=== PATIENT | male | born 1945 | race Hispanic/Latino ===

== ENCOUNTER 2021-04-14 11:29 | Inpatient (IN) | payer OTHER ==
[2021-04-14 12:15] LABS: Absolute Lymphocytes (CBC) 1.4 K/uL (0.7-4.9); Basophils % 0.6 % (0-1.3); Hematocrit 43.2 % (39.6-49.0); Lymphocytes % 16.5 % (15.3-44.8); MPV 7.9 fL (7.6-11.3); RBC Red Blood Cell Count 4.91 M/uL (4.33-5.43)
[2021-04-14 12:22] LABS: Protime INR 1.2
--- NOTE | 2021-04-14 12:25 | RAD REPORT ---
EXAM DESCRIPTION: RAD - Chest Single View - 04/14/2021 12:18 pm CLINICAL HISTORY: COPD;Dyspnea COMPARISON: Chest Pa And Lat (2 Views) dated 02/03/2021; Chest Pa And Lat (2 Views) dated 02/10/2018; Chest Pa And Lat (2 Views) dated 03/21/2017; Abdomen Pelvis W Contrast dated 11/16/2015 FINDINGS: Lines: None. Lungs: Next emphysema and interstitial lung disease with increasing interstitial and airspace disease bilaterally. Pleural: No significant pleural effusions or pneumothorax. Cardiac: Cardiomegaly . Bones: Right shoulder arthroplasty . Other: IMPRESSION: Increasing bilateral reticulonodular opacities concerning for pneumonia superimposed upo n a background of emphysema.
[2021-04-14] MEDS ORDERED: LEVALBUTEROL 1.25 MG/3 ML NEB ONE (12:34)
[2021-04-14] MEDS ORDERED: METHYLPREDNISOLONE 125 MG INJ ONE (12:34)
[2021-04-14 12:35] LABS: BUN Blood Urea Nitrogen 20 mg/dL (7-18); Bicarbonate 22 mmol/L (21-32); Ferritin 85.3 ng/mL (26-388); Glucose Level 150 mg/dL (74-106); Potassium 3.7 mmol/L (3.5-5.1); Sodium Level 140 mmol/L (136-145); Troponin (Emerg Dept Use Only) < 0.02 ng/mL (0.0-0.045)
[2021-04-14] MEDS ORDERED: MAGNESIUM SULFATE 1 gm IVPB 1 GM/100 ML BAG IV ONE (12:35)
[2021-04-14] MEDS ORDERED: PIPERACIL/TAZO 3.375 GM VIAL IV ONE (13:30)
[2021-04-14] MEDS ORDERED: NA CHLORIDE 0.9% 0 ML ONE (13:30)
[2021-04-14] MEDS ORDERED: NA CHLORIDE 0.9% 100 ML ONE (13:31)
--- NOTE | 2021-04-14 15:17 | EDPHYS ---
Physician Documentation [facility] Name: Gonzalo Galvez Age: 75 yrs Sex: Male : 1945 Arrival Date: 04/14/2021 Time: 11:31 Bed 26 Private MD: ED Physician Dung Barragan HPI: 04/14 11:51 This 75 yrs old Male presents to ER via Unassigned with complaints of rn Shortness Of Breath, COPD Exacerbation. 11:51 The patient has shortness of breath at rest, with light activity. Onset: The rn symptoms/episode began/occurred 3 day(s) ago. Duration: The symptoms are continuous. The patient's shortness of breath is aggravated by exertion, light activity, is alleviated by rest, sitting up, application of supplemental oxygen. Associated signs and symptoms: Pertinent positives: non-productive cough, Pertinent negatives: dizziness, fever, hemoptysis, loss of consciousness. Severity of symptoms: At their worst the symptoms were moderate in the emergency department the symptoms are unchanged. The patient has experienced similar episodes in the past. The patient has not recently seen a physician. Patient and family report a few days of increased shortness of breath, worse with exertion, cough. Denies fever or trauma. Denies chest pain or abdominal pain. Not on home oxygen. Triage states low oxygen in the 60s.. Historical: - Allergies: 11:38 No Known Allergies; ll1 - PMHx: 11:38 copd; ll1 11:54 pulmonary HTN; ll1 - PSHx: 11:38 R shoulder SX; ll1 - Immunization history:: Client reports receiving the 2nd dose of the Covid vaccine. - Social history:: Smoking status: Patient/guardian denies using tobacco, Stopped _ months ago 4. - Family history:: not pertinent. - Hospitalizations: : No recent hospitalization is reported. ROS: 11:51 Constitutional: Negative for fever, chills, and weight loss, Eyes: Negative for injury, rn pain, redness, and discharge, ENT: Negative for injury, pain, and discharge, Neck: Negative for injury, pain, and swelling, Cardiovascular: Negative for chest pain, palpitations, and edema, Respiratory: Positive for shortness of breath and cough Abdomen/GI: Negative for abdominal pain, nausea, vomiting, diarrhea, and constipation, Back: Negative for injury and pain, : Negative for injury, bleeding, discharge, and swelling, MS/Extremity: Negative for injury and deformity, Skin: Negative for injury, rash, and discoloration, Neuro: Negative for headache, weakness, numbness, tingling, and seizure. 11:51 All other systems are negative. Exam: 11:51 Constitutional: Thin male, sitting upright in wheelchair, mild tachypnea Head/Face: rn Normocephalic, atraumatic. Eyes: Periorbital areas with no swelling, redness, or edema. Cardiovascular: Tachycardic, regular. Respiratory: Mild tachypnea with faint expiratory wheezing. Abdomen/GI: Soft, nontender Skin: Warm, dry MS/ Extremity: Pulses equal, no cyanosis. Neurovascular intact. Full, normal range of motion. Equal circumference. Neuro: Awake and alert, GCS 15 12:23 ECG was reviewed by the Attending Physician. rn Vital Signs: 11:52 BP 125 / 72; Pulse 100; Resp 30; Temp 96.8; Pulse Ox 64% ; Pain 0/10; ll1 14:00 BP 118 / 67; Pulse 57; Resp 24; Temp 97.0(TE); Pulse Ox 85% on 2 lpm NC; kh1 15:00 BP 142 / 81; Pulse 59; Resp 23; Pulse Ox 89% on 2 lpm NC; kh1 20:03 BP 146 / 81; Pulse 80; Resp 20 S; Pulse Ox 92% on 4 lpm NC; bb 20:30 BP 137 / 84; Pulse 89; Resp 20; Temp 97.5(O); Pulse Ox 97% ; cc4 11:52 O2 sat 64%-73% RA. O2 3L NC applied, sat up to 84%. Dr. Barragan and nurse at bedside. ll1 MDM: 11:38 Patient medically screened. rn 15:14 Differential diagnosis: Bronchitis Chronic Obstructive Pulmonary Disease pneumonia, rn Pneumothorax pulmonary edema, reactive airway disease, Sepsis. Data reviewed: vital signs, nurses notes, lab test result(s), EKG, radiologic studies, plain films, and as a result, I will admit patient. Data interpreted: ekg monitor tech: rate is 100 beats/min, rhythm is normal sinus rhythm, regular, with no ectopy, Interpretation: normal rate, normal rhythm, Pulse oximetry: on room air is 64 %. Interpretation: hypoxia. Plan: O2 by NC applied. Test interpretation: by ED physician or midlevel provider: ECG, plain radiologic studies, Chest x-ray shows bilateral interstitial infiltrate superimposed on COPD. Counseling: I had a detailed discussion with the patient and/or guardian regarding: the historical points, exam findings, and any diagnostic results supporting the discharge/admit diagnosis, lab results, radiology results, the need for further work-up and treatment in the hospital. Response to treatment: the patient's symptoms have markedly improved after treatment, and as a result, I will admit patient. Admission orders: after a detailed discussion of the patient's condition and case, the admit orders are written by me. ED course: Patient feels much improved. Breathing much better. Will admit for interstitial pneumonia. Hypoxemia has improved after nebulizer treatment and steroids.. 04/14 11:47 Order name: BMP rn 04/14 11:47 Order name: Blood Culture Adult (2) rn 04/14 11:47 Order name: C-Reactive Protein rn 04/14 11:47 Order name: CBC with Diff rn 04/14 11:47 Order name: D-Dimer rn 04/14 11:47 Order name: Ferritin; Complete Time: 12:46 rn 04/14 11:47 Order name: Flu; Complete Time: 13:51 rn 04/14 11:47 Order name: Lactate; Complete Time: 12:46 rn 04/14 11:47 Order name: PT-INR; Complete Time: 12:26 rn 04/14 11:47 Order name: Procalcitonin; Complete Time: 13:05 rn 04/14 11:47 Order name: Ptt, Activated; Complete Time: 12:26 rn 04/14 11:47 Order name: Strep; Complete Time: 12:46 rn 04/14 11:47 Order name: Troponin (emerg Dept Use Only); Complete Time: 12:46 rn 04/14 11:47 Order name: CXR XRAY; Complete Time: 12:26 rn 04/14 11:47 Order name: EKG; Complete Time: 11:47 rn 04/14 11:47 Order name: Cardiac monitoring; Complete Time: 12:04 rn 04/14 11:47 Order name: Basic Metabolic Panel; Complete Time: 12:46 EDMS 04/14 11:47 Order name: Blood Culture EDWA 04/14 11:47 Order name: C-Reactive Protein; Complete Time: 12:46 EDMS 04/14 11:47 Order name: CBC with Automated Diff; Complete Time: 12:23 EDMS 04/14 11:47 Order name: D-Dimer; Complete Time: 12:26 EDMS 04/14 12:43 Order name: Throat Culture EDMS 04/14 14:47 Order name: SARS-COV-2 RT PCR; Complete Time: 14:52 EDMS 04/14 17:18 Order name: CT EDMS 04/14 17:20 Order name: Lactate Sepsis 2 HR Follow-up EDMS 04/14 11:47 Order name: Droplet/Contact Precautions; Complete Time: 12:04 rn 04/14 11:47 Order name: EKG - Nurse/Tech; Complete Time: 12:04 rn 04/14 11:47 Order name: IV Start; Complete Time: 12:05 rn 04/14 11:47 Order name: Labs collected and sent; Complete Time: 12:05 rn 04/14 11:47 Order name: O2 Per Protocol; Complete Time: 12:05 rn 04/14 11:47 Order name: O2 Sat Monitoring; Complete Time: 12:05 rn EC:23 Rate is 75 beats/min. Rhythm is regular. QRS [place] is Normal. NC interval is prolonged rn at 212 msec. QRS interval is normal. QT interval is prolonged at 502 msec. No Q waves. T waves are Inverted in leads V1, V2, V3. No ST changes noted. Clinical impression: NSR w/ Non-specific ST/T Changes and 1st degree heart block. Interpreted by me. Reviewed by me. Administered Medications: 12:24 Drug: Magnesium Sulfate 1 grams Route: IVPB; Infused Over: 1 hrs; Site: right kh1 antecubital; 20:30 Follow up: Response: No adverse reaction cc4 12:26 Drug: SOLU-Medrol (methylPrednisoLONE) 125 mg Route: IVP; Site: right antecubital; kh1 12:26 Drug: Xopenex (levalbuterol) (3) 1.25 mg Route: Inhalation; kh1 13:00 Drug: Zosyn (piperacillin-tazobactam) 3.375 grams Route: IVPB; Infused Over: 60 mins; oh Site: right antecubital; 20:30 Follow up: Response: No adverse reaction cc4 Disposition: 15:14 Critical Care:. rn Disposition Summary: 04/14/21 15:16 Hospitalization Ordered Hospitalization Status: Inpatient Admission rn Provider: José Luis Lobo rn [facility] rn Condition: Stable rn Problem: new rn Symptoms: have improved rn Bed/Room Type: Standard rn Room Assignment: 427(04/14/21 18:59) tt3 Diagnosis - Pneumonia, unspecified organism rn - Hypoxemia rn - COPD/ Chronic obstructive pulmonary disease with acute lower respiratory infection rn Forms: - Medication Reconciliation Form rn - SBAR form saddle and harness maker time excluding procedures: 15:14 Critical care time: Bedside Care: 30 minutes, Consultation: 5 minutes. Total time: 35 rn minutes Signatures: Dispatcher [employer] EDMS Dung Barragan MD MD rn Lewis, Lynsay RN RN [facility] Cal Lopez tt3 Antonina Gustafson 1 Dio Blood RN RN Brooke Valentin RN cc4 Corrections: (The following items were deleted from the chart) 13:27 11:47 CORONAVIRUS+MR.LAB.BRZ ordered. EDWA EDWA 18:59 15:16 rn tt3
--- NOTE | 2021-04-14 15:17 | ER ---
Nurse's Notes [facility] Name: Gonzalo Galvez Age: 75 yrs Sex: Male : 1945 Arrival Date: 04/14/2021 Time: 11:31 Bed 26 Private MD: Diagnosis: Pneumonia, unspecified organism;Hypoxemia;COPD/ Chronic obstructive pulmonary disease with acute lower respiratory infection Presentation: 04/14 11:52 Chief complaint: Patient states: SOB for 1 week. O2 sat 60% at home. No known fever. ll1 Coronavirus screen: Vaccine status: Patient reports receiving the 2nd dose of the covid vaccine. Client denies travel out of the [place] in the last 14 days. cough unrelated to allergies, difficulty breathing, fatigue, shortness of breath, Client presents with at least one sign or symptom that may indicate coronavirus-19. Standard/surgical mask placed on the client. Ebola Screen: Patient denies travel to an Ebola-affected area in the 21 days before illness onset. Initial Sepsis Screen: Does the patient meet any 2 criteria? RR > 20 per min. HR > 90 bpm. Yes Does the patient have a suspected source of infection? Yes: Productive cough/pneumonia. Risk Assessment: Do you want to hurt yourself or someone else? Patient reports no desire to harm self or others. Onset of symptoms was April 07, 2021. 11:52 Method Of Arrival: Ambulatory [facility] 11:52 Acuity: TYSON 2 ll1 Triage Assessment: 12:30 Respiratory: Reports shortness of breath Onset: The symptoms/episode began/occurred kh1 gradually, the patient has moderate shortness of breath. Historical: - Allergies: 11:38 No Known Allergies; ll1 - PMHx: 11:38 copd; ll1 11:54 pulmonary HTN; ll1 - PSHx: 11:38 R shoulder SX; ll1 - Immunization history:: Client reports receiving the 2nd dose of the Covid vaccine. - Social history:: Smoking status: Patient/guardian denies using tobacco, Stopped _ months ago 4. - Family history:: not pertinent. - Hospitalizations: : No recent hospitalization is reported. Screenin:29 Abuse screen: Denies threats or abuse. Nutritional screening: No deficits noted. 1 Tuberculosis screening: No symptoms or risk factors identified. Fall Risk None identified. Fall in past 12 months (25 points). No secondary diagnosis (0 pts). IV access (20 points). Ambulatory Aid- None/Bed Rest/Nurse Assist (0 pts). Gait- Normal/Bed Rest/Wheelchair (0 pts). Assessment: 12:27 General: Appears in no apparent distress. uncomfortable, Behavior is calm, cooperative, kh1 appropriate for age. Pain: Denies pain. Cardiovascular: No deficits noted. Reports shortness of breath, Denies chest pain, nausea, vomiting, Rhythm is sinus rhythm. Respiratory: Airway is patent Respiratory effort is even, labored, Respiratory pattern is regular. 13:30 Reassessment: Patient appears in no apparent distress at this time. No changes from [facility] previously documented assessment. Patient and/or family updated on plan of care and expected duration. Pain level reassessed. Patient is alert, oriented x 3, equal unlabored respirations, skin warm/dry/pink. Patient states symptoms have not improved. 15:34 Reassessment: Patient appears in no apparent distress at this time. No changes from [facility] previously documented assessment. Patient and/or family updated on plan of care and expected duration. Pain level reassessed. Patient is alert, oriented x 3, equal unlabored respirations, skin warm/dry/pink. 20:36 Respiratory: cc4 Vital Signs: 11:52 BP 125 / 72; Pulse 100; Resp 30; Temp 96.8; Pulse Ox 64% ; Pain 0/10; ll1 14:00 BP 118 / 67; Pulse 57; Resp 24; Temp 97.0(TE); Pulse Ox 85% on 2 lpm NC; kh1 15:00 BP 142 / 81; Pulse 59; Resp 23; Pulse Ox 89% on 2 lpm NC; kh1 20:03 BP 146 / 81; Pulse 80; Resp 20 S; Pulse Ox 92% on 4 lpm NC; bb 20:30 BP 137 / 84; Pulse 89; Resp 20; Temp 97.5(O); Pulse Ox 97% ; cc4 11:52 O2 sat 64%-73% RA. O2 3L NC applied, sat up to 84%. Dr. Barragan and nurse at bedside. ll1 ED Course: 11:31 Patient arrived in ED. as 11:38 Dung Barragan MD is Attending Physician. rn 11:38 Arm band placed on Patient placed in an exam room, on a stretcher. ll1 11:54 Triage completed. ll1 12:04 Dio Blood, LYNN is Primary Nurse. oh 12:17 CXR XRAY In Process Unspecified. EDMS 12:21 D-Dimer Sent. kh1 12:21 BMP Sent. kh1 12:21 Blood Culture Sent. kh1 12:21 C-Reactive Protein Sent. kh1 12:21 Basic Metabolic Panel Sent. kh1 12:21 Blood Culture Adult (2) Sent. kh1 12:21 C-Reactive Protein Sent. kh1 12:21 D-Dimer Sent. kh1 12:21 Ferritin Sent. kh1 12:21 Flu Sent. kh1 12:21 Lactate Sent. kh1 12:22 PT-INR Sent. kh1 12:22 Procalcitonin Sent. kh1 12:22 Ptt, Activated Sent. kh1 12:22 Strep Sent. kh1 12:22 Troponin (emerg Dept Use Only) Sent. kh1 12:30 Patient has correct armband on for positive identification. Bed in low position. Call [facility] light in reach. Side rails up X 1. Adult w/ patient. environmental monitoring specialist on. Pulse ox on. NIBP on. 13:47 Throat Culture Sent. oh 15:15 José Luis Lobo DO is Hospitalizing Provider. rn 20:30 No provider procedures requiring assistance completed. cc4 20:30 IV is patent, is intact, with fluids infusing freely, cc4 Administered Medications: 12:24 Drug: Magnesium Sulfate 1 grams Route: IVPB; Infused Over: 1 hrs; Site: right [facility] antecubital; 20:30 Follow up: Response: No adverse reaction cc4 12:26 Drug: SOLU-Medrol (methylPrednisoLONE) 125 mg Route: IVP; Site: right antecubital; kh1 12:26 Drug: Xopenex (levalbuterol) (3) 1.25 mg Route: Inhalation; kh1 13:00 Drug: Zosyn (piperacillin-tazobactam) 3.375 grams Route: IVPB; Infused Over: 60 mins; oh Site: right antecubital; 20:30 Follow up: Response: No adverse reaction cc4 Outcome: 15:16 Decision to Hospitalize by Provider. rn 20:30 Condition: stable cc4 20:36 Admitted to Med/surg accompanied by tech, room 427, with oxygen, Report called to jaison Venegas RN. 20:39 Patient left the ED. cc4 Signatures: Dispatcher [employer] EDMS La Nena Nielsen Brenda RN RN Dung Arrington MD MD rn Lewis, Lynsay, RN RN 1 Antonina Gustafson [facility] Brooke Carroll RN RN cc4 Harriott, Oneka, RN RN tn Corrections: (The following items were deleted from the chart) 13:27 12:21 CORONAVIRUS+MR.LAB.BRZ drawn and sent. [address]
--- NOTE | 2021-04-14 16:24 | P.HP ---
Certification for Inpatient Patient admitted to: Inpatient With expected LOS: >2 Midnights Patient will require the following post-hospital care: None Practitioner: I am a practitioner with admitting privileges, knowledge of patient current condition, hospital course, and medical plan of care. Services: Services provided to patient in accordance with Admission requirements found in Title 42 Section 412.3 of the Code of Federal Regulations Patient History Date of Service: 04/14/21 Primary Care Provider: Dr. Marroquin Reason for admission: Shortness of breath History of Present Illness: 75-year-old male with history of pulmonary hypertension, COPD and prior tobacco use. Patient reports increasing shortness of breath over the past month. Over the last several days his shortness of breath has worsened. He reports that the patient was seen by his PCP over the past month. He was sent to cardiology for further evaluation. Patient was diagnosed with pulmonary hypertension. Patient takes metoprolol. He was to see pulmonology for his COPD. Today he got more short of breath. Oxygen saturations were low. He was brought into the ER for further evaluation. Patient denied any nausea, vomiting, chest pain. In the ER patient was found to be hypoxic. Patient required oxygen. Lab reviewed. D-dimer elevated. Procalcitonin negative. Troponin negative. White count 8.2, hemoglobin 14. Platelet count 328. Sodium 140, potassium 3.7. BUN of 20, creatinine 0.84 with a GFR 78. Covid test negative. Chest x-ray showed multi reticular nodular opacities suspected pneumonia noted. COPD changes noted. Patient admitted for treatment. Allergies No Known Allergies Allergy (Unverified 08/15/16 21:34) Home medications list reviewed: Yes - Past Medical/Surgical History Diabetic: No -: Pulmonary hypertension -: COPD -: History of tobacco use -: Right shoulder surgery Psychosocial/ Personal History: Patient lives at home. - Family History Family History: Reviewed- Non-Contributory - Social History Smoking Status: Former smoker Alcohol use: Yes CD- Drugs: No Caffeine use: Yes Place of Residence: Home Review of Systems General: As per HPI Eyes: As per HPI ENT: As per HPI Respiratory: Cough, Shortness of Breath, SOB with Excertion, As per HPI Cardiovascular: Unremarkable Gastrointestinal: Unremarkable Genitourinary: Unremarkable Musculoskeletal: Unremarkable Integumentary: Unremarkable Neurological: Unremarkable Lymphatics: Unremarkable Physical Examination - Studies Laboratory Data (last 24 hrs) 04/14/21 12:00: PT 13.8 H, INR 1.20, APTT 31.3 04/14/21 12:00: WBC 8.20, Hgb 14.0, Hct 43.2, Plt Count 328 04/14/21 12:00: Sodium 140, Potassium 3.7, BUN 20 H, Creatinine 0.94, Glucose 150 H Microbiology Data (last 24 hrs): 04/14/21 12:10 Nasopharnyx Influenza Type A Antigen Screen - Final 04/14/21 12:10 Nasopharnyx Influenza Type B Antigen Screen - Final 04/14/21 12:10 Throat Group A Streptococcus Rapid Screen - Final Assessment and Plan - Plan COVID: Negative Chest x-ray: COMPARISON: Chest Pa And Lat (2 Views) dated 02/03/2021; Chest Pa And Lat (2 Views) dated 02/10/2018; Chest Pa And Lat (2 Views) dated 03/21/2017; Abdomen Pelvis W Contrast dated 11/16/2015 FINDINGS: Lines: None. Lungs: Next emphysema and interstitial lung disease with increasing interstitial and airspace disease bilaterally. Pleural: No significant pleural effusions or pneumothorax. Cardiac: Cardiomegaly . Bones: Right shoulder arthroplasty . IMPRESSION: Increasing bilateral reticulonodular opacities concerning for pneumonia superimposed upon a background of emphysema. CT scan: Pending Physical Exam: GENERAL: The patient is a well-developed, well-nourished, in no apparent distress. Alert and oriented x3. VITAL SIGNS: Reviewed HEENT: Head is normocephalic and atraumatic. Extraocular muscles are intact. Pupils are equal, round, and reactive to light and accommodation. Nares appeared normal. Mouth is well hydrated and without lesions. Mucous membranes are moist. NECK: Supple. No carotid bruits. No lymphadenopathy or thyromegaly. LUNGS: Wheezes bilateral. Currently on 4 L per nasal cannula. HEART: Regular rate and rhythm, no appreciable gallops, rubs, murmurs or extra heart sounds ABDOMEN: Soft, nontender, and nondistended. Positive bowel sounds. No hepatosplenomegaly was noted. EXTREMITIES: Without any cyanosis, clubbing, rash, lesions or peripheral edema. NEUROLOGIC: The patient is oriented to person, place and time. Strength and sensation are grossly intact. Face is symmetric. SKIN: Normal color, turgor and temperature. No ulcerations or rashes noted. Impression: Dyspnea secondary to bilateral reticulonodular pneumonia complicated with COPD exacerbation with hypoxia Pulmonary hypertension History of tobacco use Plan: Dyspnea secondary to bilateral reticulonodular pneumonia complicated with COPD exacerbation with hypoxia: Patient mated for further evaluation and treatment. D-dimer was elevated. Will check CT scan of the chest to evaluate for possible pulmonary embolism. We will continue with IV Zosyn. Continue IV Solu-Medrol. Provide COPD medicationBrovana, albuterol and Atrovent. Pulmonology consulted for further recommendation. DVT prophylaxis in place. Await recommendations by pulmonology. Continue to titrate and wean off oxygen. Recheck chest x-ray tomorrow. Reassess tomorrow. Pulmonary hypertension: Continue with metoprolol. Try to obtain recent ech ocardiogram results from cardiology. History of tobacco use: Patient no longer smokes Code Status: Full Code DVT prophylaxis: Lovenox Advanced Care Planning-30 minutes: Home at discharge Discharge Plan: Home Plan to discharge in: 72 Hours - Advance Directives Does patient have a Living Will: Yes Does patient have a Durable POA for Healthcare: No Time Spent Managing Pts Care (In Minutes): 55
[2021-04-14] MEDS ORDERED: ACETAMINOPHEN 500 MG TAB PO PRN (16:34)
[2021-04-14] MEDS ORDERED: ONDANSETRON 4 MG/2 ML VIAL IV PRN (16:34)
[2021-04-14] MEDS ORDERED: ALBUTEROL 2.5 MG/3 ML NEB SOL NEB PRN (16:34)
[2021-04-14] MEDS: METHYLPREDNISOLONE 125 MG INJ IV SCH (17:00)
--- NOTE | 2021-04-14 17:18 | RAD REPORT ---
EXAM DESCRIPTION: CT - Chest For Pe Angio - 04/14/2021 5:04 pm CLINICAL HISTORY: Chest pain. Multifocal pneumonia, Pulm HTN, Elevated ddimer, COMPARISON: Chest Single View dated 04/14/2021 TECHNIQUE: CT angiogram of the pulmonary arteries was performed with MIP. All CT scans are performed using dose optimization technique as appropriate and may include automated exposure control or mA/KV adjustment according to patient size. FINDINGS: No evidence of pulmonary thromboembolism. No acute aortic finding demonstrated. Significant fibrotic and emphysematous changes are present throughout the lungs. Ground-glass opacity particularly in both lower lobes is present which may represent pulmonary edema or infection. No significant pericardial or pleural fluid. No concerning bony finding. IMPRESSION: No evidence of pulmonary thromboembolism. Significant fibrotic and emphysematous changes are present throughout the lungs. Mild interstitial pu lmonary edema or infection is a possibility.
[2021-04-14] MEDS: ENOXAPARIN 40 MG/0.4 ML SQ SCH (18:00)
[2021-04-14] MEDS: PIPER TAZO 3.375 GM in NA CHLORIDE 0.9% 100 ML IV SCH (18:00)
[2021-04-14] MEDS: METOPROLOL TAR 25 MG TAB PO SCH (18:00)
[2021-04-14] MEDS: ARFORMOTEROL TARTRATE 15 MCG/2 ML VIAL.NEB NEB SCH (20:00)
[2021-04-14] MEDS: FAMOTIDINE 20 MG TAB PO SCH (21:30)
[2021-04-14 23:40] VITALS: BMI 21.4
[2021-04-15] MEDS: PIPER TAZO 3.375 GM in NA CHLORIDE 0.9% 100 ML IV SCH ×3 (00:30→17:39)
[2021-04-15] MEDS: METHYLPREDNISOLONE 125 MG INJ IV SCH ×3 (01:33→17:41)
[2021-04-15] MEDS: METOPROLOL TAR 25 MG TAB PO SCH ×2 (05:41→17:39)
[2021-04-15 06:01] LABS: Absolute Lymphocytes (CBC) 0.6 K/uL (0.7-4.9); Basophils % 0.2 % (0-1.3); Hematocrit 39.9 % (39.6-49.0); Lymphocytes % 14.1 % (15.3-44.8); MPV 7.8 fL (7.6-11.3); RBC Red Blood Cell Count 4.54 M/uL (4.33-5.43)
--- NOTE | 2021-04-15 06:16 | P.PN ---
Subjective Date of Service: 04/15/21 Primary Care Provider: Dr. Marroquin Chief Complaint: Shortness of breath Subjective: Improving Physical Examination - Vital Signs Temperature: 98.2 F Blood Pressure: 160/86 Pulse: 67 Respirations: 16 Pulse Ox (%): 91 - Studies Laboratory Data (last 24 hrs) 04/14/21 12:00: PT 13.8 H, INR 1.20, APTT 31.3 04/14/21 12:00: WBC 8.20, Hgb 14.0, Hct 43.2, Plt Count 328 04/14/21 12:00: Sodium 140, Potassium 3.7, BUN 20 H, Creatinine 0.94, Glucose 150 H Microbiology Data (last 24 hrs): 04/14/21 12:10 Nasopharnyx Influenza Type A Antigen Screen - Final 04/14/21 12:10 Nasopharnyx Influenza Type B Antigen Screen - Final 04/14/21 12:10 Throat Group A Streptococcus Rapid Screen - Final Assessment & Plan Discharge Plan: Home Plan to discharge in: 48 Hours Physician Review Additional Text: COVID: Negative Chest x-ray: COMPARISON: Chest Pa And Lat (2 Views) dated 02/03/2021; Chest Pa And Lat (2 Views) dated 02/10/2018; Chest Pa And Lat (2 Views) dated 03/21/2017; Abdomen Pelvis W Contrast dated 11/16/2015 FINDINGS: Lines: None. Lungs: Next emphysema and interstitial lung disease with increasing interstitial and airspace disease bilaterally. Pleural: No significant pleural effusions or pneumothorax. Cardiac: Cardiomegaly . Bones: Right shoulder arthroplasty . IMPRESSION: Increasing bilateral reticulonodular opacities concerning for pneumonia superimposed upon a background of emphysema. CT Scan: COMPARISON: Chest Single View dated 04/14/2021 TECHNIQUE: CT angiogram of the pulmonary arteries was performed with MIP. All CT scans are performed using dose optimization technique as appropriate and may include automated exposure control or mA/KV adjustment according to patient size. FINDINGS: No evidence of pulmonary thromboembolism. No acute aortic finding demonstrated. Significant fibrotic and emphysematous changes are present throughout the lungs. Ground-glass opacity particularly in both lower lobes is present which may represent pulmonary edema or infection. No significant pericardial or pleural fluid. No concerning bony finding. IMPRESSION: No evidence of pulmonary thromboembolism. Significant fibrotic and emphysematous changes are present throughout the lungs. Mild interstitial pulmonary edema or infection is a possibility. Follow up CXR 04/15/2021: COMPARISON: Chest Single View dated 04/14/2021; Chest Pa And Lat (2 Views) dated 02/03/2021; Chest Pa And Lat (2 Views) dated 02/10/2018; Chest Pa And Lat (2 Views) dated 03/21/2017 FINDINGS: Lines: None. Lungs: Similar degree of reticulonodular airspace disease bilaterally. Pleural: No significant pleural effusions or pneumothorax. Cardiac: Cardiomegaly. Bones: No acute fractures. Right shoulder arthroplasty . IMPRESSION: No significant change in aeration lungs compared with 04/14/2021 with bilateral reticulonodular airspace disease concerning for pneumonia on a background of COPD. Physical Exam: GENERAL: The patient is a well-developed, well-nourished, in no apparent distress. Alert and oriented x3. VITAL SIGNS: Reviewed HEENT: Neck supple LUNGS: Clear with 3 L per nasal cannula HEART: Regular rate and rhythm, no appreciable gallops, rubs, murmurs or extra heart sounds ABDOMEN: Soft, nontender, and nondistended. Positive bowel sounds. No hepatosplenomegaly was noted. EXTREMITIES: Without any cyanosis, clubbing, rash, lesions or peripheral edema. NEUROLOGIC: The patient is oriented to person, place and time. Strength and sensation are grossly intact. Face is symmetric. SKIN: Normal color, turgor and temperature. No ulcerations or rashes noted. Impression: Dyspnea secondary to bilateral reticulonodular pneumonia complicated with COPD exacerbation with hypoxia Pulmonary hypertension Hyperlipidemia History of tobacco use Plan: Dyspnea secondary to bilateral reticulonodular pneumonia complicated with COPD exacerbation with hypoxia: Patient has improved. Currently on 3 L per nasal cannula. CT scan showed significant fibrotic and emphysematous changes throughout the lung. Continue IV Solu-Medrol. Patient remains on Brovana, albuterol and Atrovent. Await recommendations by pulmonology. Continue to wean off oxygen to maintain sats above 90%. Patient may require home oxygen at discharge. Will monitor closely. Anticipate home in the next 48 hours. Pulmonary hypertension: Continue with metoprolol. Try to obtain recent echocardiogram results from cardiology. Hyperlipidemia: Restart statin medication History of tobacco use: Patient no longer smokes Code Status: Full Code DVT prophylaxis: Lovenox Advanced Care Planning-30 minutes: Home at discharge Discharge Plan: Home Time Spent Managing Pts Care (In Minutes): 55
[2021-04-15 06:37] LABS: ALT/SGPT 69 U/L (12-78); AST/SGOT 29 U/L (15-37); Albumin 3.2 g/dL (3.4-5.0); Alkaline Phosphatase 194 U/L (45-117); BUN Blood Urea Nitrogen 15 mg/dL (7-18); Bicarbonate 21 mmol/L (21-32); Bilirubin Total 0.9 mg/dL (0.2-1.0); Glucose Level 146 mg/dL (74-106); Magnesium 2.1 mg/dL (1.8-2.4); Potassium 3.8 mmol/L (3.5-5.1); Protein, Total 7.2 g/dL (6.4-8.2); Sodium Level 143 mmol/L (136-145); Thyroid Stimulating Hormone 0.297 uIU/mL (0.360-3.740)
--- NOTE | 2021-04-15 07:16 | RAD REPORT ---
EXAM DESCRIPTION: RAD - Chest Single View - 04/15/2021 5:52 am CLINICAL HISTORY: follow up COPD, Pneumonia COMPARISON: Chest Single View dated 04/14/2021; Chest Pa And Lat (2 Views) dated 02/03/2021; Chest Pa And Lat (2 Views) dated 02/10/2018; Chest Pa And Lat (2 Views) dated 03/21/2017 FINDINGS: Lines: None. Lungs: Similar degree of reticulonodular airspace disease bilaterally. Pleural: No significant pleural effusions or pneumothorax. Cardiac: Cardiomegaly. Bones: No acute fractures. Right shoulder arthroplasty . Other: IMPRESSION: No significant change in aeration lungs compared with 04/14/2021 with bilateral reticulo nodular airspace disease concerning for pneumonia on a background of COPD.
[2021-04-15] MEDS: ARFORMOTEROL TARTRATE 15 MCG/2 ML VIAL.NEB NEB SCH ×2 (08:04→20:00)
[2021-04-15] MEDS ORDERED: POTASSIUM CL SA 10 MEQ TAB PO ONE (08:09)
[2021-04-15] MEDS: ENOXAPARIN 40 MG/0.4 ML SQ SCH (08:56)
[2021-04-15] MEDS: THIAMINE HCL 100 MG TABLET PO SCH (08:57)
[2021-04-15] MEDS: FAMOTIDINE 20 MG TAB PO SCH ×2 (08:57→20:57)
[2021-04-15] MEDS: FOLIC ACID 1 MG TABLET PO SCH (08:57)
--- NOTE | 2021-04-15 11:15 | EKG ---
Test Date: 2021-04-14 Test Time: 11:55:36 Heater Engineer Helper: IGNACIO MEASUREMENT RESULTS: Intervals: Rate: 75 IL: 212 QRSD: 86 QT: 450 QTc: 502 [place]: P: 61 IL: 212 QRS: 72 T: 93 INTERPRETIVE STATEMENTS: Sinus rhythm with 1st degree AV block with frequent premature ventricular complexes ST & T wave abnormality, consider inferior ischemia ST & T wave abnormality, consider anterior ischemia Prolonged QT Abnormal ECG No previous ECG available for comparison Electronically Signed On 04-15-21 11:13:11 CDT by Chris Cervantes
[2021-04-15] MEDS: ATORVASTATIN 20 MG TAB PO SCH (20:57)
[2021-04-16] MEDS ORDERED: NA CHLORIDE 0.9% 100 ML ONE (01:19)
[2021-04-16] MEDS: PIPER TAZO 3.375 GM in NA CHLORIDE 0.9% 100 ML IV SCH ×2 (02:20→08:39)
[2021-04-16] MEDS: METHYLPREDNISOLONE 125 MG INJ IV SCH ×2 (02:21→08:39)
[2021-04-16] MEDS: METOPROLOL TAR 25 MG TAB PO SCH ×2 (05:20→17:20)
--- NOTE | 2021-04-16 06:22 | P.PN ---
Subjective Date of Service: 04/16/21 Primary Care Provider: Dr. Marroquin Chief Complaint: Shortness of breath Subjective: Other (Patient now requiring 8 L per nasal cannula. Patient reports improvement.) Physical Examination - Vital Signs Temperature: 97.5 F Blood Pressure: 144/84 Pulse: 64 Respirations: 20 Pulse Ox (%): 89 Assessment & Plan Discharge Plan: Home Plan to discharge in: 72 Hours Physician Review Additional Text: COVID: Negative Chest x-ray: COMPARISON: Chest Pa And Lat (2 Views) dated 02/03/2021; Chest Pa And Lat (2 Views) dated 02/10/2018; Chest Pa And Lat (2 Views) dated 03/21/2017; Abdomen Pelvis W Contrast dated 11/16/2015 FINDINGS: Lines: None. Lungs: Next emphysema and interstitial lung disease with increasing interstitial and airspace disease bilaterally. Pleural: No significant pleural effusions or pneumothorax. Cardiac: Cardiomegaly . Bones: Right shoulder arthroplasty . IMPRESSION: Increasing bilateral reticulonodular opacities concerning for pneumonia superimposed upon a background of emphysema. CT Scan: COMPARISON: Chest Single View dated 04/14/2021 TECHNIQUE: CT angiogram of the pulmonary arteries was performed with MIP. All CT scans are performed using dose optimization technique as appropriate and may include automated exposure control or mA/KV adjustment according to patient size. FINDINGS: No evidence of pulmonary thromboembolism. No acute aortic finding demonstrated. Significant fibrotic and emphysematous changes are present throughout the lungs. Ground-glass opacity particularly in both lower lobes is present which may represent pulmonary edema or infection. No significant pericardial or pleural fluid. No concerning bony finding. IMPRESSION: No evidence of pulmonary thromboembolism. Significant fibrotic and emphysematous changes are present throughout the lungs. Mild interstitial pulmonary edema or infection is a possibility. Follow up CXR 04/15/2021: COMPARISON: Chest Single View dated 04/14/2021; Chest Pa And Lat (2 Views) dated 02/03/2021; Chest Pa And Lat (2 Views) dated 02/10/2018; Chest Pa And Lat (2 Views) dated 03/21/2017 FINDINGS: Lines: None. Lungs: Similar degree of reticulonodular airspace disease bilaterally. Pleural: No significant pleural effusions or pneumothorax. Cardiac: Cardiomegaly. Bones: No acute fractures. Right shoulder arthroplasty . IMPRESSION: No significant change in aeration lungs compared with 04/14/2021 with bilateral reticulonodular airspace disease concerning for pneumonia on a background of COPD. Physical Exam: GENERAL: The patient is a well-developed, well-nourished, in no apparent distress. Alert and oriented x3. VITAL SIGNS: Reviewed HEENT: Neck supple LUNGS: Clear currently on 8 L per nasal cannula HEART: Regular rate and rhythm, no appreciable gallops, rubs, murmurs or extra heart sounds ABDOMEN: Soft, nontender, and nondistended. Positive bowel sounds. No hepatosplenomegaly was noted. EXTREMITIES: Without any cyanosis, clubbing, rash, lesions or peripheral edema. NEUROLOGIC: The patient is oriented to person, place and time. Strength and sensation are grossly intact. Face is symmetric. SKIN: Normal color, turgor and temperature. No ulcerations or rashes noted. Impression: Dyspnea secondary to bilateral reticulonodular pneumonia complicated with COPD exacerbation with hypoxia and idiopathic pulmonary fibrosis Pulmonary hypertension Hyperlipidemia History of tobacco use Plan: Dyspnea secondary to bilateral reticulonodular pneumonia complicated with COPD exacerbation with hypoxia and idiopathic pulmonary fibrosis: Case discussed at length with pulmonology. Patient with idiopathic pulmonary fibrosis. Continue to wean off oxygen. Currently on 8 L per nasal cannula. Patient will likely require home oxygen at discharge indefinitely. Needs to be less than 4 L before discharge. IV antibiotic therapy discontinued. IV steroid changed to prednisone 20 mg 1 pill twice daily. Pulmonology plans to follow-up with patient as an outpatient and send up to [facility] for treatment for pulmonary fibrosis. This was explained in detail with patient and family. Continue with COPD medication. Social work to help arrange for home oxygen. Anticipate discharge within the next 48 to 72 hours. I will turn the service over to the hospitalist team tomorrow. I will go plan of care with him. Pulmonary hypertension: Continue with metoprolol. Try to obtain recent echocardiogram results from cardiology. Pulmonology recommended to add Lasix. IV Lasix initiated. Hyperlipidemia: Continue medication History of tobacco use: Patient no longer smokes Code Status: Full Code DVT prophylaxis: Lovenox Advanced Care Planning-30 minutes: Home at discharge with home oxygen Time Spent Managing Pts Care (In Minutes): 55
[2021-04-16 06:24] LABS: Absolute Lymphocytes (CBC) 0.7 K/uL (0.7-4.9); Basophils % 0.1 % (0-1.3); Hematocrit 38.3 % (39.6-49.0); MPV 7.9 fL (7.6-11.3); RBC Red Blood Cell Count 4.32 M/uL (4.33-5.43)
[2021-04-16 06:49] LABS: Albumin 3.1 g/dL (3.4-5.0); Bilirubin Total 0.7 mg/dL (0.2-1.0); Magnesium 2.3 mg/dL (1.8-2.4); Potassium 4.2 mmol/L (3.5-5.1); Protein, Total 6.9 g/dL (6.4-8.2)
[2021-04-16] MEDS: IPRATROPIUM BROM 0.5MG/2.5ML NEB PRN (07:40)
[2021-04-16] MEDS: ARFORMOTEROL TARTRATE 15 MCG/2 ML VIAL.NEB NEB SCH ×2 (07:40→20:00)
[2021-04-16] MEDS: ENOXAPARIN 40 MG/0.4 ML SQ SCH (08:39)
[2021-04-16] MEDS: THIAMINE HCL 100 MG TABLET PO SCH (08:40)
[2021-04-16] MEDS: FOLIC ACID 1 MG TABLET PO SCH (08:40)
[2021-04-16] MEDS: FAMOTIDINE 20 MG TAB PO SCH ×2 (08:40→20:15)
[2021-04-16] MEDS ORDERED: HOME MED 1 EA UNK (Simvastatin [Simvastatin] 40 MG Tablet) PO SCH (09:00)
--- NOTE | 2021-04-16 11:19 | P.CNS ---
Date of Consult: 04/16/21 Reason for Consult: Pulmonary fibrosis Primary Care Provider: Dr. Marroquin Chief Complaint: Shortness of breath History of Present Illness: Patient is 70 years of age with a history of pulmonary hypertension COPD prior tobacco abuse has been complaining of progressive dyspnea for the past month worsened recently he was sent for a cardiac evaluation diagnosed with pulmonary hypertension and it appeared on the floor Allergies No Known Allergies Allergy (Unverified 08/15/16 21:34) Home Medications: Simvastatin 40 mg PO DAILY 04/14/21 - Past Medical/Surgical History Diabetic: No -: Pulmonary hypertension -: COPD -: History of tobacco use -: Right shoulder surgery Psychosocial/ Personal History: Patient lives at home. - Social History Smoking Status: Current every day smoker Alcohol use: Yes CD- Drugs: No Caffeine use: Yes Place of Residence: Home Physical Examination Temp Pulse Resp BP Pulse Ox 98.1 F 52 20 161/88 H 90 L 04/16/21 08:00 04/16/21 08:00 04/16/21 08:00 04/16/21 08:00 04/16/21 08:00 General: Alert, In no apparent distress, Oriented x3, Cooperative Respiratory: Crackles/rales Cardiovascular: No edema, Regular rate/rhythm, Normal S1 S2 Gastrointestinal: Normal bowel sounds, Soft and benign Musculoskeletal: No clubbing, No swelling Integumentary: No rashes, No breakdown - Problems (1) Pulmonary fibrosis Current Visit: Yes Status: Acute Plan: Age 75 AW progressive dyspnea likey IPF on CT/ Cw steroids 10 BID for 2 wks then 10 mg daily, Recetnly quit smoking / Add inhaler will qulaify for O2/ labs chem reviewed plan for D/c, evaluate for homeO2
[2021-04-16] MEDS: FUROSEMIDE 20 MG/ 2ML VIAL IV SCH ×2 (11:41→17:20)
[2021-04-16 14:04] LABS: Urine Appearance CLEAR (Clear); Urine Bilirubin NEGATIVE (Negative); Urine Blood NEGATIVE (Negative); Urine Color YELLOW (Yellow); Urine Glucose TRACE (Negative); Urine Protein TRACE (Negative); Urine Specific Gravity >=1.030 (1.005-1.030); Urine pH 5.5 (5.0-7.0)
[2021-04-16 14:16] LABS: Urine Microscopic Reflex ORDER UMIC
[2021-04-16 14:17] LABS: Urine Bacteria NONE SEEN /HPF (NONE SEEN); Urine RBC NONE SEEN /HPF (NONE SEEN)
[2021-04-16] MEDS: predniSONE 20 MG TAB PO SCH (20:15)
[2021-04-16] MEDS: ATORVASTATIN 20 MG TAB PO SCH (20:15)
[2021-04-17 04:23] LABS: Hematocrit 39.5 % (39.6-49.0); Lymphocytes % 7.8 % (15.3-44.8); MPV 7.9 fL (7.6-11.3); RBC Red Blood Cell Count 4.49 M/uL (4.33-5.43)
[2021-04-17 04:57] LABS: Albumin 3.2 g/dL (3.4-5.0); Bilirubin Total 0.6 mg/dL (0.2-1.0); Magnesium 2.1 mg/dL (1.8-2.4); Potassium 3.8 mmol/L (3.5-5.1); Protein, Total 6.8 g/dL (6.4-8.2)
[2021-04-17] MEDS: METOPROLOL TAR 25 MG TAB PO SCH ×2 (05:47→18:31)
[2021-04-17] MEDS ORDERED: POTASSIUM CL SA 10 MEQ TAB PO ONE (07:34)
[2021-04-17] MEDS: ARFORMOTEROL TARTRATE 15 MCG/2 ML VIAL.NEB NEB SCH ×2 (07:37→20:00)
[2021-04-17] MEDS: ENOXAPARIN 40 MG/0.4 ML SQ SCH (09:53)
[2021-04-17] MEDS: THIAMINE HCL 100 MG TABLET PO SCH (09:53)
[2021-04-17] MEDS: FOLIC ACID 1 MG TABLET PO SCH (09:53)
[2021-04-17] MEDS: FAMOTIDINE 20 MG TAB PO SCH ×2 (09:54→20:18)
[2021-04-17] MEDS: predniSONE 20 MG TAB PO SCH ×2 (09:54→20:18)
[2021-04-17] MEDS: FUROSEMIDE 20 MG/ 2ML VIAL IV SCH ×2 (09:54→17:00)
--- NOTE | 2021-04-17 17:00 | P.PN ---
Subjective Date of Service: 04/17/21 Patient clinically doing better. Otherwise, no new complaints. Ambulating out of bed. Will get physical therapy. Review of Systems 10-point ROS is otherwise unremarkable Physical Examination - Vital Signs Temperature: 97.6 F Blood Pressure: 119/68 Pulse: 52 Respirations: 20 Pulse Ox (%): 88 - Physical Exam General: Alert, In no apparent distress HEENT: Atraumatic, PERRLA, EOMI Neck: Supple, JVD not distended Respiratory: Clear to auscultation bilaterally, Normal air movement Cardiovascular: Regular rate/rhythm, Normal S1 S2 Gastrointestinal: Normal bowel sounds, No tenderness Musculoskeletal: No tenderness Integumentary: No rashes Neurological: Normal speech, Normal tone, Normal affect Lymphatics: No axilla or inguinal lymphadenopathy - Studies Medications List Reviewed: Yes Assessment & Plan - Problems (Diagnosis) (1) (HFpEF) heart failure with preserved ejection fraction Current Visit: Yes Status: Acute (2) Pulmonary fibrosis Current Visit: Yes Status: Acute - Plan 1. Continue with IV antibiotics 2. Awaiting sputum and blood culture 3. Repeat chest x-ray 4. Will proceed with CT scan of the chest if pneumonia is not improved to evaluate for postobstructive pneumonia 5. Appreciate pulmonary consultation 6. Continue with nebs as needed 7. O2 per protocol 8. Continue with gentle hydration 9. Repeat labs including CBC and renal function in a.m. 10. GI and DVT prophylaxis Discharge Plan: Home Plan to discharge in: Greater than 2 days - Advance Directives Does patient have a Living Will: Yes Does patient have a Durable POA for Healthcare: No
[2021-04-17] MEDS: ATORVASTATIN 20 MG TAB PO SCH (20:19)
[2021-04-18] MEDS: METOPROLOL TAR 25 MG TAB PO SCH ×2 (05:55→18:41)
[2021-04-18] MEDS: FOLIC ACID 1 MG TABLET PO SCH (08:21)
[2021-04-18] MEDS: predniSONE 20 MG TAB PO SCH ×2 (08:21→20:03)
[2021-04-18] MEDS: THIAMINE HCL 100 MG TABLET PO SCH (08:21)
[2021-04-18] MEDS: FAMOTIDINE 20 MG TAB PO SCH ×2 (08:21→20:03)
[2021-04-18] MEDS: ENOXAPARIN 40 MG/0.4 ML SQ SCH (08:21)
[2021-04-18] MEDS: FUROSEMIDE 20 MG/ 2ML VIAL IV SCH ×2 (08:22→17:01)
[2021-04-18] MEDS: IPRATROPIUM BROM 0.5MG/2.5ML NEB PRN (08:57)
[2021-04-18] MEDS: ARFORMOTEROL TARTRATE 15 MCG/2 ML VIAL.NEB NEB SCH ×2 (08:57→20:00)
--- NOTE | 2021-04-18 09:53 | P.PN ---
Date of Service: 04/18/21 Subjective Patient strength not really improving much. Getting physical therapy to work with him today. Anticipate discharge over the next 24-48 hr. Patient ago stay with family and hopefully continue to build up strength. Review of Systems 10-point ROS is otherwise unremarkable Physical Examination - Vital Signs Reviewed - Physical Exam General: Alert, In no apparent distress Respiratory: Clear to auscultation bilaterally, Normal air movement Cardiovascular: Regular rate/rhythm, Normal S1 S2 Gastrointestinal: Normal bowel sounds, No tenderness Neurological: Normal speech, Normal tone, Normal affect Assessment & Plan - Problems (Diagnosis) (1) (HFpEF) heart failure with preserved ejection fraction Current Visit: Yes Status: Acute (2) Pulmonary fibrosis Current Visit: Yes Status: Acute - Plan Continue with plan of care as mentioned below: 1. Continue with IV antibiotics 2. Continue with IV steroids and neb treatments 3. Repeat chest x-ray 4. Continue with diuresing gently 5. Appreciate pulmonary consultation; will need continued outpatient follow-up along with Cardiology follow-up 6. Out of bed and ambulate 7. O2 per protocol 8. Continue with gentle hydration 9. Repeat labs including CBC and renal function in a.m. 10. GI and DVT prophylaxis
[2021-04-18] MEDS: ATORVASTATIN 20 MG TAB PO SCH (20:03)
[2021-04-19] MEDS: METOPROLOL TAR 25 MG TAB PO SCH (05:38)
[2021-04-19] MEDS: ARFORMOTEROL TARTRATE 15 MCG/2 ML VIAL.NEB NEB SCH (08:10)
[2021-04-19] MEDS: FUROSEMIDE 20 MG/ 2ML VIAL IV SCH (08:38)
[2021-04-19] MEDS: THIAMINE HCL 100 MG TABLET PO SCH (08:38)
[2021-04-19] MEDS: ENOXAPARIN 40 MG/0.4 ML SQ SCH (08:38)
[2021-04-19] MEDS: FOLIC ACID 1 MG TABLET PO SCH (08:38)
[2021-04-19] MEDS: FAMOTIDINE 20 MG TAB PO SCH (08:38)
[2021-04-19] MEDS: predniSONE 20 MG TAB PO SCH (08:38)
[2021-04-19 09:52] VITALS: O2SAT 97
[2021-04-19 17:20] VITALS: BP 110/60; TEMP 98.6
--- NOTE | 2021-05-01 04:30 | P.DS ---
Discharge Date: 04/19/21 Primary Care Provider: Dr. Marroquin Disposition: ROUTINE DISCHARGE Discharge Condition: GOOD Reason for Admission: Shortness of breath Consultations: Pulmonary - Problems (1) (HFpEF) heart failure with preserved ejection fraction Status: Acute (2) Pulmonary fibrosis Status: Acute Brief History of Present Illness: 75-year-old male with history of pulmonary hypertension, COPD and prior tobacco use. Patient reports increasing shortness of breath over the past month. Over the last several days his shortness of breath has worsened. He reports that the patient was seen by his PCP over the past month. He was sent to cardiology for further evaluation. Patient was diagnosed with pulmonary hypertension. Patient takes metoprolol. He was to see pulmonology for his COPD. Today he got more short of breath. Oxygen saturations were low. He was brought into the ER for further evaluation. Patient denied any nausea, vomiting, chest pain. In the ER patient was found to be hypoxic. Patient required oxygen. Lab reviewed. D-dimer elevated. Procalcitonin negative. Troponin negative. White count 8.2, hemoglobin 14. Platelet count 328. Sodium 140, potassium 3.7. BUN of 20, creatinine 0.84 with a GFR 78. Covid test negative. Chest x-ray showed multi reticular nodular opacities suspected pneumonia noted. COPD changes noted. Patient admitted for treatment. Hospital Course: Patient was given steroids, neb treatment, and pulmonary was consulted. Patient will follow with pulmonary as an outpatient. Patient respiratory status has improved. Patient feeling much better. At the time patient will be stable for discharge. Patient should have home O2 and we will discharge patient with the home oxygen as well. Vital Signs/Physical Exam: Temp Pulse Resp BP Pulse Ox 98.6 F 59 18 110/60 96 04/19/21 16:00 04/19/21 16:00 04/19/21 16:00 04/19/21 16:00 04/19/21 16:00 General: Alert, In no apparent distress, Oriented x3 Laboratory Data at Discharge: WBC 12.80 K/uL (4.3-10.9) H D 04/17/21 03:49 Hgb 12.9 g/dL (13.6-17.9) L 04/17/21 03:49 Hct 39.5 % (39.6-49.0) L 04/17/21 03:49 Plt Count 313 K/uL (152-406) 04/17/21 03:49 PT 13.8 SECONDS (9.5-12.5) H 04/14/21 12:00 INR 1.20 04/14/21 12:00 APTT 31.3 SECONDS (24.3-36.9) 04/14/21 12:00 Sodium 141 mmol/L (136-145) 04/17/21 03:49 Potassium 4.4 mmol/L (3.5-5.1) 04/18/21 03:29 BUN 25 mg/dL (7-18) H 04/17/21 03:49 Creatinine 0.84 mg/dL (0.55-1.3) 04/17/21 03:49 Glucose 131 mg/dL (74-106) H 04/17/21 03:49 Magnesium 2.1 mg/dL (1.8-2.4) 04/17/21 03:49 Total Bilirubin 0.6 mg/dL (0.2-1.0) 04/17/21 03:49 AST 20 U/L (15-37) 04/17/21 03:49 ALT 60 U/L (12-78) 04/17/21 03:49 Alkaline Phosphatase 149 U/L (45-117) H 04/17/21 03:49 Home Medications: Simvastatin 40 mg PO DAILY 04/14/21 Albuterol Neb [Proventil 0.083% Neb Soln] 2.5 mg NEB [id number] PRN #60 amp 04/19/21 Arformoterol Tartrate [Brovana] 15 mcg NEB BIDRESP #60 vial.neb 04/19/21 Cefdinir [Omnicef] 300 mg PO Q12H #14 capsule 04/19/21 Furosemide [Lasix] 20 mg PO DAILY #30 tablet 04/19/21 Ipratropium Neb [Atrovent*] 0.5 mg NEB [id number] PRN #60 amp 04/19/21 Metoprolol Tartrate [Lopressor*] 12.5 mg PO BID 6AM 6PM #30 tab 04/19/21 Nebulizer Accessories [Aeroneb Go] 1 each MC DAILY #1 each 04/19/21 Nebulizer [Aeroneb Go Nebulizer] 1 each MC DAILY #1 each 04/19/21 Potassium Chloride [K-Dur] 10 meq PO DAILY #30 tab.er.prt 04/19/21 predniSONE [Prednisone*] 20 mg PO BID #25 tab 04/19/21 New Medications: Nebulizer Accessories [Aeroneb Go] 1 each MC DAILY #1 each Nebulizer [Aeroneb Go Nebulizer] 1 each MC DAILY #1 each Ipratropium Neb [Atrovent*] 0.5 mg NEB [id number] PRN #60 amp PRN Reason: Shortness Of Breath Arformoterol Tartrate [Brovana] 15 mcg NEB BIDRESP #60 vial.neb Potassium Chloride [K-Dur] 10 meq PO DAILY #30 tab.er.prt Furosemide [Lasix] 20 mg PO DAILY #30 tablet Metoprolol Tartrate [Lopressor*] 12.5 mg PO BID 6AM 6PM #30 tab Cefdinir [Omnicef] 300 mg PO Q12H #14 capsule predniSONE [Prednisone*] 20 mg PO BID #25 tab Albuterol Neb [Proventil 0.083% Neb Soln] 2.5 mg NEB [id number] PRN #60 amp PRN Reason: Shortness Of Breath Physician Discharge Instructions: OK TO DC IV AND DC HOME FOLLOW-UP WITH PRIMARY CARE PROVIDER IN 1-2 WEEKS FOLLOW-UP WITH CARDIOLOGY IN 1-2 WEEKS FOLLOW-UP WITH [facility] IN 1 WEEK RETURN TO THE ER IF symptoms worsen CALL or TEXT DR. STEWART AT [phone] IF ANY QUESTIONS REGARDING HOSPITAL STAY. PLEASE CALL THE FLOOR AT [phone] IF ANY MEDICATION OR NURSING QUESTIONS. Diet: AHA Activity: Fall precautions Followup: Shakeel Dickson MD [Primary Care Provider] - (Call to schedule appointment) Time spent managing pt's care (in minutes): 35
== END 2021-04-19 17:45 | disposition home or self-care (01) | DRG 190 ==
LOC: ER 11:29 → ERHOLD 16:08 → 4TH 20:07
PROVIDERS: ADMIT Family Medicine; ATTEND Family Medicine
DX: J44.0 Chronic obstructive pulmonary disease with (acute) lower respiratory infection (principal); J18.9 Pneumonia, unspecified organism; I50.31 Acute diastolic (congestive) heart failure; J44.1 Chronic obstructive pulmonary disease with (acute) exacerbation; R09.02 Hypoxemia; J84.112 Idiopathic pulmonary fibrosis; I27.20 Pulmonary hypertension, unspecified; E78.5 Hyperlipidemia, unspecified; I11.0 Hypertensive heart disease with heart failure; Z87.891 Personal history of nicotine dependence; Z20.822 Contact with and (suspected) exposure to COVID-19
CPT/HCPCS: 36415; 71045; 71275; 80048; 80053; 81003; 81015; 82728; 83605; 83735; 83880; 84132; 84145; 84439; 84443; 84484; 85025; 85379; 85610; 85730; 86140; 87040; 87070; 87081; 87205; 87804; 93005; 94010; 96374; 96375; 97161; 99285; J1650; J1940; J2543; J2930; J3475; J7050; J7512; J7605; Q9967; U0003

== ENCOUNTER 2021-05-08 16:18 | Emergency (ER) | payer OTHER ==
--- NOTE | 2021-05-08 17:40 | RAD REPORT ---
EXAM DESCRIPTION: Juanita Pa And Lat (2 Views)05/08/2021 5:16 pm CLINICAL HISTORY: Chest pain COMPARISON: April 15, 2021 FINDINGS: Extensive bilateral interstitial lung opacities are unchanged. The heart is mildly enlarge d IMPRESSION: Unchanged extensive bilateral interstitial lung opacities are unchanged. I suspect most if not all of this represents pulmonary fibrosis
--- NOTE | 2021-05-08 17:59 | RAD REPORT ---
EXAM DESCRIPTION: USCarotid Artery Ugflvskxf91/25/2021 5:48 pm CLINICAL HISTORY: Neck pain COMPARISON: None FINDINGS: The velocity of the right internal carotid artery equals 72 cm/sec. The right ICA/CCA rati o 0.9 The velocity of the left internal carotid artery equals 86 cm/sec. The left ICA/CCA ratio 1.1 Mild plaque is present within the carotid arteries. The vertebral arteries demonstrate antegrade flow IMPRESSION: Mild plaque within the carotid arteries without evidence of a hemodynamically significan t stenosis NASCET criteria used. Mild 0-49% stenosis Moderate 50-69% stenosis Severe 70-99% stenosis
--- NOTE | 2021-05-08 18:20 | EDPHYS ---
Physician Documentation [facility] Name: Gonzalo Galvez Age: 75 yrs Sex: Male : 1945 Arrival Date: 05/08/2021 Time: 16:21 Bed 19 Private MD: Shakeel Dickson R ED Physician Isael Woods HPI: 05/08 17:25 This 75 yrs old Male presents to ER via Ambulatory with complaints of left sp3 neck vein swelling. 17:25 75-year-old male with a history of COPD, pulmonary hypertension, and pulmonary fibrosis sp3 on home O2 presents with left-sided posterior neck pain that started approximately 24 to 48 hours ago. Patient reports no abnormal movements or injury or trauma. Daughter states that she "saw some swelling there but is resolved". Patient denies changes in vision, headache, facial weakness, right-sided pain, left-sided arm pain, chest pain, back pain, shortness of breath above baseline, abdominal pain, nausea, vomiting, diarrhea, neuro deficits of any kind, loss in range of motion of the neck, pain on flexion or extension or rotation. Remainder of ROS is negative.. Historical: - Allergies: 16:26 No Known Allergies; aa5 - PMHx: 16:26 COPD; pulmonary HTN; Pulmonary Fibrosis; COPD; Home O2 via 4 L NC; aa5 - PSHx: 16:26 R shoulder SX; aa5 - Immunization history:: Client reports receiving the 2nd dose of the Covid vaccine. - Social history:: Smoking status: Patient/guardian denies using tobacco. ROS: 17:27 Constitutional: Negative for fever, chills, and weight loss, Eyes: Negative for injury, sp3 pain, redness, and discharge, ENT: Negative for injury, pain, and discharge, Cardiovascular: Negative for chest pain, palpitations, and edema, Respiratory: Negative for shortness of breath, cough, wheezing, and pleuritic chest pain, Abdomen/GI: Negative for abdominal pain, nausea, vomiting, diarrhea, and constipation, Back: Negative for injury and pain, MS/Extremity: Negative for injury and deformity, Skin: Negative for injury, rash, and discoloration, Neuro: Negative for headache, weakness, numbness, tingling, and seizure, Psych: Negative for depression, anxiety, suicide ideation, homicidal ideation, and hallucinations, Allergy/Immunology: Negative for hives, rash, and allergies, Endocrine: Negative for neck swelling, polydipsia, polyuria, polyphagia, and marked weight changes, Hematologic/Lymphatic: Negative for swollen nodes, abnormal bleeding, and unusual bruising. 17:27 All other systems are negative. Exam: 17:27 Constitutional: This is a well developed, well nourished patient who is awake, alert, sp3 and in no acute distress. Head/Face: Normocephalic, atraumatic. Eyes: Pupils equal round and reactive to light, extra-ocular motions intact. Lids and lashes normal. Conjunctiva and sclera are non-icteric and not injected. Cornea within normal limits. Periorbital areas with no swelling, redness, or edema. ENT: Nares patent. No nasal discharge, no septal abnormalities noted. External auditory canals are clear. Oropharynx with no redness, swelling, or masses, exudates, or evidence of obstruction, uvula midline. Mucous membranes moist. Chest/axilla: Normal chest wall appearance and motion. Nontender with no deformity. No lesions are appreciated. Cardiovascular: Regular rate and rhythm with a normal S1 and S2. No gallops, murmurs, or rubs. Normal PMI, no JVD. No pulse deficits. Respiratory: Lungs have equal breath sounds bilaterally, clear to auscultation and percussion. No rales, rhonchi or wheezes noted. No increased work of breathing, no retractions or nasal flaring. Abdomen/GI: Soft, non-tender, with normal bowel sounds. No distension or tympany. No guarding or rebound. No evidence of tenderness throughout. Back: No spinal tenderness. No costovertebral tenderness. Full range of motion. Skin: Warm, dry with normal turgor. Normal color with no rashes, no lesions, and no evidence of cellulitis. Neuro: Awake and alert, GCS 15, oriented to person, place, time, and situation. Cranial nerves II-XII grossly intact. Motor strength 5/5 in all extremities. Sensory grossly intact. Cerebellar exam normal. Normal gait. 17:27 Neck: Patient has some mild pain on the posterior portion of the sternocleidomastoid muscle. Carotid pulses normal and no pain to palpation. No swelling in any of the neck triangles noted. Full range of motion is present in both rotation and flexion and extension. Spinous processes are nontender and in line.. 18:18 ECG was reviewed by the Attending Physician. EKG demonstrates normal sinus rhythm at 60 sp3 bpm with first-degree VA block at 232, normal remaining intervals, normal QRS, normal axis with nonspecific ST/T changes without evidence of ischemia. Vital Signs: 16:25 BP 142 / 79; Pulse 77; Resp 18 S; Temp 97.7(TE); Pulse Ox 92% on 4 lpm NC; Weight 64.41 aa5 kg (R); Height 5 ft. 11 in. (180.34 cm) (R); 17:22 BP 140 / 82; Pulse 78; Resp 18; Temp 97.8; Pulse Ox 99% on 2 lpm NC; sl2 18:00 BP 135 / 78; Pulse 59; Resp 20; Temp 97.9(O); Pulse Ox 96% on 2 lpm NC; sl2 16:25 Body Mass Index 19.80 (64.41 kg, 180.34 cm) aa5 MDM: 16:34 Patient medically screened. sp3 17:28 Data reviewed: vital signs, nurses notes. ED course: 75-year-old male with left-sided sp3 sternocleidomastoid pain and mild neck pain. Will obtain chest x-ray, EKG, bilateral carotid ultrasounds to assess for any sort of vascular abnormality. If work-up is negative will discharge home. Diagnosis likely MSK in origin however differential includes vascular compromise and/or dissection, or further down acute coronary syndrome and/or infectious etiology. Patient is well-appearing and I do not believe he has any sort of critical findings including sepsis or shock or lower vascular compromise at this time.. 18:15 ED course: Chest x-ray demonstrates no interval change. Ultrasound shows mild stenosis sp3 with no other vascular compromise. EKG reviewed. Will discharge patient home at this time with MSK pain and NSAID prescription.. 05/08 16:41 Order name: XRAY Chest Pa And Lat (2 Views); Complete Time: 17:55 sp3 05/08 16:41 Order name: US Carotid Artery Bilateral; Complete Time: 18:15 sp3 05/08 16:41 Order name: EKG - Nurse/Tech; Complete Time: 17:23 sp3 Administered Medications: No medications were administered Disposition Summary: 05/08/21 18:19 Discharge Ordered Location: Home sp3 Condition: Stable sp3 Diagnosis - Strain of muscle, fascia and tendon at neck level sp3 Followup: sp3 - With: Private Physician - When: As needed - Reason: Continuance of care Discharge Instructions: - Discharge Summary Sheet sp3 - Muscle Strain sp3 Forms: - Medication Reconciliation Form sp3 - Thank You Letter sp3 - Antibiotic Education sp3 - Prescription Opioid Use sp3 Prescriptions: - Diclofenac Sodium 75 mg Oral Tablet Sustained Release - take 1 tablet by ORAL route 2 times per day; 30 tablet; Refills: 0, Product sp3 Selection Permitted Signatures: Dispatcher [employer] Liliya Mcclain RN RN aa5 Isael Woods MD MD sp3
--- NOTE | 2021-05-08 18:20 | ER ---
Nurse's Notes [facility] Name: Gonzalo Galvez Age: 75 yrs Sex: Male : 1945 Arrival Date: 05/08/2021 Time: 16:21 Bed 19 Private MD: Shakeel Dickson R Diagnosis: Strain of muscle, fascia and tendon at neck level Presentation: 05/08 16:25 Chief complaint: Pt's daughter states "the left side of his neck started hurting about aa5 2 days". Pt denies any other symptoms. Coronavirus screen: At this time, the client does not indicate any symptoms associated with coronavirus-19. Ebola Screen: No symptoms or risks identified at this time. Initial Sepsis Screen: Does the patient meet any 2 criteria? No. Patient's initial sepsis screen is negative. Does the patient have a suspected source of infection? No. Patient's initial sepsis screen is negative. Risk Assessment: Do you want to hurt yourself or someone else? Patient reports no desire to harm self or others. Onset of symptoms was April 2021. 16:25 Method Of Arrival: Ambulatory aa5 16:25 Acuity: TYSON 3 aa5 Historical: - Allergies: 16:26 No Known Allergies; aa5 - PMHx: 16:26 COPD; pulmonary HTN; Pulmonary Fibrosis; COPD; Home O2 via 4 L NC; aa5 - PSHx: 16:26 R shoulder SX; aa5 - Immunization history:: Client reports receiving the 2nd dose of the Covid vaccine. - Social history:: Smoking status: Patient/guardian denies using tobacco. Screenin:30 Abuse screen: Denies threats or abuse. Nutritional screening: No deficits noted. sl2 Tuberculosis screening: No symptoms or risk factors identified. Fall Risk None identified. Assessment: 16:30 General: Appears in no apparent distress. well groomed, well developed, Behavior is sl2 calm, cooperative. 16:30 Pain: Complains of pain in neck Pain does not radiate. Pain currently is 4 out of 10 on sl2 a pain scale. Quality of pain is described as aching. Neuro: No deficits noted. Cardiovascular: No deficits noted. Respiratory: No deficits noted. GI: No deficits noted. : No deficits noted. EENT: No deficits noted. Derm: No deficits noted. Musculoskeletal: No deficits noted. 16:48 Reassessment: PATIENT transported to radiology dept for carotid ultrasound. sl2 17:19 Reassessment: Ultrasound of bilateral carotids completed - patient has been returned to [facility] the unit. Vital Signs: 16:25 BP 142 / 79; Pulse 77; Resp 18 S; Temp 97.7(TE); Pulse Ox 92% on 4 lpm NC; Weight 64.41 aa5 kg (R); Height 5 ft. 11 in. (180.34 cm) (R); 17:22 BP 140 / 82; Pulse 78; Resp 18; Temp 97.8; Pulse Ox 99% on 2 lpm NC; sl2 18:00 BP 135 / 78; Pulse 59; Resp 20; Temp 97.9(O); Pulse Ox 96% on 2 lpm NC; sl2 16:25 Body Mass Index 19.80 (64.41 kg, 180.34 cm) aa5 ED Course: 16:21 Patient arrived in ED. am2 16:22 Shakeel Dickson MD is Private Physician. am2 16:25 Arm band placed on. aa5 16:26 Triage completed. aa5 16:30 Patient has correct armband on for positive identification. Bed in low position. sl2 16:30 Patient did not have IV access during this emergency room visit. sl2 16:33 Isael Woods MD is Attending Physician. sp3 16:35 Dulce Maria Amezcua, LYNN is Primary Nurse. sl2 17:15 XRAY Chest Pa And Lat (2 Views) In Process Unspecified. EDMS 17:48 US Carotid Artery Bilateral In Process Unspecified. EDMS 18:00 No provider procedures requiring assistance completed. 2 Administered Medications: No medications were administered Outcome: 18:19 Discharge ordered by . sp3 18:42 Discharged to home via wheelchair, with family. sl2 18:42 Condition: stable 18:42 Discharge instructions given to patient, family, Instructed on discharge instructions, follow up and referral plans. no drinking with medication, no driving heavy equipment, medication usage, Demonstrated understanding of instructions, follow-up care, medications, Prescriptions given X 1. 18:42 Patient left the ED. 2 Signatures: Dispatcher [employer] EDMS Liliya Bustamante RN RN aa5 Teressa Russell am2 Isael Woods MD MD sp3 Dulce Maria Amezcua, LYNN RN sl2
[2021-05-08 19:14] VITALS: BP 135/78; TEMP 97.9; O2SAT 96
--- NOTE | 2021-05-09 12:15 | EKG ---
Test Date: 2021-05-08 Test Time: 17:20:31 Senior Environmental Technician: Romie MEASUREMENT RESULTS: Intervals: Rate: 61 ID: [id number] QRSD: 88 QT: 456 QTc: 459 [place]: P: 4 ID: [id number] QRS: 98 T: 50 INTERPRETIVE STATEMENTS: Sinus rhythm with 1st degree AV block Rightward axis Borderline ECG Compared to ECG 04/14/2021 11:55:36 Right-axis deviation now present Ventricular premature complex(es) no longer present ST (T wave) deviation no longer present Possible ischemia no longer present Prolonged QT interval no longer present Electronically Signed On 05-09-21 12:12:53 CDT by Chris Cervantes
== END 2021-05-08 18:42 | disposition home or self-care (01) ==
LOC: ER 16:18
DX: S16.1XXA Strain of muscle, fascia and tendon at neck level, initial encounter (principal); X58.XXXA Exposure to other specified factors, initial encounter; J44.9 Chronic obstructive pulmonary disease, unspecified; I27.20 Pulmonary hypertension, unspecified
CPT/HCPCS: 71046; 93005; 93880; 99283

== ENCOUNTER 2021-05-10 11:26 | Emergency (ER) | payer OTHER ==
[2021-05-10 12:25] LABS: Absolute Lymphocytes (CBC) 1.2 K/uL (0.7-4.9); Basophils % 0.4 % (0-1.3); Hematocrit 45.2 % (39.6-49.0); Lymphocytes % 10.4 % (15.3-44.8); RBC Red Blood Cell Count 5.24 M/uL (4.33-5.43)
[2021-05-10 12:32] LABS: Protime INR 0.96
[2021-05-10 12:37] LABS: Potassium 4.6 mmol/L (3.5-5.1)
[2021-05-10] MEDS ORDERED: ONDANSETRON 4 MG/2 ML VIAL ONE (12:44)
[2021-05-10] MEDS ORDERED: MORPHINE 4 MG/ML SYR ONE (12:44)
--- NOTE | 2021-05-10 13:15 | RAD REPORT ---
EXAM DESCRIPTION: CT - Neck Angio - 05/10/2021 1:04 pm CLINICAL HISTORY: neck pain Headache, syncope COMPARISON: Carotid Artery Bilateral dated 05/08/2021 TECHNIQUE: CT angiography of the neck vessels was performed with MIPs. All CT scans are performed using dose optimization technique as appropriate and may include automated exposure control or mA/KV adjustment according to patient size. FINDINGS: A left aortic arch is identified with normal three vessel configuration of the great vesse ls. No significant flow abnormality is seen of the common carotid bilaterally. Focal hard plaque is present involving the post bulbar left proximal internal carotid artery. This re sults in stenosis estimated 70-80 % based on NASCET criteria. Mild mixed plaque is seen proximal righ t internal carotid artery resulting in stenosis of less than 50% Normal flow is seen within both vertebral arteries. 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
--- NOTE | 2021-05-10 14:38 | EDPHYS ---
Physician Documentation [facility] Name: Gonzalo Galvez Age: 75 yrs Sex: Male : 1945 Arrival Date: 05/10/2021 Time: 11:28 Bed 23 Private MD: ED Physician Dung Barragan HPI: 05/10 12:04 This 75 yrs old Male presents to ER via Wheelchair with complaints of Neck kb Vein Pain. 12:04 The patient or guardian complains of pain, that is acute. The symptoms are located on kb the left lateral aspect of neck. Onset: The symptoms/episode began/occurred 4 day(s) ago. Context: The problem was sustained at home, The neck injury/problem resulted from from unknown cause. Associated signs and symptoms: The patient has no apparent associated signs or symptoms, The patient denies any alcohol use. The patient is not apparently intoxicated. No neurological symptoms were experienced by the patient prior to arrival in the emergency department. The pain does not radiate. Modifying factors: The symptoms are alleviated by nothing. the symptoms are aggravated by nothing. Severity of symptoms: At their worst the symptoms were moderate, in the emergency department the symptoms are unchanged. The patient has not experienced similar symptoms in the past. The patient has been recently seen at the [facility] Emergency Department, this week, for similar complaints X-rays were performed, an ultrasound was performed. Pt reports pain to left side of neck that started 4-5 days ago. Was seen here on Saturday and diagnosed with a strain. Daughter brought pt back to make sure there was nothing else wrong. Historical: - Allergies: 11:36 No Known Allergies; tw2 - PMHx: 11:36 COPD; Home O2 via 4 L NC; changed to 2L (May 09, 2021); pulmonary HTN; pulmonary tw2 fibrosis; - PSHx: 11:36 R shoulder SX; tw2 - Immunization history:: Client reports receiving the 2nd dose of the Covid vaccine. - Social history:: Smoking status: Patient reports the use of cigarette tobacco products, "quit a couple of months ago and he smoked 1 pack every 2 days for 60 years". ROS: 12:03 Constitutional: Negative for fever, chills, and weight loss. kb 12:03 Neck: Positive for pain with movement, pain at rest. 12:03 All other systems are negative. Exam: 12:03 Constitutional: This is a well developed, well nourished patient who is awake, alert, kb and in no acute distress. Head/Face: Normocephalic, atraumatic. ENT: Moist Mucous membranes Neck: Trachea midline, no thyromegaly or masses palpated, and no cervical lymphadenopathy. Supple, full range of motion without nuchal rigidity, or vertebral point tenderness. No Meningismus. Respiratory: Respirations even and unlabored. No increased work of breathing, no retractions or nasal flaring. Skin: Warm, dry with normal turgor. Normal color. MS/ Extremity: Pulses equal, no cyanosis. Neurovascular intact. Full, normal range of motion. Neuro: Awake and alert, GCS 15, oriented to person, place, time, and situation. Moves all extremities. Normal gait. Psych: Awake, alert, with orientation to person, place and time. Behavior, mood, and affect are within normal limits. Vital Signs: 11:35 BP 138 / 74; Pulse 68; Resp 17; Temp 97.9; Pulse Ox 96% on 2 lpm NC; Weight 65.32 kg tw2 (R); Height 5 ft. 11 in. (180.34 cm); Pain 10/10; 12:21 BP 139 / 78; Pulse 98; Resp 18; Temp 98.1; Pulse Ox 99% on 3 lpm NC; jw6 14:33 BP 119 / 68; Pulse 58; Resp 18; Pulse Ox 95% on 3 lpm NC; jw6 11:35 Body Mass Index 20.08 (65.32 kg, 180.34 cm) tw2 11:35 pts own tank tw2 MDM: 11:41 Patient medically screened. kb 11:57 Data reviewed: vital signs, nurses notes. Data interpreted: Pulse oximetry: on room air kb is 96 %. Interpretation: normal. 14:35 Counseling: I had a detailed discussion with the patient and/or guardian regarding: the kb historical points, exam findings, and any diagnostic results supporting the discharge/admit diagnosis, lab results, radiology results, the need for outpatient follow up, a family practitioner, to return to the emergency department if symptoms worsen or persist or if there are any questions or concerns that arise at home. 05/10 12:28 Order name: CBC with Automated Diff; Complete Time: 12:34 EDMS 05/10 12:35 Order name: Protime (+INR); Complete Time: 12:44 EDMS 05/10 11:45 Order name: CT Neck Angio kb 05/10 11:45 Order name: IV Start; Complete Time: 12:15 kb 05/10 12:35 Order name: PTT, Activated Partial Thromb; Complete Time: 12:44 EDMS 05/10 12:38 Order name: Basic Metabolic Panel; Complete Time: 12:44 EDMS 05/10 12:47 Order name: Glucose, Ancillary Testing; Complete Time: 12:48 EDMS 05/10 13:16 Order name: CT; Complete Time: 13:18 EDMS Administered Medications: 12:17 Drug: Zofran (Ondansetron) 4 mg Route: IVP; Site: right antecubital; vg1 12:51 Follow up: Response: No adverse reaction jw6 12:20 Drug: morphine 4 mg Route: IVP; Site: right antecubital; vg1 12:51 Follow up: Response: No adverse reaction jw6 Disposition: 14:45 Co-signature as Attending Physician, Dung Barragan MD I agree with the assessment and rn plan of care. PA/EMAIL MARKETING MANAGER's history reviewed, patient interviewed, and examined. HPI: 75-year-old male with left-sided neck pain for the last few days. Denies any injury. Reports numbness and tingling to the area as well. Is intermittent. Improves by leaning neck to the right side. No focal neurological problems. Seen here recently and ultrasound of carotids without acute findings. My personal exam of patient reveals: No masses of the left neck. No meningeal signs. Flexible and full range of motion. No masses palpated. No lymphadenopathy. Normal neurological exam. I agree with assessment and care plan and confirm the diagnosis (es) above. Had long discussion with patient and daughter regarding CT of the neck without any acute findings. Incidentally we found a 70 to 80% stenosis of the internal carotid artery, discussed with patient and family regarding need to follow-up with vascular surgery. Most likely patient with nerve problem given pain and numbness to the area of left neck. Disposition Summary: 05/10/21 14:37 Discharge Ordered Location: Home Condition: Stable kb Diagnosis - Left lateral neck pain kb Followup: kb - With: Emergency Department - When: As needed - Reason: Worsening of condition Followup: kb - With: Private Physician - When: 2 - 3 days - Reason: Recheck today's complaints, Continuance of care, Re-evaluation by your physician Discharge Instructions: - Discharge Summary Sheet kb - Cervical Radiculopathy, [id number] kb Forms: - Medication Reconciliation Form kb - Thank You Letter kb - Antibiotic Education kb - Prescription Opioid Use kb Signatures: Dispatcher [employer] EDKindra Mak, KNITTING MACHINE OPERATOR-C KNITTING MACHINE OPERATOR-Rowdyb Dung Barragan MD MD rn Wise, Tara, RN RN tw2 Mely Boone RN RN 1 Marisol Oshea 6 Corrections: (The following items were deleted from the chart) 11:38 11:36 PMHx: COPD; tw2 tw2
--- NOTE | 2021-05-10 14:38 | ER ---
Nurse's Notes [facility] Name: Gonzalo Galvez Age: 75 yrs Sex: Male : 1945 Arrival Date: 05/10/2021 Time: 11:28 Bed 23 Private MD: Diagnosis: Left lateral neck pain Presentation: 05/10 11:35 Chief complaint: Patient's son or daughter states: i brought him Saturday because he had tw2 a really bad pain on the LEFT side of his neck. they said it was a strain but i dont think it is that. he is in pain and i want to see if it is something. Dr. Dickson. Coronavirus screen: At this time, the client does not indicate any symptoms associated with coronavirus-19. Ebola Screen: Patient denies travel to an Ebola-affected area in the 21 days before illness onset. Initial Sepsis Screen: Does the patient meet any 2 criteria? No. Patient's initial sepsis screen is negative. Does the patient have a suspected source of infection? No. Patient's initial sepsis screen is negative. Risk Assessment: Do you want to hurt yourself or someone else? Patient reports no desire to harm self or others. Onset of symptoms was May 10, 2021. 11:35 Method Of Arrival: Wheelchair tw2 11:35 Acuity: TYSON 3 tw2 11:38 Chief complaint: Patient's son or daughter states: he says it is also numb feeling. the tw2 pain stays there all the time. Triage Assessment: 11:38 General: Appears uncomfortable, slender, well groomed, Behavior is calm, cooperative, tw2 appropriate for age. Pain: Complains of pain in left side of neck. Historical: - Allergies: 11:36 No Known Allergies; tw2 - PMHx: 11:36 COPD; Home O2 via 4 L NC; changed to 2L (May 09, 2021); pulmonary HTN; pulmonary tw2 fibrosis; - PSHx: 11:36 R shoulder SX; tw2 - Immunization history:: Client reports receiving the 2nd dose of the Covid vaccine. - Social history:: Smoking status: Patient reports the use of cigarette tobacco products, "quit a couple of months ago and he smoked 1 pack every 2 days for 60 years". Screenin:16 Abuse screen: Denies threats or abuse. Denies injuries from another. Nutritional jw6 screening: No deficits noted. Tuberculosis screening: No symptoms or risk factors identified. Fall Risk Fall in past 12 months (25 points). IV access (20 points). Gait- Weak (10 pts.). Assessment: 12:21 General: Appears distressed, Behavior is calm, cooperative. Pain: Complains of pain in jw6 right ear Pain radiates to left lateral aspect of neck Pain currently is 10 out of 10 on a pain scale. Neuro: No deficits noted. Cardiovascular: No deficits noted. Respiratory: No deficits noted. GI: No deficits noted. : No deficits noted. EENT: No deficits noted. Derm: No deficits noted. Musculoskeletal: No deficits noted. Vital Signs: 11:35 BP 138 / 74; Pulse 68; Resp 17; Temp 97.9; Pulse Ox 96% on 2 lpm NC; Weight 65.32 kg tw2 (R); Height 5 ft. 11 in. (180.34 cm); Pain 10/10; 12:21 BP 139 / 78; Pulse 98; Resp 18; Temp 98.1; Pulse Ox 99% on 3 lpm NC; jw6 14:33 BP 119 / 68; Pulse 58; Resp 18; Pulse Ox 95% on 3 lpm NC; jw6 11:35 Body Mass Index 20.08 (65.32 kg, 180.34 cm) tw2 11:35 pts own tank tw2 ED Course: 11:28 Patient arrived in ED. ds1 11:36 Triage completed. tw2 11:38 Arm band placed on. tw2 11:40 Marisol Oshea is Primary Nurse. jw6 11:41 Kindra Rowell FNP-C [facility]. kb 11:41 Dung Barragan MD is Attending Physician. kb 12:16 Initial lab(s) drawn, by la, sent to lab. Inserted saline lock: 22 gauge in right vg1 antecubital area, using aseptic technique. Blood collected. 13:16 Patient has correct armband on for positive identification. Bed in low position. Call jw6 light in reach. Side rails up X 1. Adult w/ patient. Warm blanket given. 13:16 No provider procedures requiring assistance completed. jw6 14:48 IV discontinued, intact, bleeding controlled, No redness/swelling at site. Pressure jw6 dressing applied. Administered Medications: 12:17 Drug: Zofran (Ondansetron) 4 mg Route: IVP; Site: right antecubital; vg1 12:51 Follow up: Response: No adverse reaction jw6 12:20 Drug: morphine 4 mg Route: IVP; Site: right antecubital; vg1 12:51 Follow up: Response: No adverse reaction jw6 Outcome: 14:37 Discharge ordered by . la 14:48 Discharged to home via wheelchair. jw6 14:48 Condition: good 14:48 Discharge instructions given to family, Instructed on discharge instructions, follow up and referral plans. Demonstrated understanding of instructions, follow-up care. 15:00 Patient left the ED. iw Signatures: Kindra Rowell, DISTRIBUTION A CLASS LINEMAN-C DISTRIBUTION A CLASS LINEMAN-Connie Ritter dsMelody Patel RN RN iw Elizabeth Adhikari RN RN tw2 Mely Boone RN RN vg1 Marisol Oshea jw6 Corrections: (The following items were deleted from the chart) 11:38 11:36 PMHx: COPD; tw2 tw2
[2021-05-10 15:07] VITALS: TEMP 98.1
[2021-05-10 15:08] VITALS: BP 119/68; O2SAT 95
== END 2021-05-10 15:00 | disposition home or self-care (01) ==
LOC: ER 11:26
DX: M54.2 Cervicalgia (principal); J44.9 Chronic obstructive pulmonary disease, unspecified; I27.20 Pulmonary hypertension, unspecified; Z87.891 Personal history of nicotine dependence
CPT/HCPCS: 85025; 80048; 36415; 85610; 82947; 85730; 70498; 96375; 96374; 99283; Q9967; J2405

== ENCOUNTER 2021-05-21 14:59 | Emergency (ER) | payer OTHER ==
--- NOTE | 2021-05-21 16:27 | RAD REPORT ---
EXAM DESCRIPTION: CT - Head Brain Wo Cont - 05/21/2021 4:05 pm CLINICAL HISTORY: Numbness COMPARISON: None TECHNIQUE: Computed axial tomography of the head was obtained. IV contrast was not requested. All CT scans are performed using dose optimization technique as appropriate and may include automated exposure control or mA/KV adjustment according to patient size. FINDINGS: An intracranial bleed is not seen . The ventricles are normal in caliber. No extra-axial fluid collection is noted. Mild low-density areas within periventricular, deep and subcortical white matter likely represent isc hemic changes secondary to small vessel disease. Fluid within the sinuses/ mastoids is not seen. IMPRESSION: No acute intracranial abnormality is seen. If patient's symptoms persist MRI of the bra in would be recommended.
--- NOTE | 2021-05-21 16:39 | RAD REPORT ---
EXAM DESCRIPTION: Noris Angio05/21/2021 4:06 pm CLINICAL HISTORY: Numbness COMPARISON: April 2021 TECHNIQUE: 50 cc Isovue 370 was administered intravenously. 3D MIP reconstruction performed All CT scans are performed using dose optimization technique as appropriate and may include automated exposure control or mA/KV adjustment according to patient size. FINDINGS: Moderate calcified plaque within the proximal to mid left internal carotid artery. Mild plaque is present within the remainder of the common, internal and external carotid arteries gerda aterally. The right vertebral artery is dominant. No dissection is seen. IMPRESSION: Moderate calcified plaque left internal carotid artery resulting in an approximately 50- 55% stenosis NASCET criteria used. Mild 0-49% stenosis Moderate 50-69% stenosis Severe 70-99% stenosis
--- NOTE | 2021-05-21 16:43 | EDPHYS ---
Physician Documentation [facility] Name: Gonzalo Galvez Age: 75 yrs Sex: Male : 1945 Arrival Date: 05/21/2021 Time: 15:03 Bed 16 Private MD: Shakeel Dickson R ED Physician Isael Woods HPI: 05/21 15:29 This 75 yrs old Male presents to ER via Ambulatory with complaints of Neck jmm Pain. 15:29 The patient or guardian complains of pain. Onset: The symptoms/episode began/occurred jmm gradually, 1 month(s) ago. Associated signs and symptoms: Pertinent positives: headache, numbness, in the scalp, Pertinent negatives: fever. The pain does not radiate. Modifying factors: The symptoms are alleviated by nothing. the symptoms are aggravated by nothing. The patient has not experienced similar symptoms in the past. . This is a 75-year-old male with a history of COPD, pulmonary fibrosis, coronary artery disease the presents emerged part with complaints of ongoing left-sided neck pain. Patient was initially evaluated in mid April for similar symptoms. Patient states that the symptoms have been constant. States that he has some left sided numbness/itchiness/pain. Family denies any speech changes. Patient denies unilateral weakness.. Historical: - Allergies: 15:21 No Known Allergies; tw2 - PMHx: 15:21 COPD; Home O2 via 4 L NC; changed to 2L (May 09, 2021); pulmonary fibrosis; tw2 pulmonary HTN; - PSHx: 15:21 R shoulder SX; tw2 - Immunization history:: Client reports receiving the 2nd dose of the Covid vaccine. - Social history:: Smoking status: Patient/guardian denies using tobacco, Stopped _ months ago 5. ROS: 15:29 Constitutional: Negative for fever, chills, and weight loss, Cardiovascular: Negative jmm for chest pain, palpitations, and edema, Respiratory: Negative for shortness of breath, cough, wheezing, and pleuritic chest pain. 15:29 Neck: Positive for pain at rest. 15:29 All other systems are negative. Exam: 15:29 Constitutional: This is a well developed, well nourished patient who is awake, alert, jmm and in no acute distress. Head/Face: atraumatic. Eyes: EOMI, no conjunctival erythema appreciated ENT: Moist Mucus Membranes Neck: Trachea midline, Supple Chest/axilla: Normal chest wall appearance and motion. Cardiovascular: Regular rate and rhythm. No edema appreciated Respiratory: Normal respirations, no respiratory distress appreciated Abdomen/GI: Non distended, soft Back: Normal ROM Skin: General appearance color normal MS/ Extremity: Moves all extremities, no obvious deformities appreciated, no edema noted to the lower extremities Neuro: Awake and alert, normal gait Psych: Behavior is normal, Mood is normal, Patient is cooperative and pleasant Vital Signs: 15:18 BP 110 / 65; Pulse 79; Resp 19; Temp 98(TE); Pulse Ox 88% on 2 lpm NC; tw2 16:30 BP 116 / 64; Pulse 60; Resp 18; Pulse Ox 93% on 3 lpm NC; mh5 MDM: 15:38 Patient medically screened. [facility] 16:41 Data reviewed: vital signs, nurses notes. Counseling: I had a detailed discussion with loan the patient and/or guardian regarding: the historical points, exam findings, and any diagnostic results supporting the discharge/admit diagnosis, radiology results, the need for outpatient follow up, to return to the emergency department if symptoms worsen or persist or if there are any questions or concerns that arise at home. ED course: He is negative for an acute process. Patient has no focal motor or motor deficits appreciated. Symptoms been chronic. I do not currently suspect CVA or obstruction. Patient has a follow-up scheduled this with cardiology and family otherwise given strict return precautions. Patient understood and agrees plan of care.. 05/21 15:29 Order name: CT Head Brain wo Cont; Complete Time: 16:29 [facility] 05/21 15:29 Order name: CT Neck Angio; Complete Time: 16:41 [facility] 05/21 15:29 Order name: Saline Lock; Complete Time: 15:57 [facility] Administered Medications: No medications were administered Disposition Summary: 05/21/21 16:43 Discharge Ordered Location: Home loan Condition: Stable loan Diagnosis - Neck Pain loan Followup: loan - With: Shakeel Dickson MD - When: 2 - 3 days - Reason: Recheck today's complaints, Continuance of care, Re-evaluation by your physician Forms: - Medication Reconciliation Form loan - Thank You Letter jmm - Antibiotic Education jmm - Prescription Opioid Use [facility] Addendum: 05/23/2021 08:37 Co-signature as Attending Physician, Isael Woods MD I agree with the assessment and s p3 plan of care. Signatures: Dispatcher [employer] EDYoel Zambrano PA PA jmm Wise, Tara, RN RN tw2 Isael Woods MD MD sp3 Corrections: (The following items were deleted from the chart) 05/21 15:30 15:30 CREATININE, SERUM+C.LAB.BRZ ordered. EDHI EDHI
--- NOTE | 2021-05-21 16:43 | ER ---
Nurse's Notes [facility] Name: Gonzalo Galvez Age: 75 yrs Sex: Male : 1945 Arrival Date: 05/21/2021 Time: 15:03 Bed 16 Private MD: Shakeel Dickson R Diagnosis: Neck Pain Presentation: 05/21 15:18 Chief complaint: Patient's son or daughter states: he has been having pain on the left tw2 side of his neck. he came a couple of weeks ago with the same thing. he has an appointment with the [facility] doctor but we just wanted to be safe. Coronavirus screen: At this time, the client does not indicate any symptoms associated with coronavirus-19. Ebola Screen: Patient denies travel to an Ebola-affected area in the 21 days before illness onset. Initial Sepsis Screen: Does the patient meet any 2 criteria? No. Patient's initial sepsis screen is negative. Does the patient have a suspected source of infection? No. Patient's initial sepsis screen is negative. Risk Assessment: Do you want to hurt yourself or someone else? Patient reports no desire to harm self or others. Onset of symptoms was May 21, 2021. 15:18 Method Of Arrival: Ambulatory tw2 15:18 Acuity: TYSON 3 tw2 15:20 Chief complaint: Patient's son or daughter states: they gave him pain medicine when he tw2 was here and it helped. he says the pain is worse now and he feels numb and swollen. Chief complaint: Patient's son or daughter states: he uses oxygen at home on 2L as well. 15:24 Note provider JAYSHREE Pacheco performing assessment in triage room at this time. tw2 Triage Assessment: 15:22 General: Appears in no apparent distress. slender, well groomed, Behavior is calm, tw2 cooperative, appropriate for age. Pain: Complains of pain in left sided neck pain. Historical: - Allergies: 15:21 No Known Allergies; tw2 - PMHx: 15:21 COPD; Home O2 via 4 L NC; changed to 2L (May 09, 2021); pulmonary fibrosis; tw2 pulmonary HTN; - PSHx: 15:21 R shoulder SX; tw2 - Immunization history:: Client reports receiving the 2nd dose of the Covid vaccine. - Social history:: Smoking status: Patient/guardian denies using tobacco, Stopped _ months ago 5. Screenin:24 Abuse screen: Denies threats or abuse. Nutritional screening: No deficits noted. tw2 Tuberculosis screening: No symptoms or risk factors identified. Fall Risk None identified. Assessment: 16:29 Reassessment: Patient appears in no apparent distress at this time. Patient and/or tw2 family updated on plan of care and expected duration. Pain level reassessed. Patient is alert, oriented x 3, equal unlabored respirations, skin warm/dry/pink. 17:02 Reassessment: Patient appears in no apparent distress at this time. Patient and/or jl7 family updated on plan of care and expected duration. Pain level reassessed. Patient is alert, oriented x 3, equal unlabored respirations, skin warm/dry/pink. Patient denies pain at this time. Patient states feeling better. Vital Signs: 15:18 BP 110 / 65; Pulse 79; Resp 19; Temp 98(TE); Pulse Ox 88% on 2 lpm NC; tw2 16:30 BP 116 / 64; Pulse 60; Resp 18; Pulse Ox 93% on 3 lpm NC; mh5 ED Course: 15:03 Patient arrived in ED. mr 15:03 Shakeel Dickson MD is Private Physician. mr 15:20 Triage completed. tw2 15:21 Arm band placed on. tw2 15:28 [facility] m 15:28 Isael Woods MD is Attending Physician. m 15:50 Inserted saline lock: 20 gauge in left antecubital area, using aseptic technique. kj1 15:50 Initial lab(s) drawn, by ED staff, sent to lab. jl7 15:57 CT Neck Angio Sent. kj1 15:57 CT Head Brain wo Cont Sent. kj1 16:05 CT Head Brain wo Cont In Process Unspecified. EDMS 16:06 CT Neck Angio In Process Unspecified. EDMS 16:27 Patient has correct armband on for positive identification. Bed in low position. Call 5 light in reach. Side rails up X 1. Adult w/ patient. Warm blanket given. Pulse ox on. NIBP on. 16:42 Shakeel Dickson MD is Referral Physician. [facility] 16:56 Dulce Maria Amezcua, RN is Primary Nurse. sl2 17:02 No provider procedures requiring assistance completed. IV discontinued, intact, jl7 bleeding controlled, No redness/swelling at site. Pressure dressing applied. Administered Medications: No medications were administered Outcome: 16:43 Discharge ordered by . loan 17:03 Discharged to home ambulatory. jl7 17:03 Condition: stable 17:03 Discharge instructions given to patient, family, Instructed on discharge instructions, follow up and referral plans. Demonstrated understanding of instructions, follow-up care. 17:03 Patient left the ED. jl7 Signatures: Dispatcher [employer] EDMS Yoel Thomas PA PA jmm Rivera, Mary mr Elizabeth Adhikari, RN RN tw2 Naima Nielsen [facility] Felice Parham, RN RN jl7 Yuli Rowell kj1 Dulce Maria Amezcua, RN RN 2
[2021-05-21 18:36] VITALS: TEMP 98
[2021-05-21 18:37] VITALS: BP 116/64; O2SAT 93
--- OUTSIDE RECORDS SUMMARY | 2021-05-27 15:38 | XMS REPORT | Continuity of Care Document ---
:1945 Author Organization [facility] t Address [address] [place] [address] Care Team Providers Name Role Phone Nayely PETTIT, Shakeel Dunn Primary Care Physician [phone] Jaydon-Mbayo_A_AH Attending Clinician Unavailable Brandon SOUZA Attending Clinician Unavailable Nurse, Pob Immunization Attending Clinician Unavailable Daphne PETTIT, M Attending Clinician Sen Hill DO Attending Clinician Sen HILL Attending Clinician Unavailable Jaydon-Navdeepo_A_AH Admitting Clinician Unavailable Payers Payer Name Policy Type Policy Number Effective Date Expiration Date S our [facility] [id number] 2019 [place] 00:00:00 (MEDICARE REPLACEMENT/ADVANT AGE - HMO) [id number] 2020 PLUS CLASSIC/VALUE 00:00:00 Problems Condition Condition Condition Status Onset Resolution Last Treating Co mments Source Name Details Category Date Date Treatment Clinician Date No known No known Disease Unive rs active active ity of problems problems [facility] Allergies, Adverse Reactions, Alerts Allergy Allergy Status Severity Reaction(s) Onset Inactive Treating Comm ents Source Name Type Date Date Clinician NO KNOWN Drug Active Univers ALLERGIE Class ity of S [facility] Social History Social Habit Start Date Stop Date Quantity Comments Source Sex Assigned At Uni versity of [facility] Exposure to SARS-CoV-2 Not sure [facility] [place] (event) [facility] Smoking Status Start Date Stop Date Source Unknown if ever smoked Universit y [facility] Medications Ordered Filled Start Stop Current Ordering Indication Dosage Frequency Signature Comments Components Source Medication Medication Date Date Medication? Clinician (SIG) Name Name No known No Univers medications ity [facility] Immunizations Ordered Filled Immunization Date Status Comments Sour e Immunization Name Name SARS-COV-2 COVID-19 2020-11-18 Completed Unive rsity of PFIZER VACCINE 00:00:00 [facility] SARS-COV-2 COVID-19 2020-10-25 Completed Unive rsity of PFIZER VACCINE 00:00:00 [facility] Vital Signs Vital Name Observation Time Observation Value Comments Source Systolic blood 2020-08-27 21:04:17 146 mm[Hg] Univer sity of pressure [facility] Diastolic blood 2020-08-27 21:04:17 92 mm[Hg] Unive rsity of pressure [facility] Heart rate 2020-08-27 21:04:17 63 /min [facility] Respiratory rate 2020-08-27 21:04:17 16 /min [facility] Oxygen saturation in 2020-08-27 21:04:17 91 /min [facility] Arterial blood by [facility] Pulse oximetry [place] Body temperature 2020-08-27 18:49:00 36.33 [facility] Body weight 2020-08-27 18:49:00 77.111 kg [facility] Procedures Procedure Date / Time Performed Performing Clinician Sour e SARS-COV-2 COVID-19 2020-11-18 17:01:36 Doctor Unassigned, No [facility] [place] VACCINE,0.3ML,IM Name Medical Branch (PFIZER) NOTICE OF PRIVACY 2020-08-27 18:44:40 Doctor Unassigned, No [facility] [place] PRACTICES Name Medical Branch CONSENT/REFUSAL FOR 2020-08-27 18:42:56 Doctor Unassigned, No [facility] [place] DIAGNOSIS AND Name Medical Branch TREATMENT Plan of Care Planned Activity Planned Date Details Comments Source Future Scheduled 2021-03-15 INFLUENZA VACCINE [facility] [place] Test 00:00:00 (Season Ended) [code = Medic al Branch INFLUENZA VACCINE (Season Ended)] Future Scheduled 2010 Medicare Annual Universi ty [facility] Test 00:00:00 Wellness Visit Medical Bran h (procedure) [code = 111454318183806] Future Scheduled 2010 PNEUMOCOCCAL VACCINES [facility] [place] Test 00:00:00 65+ (1 of 1 - PPSV23) Medica l Branch [code = PNEUMOCOCCAL VACCINES 65+ (1 of 1 - PPSV23)] Future Scheduled 1995 Screening for occult [facility] [place] Test 00:00:00 blood in feces Medical Bran h (procedure) [code = 001710553] Future Scheduled 1995 Stool DNA-based Universi ty [facility] Test 00:00:00 colorectal cancer Medical Br anch screening (procedure) [code = 361474327284757] Future Scheduled 1995 [facility] sigmoidoscopy Medical Branch (procedure) [code = 67550068] Future Scheduled 1995 Screening for [facility] Test 00:00:00 malignant neoplasm of Medica l Branch colon (procedure) [code = 702619144] Future Scheduled 1995 Screening for [facility] Test 00:00:00 malignant neoplasm of Medica l Branch colon (procedure) [code = 518662291] Future Scheduled 1995 Zoster Recombinant Unive rsity [facility] Test 00:00:00 Vaccine (SHINGRIX) (1 Medica l Branch of 2) [code = Zoster Recombinant Vaccine (SHINGRIX) (1 of 2)] Future Scheduled 1964 DTaP,Tdap,and Td Univers ity [facility] Test 00:00:00 Vaccines (1 - Tdap) Medical Branch [code = DTaP,Tdap,and Td Vaccines (1 - Tdap)] Future Scheduled 1963 Hepatitis C screening [facility] [place] Test 00:00:00 (procedure) [code = Medical Branch 862684979] Future Scheduled 1957 Depression screening Uni versity [facility] Test 00:00:00 (procedure) [code = Medical Branch [id number]] Encounters Start End Encounter Admission Attending Care Care Encounter Source Date/Time Date/Time Type Type Clinicians Facility Department ID 2021-05-27 Outpatient Jaydon-Mbayo VFP VFP [id number] [place] 04:22:08 _A_AH [id number] Family Practic e 2021-05-26 Outpatient Jaydon-Mbayo VFP VFP [id number] [place] 21:13:19 _A_AH [id number] Family Practic e 2021-05-26 Outpatient Jaydon-Mbayo VFP VFP [id number] [place] 20:12:12 _A_AH 38372 Family Practic e 2021-05-26 Outpatient Jaydon-Mbayo VFP VFP [id number] [place] 15:05:57 _A_AH 33361 Family Practic e 2020-11-18 2020-11-18 Outpatient Shaun SOUZA [facility] [id number] Univers 12:30:00 12:30:00 TAINA [facility] 2020-10-25 2020-10-25 Outpatient Shaun SOUZA [facility] [id number] Univers 12:30:00 12:30:00 TAINA [facility] 2020-08-27 2020-08-27 [facility] [id number] Univers 12:53:00 15:08:00 Elis Garsia [id number] [facility] [id number] [facility] [id number] [place] [address] Branch 2020-08-27 2020-08-27 Emergency [facility] E[facility] [id number] Univers 12:53:00 12:53:00 ELIS goff [facility] Results This patient has no known results.
== END 2021-05-21 17:03 | disposition home or self-care (01) ==
LOC: ER 14:59
DX: M54.2 Cervicalgia (principal); J44.9 Chronic obstructive pulmonary disease, unspecified; I25.10 Atherosclerotic heart disease of native coronary artery without angina pectoris; I10 Essential (primary) hypertension; Z87.891 Personal history of nicotine dependence
CPT/HCPCS: 82565; 70450; 70498; 99284; Q9967

== ENCOUNTER 2021-06-05 07:24 | Day surgery (SDC) | payer OTHER ==
[2021-06-02 13:31] LABS: Absolute Lymphocytes (CBC) 1.1 K/uL (0.7-4.9); Basophils % 0.5 % (0-1.3); Hematocrit 42.4 % (39.6-49.0); MPV 8.6 fL (7.6-11.3)
[2021-06-02 13:44] LABS: Protime INR 0.97
[2021-06-02 13:45] LABS: BUN Blood Urea Nitrogen 22 mg/dL (7-18); Bicarbonate 29 mmol/L (21-32); Glucose Level 99 mg/dL (74-106); Potassium 4.6 mmol/L (3.5-5.1); Sodium Level 142 mmol/L (136-145)
[2021-06-05] MEDS ORDERED: MIDAZOLAM HCL 2 MG/2 ML INJ ONE ×2 (07:56→08:42)
[2021-06-05] MEDS ORDERED: ATROPINE SULF 1 MG/10 ML SYR IV ONE (07:57)
[2021-06-05] MEDS ORDERED: FENTANYL CITR 100 MCG/2 ML ONE (07:57)
[2021-06-05] MEDS ORDERED: NA CHLORIDE 0.9% 500 ML ONE (08:11)
[2021-06-05] MEDS ORDERED: LIDOCAINE 1% 20 ML MDV ONE (08:18)
[2021-06-05] MEDS ORDERED: HEPA 1000U/500MLS 1,000 UNIT/500 ML BAG IV ONE (08:18)
--- NOTE | 2021-06-05 11:06 | OP ---
Date of Procedure: 06/05/2021 Surgeon: Chris Cervantes MD [employer] Driver: Ade Amin. Procedure: Selective bilateral carotid angiograms. Indication: Abnormal carotid Doppler. Procedure In Detail: The patient was brought to the hospital as an outpatient, prepped and draped in the routine sterile fashion. Given Versed and fentanyl for sedation. A 6-Jamaican sheath introduced in the right common femoral artery successfully using the Seldinger technique. Angiography there was normal. Angio-Seal was used to close the case. JR4 Ryan catheter was used to selective the righ t common carotid and then the left common carotid separately. He was found to have normal external c arotid, normal common carotid bilaterally. He had about a 40% bilateral ICA occlusion. No significa nt focal stenosis. No complications. Blood Loss: 5 mL. 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 Anesthesia: Total conscious sedation 45 minutes. Plan: Plan is for medical therapy. The patient will remain in the hospital for 2 hours of bedrest a fter the Angio-Seal. He will go home. I will see him in the office in 2 weeks. NOEL/CHANA Voice ID: [id number] Report ID: [id number]
[2021-06-05 11:20] VITALS: TEMP 97.8
[2021-06-05 11:23] VITALS: O2SAT 94
[2021-06-05 11:51] VITALS: BP 112/60
--- NOTE | 2021-06-07 08:19 | EKG ---
Test Date: 2021-06-02 Test Time: 12:34:59 Design Agent: LORRAINE MEASUREMENT RESULTS: Intervals: Rate: 70 HI: 202 QRSD: 88 QT: 430 QTc: 464 [place]: P: 53 HI: 202 QRS: 82 T: 74 INTERPRETIVE STATEMENTS: Normal sinus rhythm Nonspecific ST abnormality Abnormal ECG Compared to ECG 05/08/2021 17:20:31 ST (T wave) deviation now present First degree AV block no longer present Right-axis deviation no longer present Electronically Signed On 06-07-21 08:05:09 ABATTOIR SUPERVISOR by Chris Cervantes
== END 2021-06-05 11:30 | disposition home or self-care (01) ==
LOC: CCL 07:24
DX: I65.23 Occlusion and stenosis of bilateral carotid arteries (principal); I10 Essential (primary) hypertension; E78.2 Mixed hyperlipidemia; I27.21 Secondary pulmonary arterial hypertension; J44.1 Chronic obstructive pulmonary disease with (acute) exacerbation; Z87.891 Personal history of nicotine dependence; Z20.822 Contact with and (suspected) exposure to COVID-19
CPT/HCPCS: 36222; 36415; 80048; 85025; 85610; 85730; 93005; C1760; C1893; J1644; J2250; J3010; J7040; U0003

== ENCOUNTER 2021-06-06 08:18 | Emergency (ER) | payer OTHER ==
--- OUTSIDE RECORDS SUMMARY | 2021-06-06 08:21 | XMS REPORT | Continuity of Care Document ---
:1945 Author Organization [facility] t Address [address] [place] [address] Care Team Providers Name Role Phone Nayely PETTIT, R Primary Care Physician Jaydon-Praveen_A_AH Attending Clinician Unavailable Brandon SOUZA Attending Clinician Unavailable Nurse, Pob Immunization Attending Clinician Unavailable Daphne PETTIT M Attending Clinician Sen Hill DO Attending Clinician Sen HILL Attending Clinician Unavailable Bessie_A_AH Admitting Clinician Unavailable Payers Payer Name Policy Type Policy Number Effective Date Expiration Date S ource [facility] [id number] 2019 [place] 00:00:00 (MEDICARE REPLACEMENT/ADVANT AGE - HMO) [id number] 2020 PLUS CLASSIC/VALUE 00:00:00 Problems Condition Condition Condition Status Onset Resolution Last Treating Co mments Source Name Details Category Date Date Treatment Clinician Date No known No known Disease Unive rs active active ity of problems problems [facility] Allergies, Adverse Reactions, Alerts Allergy Allergy Status Severity Reaction(s) Onset Inactive Treating Comm ents Source Name Type Date Date Clinician NO KNOWN Drug Active Univers ALLERGIE Class ity of S [facility] Social History Social Habit Start Date Stop Date Quantity Comments Source Sex Assigned At Uni versity of [facility] Exposure to SARS-CoV-2 Not sure [facility] [place] (event) [facility] Smoking Status Start Date Stop Date Source Unknown if ever smoked [facility] y [facility] Medications Ordered Filled Start Stop Current Ordering Indication Dosage Frequency Signature Comments Components Source Medication Medication Date Date Medication? Clinician (SIG) Name Name No known No [facility] Ordered Filled Immunization Date Status Comments Sour e Immunization Name Name SARS-COV-2 COVID-19 2020-11-18 Completed Unive rsity of PFIZER VACCINE 00:00:00 [facility] SARS-COV-2 COVID-19 2020-10-25 Completed Unive rsity of PFIZER VACCINE 00:00:00 [facility] Vital Signs Vital Name Observation Time Observation Value Comments Source Systolic blood 2020-08-27 21:04:17 146 mm[Hg] Univer sity of pressure [facility] Diastolic blood 2020-08-27 21:04:17 92 mm[Hg] Unive rsity of pressure [facility] Heart rate 2020-08-27 21:04:17 63 /min [facility] Respiratory rate 2020-08-27 21:04:17 16 /min [facility] Oxygen saturation in 2020-08-27 21:04:17 91 /min [facility] Arterial blood by [facility] Pulse oximetry [place] Body temperature 2020-08-27 18:49:00 36.33 Nataliya [facility] Body weight 2020-08-27 18:49:[address] [facility] Procedures Procedure Date / Time Performed Performing Clinician Sourc e SARS-COV-2 COVID-19 2020-11-18 17:01:36 Doctor Unassigned, No [facility] [place] VACCINE,0.3ML,IM Name Medical Branch (PFIZER) NOTICE OF PRIVACY 2020-08-27 18:44:40 Doctor Unassigned, No [facility] CONSENT/REFUSAL FOR 2020-08-27 18:42:56 Doctor Unassigned, No [facility] [place] DIAGNOSIS AND Name Medical Branch TREATMENT Plan of Care Planned Activity Planned Date Details Comments Source Future Scheduled 2021-03-15 INFLUENZA VACCINE [facility] [place] Test 00:00:00 (Season Ended) [code = Medic al Branch INFLUENZA VACCINE (Season Ended)] Future Scheduled 2010 Medicare Annual [facility] Test 00:00:00 Wellness Visit Medical Bran h (procedure) [code = 826920618469931] Future Scheduled 2010 PNEUMOCOCCAL VACCINES [facility] [place] Test 00:00:00 65+ (1 of 1 - PPSV23) Medica l Branch [code = PNEUMOCOCCAL VACCINES 65+ (1 of 1 - PPSV23)] Future Scheduled 1995 [facility]:00 blood in feces Medical [facility] h (procedure) [code = 270575883] Future Scheduled 1995 Stool DNA-based [facility] Test 00:00:00 colorectal cancer Medical Br anch screening (procedure) [code = 172828920351735] Future Scheduled 1995 Flexible fiberoptic [facility] 00:00:00 sigmoidoscopy Medical Branch (procedure) [code = 20732563] Future Scheduled 1995 Screening for [facility] Test 00:00:00 malignant neoplasm of Medica l Branch colon (procedure) [code = 980938974] Future Scheduled 1995 Screening for [facility] Test 00:00:00 malignant neoplasm of Medica l Branch colon (procedure) [code = 439712990] Future Scheduled 1995 Zoster Recombinant [facility] 00:[facility]00 Vaccine (SHINGRIX) (1 Medica l Branch of 2) [code = Zoster Recombinant Vaccine (SHINGRIX) (1 of 2)] Future Scheduled 1964 DTaP,Tdap,and Td Univers [facility] Test 00:00:00 Vaccines (1 - Tdap) Medical Branch [code = DTaP,Tdap,and Td Vaccines (1 - Tdap)] Future Scheduled 1963 Hepatitis C screening [facility] [place] Test 00:00:00 (procedure) [code = Medical Branch 594502210] Future Scheduled 1957 Depression [facility] 00:00:00 (procedure) [code = Medical Branch [id number]] Encounters Start End Encounter Admission Attending Care Care Encounter Source Date/Time Date/Time Type Type Clinicians Facility Department ID 2021-05-29 Outpatient Jaydon-Navdeepo [facility] [id number] [address] 02:23:47 _A_ [id number] Family Practic e 2021-05-28 Outpatient Jaydon-Mbayo [facility] [id number] [place] 19:14:25 _A_AH 25601 Family Practic e 2021-05-28 Outpatient Jaydon-Mbayo [facility] [id number] [place] 06:46:00 _A_AH 39252 Family Practic e 2021-05-27 Outpatient Jaydon-Mbayo [facility] VFP [id number] [place] 04:22:08 _A_AH 96938 Family Practic e 2021-05-26 Outpatient Jaydon-Mbayo [facility] [id number] [place] 21:13:19 _A_AH 11809 Family Practic e 2021-05-26 Outpatient Jaydon-Mbayo [facility] VFP [id number] [place] 20:12:12 _A_AH 32645 Family Practic e 2021-05-26 Outpatient Jaydon-Mbayo [facility] VFP [id number] [place] 15:05:57 _A_AH 85790 Family Practic e 2020-11-18 2020-11-18 Outpatient Shaun SOUZA [facility] [id number] Univers 12:30:00 12:30:00 [facility] 2020-10-25 2020-10-25 Outpatient Shaun SOUZA [facility] [id number] Univers 12:30:00 12:30:00 TAINA [facility] 2020-08-27 2020-08-27 Emergency LizNEWCOMB, UTPATY [id number] Univers 12:53:00 15:08:00 Elis Garsia [id number] [facility] [id number] [facility] [id number] [place] [address] Branch 2020-08-27 2020-08-27 [facility] [id number] Univers 12:53:00 12:53:00 ELIS goff [facility] Results This patient has no known results.
--- NOTE | 2021-06-06 10:07 | RAD REPORT ---
EXAM DESCRIPTION: US - Extremity Nonvascular Complete - 06/06/2021 9:16 am CLINICAL HISTORY: Right inguinal swelling status post catheterization COMPARISON: None FINDINGS: A hematoma is not seen within the right groin. A pseudo aneurysm is not visualized. Couple normal appearing lymph nodes IMPRESSION: Unremarkable exam
--- NOTE | 2021-06-06 10:13 | EDPHYS ---
Physician Documentation [facility] Name: Gonzalo Galvez Age: 75 yrs Sex: Male : 1945 Arrival Date: 06/06/2021 Time: 08:20 Bed 20 Private MD: ED Physician Chadwick Delgado HPI: 06/06 09:16 This 75 yrs old Male presents to ER via Wheelchair with complaints of Post pm1 Surgical Pain. 09:16 The patient presents with Right groin pain and swelling. Onset: The symptoms/episode pm1 began/occurred today. The symptoms do not radiate. Associated signs and symptoms: none. Modifying factors: The symptoms are alleviated by nothing, the symptoms are aggravated by nothing. The patient has not experienced similar symptoms in the past. The patient has been recently seen by a physician: Patient seen by Dr. Cervantes yesterday for cardiac cath, Patient reports noticing swelling to right groin area after using the restroom today, urination only. Historical: - Allergies: 10:12 No Known Allergies; sl2 - PMHx: 10:12 COPD; Home O2 via 4 L NC; changed to 2L (May 09, 2021); pulmonary fibrosis; sl2 pulmonary HTN; - PSHx: 10:12 R shoulder SX; sl2 - Immunization history:: Adult Immunizations up to date, Client reports receiving the 2nd dose of the Covid vaccine. - Social history:: Smoking status: Patient denies any tobacco usage or history of. ROS: 09:16 Constitutional: Negative for fever, chills, and weight loss, Cardiovascular: Negative pm1 for chest pain, palpitations, and edema, Respiratory: Negative for shortness of breath, cough, wheezing, and pleuritic chest pain, Abdomen/GI: Negative for abdominal pain, nausea, vomiting, diarrhea, and constipation, Back: Negative for injury and pain, MS/Extremity: Negative for injury and deformity, Skin: Negative for injury, rash, and discoloration, Neuro: Negative for headache, weakness, numbness, tingling, and seizure. 09:16 All other systems are negative. Exam: 09:16 Constitutional: This is a well developed, well nourished patient who is awake, alert, pm1 and in no acute distress. Head/Face: Normocephalic, atraumatic. 09:16 Back: No spinal tenderness. No costovertebral tenderness. Full range of motion. Skin: Warm, dry with normal turgor. Normal color with no rashes, no lesions, and no evidence of cellulitis. MS/ Extremity: Pulses equal, no cyanosis. Neurovascular intact. Full, normal range of motion. 09:16 Cardiovascular: Exam negative for acute changes, Rate: normal, Rhythm: regular, Pulses: no pulse deficits are appreciated. 09:16 Respiratory: Exam negative for acute changes, the patient does not display signs of respiratory distress, Respirations: normal. 09:16 Abdomen/GI: Exam negative for acute changes, Inspection: abdomen appears normal, Palpation: soft, in all quadrants, Mild swelling present to right groin area, no signs of cellulitis or abscess present. 09:16 Neuro: Exam negative for acute changes, Orientation: is normal, Mentation: is normal, Motor: is normal, moves all fours. Vital Signs: 08:45 BP 119 / 65; Pulse 98; Resp 18; Temp 98.0; Pulse Ox 96% on R/A; sl2 09:30 BP 110 / 75; Pulse 71; Resp 18; Temp 98.2; Pulse Ox 96% ; sl2 MDM: 08:25 Patient medically screened. pm1 08:36 Data reviewed: vital signs. Data interpreted: Pulse oximetry: on 2L(s) per nasal pm1 canula, is 95 %. Interpretation: normal. 09:21 ED course: Pending radiologist report. Report from technical customer support specialist no pseudoaneurysm pm1 present. 10:12 Counseling: I had a detailed discussion with the patient and/or guardian regarding: the pm1 historical points, exam findings, and any diagnostic results supporting the discharge/admit diagnosis, radiology results, the need for outpatient follow up, to return to the emergency department if symptoms worsen or persist or if there are any questions or concerns that arise at home. 06/06 09:16 Order name: Extremity Nonvascular Complete; Complete Time: 10:08 EDMS Administered Medications: No medications were administered Disposition: 15:00 Co-signature as Attending Physician, Chadwick Delgado MD I agree with the assessment and kdr plan of care. Disposition Summary: 06/06/21 10:12 Discharge Ordered Location: Home pm1 Problem: new pm1 Symptoms: have improved pm1 Condition: Stable pm1 Diagnosis - Localized swelling, mass and lump, unspecified - right groin pm1 Followup: pm1 - With: Emergency Department - When: As needed - Reason: Worsening of condition Followup: pm1 - With: Private Physician - When: 2 - 3 days - Reason: Recheck today's complaints, Continuance of care, Re-evaluation by your physician Forms: - Medication Reconciliation Form pm1 - Thank You Letter pm1 - Antibiotic Education pm1 - Prescription Opioid Use pm1 Signatures: Dispatcher [employer] EDMS Chadwick Delgado MD MD kdr Marinas, Patrick, NP RETAIL SALES PROFESSIONAL pm1 Dulce Maria Amezcua RN RN sl2 Corrections: (The following items were deleted from the chart) 09:16 08:41 Abdomen Limited+US.RAD.BRZ ordered. EDND EDMS
--- NOTE | 2021-06-06 10:13 | ER ---
Nurse's Notes [facility] Name: Gonzalo Galvez Age: 75 yrs Sex: Male : 1945 Arrival Date: 06/06/2021 Time: 08:20 Bed 20 Private MD: Diagnosis: Localized swelling, mass and lump, unspecified-right groin Presentation: 06/06 08:40 Chief complaint: Patient states: had heart cath yesterday with Dr. Cervantes, has pain iw and swelling to right groin at insertion site, pt also is O2 dependent and did not bring his portable O2, was 80% on RA, up to 97% on 3 L. Coronavirus screen: At this time, the client does not indicate any symptoms associated with coronavirus-19. Ebola Screen: Patient negative for fever greater than or equal to 101.5 degrees Fahrenheit, and additional compatible Ebola Virus Disease symptoms Patient denies exposure to infectious person. Patient denies travel to an Ebola-affected area in the 21 days before illness onset. No symptoms or risks identified at this time. Initial Sepsis Screen: Does the patient meet any 2 criteria? No. Patient's initial sepsis screen is negative. Does the patient have a suspected source of infection? No. Patient's initial sepsis screen is negative. Risk Assessment: Do you want to hurt yourself or someone else? Patient reports no desire to harm self or others. Onset of symptoms was June 06, 2021. 08:40 Method Of Arrival: Wheelchair iw 08:40 Acuity: TYSON 3 iw Historical: - Allergies: 10:12 No Known Allergies; sl2 - PMHx: 10:12 COPD; Home O2 via 4 L NC; changed to 2L (May 09, 2021); pulmonary fibrosis; sl2 pulmonary HTN; - PSHx: 10:12 R shoulder SX; sl2 - Immunization history:: Adult Immunizations up to date, Client reports receiving the 2nd dose of the Covid vaccine. - Social history:: Smoking status: Patient denies any tobacco usage or history of. Screenin:50 Abuse screen: Denies threats or abuse. Denies injuries from another. sl2 08:50 Nutritional screening: No deficits noted. Tuberculosis screening: No symptoms or risk sl2 factors identified. Never had TB. Possible symptoms: None Risk factors: None. Fall Risk No fall in past 12 months (0 pts). No secondary diagnosis (0 pts). No IV (0 pts). Ambulatory Aid- Crutches/Cane/Walker (15 pts). Gait- Impaired (20 pts.). Mental Status- Oriented to own ability (0 pts). Total Ferrer Fall Scale indicates Low Risk Score (25-44 pts). Fall prevention measures have been instituted. Side Rails Up X 2 Placed close to Nursing Station Frequent Obs/Assesments occuring Family Present and informed to notify staff if they need to leave bedside. Assessment: 08:40 General: Appears in no apparent distress. well groomed, well developed, Behavior is sl2 calm, cooperative, appropriate for age. 08:40 Pain: Denies pain. Pain: Denies pain. Complains of pain in right groin Pain does not sl2 radiate. Pain currently is 2 out of 10 on a pain scale. Quality of pain is described as aching, Pain began gradually. Neuro: No deficits noted. Cardiovascular: No deficits noted. Reports. Respiratory: No deficits noted. Reports. GI: No deficits noted. No signs and/or symptoms were reported involving the gastrointestinal system. : No deficits noted. No signs and/or symptoms were reported regarding the genitourinary system. EENT: No deficits noted. No signs and/or symptoms were reported regarding the EENT system. Derm: No deficits noted. No signs and/or symptoms reported regarding the dermatologic system. Musculoskeletal: Reports right groin swelling with mild pain at site of cardiac cath insertion site. Vital Signs: 08:45 BP 119 / 65; Pulse 98; Resp 18; Temp 98.0; Pulse Ox 96% on R/A; sl2 09:30 BP 110 / 75; Pulse 71; Resp 18; Temp 98.2; Pulse Ox 96% ; sl2 ED Course: 08:20 Patient arrived in ED. rg4 08:25 Kendrick Ji NP is PHCP. pm1 08:25 Chadwick Delgado MD is Attending Physician. pm1 08:40 Arm band placed on right wrist. sl2 08:42 Triage completed. iw 08:50 Patient has correct armband on for positive identification. Placed in gown. Bed in low sl2 position. Call light in reach. Side rails up X 1. Side rails up X2. Adult w/ patient. 08:50 No provider procedures requiring assistance completed. Patient did not have IV access sl2 during this emergency room visit. 09:16 Extremity Nonvascular Complete In Process Unspecified. EDMS 09:31 Dulce Maria Amezcua, RN is Primary Nurse. sl2 Administered Medications: No medications were administered Outcome: 10:12 Discharge ordered by MD. pm1 10:30 Discharged to home with family. sl2 10:30 Condition: stable 10:30 Discharge instructions given to patient, family, Instructed on discharge instructions, follow up and referral plans. Demonstrated understanding of instructions, follow-up care. 10:31 Patient left the ED. sl2 Signatures: Dispatcher [employer] EDMS Melody Dela Cruz RN RN iw Kendrick Ji NP CLOTHES MARKER pm1 [place] rg4 Dulce Maria Amezcua, RN RN sl2 Corrections: (The following items were deleted from the chart) 10:03 09:38 BP 119 / 65; Pulse 98bpm; Resp 18bpm; Pulse Ox 96% RA; Temp 98.0F; sl2 sl2 10:05 09:59 Reassessment: Nursing report given to Ruby Matos RN at [facility] sl2 for patient transfer to that facility for psychiatric care. sl2
[2021-06-06 10:36] VITALS: O2SAT 96
[2021-06-06 10:37] VITALS: BP 110/75; TEMP 98.2
== END 2021-06-06 10:31 | disposition home or self-care (01) ==
LOC: ER 08:18
DX: R22.2 Localized swelling, mass and lump, trunk (principal); Z98.890 Other specified postprocedural states; I27.20 Pulmonary hypertension, unspecified; J44.9 Chronic obstructive pulmonary disease, unspecified; Z99.81 Dependence on supplemental oxygen
CPT/HCPCS: 76881; 99283

== ENCOUNTER 2021-09-07 19:15 | Observation (INO) | payer MEDICARE, OTHER ==
--- OUTSIDE RECORDS SUMMARY | 2021-09-07 19:18 | XMS REPORT | Continuity of Care Document ---
:1945 Author Organization [facility] t Address [address] [place] [address] [address]. [address] [place] [address] Care Team Providers Name Role Phone Nayely PETTIT, R Primary Care Physician Brandon SERNA Attending Clinician Unavailable Nurse, Pob Immunization Attending Clinician Unavailable Brandon Serna MD Attending Clinician Sen Hill DO Attending Clinician Sen HILL Attending Clinician Unavailable Jaydon-Mbayo_A_AH Attending Clinician Unavailable Jaydon-Mbayo_A_AH Admitting Clinician Unavailable Payers Payer Name Policy Type Policy Number Effective Date Expiration Date S tete [id number] 2020 PLUS CLASSIC/VALUE 00:00:00 [id number] ([facility]ICARE REPLACEMENT/ADVANT AGE - HMO) Problems Condition Condition Condition Status Onset Resolution Last Treating Co mments Source Name Details Category Date Date Treatment Clinician Date No known No known Disease Unive rs active active ity of problems problems [facility] Allergies, Adverse Reactions, Alerts Allergy Allergy Status Severity Reaction(s) Onset Inactive Treating Comm ents Source Name Type Date Date Clinician NO KNOWN Drug Active Univers ALLERGIE Class ity of S [facility] Social History Social Habit Start Date Stop Date Quantity Comments Source Sex Assigned At Uni [facility]ity [facility] Exposure to SARS-CoV-2 Not sure [facility] [place] (event) [facility] Smoking Status Start Date Stop Date Source Unknown if ever smoked [facility] y [facility] Medications Ordered Filled Start Stop Current Ordering Indication Dosage Frequency Signature Comments Components Source Medication Medication Date Date Medication? Clinician (SIG) Name Name No known No Univers medications ity of [facility] Immunizations Ordered Filled Immunization Date Status Comments Sourc e Immunization Name Name SARS-COV-2 COVID-19 2020-11-18 Completed Unive rsity of PFIZER VACCINE 00:00:00 [facility] SARS-COV-2 COVID-19 2020-10-25 Completed Unive rsity of PFIZER VACCINE 00:00:00 [facility] Vital Signs Vital Name Observation Time Observation Value Comments Source Systolic blood 2020-08-27 21:04:17 146 mm[Hg] Univer sity of pressure [facility] Diastolic blood 2020-08-27 21:04:17 92 mm[Hg] Unive rsity of pressure [facility] Heart rate 2020-08-27 21:04:17 63 /min [facility] Respiratory rate 2020-08-27 21:04:17 16 /min [facility] Oxygen saturation in 2020-08-27 21:04:17 91 /min [facility] Arterial blood by [facility] Pulse oximetry [place] Body temperature 2020-08-27 18:49:00 36.33 Nataliya [facility] Body weight 2020-08-27 18:49:00 77.111 kg [facility] Procedures Procedure Date / Time Performed Performing Clinician Sourc e SARS-COV-2 COVID-19 2020-11-18 17:01:36 Doctor Unassigned, No [facility] [employer] VACCINE,0.3ML,IM Name Medical Branch (PFIZER) NOTICE OF PRIVACY 2020-08-27 18:44:40 Doctor Unassigned, No [facility] [place] PRACTICES Name Medical Branch CONSENT/REFUSAL FOR 2020-08-27 18:42:56 Doctor Unassigned, No [facility] [place] DIAGNOSIS AND Name Medical Branch TREATMENT Plan of Care Planned Activity Planned Date Details Comments Source Future Scheduled 2021-03-15 INFLUENZA VACCINE [facility] [place] Test 00:00:00 (Season Ended) [code = Medic al Branch INFLUENZA VACCINE (Season Ended)] Future Scheduled 2010 Medicare Annual Universi ty [facility] Test 00:00:00 Wellness Visit Medical Bran h (procedure) [code = 680949210554110] Future Scheduled 2010 PNEUMOCOCCAL VACCINES [facility] [place] Test 00:00:00 65+ (1 of 1 - PPSV23) Medica l Branch [code = PNEUMOCOCCAL VACCINES 65+ (1 of 1 - PPSV23)] Future Scheduled 1995 [facility]moidoscopy Medical Branch (procedure) [code = 21954522] Future Scheduled 1995 Screening for University [facility] Test 00:00:00 malignant neoplasm of Medica l Branch colon (procedure) [code = 229435704] Future Scheduled 1995 Screening for University [facility] Test 00:00:00 malignant neoplasm of Medica l Branch colon (procedure) [code = 577293659] Future Scheduled 1995 [facility] Vaccine (SHINGRIX) (1 Medica l Branch of 2) [code = Zoster Recombinant Vaccine (SHINGRIX) (1 of 2)] Future Scheduled 1995 Screening for occult [facility] [place] Test 00:00:00 blood in feces Medical [facility] h (procedure) [code = 076647801] Future Scheduled 1995 Stool DNA-based [facility] Test 00:00:00 colorectal cancer Medical Br anch screening (procedure) [code = 965737143998702] Future Scheduled 1964 DTaP,Tdap,and Td [facility] [place] Test 00:00:00 Vaccines (1 - Tdap) Medical Branch [code = DTaP,Tdap,and Td Vaccines (1 - Tdap)] Future Scheduled 1963 Hepatitis C screening [facility] [place] Test 00:00:00 (procedure) [code = Medical Branch [id number]] Future Scheduled 1957 Depression screening Uni versity [facility] Test 00:00:00 (procedure) [code = Medical Branch 243192041] Encounters Start End Encounter Admission Attending Care Care Encounter Source Date/Time Date/Time Type Type Clinicians Facility Department ID 2020-11-18 2020-11-18 Outpatient Shaun SERNA [facility] [id number] Univers 12:30:00 12:30:00 [facility] 2020-10-25 2020-10-25 [facility] [id number] Univers 12:30:00 12:30:00 TAINA [facility] 2020-08-27 2020-08-27 [facility] [id number] Univers 12:53:00 15:08:00 Elis Garsia [id number] [facility] [id number] [facility] [id number] [place] [id number] Branch 2020-08-27 2020-08-27 [facility] [id number] Univers 12:53:00 12:53:00 ELIS [facility] 2019-09-10 2019-09-10 Outpatient Jaydon-Mbayo VFP VFP [id number] [facility] 04:50:00 04:50:00 _A_AH [id number] Family Practic e 2019-09-10 2019-09-10 Outpatient Jaydon-Mbayo VFP VFP [id number] [facility] 04:50:00 04:50:00 _A_AH [id number] Family Practic e 2019-09-10 2019-09-10 Outpatient Jaydon-Mbayo VFP VFP [id number] [facility] 04:50:00 04:50:00 _A_AH [id number] Family Practic e 2019-09-10 2019-09-10 Outpatient Jaydon-Mbayo VFP VFP [id number] [facility] 04:50:00 04:50:00 _A_AH [id number] Family Practic e 2019-09-10 2019-09-10 Outpatient Jaydon-Mbayo VFP VFP [id number] [facility] 04:50:00 04:50:00 _A_AH [id number] Family Practic e 2019-09-10 2019-09-10 Outpatient Jaydon-Mbayo VFP VFP [id number] [facility] 04:50:00 04:50:00 _A_AH [id number] Family Practic e 2019-09-10 2019-09-10 Outpatient Jaydon-Mbayo VFP VFP [id number] [facility] 04:50:00 04:50:00 _A_ [id number] Family Practic e Results This patient has no known results.
[2021-09-07 20:15] LABS: Absolute Lymphocytes (CBC) 1.5 K/uL (0.7-4.9); Hematocrit 43.3 % (39.6-49.0); Lymphocytes % 17.7 % (15.3-44.8); Protime INR 0.94; RBC Red Blood Cell Count 4.68 M/uL (4.33-5.43)
--- NOTE | 2021-09-07 20:27 | RAD REPORT ---
EXAM DESCRIPTION: RAD - Chest Single View - 09/07/2021 8:17 pm CLINICAL HISTORY: DYSPNEA COMPARISON: Chest Pa And Lat (2 Views) dated 05/08/2021; Chest Single View dated 04/15/2021; Chest Si ngle View dated 04/14/2021; Chest Pa And Lat (2 Views) dated 02/03/2021 FINDINGS: Lines: None. Lungs: Background of chronic interstitial lung disease with increasing bilateral a ill-defined opacit ies . Pleural: No significant pleural effusions or pneumothorax. Cardiac: Cardiomegaly. Bones: No acute fractures. Right shoulder arthroplasty. Other: IMPRESSION: Interstitial lung disease with worsened aeration of the lungs bilaterally that could be secondary to edema and/or multifocal pneumonia.
[2021-09-07 21:29] LABS: Thyroid Stimulating Hormone 0.819 uIU/mL (0.360-3.740)
[2021-09-07 21:41] LABS: ALT/SGPT 24 U/L (12-78); AST/SGOT 15 U/L (15-37); Alkaline Phosphatase 119 U/L (45-117); BUN Blood Urea Nitrogen 20 mg/dL (7-18); Bicarbonate 22 mmol/L (21-32); Bilirubin Total 0.4 mg/dL (0.2-1.0); Glucose Level 172 mg/dL (74-106); Magnesium 2.1 mg/dL (1.8-2.4); NT PRO-BNP 788 pg/mL (<450); Potassium 3.8 mmol/L (3.5-5.1); Protein, Total 8.1 g/dL (6.4-8.2); Sodium Level 137 mmol/L (136-145)
[2021-09-07 21:43] LABS: Bilirubin Direct < 0.1 mg/dL (0-0.2)
--- NOTE | 2021-09-07 22:05 | EDPHYS ---
Physician Documentation [facility] Name: Gonzalo Galvez Age: 76 yrs Sex: Male : 1945 Arrival Date: 09/07/2021 Time: 19:19 Bed 8 Private MD: ED Physician Dung Barragan HPI: 09/07 20:06 This 76 yrs old Male presents to ER via Wheelchair with complaints of low rn pulse. 20:06 Pt and daughter report at 2 doctors office visits today, HR was in 30s-40s, ecg rn obtained but showed HR in 70s. Sent here for further evaluation. Daughter reports pulse oximeter on way here varied from 28-60s. Pt feels fine. Has COPD, on home O2. No recent illness. No chest pain or increased sob. NO fever. Denies dizziness/syncope/near syncope. Has never happened to him before. Currently asymptomatic. . Onset: The symptoms/episode began/occurred this morning. Severity of symptoms: At their worst the symptoms were moderate in the emergency department the symptoms have improved. The patient has not experienced similar symptoms in the past. The patient has been recently seen by a physician:. Historical: - Allergies: 19:32 No Known Allergies; tw5 - Home Meds: 19:38 prednisolone 10 mg [place] tab 1 tab once daily [Active]; amlodipine 10 mg tab 1 tab once tw5 daily [Active]; - PMHx: 19:32 COPD; Home O2 via 4 L NC; changed to 2L (May 09, 2021); pulmonary fibrosis; tw5 pulmonary HTN; - PSHx: 19:32 R shoulder SX; tw5 - Immunization history:: Flu vaccine is not up to date. - Social history:: Smoking status: Patient/guardian denies using tobacco, Stopped _ months ago 8. - Family history:: not pertinent. - Hospitalizations: : No recent hospitalization is reported. ROS: 20:06 Constitutional: Negative for fever, chills, and weight loss, Eyes: Negative for injury, rn pain, redness, and discharge, Neck: Negative for injury, pain, and swelling, Cardiovascular: Negative for chest pain, palpitations, and edema, Respiratory: Negative for pleuritic chest pain Abdomen/GI: Negative for abdominal pain, nausea, vomiting, diarrhea, and constipation, Back: Negative for injury and pain, : Negative for injury, bleeding, discharge, and swelling, MS/Extremity: Negative for injury and deformity, Skin: Negative for injury, rash, and discoloration, Neuro: Negative for headache, weakness, numbness, tingling, and seizure. Exam: 20:06 Constitutional: This is a well developed, well nourished patient who is awake, alert, rn and in no acute distress. On Oxygen, mild tachypnea, but smiling and joking. Head/Face: Normocephalic, atraumatic. Eyes: Periorbital areas with no swelling, redness, or edema. ENT: NO stridor Cardiovascular: Regular rate, irregular rhythm, pulses equal. Respiratory: Mild tachypnea with exp wheezing, no retractions Abdomen/GI: Soft, non-tender, non-distended Skin: Warm, dry MS/ Extremity: Pulses equal, no cyanosis Neuro: Awake and alert, GCS 15, oriented to person, place, time, and situation. Cranial nerves II-XII grossly intact. Motor strength 5/5 in all extremities. Sensory grossly intact. Cerebellar exam normal. 20:32 ECG was reviewed by the Attending Physician. rn Vital Signs: 19:24 BP 138 / 75; Pulse 82; Resp 20; Temp 97.8(O); Pulse Ox 90% on 6 lpm NC; Weight 73.48 tw5 kg; Height 5 ft. 11 in. (180.34 cm); Pain 0/10; 19:41 BP 139 / 87; Pulse 81; Resp 27; Pulse Ox 98% on 2 lpm NC; tw5 20:32 BP 115 / 78; Pulse 75; Resp 23; Pulse Ox 92% on 2 lpm NC; tw5 21:45 BP 138 / 89; Pulse 76; Resp 26 S; Pulse Ox 89% on 2 lpm NC; as6 22:24 BP 147 / 84; Pulse 74; Resp 20 S; Pulse Ox 95% on 8% Nebulizer Mask; as6 19:24 Body Mass Index 22.59 (73.48 kg, 180.34 cm) tw5 19:41 oxygen decreased from 6 L to 2 L tw5 MDM: 19:28 Patient medically screened. rn 22:01 Differential Diagnosis bradycardia, COPD, PVCs, electrolyte disturbance. Data reviewed: rn vital signs, nurses notes, lab test result(s), radiologic studies, plain films, and as a result, I will admit patient. Counseling: I had a detailed discussion with the patient and/or guardian regarding: the historical points, exam findings, and any diagnostic results supporting the discharge/admit diagnosis, lab results, radiology results, the need for further work-up and treatment in the hospital. Response to treatment: the patient's symptoms have mildly improved after treatment, and as a result, I will admit patient. Admission orders: after a detailed discussion of the patient's condition and case, the admit orders are written by me. ED course: Pt without bradycardic episodes here, + frequent PVCs and irregular, no acute findings in bloodwork, CXR shows worsening of pulmonary fibrosis, no infectious symptoms and COVID neg. Recently stopped lasix. Could be fluid. Will admit for further w/u and cardiology consultation.. 22:49 ED course: Procalcitonin neg, will hold abx for now.. 09/07 19:36 Order name: Basic Metabolic Panel; Complete Time: 21:45 09/07 19:36 Order name: CBC with Diff; Complete Time: 20:41 09/07 19:36 Order name: LFT's; Complete Time: 21:45 09/07 19:36 Order name: Magnesium; Complete Time: 21:45 09/07 19:36 Order name: NT PRO-BNP; Complete Time: 21:45 09/07 19:36 Order name: PT-INR; Complete Time: 20:41 09/07 19:36 Order name: Troponin HS; Complete Time: :45 09/07 19:36 Order name: XRAY Chest (1 view); Complete Time: 20:41 09/07 19:43 Order name: TSH; Complete Time: 21:45 09/07 19:43 Order name: T4 Free; Complete Time: 21:45 09/07 20:25 Order name: SARS-COV-2 RT PCR (Document "Date of Onset" if Symptomatic); Complete Time: rn :09/07 21:49 Order name: Procalcitonin; Complete Time: 22:49 EDUT 09/07 19:36 Order name: EKG; Complete Time: 19:37 09/07 19:36 Order name: Cardiac monitoring; Complete Time: 19:36 as6 02/24 19:36 Order name: EKG - Nurse/Tech; Complete Time: 19:36 09/07 19:36 Order name: IV Saline Lock; Complete Time: 19:36 09/07 19:36 Order name: Labs collected and sent; Complete Time: 19:41 09/07 19:36 Order name: O2 Per Protocol; Complete Time: 19:36 09/07 19:36 Order name: O2 Sat Monitoring; Complete Time: 19:36 as EC:32 Rate is 79 beats/min. Rhythm is irregular. QRS [place] is Normal. [place] interval is normal. rn QRS interval is normal. QT interval is prolonged at 490 msec. No Q waves. T waves are Normal. No ST changes noted. Clinical impression: NSR w/ Non-specific ST/T Changes and PVCs, prolonged QT. Interpreted by me. Reviewed by me. Administered Medications: 22:22 Drug: SOLU-Medrol (methylPrednisoLONE) 125 mg Route: IVP; Site: right antecubital; as6 22:47 Follow up: Response: No adverse reaction tw5 22:22 Drug: Xopenex (levalbuterol) (3) 1.25 mg Route: Inhalation; as6 22:47 Follow up: Response: No adverse reaction; Wheezing diminished tw5 Disposition Summary: 09/07/21 22:04 Hospitalization Ordered Hospitalization Status: Observation rn Provider: Sarah Thomas rn Location: Telemetry/MedSurg (observation) rn Condition: Stable rn Problem: new rn Symptoms: have improved rn Bed/Room Type: Standard rn Room Assignment: 228(09/07/21 22:35) mw Diagnosis - Bradycardia, unspecified rn - Hypoxemia rn - Idiopathic pulmonary fibrosis rn Forms: - Medication Reconciliation Form rn - SBAR form rn Signatures: Dispatcher [employer] ED[place] Sebastian RN RN mw Nieto, Roman, MD MD rn Wood, Tiffany tw5 Lee Doyle RN RN as6 Corrections: (The following items were deleted from the chart) 22:35 22:04 rn mw
--- NOTE | 2021-09-07 22:05 | ER ---
Nurse's Notes [facility] Name: Gonzalo Galvez Age: 76 yrs Sex: Male : 1945 Arrival Date: 09/07/2021 Time: 19:19 Bed 8 Private MD: Diagnosis: Bradycardia, unspecified;Hypoxemia;Idiopathic pulmonary fibrosis Presentation: 09/07 19:24 Chief complaint: Patient's son or daughter states: "He had a doc appointment today they tw5 told us his pulse was at 46, then 36. I made an appointment with his heart doc but they didn't have an appointment until Saturday. They told us to come to the ER since it was the weekend. ". Coronavirus screen: Vaccine status: Patient reports receiving the 2nd dose of the covid vaccine. [employer]. Ebola Screen: Patient negative for fever greater than or equal to 101.5 degrees Fahrenheit, and additional compatible Ebola Virus Disease symptoms Patient denies exposure to infectious person. Patient denies travel to an Ebola-affected area in the 21 days before illness onset. Initial Sepsis Screen: Does the patient meet any 2 criteria? RR > 20 per min. Does the patient have a suspected source of infection? No. Patient's initial sepsis screen is negative. Risk Assessment: Do you want to hurt yourself or someone else? Patient reports no desire to harm self or others. Onset of symptoms was September 07, 2021. 19:24 Method Of Arrival: Wheelchair tw5 19:24 Acuity: TYSON 2 tw5 Triage Assessment: 19:38 General: Appears. tw5 Historical: - Allergies: 19:32 No Known Allergies; tw - Home Meds: 19:38 prednisolone 10 mg Oral tab 1 tab once daily [Active]; amlodipine 10 mg tab 1 tab once tw5 daily [Active]; - PMHx: 19:32 COPD; Home O2 via 4 L NC; changed to 2L (May 09, 2021); pulmonary fibrosis; tw pulmonary HTN; - PSHx: 19:32 R shoulder SX; tw5 - Immunization history:: Flu vaccine is not up to date. - Social history:: Smoking status: Patient/guardian denies using tobacco, Stopped _ months ago 8. - Family history:: not pertinent. - Hospitalizations: : No recent hospitalization is reported. Screenin:41 Abuse screen: Denies threats or abuse. Denies injuries from another. Nutritional tw5 screening: No deficits noted. Tuberculosis screening: No symptoms or risk factors identified. Fall Risk Secondary diagnosis (15 points) IV access (20 points). Ambulatory Aid- None/Bed Rest/Nurse Assist (0 pts). Assessment: 19:40 General: Appears in no apparent distress. Behavior is calm, cooperative, appropriate tw5 for age. Pain: Denies pain. Neuro: Level of Consciousness is awake, alert, obeys commands, Oriented to person, place, time, situation. 19:41 Respiratory: Airway is patent Trachea midline Respiratory effort is even, unlabored. tw5 20:32 Reassessment: Patient appears in no apparent distress at this time. No changes from tw5 previously documented assessment. Patient and/or family updated on plan of care and expected duration. Pain level reassessed. Patient is alert, oriented x 3, equal unlabored respirations, skin warm/dry/pink. 22:25 Reassessment: Patient appears in no apparent distress at this time. as6 Vital Signs: 19:24 BP 138 / 75; Pulse 82; Resp 20; Temp 97.8(O); Pulse Ox 90% on 6 lpm NC; Weight 73.48 tw5 kg; Height 5 ft. 11 in. (180.34 cm); Pain 0/10; 19:41 BP 139 / 87; Pulse 81; Resp 27; Pulse Ox 98% on 2 lpm NC; tw5 20:32 BP 115 / 78; Pulse 75; Resp 23; Pulse Ox 92% on 2 lpm NC; tw5 21:45 BP 138 / 89; Pulse 76; Resp 26 S; Pulse Ox 89% on 2 lpm NC; as6 22:24 BP 147 / 84; Pulse 74; Resp 20 S; Pulse Ox 95% on 8% Nebulizer Mask; as6 19:24 Body Mass Index 22.59 (73.48 kg, 180.34 cm) tw5 19:41 oxygen decreased from 6 L to 2 L tw5 ED Course: 19:19 Patient arrived in ED. es 19:24 Dorothy Dwyer is Primary Nurse. tw5 19:28 Dung Barragan MD is Attending Physician. rn 19:30 Triage completed. tw5 19:32 EKG completed in triage. Results shown to . tw5 19:37 Initial lab(s) drawn, by ED staff, sent to lab. Inserted saline lock: 20 gauge in right tw5 antecubital area, using aseptic technique. Blood collected. 19:41 Patient has correct armband on for positive identification. Placed in gown. Bed in low tw5 position. Call light in reach. Side rails up X 1. Adult w/ patient. teletypesetter monitor on. Pulse ox on. NIBP on. Door closed. Noise minimized. Moved to private room. Warm blanket given. Verbal reassurance given. 19:41 Basic Metabolic Panel Sent. as6 19:41 CBC with Diff Sent. as6 19:41 LFT's Sent. as6 19:42 Magnesium Sent. as6 19:42 NT PRO-BNP Sent. as6 19:42 PT-INR Sent. as6 19:42 Troponin HS Sent. as6 20:17 XRAY Chest (1 view) In Process Unspecified. EDMS 20:32 Oxygen administration via nasal cannula \\T\\ 2L/min. tw5 20:33 COVID swab sent to lab. tw5 22:04 Sarah Thomas MD is Hospitalizing Provider. rn 22:46 No provider procedures requiring assistance completed. Patient admitted, IV remains in tw5 place. 22:47 Patient placed. tw5 Administered Medications: 22:22 Drug: SOLU-Medrol (methylPrednisoLONE) 125 mg Route: IVP; Site: right antecubital; as6 22:47 Follow up: Response: No adverse reaction tw5 22:22 Drug: Xopenex (levalbuterol) (3) 1.25 mg Route: Inhalation; as6 22:47 Follow up: Response: No adverse reaction; Wheezing diminished tw5 Outcome: 22:04 Decision to Hospitalize by Provider. rn 22:46 Admitted to Med/surg via wheelchair, room 228, with oxygen, with chart, Report called tw5 to [employer] 22:46 Condition: stable 22:46 Instructed on the need for admit. 22:51 Patient left the ED. tw5 Signatures: Dispatcher [employer] Lisa Thapa Roman, MD MD rn Wood, Tiffany tw5 Lee Doyle RN RN as6 Corrections: (The following items were deleted from the chart) 19:40 19:24 BP 138 / 75; Pulse 45bpm; Resp 20bpm; Pulse Ox 90% 6 lpm Nasal Cannula; Temp tw5 97.8F [place]; 73.48 kg; Height 5 ft. 11 in.; BMI: 22.5; Pain 0/10; tw5
[2021-09-07] MEDS ORDERED: METHYLPREDNISOLONE 125 MG INJ ONE (22:18)
[2021-09-07] MEDS ORDERED: LEVALBUTEROL 1.25 MG/3 ML NEB ONE (22:19)
--- NOTE | 2021-09-07 22:56 | P.HP ---
Certification for Inpatient Patient admitted to: Observation With expected LOS: <2 Midnights Patient will require the following post-hospital care: None Practitioner: I am a practitioner with admitting privileges, knowledge of patient current condition, hospital course, and medical plan of care. Services: Services provided to patient in accordance with Admission requirements found in Title 42 Section 412.3 of the Code of Federal Regulations <Dulce Maria Jeronimo - Last Filed: 09/07/21 22:50> Patient History Date of Service: 09/07/21 Primary Care Provider: Dr. Dickson Reason for admission: Bradycardia History of Present Illness: Patient is a 76-year-old male with pulmonary fibrosis, COPD on 2L NC, and pulmonary hypertension who presented to the ED today after pulse readings in the 30s40s at 2 separate appointments today. 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 Lira, so he was sent to the ED for evaluation. In the ED patient's heart rate did not go below 70. Patient's EKG was normal and is not experiencing any symptoms related to bradycardia. Chest x-ray showed interstitial lung disease with worsened aeration of the lungs bilaterally that could be secondary to edema and/or multifocal pneumonia. No significant lab abnormalities noted. Pro-Reagna pending. Patient received a breathing treatment in the ED. Patient's primary language is Albanian and does not speak much Libyan however his daughter was at bedside answering most questions. Patient will be admitted for observation with cardiology consulting. - Past Medical/Surgical History Diabetic: No -: Pulmonary hypertension -: COPD -: History of tobacco use -: Right shoulder surgery Psychosocial/ Personal History: Patient lives at home. - Family History Family History: Reviewed- Non-Contributory - Social History Smoking Status: Former smoker Alcohol use: Yes CD- Drugs: No Caffeine use: Yes Place of Residence: Home <Dulce Maria Jeronimo - Last Filed: 09/07/21 22:50> Date of Service: 09/07/21 <Sarah Thomas - Last Filed: 09/11/21 01:42> Allergies No Known Allergies Allergy (Verified 06/02/21 12:21) Home Medications: Albuterol Neb [Proventil 0.083% Neb Soln] 2.5 mg NEB [id number] PRN #60 amp 04/19/21 Aspirin [Aspirin EC 81 MG] 81 mg PO BEDTIME 09/07/21 Prednisone [Sterapred Ds] 10 mg PO DAILY 09/07/21 Losartan Potassium [Cozaar] 50 mg PO DAILY #30 tablet 09/08/21 Rosuvastatin Calcium [Crestor] 10 mg PO DAILY #30 tablet 09/08/21 Review of Systems 10-point ROS is otherwise unremarkable <PhaniDulce Maria - Last Filed: 09/07/21 22:50> Physical Examination - Physical Exam General: Alert, In no apparent distress, Oriented x3 HEENT: Atraumatic, PERRLA, Mucous membr. moist/pink, EOMI, Sclerae nonicteric Neck: Supple, 2+ carotid pulse no bruit, No LAD, Without JVD or thyroid abnormality Respiratory: Clear to auscultation bilaterally, Normal air movement Cardiovascular: Regular rate/rhythm, Normal S1 S2 Gastrointestinal: Normal bowel sounds, No tenderness Musculoskeletal: No tenderness Integumentary: No rashes Neurological: Normal speech, Normal strength at 5/5 x4 extr, Normal tone, Normal affect - Studies Laboratory Data (last 24 hrs) 09/07/21 19:39: PT 10.8, INR 0.94 09/07/21 19:39: WBC 8.40, Hgb 14.1, Hct 43.3, Plt Count 306 09/07/21 19:39: Sodium 137, Potassium 3.8, BUN 20 H, Creatinine 1.17, Glucose 172 H, Magnesium 2.1, Total Bilirubin 0.4, AST 15, ALT 24, Alkaline Phosphatase 119 H <Dulce Maria Jeronimo - Last Filed: 09/07/21 22:50> Assessment and Plan - Problems (Diagnosis) (1) Bradycardia Status: Resolved (2) COPD (chronic obstructive pulmonary disease) Status: Chronic Qualifiers: COPD type: unspecified COPD Qualified Code(s): J44.9 - Chronic obstructive pulmonary disease, unspecified (3) Pulmonary hypertension Status: Chronic (4) Pulmonary fibrosis Status: Chronic - Plan Patient has not been bradycardic since his time in the ED and denies any symptoms related to bradycardia -We will monitor patient on telemetry -Cardiology will consult in the morning, appreciate recommendations -Supplemental oxygen and breathing treatments as needed -We will continue home medication DVT PPx: Lovenox Code: Full Discharge Plan: Home Plan to discharge in: 24 Hours - Advance Directives Does patient have a Living Will: Yes Does patient have a Durable POA for Healthcare: No - Code Status/Comfort Care Code Status Assessed: Yes (Full) Critical Care: No Time Spent Managing Pts Care (In Minutes): 70 <Dulce Maria Jeronimo - Last Filed: 09/07/21 22:50> Date of Service: 09/07/21 Subjective: HPI as mentioned above Physical Examination: Vitals: Afebrile vital signs are stable Physical exam: Cardiovascular: Within normal limits. Lungs: Within normal limits Abdomen: Within normal limits Neuro: Awake, alert, oriented to person place and time Assessment: 1. Bradycardia arrhythmia Plan: 1. Continue with current plan of care as mentioned above <Sarah Thomas - Last Filed: 09/11/21 01:42>
[2021-09-07] MEDS ORDERED: ACETAMINOPHEN 500 MG TAB PO PRN (23:02)
[2021-09-07] MEDS ORDERED: ONDANSETRON 4 MG/2 ML VIAL IV PRN (23:02)
[2021-09-08] MEDS: ALBUTEROL 2.5 MG/3 ML NEB SOL NEB SCH ×3 (01:33→15:05)
[2021-09-08 05:04] LABS: Absolute Lymphocytes (CBC) 0.3 K/uL (0.7-4.9); Hematocrit 38.9 % (39.6-49.0); Lymphocytes % 3.8 % (15.3-44.8); MPV 8.4 fL (7.6-11.3); RBC Red Blood Cell Count 4.27 M/uL (4.33-5.43)
[2021-09-08 05:25] LABS: Albumin 3.5 g/dL (3.4-5.0); Bilirubin Total 0.3 mg/dL (0.2-1.0); Potassium 3.7 mmol/L (3.5-5.1); Protein, Total 7.3 g/dL (6.4-8.2)
[2021-09-08 05:54] VITALS: BMI 22.6
[2021-09-08] MEDS ORDERED: ENOXAPARIN 40 MG/0.4 ML SQ SCH (09:00)
[2021-09-08] MEDS ORDERED: AMLODIPINE 10 MG TAB PO SCH (09:00)
[2021-09-08 11:51] VITALS: O2SAT 93
[2021-09-08 16:43] VITALS: BP 118/62; TEMP 98.2
--- NOTE | 2021-09-11 01:41 | P.DS ---
Discharge Date: 09/08/21 Primary Care Provider: Dr. Dickson Disposition: ROUTINE DISCHARGE Discharge Condition: GOOD Reason for Admission: Bradycardia Brief History of Present Illness: Patient is a 76-year-old male with pulmonary fibrosis, COPD on 2L NC, and pulmonary hypertension who presented to the ED today after pulse readings in the 30s40s at 2 separate appointments today. He could not get into his scientific advisor, Dr. Lira, so he was sent to the ED for evaluation. In the ED patient's heart rate did not go below 70. Patient's EKG was normal and is not experiencing any symptoms related to bradycardia. Chest x-ray showed interstitial lung disease with worsened aeration of the lungs bilaterally that could be secondary to edema and/or multifocal pneumonia. No significant lab abnormalities noted. Pro-Reagan pending. Patient received a breathing treatment in the ED. Patient's primary language is Mongolian and does not speak much Turkmen however his daughter was at bedside answering most questions. Patient will be admitted for observation with cardiology consulting. Hospital Course: Patient is clinically doing well at this time. He has had no episodes of bradycardia. He has been in normal sinus rhythm. Heart rates been in the 70s and 80s. He clinically feels well and he is stable for discharge with continued outpatient follow-up. I spoke with cardiology and they want to see him in the office Saturday morning. Vital Signs/Physical Exam: Temp Pulse Resp BP Pulse Ox 98.2 F 96 H 20 118/62 92 09/08/21 16:00 09/08/21 16:00 09/08/21 16:00 09/08/21 16:00 09/08/21 16:00 General: Alert, In no apparent distress, Oriented x3 Laboratory Data at Discharge: WBC 8.20 K/uL (4.3-10.9) 09/08/21 04:42 Hgb 12.8 g/dL (13.6-17.9) L 09/08/21 04:42 Hct 38.9 % (39.6-49.0) L 09/08/21 04:42 Plt Count 266 K/uL (152-406) 09/08/21 04:42 PT 10.8 SECONDS (9.5-12.5) 09/07/21 19:39 INR 0.94 09/07/21 19:39 Sodium 139 mmol/L (136-145) 09/08/21 04:42 Potassium 3.7 mmol/L (3.5-5.1) 09/08/21 04:42 BUN 22 mg/dL (7-18) H 09/08/21 04:42 Creatinine 1.05 mg/dL (0.55-1.3) 09/08/21 04:42 Glucose 166 mg/dL (74-106) H 09/08/21 04:42 Magnesium 2.1 mg/dL (1.8-2.4) 09/07/21 19:39 Total Bilirubin 0.3 mg/dL (0.2-1.0) 09/08/21 04:42 AST 16 U/L (15-37) 09/08/21 04:42 ALT 23 U/L (12-78) 09/08/21 04:42 Alkaline Phosphatase 97 U/L (45-117) 09/08/21 04:42 Triglycerides 51 mg/dL (<150) 09/08/21 04:42 Cholesterol 245 mg/dL (<200) H 09/08/21 04:42 HDL Cholesterol 65 mg/dL (40-60) H 09/08/21 04:42 Cholesterol/HDL Ratio 3.77 09/08/21 04:42 Home Medications: Albuterol Neb [Proventil 0.083% Neb Soln] 2.5 mg NEB [id number] PRN #60 amp 04/19/21 Aspirin [Aspirin EC 81 MG] 81 mg PO BEDTIME 09/07/21 Prednisone [Sterapred Ds] 10 mg PO DAILY 09/07/21 Losartan Potassium [Cozaar] 50 mg PO DAILY #30 tablet 09/08/21 Rosuvastatin Calcium [Crestor] 10 mg PO DAILY #30 tablet 09/08/21 New Medications: Losartan Potassium [Cozaar] 50 mg PO DAILY #30 tablet Rosuvastatin Calcium [Crestor] 10 mg PO DAILY #30 tablet Physician Discharge Instructions: -DC IV and DC home -Follow-up with PCP in 1 to 2 weeks -Follow-up with Cardiology in 1 to 2 weeks -Please call Dr. Thomas at [phone] if any questions regarding hospital stay -Please call nursing station at [phone] if any nursing or medication questions -Return to the emergency room if symptoms worsen Diet: AHA Activity: Fall precautions Followup: Chris Cervantes MD [ACTIVE - CAN ADMIT] - (follow up with your scientific advisor per scheduled appointment) NONE,NONE [Primary Care Provider] - Time spent managing pt's care (in minutes): 35
== END 2021-09-08 05:50 | disposition home or self-care (01) ==
LOC: ER 19:15 → ERHOLD 22:36 → 2ND 22:42
PROVIDERS: ADMIT Hospitalist; ATTEND Hospitalist
DX: R00.1 Bradycardia, unspecified (principal); J44.9 Chronic obstructive pulmonary disease, unspecified; I27.20 Pulmonary hypertension, unspecified; J84.10 Pulmonary fibrosis, unspecified; Z20.822 Contact with and (suspected) exposure to COVID-19; Z87.891 Personal history of nicotine dependence
CPT/HCPCS: 36415; 71045; 80048; 80053; 80061; 80076; 83735; 83880; 84145; 84439; 84443; 84484; 85025; 85610; 94640; 96374; 99285; G0378; J1650; J2930; U0003

== ENCOUNTER 2021-09-08 21:11 | Inpatient (IN) | payer OTHER ==
--- OUTSIDE RECORDS SUMMARY | 2021-09-08 21:14 | XMS REPORT | Continuity of Care Document ---
:1945 Author Organization [facility] t Address [address] [place] [address] [address] [place] [address] Care Team Providers Name Role Phone Nayely PETTIT, R Primary Care Physician Brandon SERNA Attending Clinician Unavailable Nurse, Pob Immunization Attending Clinician Unavailable Brandon Serna MD Attending Clinician Sen Hill DO Attending Clinician Sen HILL Attending Clinician Unavailable Jaydon-Mbayo_A_AH Attending Clinician Unavailable Jaydon-Mbayo_A_AH Admitting Clinician Unavailable Payers Payer Name Policy Type Policy Number Effective Date Expiration Date S tete [facility] [id number] 2020 PLUS CLASSIC/VALUE 00:00:00 [facility] [id number] 2019 [facility] 00:00:00 (MEDICARE REPLACEMENT/ADVANT AGE - HMO) Problems Condition Condition Condition Status Onset Resolution Last Treating Co mments Source Name Details Category Date Date Treatment Clinician Date No known No known Disease Unive rs active active ity of problems problems [facility] Allergies, Adverse Reactions, Alerts Allergy Allergy Status Severity Reaction(s) Onset Inactive Treating Comm ents Source Name Type Date Date Clinician NO KNOWN Drug Active Univers ALLERGIE Class ity of S [facility] Social History Social Habit Start Date Stop Date Quantity Comments Source Sex Assigned At Uni [facility] Exposure to SARS-CoV-2 Not sure [facility] [place] (event) [facility] Smoking Status Start Date Stop Date Source Unknown if ever smoked [facility] Medications Ordered Filled Start Stop Current Ordering Indication Dosage Frequency Signature Comments Components Source Medication Medication Date Date Medication? Clinician (SIG) Name Name No known No Univers medications ity of [facility] Immunizations Ordered Filled Immunization Date Status Comments Sourc e Immunization Name Name SARS-COV-2 COVID-19 2020-11-18 Completed Unive rsity of PFIZER VACCINE 00:00:00 [facility] SARS-COV-2 COVID-19 2020-10-25 Completed Unive rsity of PFIZER VACCINE 00:00:00 [facility] Vital Signs Vital Name Observation Time Observation Value Comments Source Systolic blood 2020-08-27 21:04:17 146 mm[Hg] Univer sity of pressure [facility] Diastolic blood 2020-08-27 21:04:17 92 mm[Hg] Unive rsity of pressure [facility] Heart rate 2020-08-27 21:04:17 63 /min [facility] Respiratory rate 2020-08-27 21:04:17 [facility] /[facility] Oxygen saturation in 2020-08-27 21:04:17 91 /min [facility] Arterial blood by [facility] Pulse oximetry [place] Body temperature 2020-08-27 18:49:00 36.33 [facility] Body weight 2020-08-27 18:49:00 77.111 kg [facility] Procedures Procedure Date / Time Performed Performing Clinician Sourc e SARS-COV-2 COVID-19 2020-11-18 17:01:36 Doctor Unassigned, No [facility] [place] VACCINE,0.3ML,IM Name Medical Branch (PFIZER) NOTICE OF PRIVACY 2020-08-27 18:44:40 Doctor Unassigned, No [facility] [place] PRACTICES Name Medical Branch CONSENT/REFUSAL FOR 2020-08-27 18:42:56 Doctor Unassigned, No [facility] [place] DIAGNOSIS AND Name Medical Branch TREATMENT Plan of Care Planned Activity Planned Date Details Comments Source Future Scheduled 2021-03-15 INFLUENZA VACCINE [facility] [place] Test 00:00:00 (Season Ended) [code = Medic al Branch INFLUENZA VACCINE (Season Ended)] Future Scheduled [address] [facility] Test 00:00:00 Wellness Visit Medical Bran h (procedure) [code = 587954217113861] Future Scheduled 2010 PNEUMOCOCCAL VACCINES [facility] [place] Test 00:00:00 65+ (1 of 1 - PPSV23) Medica l Branch [code = PNEUMOCOCCAL VACCINES 65+ (1 of 1 - PPSV23)] Future Scheduled 1995 Screening for occult [facility] [place] Test 00:00:00 blood in feces Medical Bran h (procedure) [code = [id number]] Future Scheduled 1995 Stool DNA-based Universi ty [facility] Test 00:00:00 colorectal cancer Medical Br anch screening (procedure) [code = 707172565274271] Future Scheduled 1995 [facility]00 sigmoidoscopy Medical Branch (procedure) [code = 26641323] Future Scheduled 1995 Screening for [facility] Test 00:00:00 malignant neoplasm of Medica l Branch colon (procedure) [code = 885535760] Future Scheduled 1995 Screening for [facility] Test 00:00:00 malignant neoplasm of Medica l Branch colon (procedure) [code = 241607390] Future Scheduled [address] [facility] Test 00:00:00 Vaccine (SHINGRIX) (1 Medica l Branch of 2) [code = Zoster Recombinant Vaccine (SHINGRIX) (1 of 2)] Future Scheduled 1964 DTaP,Tdap,and Td Univers ity [facility] Test 00:00:00 Vaccines (1 - Tdap) Medical Branch [code = DTaP,Tdap,and Td Vaccines (1 - Tdap)] Future Scheduled 1963 Hepatitis C screening [facility] [place] Test 00:00:00 (procedure) [code = Medical Branch [id number]] Future Scheduled [address] Test 00:00:00 (procedure) [code = Medical Branch [id number]] Encounters Start End Encounter Admission Attending Care Care Encounter Source Date/Time Date/Time Type Type Clinicians Facility Department ID 2020-11-18 2020-11-18 Outpatient Shaun SERNA [facility] [id number] Univers 12:30:00 12:30:00 [facility] 2020-10-25 2020-10-25 [facility] [id number] Univers 12:30:00 12:30:00 [facility] 2020-08-27 2020-08-27 [facility] [id number] Univers 12:53:00 15:08:00 Elis Garsia [id number] [facility] [id number] [facility] [id number] [place] [id number] Branch 2020-08-27 2020-08-27 [facility] [id number] Univers 12:53:00 12:53:00 ELIS [facility] 2019-09-10 2019-09-10 Outpatient Jaydon-Mbayo VFP VFP [id number] [facility] 04:50:00 04:50:00 _A_AH [id number] Family Practic e 2019-09-10 2019-09-10 Outpatient Jaydon-Mbayo VFP VFP [id number] [facility] 04:50:00 04:50:00 _A_AH [id number] Family Practic e 2019-09-10 2019-09-10 Outpatient Jaydon-Mbayo VFP VFP [id number] [facility] 04:50:00 04:50:00 _A_AH [id number] Family Practic e 2019-09-10 2019-09-10 Outpatient Jaydon-Mbayo VFP VFP [id number] [facility] 04:50:00 04:50:00 _A_AH [id number] Family Practic e 2019-09-10 2019-09-10 Outpatient Jaydon-Mbayo VFP VFP [id number] [facility] 04:50:00 04:50:00 _A_AH [id number] Family Practic e 2019-09-10 2019-09-10 Outpatient Jaydon-Mbayo VFP VFP [id number] [facility] 04:50:00 04:50:00 _A_AH [id number] Family Practic e 2019-09-10 2019-09-10 Outpatient Jaydon-Mbayo VFP VFP [id number] [facility] 04:50:00 04:50:00 _A_ [id number] Family Practic e Results This patient has no known results.
[2021-09-08] MEDS ORDERED: LEVALBUTEROL 1.25 MG/3 ML NEB ONE (22:09)
[2021-09-08] MEDS ORDERED: ASPIRIN 81 MG CHEWABLE TABLET ONE (22:09)
[2021-09-08 22:11] LABS: Absolute Lymphocytes (CBC) 1.3 K/uL (0.7-4.9); Hematocrit 38.9 % (39.6-49.0); Lymphocytes % 6.6 % (15.3-44.8); MPV 8.5 fL (7.6-11.3); RBC Red Blood Cell Count 4.33 M/uL (4.33-5.43)
[2021-09-08 22:31] LABS: Protime INR 0.95
[2021-09-08 22:35] LABS: Albumin 3.5 g/dL (3.4-5.0); Bilirubin Direct 0.1 mg/dL (0-0.2); Bilirubin Total 0.5 mg/dL (0.2-1.0); Magnesium 2.2 mg/dL (1.8-2.4); Potassium 3.7 mmol/L (3.5-5.1); Protein, Total 7.5 g/dL (6.4-8.2); Troponin High Sensitivity 17.6 pg/mL (<58.9)
[2021-09-08 23:19] LABS: Arterial Blood Carboxyhemoglob 1.2 % (0-1.5); Blood Gas Oxyhemoglobin 85.4 % (94-97); Blood O2 Saturation 87.4 % (92-98.5)
[2021-09-08] MEDS ORDERED: NA CHLORIDE 0.9% 250 ML ONE ×2 (23:40→23:46)
[2021-09-08] MEDS ORDERED: AZITHROMYCIN 500 MG INJ IVPB ONE ×2 (23:40→23:46)
[2021-09-08] MEDS ORDERED: FUROSEMIDE 20 MG/ 2ML VIAL ONE ×2 (23:40→23:46)
[2021-09-08] MEDS ORDERED: CEFTRIAXONE 1000 MG/VIAL ONE ×2 (23:40→23:46)
[2021-09-08] MEDS ORDERED: NA CHLORIDE 0.9% 50 ML ONE (23:40)
[2021-09-09 00:02] LABS: SARS-COV-2 RT PCR NEGATIVE (NEGATIVE)
--- NOTE | 2021-09-09 01:47 | ER ---
Nurse's Notes [facility] Name: Gonzalo Galvez Age: 76 yrs Sex: Male : 1945 Arrival Date: 09/08/2021 Time: 21:14 Bed 8 Private MD: Diagnosis: Chest pain, unspecified;Pneumonia, unspecified organism;Hypoxemia Presentation: 09/08 21:27 Chief complaint: Patient's son or daughter states: "He was discharged from here this ab2 morning and began having SOB and chest pain this evening." Pt was 73% on room air. 6L 02 applied via NC and patient is 90-92%. Coronavirus screen: Vaccine status: Patient reports receiving the 2nd dose of the covid vaccine. Client denies travel out of the [place] in the last 14 days. difficulty breathing, shortness of breath, Client presents with at least one sign or symptom that may indicate coronavirus-19. Standard/surgical mask placed on the client. Provider contacted for isolation considerations. Ebola Screen: Patient negative for fever greater than or equal to 101.5 degrees Fahrenheit, and additional compatible Ebola Virus Disease symptoms Patient denies exposure to infectious person. Patient denies travel to an Ebola-affected area in the 21 days before illness onset. No symptoms or risks identified at this time. 21:27 Method Of Arrival: Wheelchair ab2 21:29 Initial Sepsis Screen: Does the patient meet any 2 criteria? RR > 20 per min. HR > 90 ab2 bpm. Does the patient have a suspected source of infection? No. Patient's initial sepsis screen is negative. Initial Sepsis Screen: Does the patient meet any 2 criteria? Yes. Risk Assessment: Do you want to hurt yourself or someone else?. Onset of symptoms is unknown. 21:29 Acuity: TYSON 3 ab2 21:29 Initial Sepsis Screen: Does the patient meet any 2 criteria? RR > 20 per min. HR > 90 vc1 bpm. Yes Does the patient have a suspected source of infection? Yes: Productive cough/pneumonia. Triage Assessment: 21:29 General: Appears uncomfortable, Behavior is cooperative. Pain: Complains of pain in ab2 chest. Cardiovascular: Reports chest pain, shortness of breath. Respiratory: Airway is patent Respiratory effort is labored, Respiratory pattern is symmetrical. Historical: - Allergies: 21:29 No Known Allergies; ab2 - Home Meds: 09/09 02:30 amlodipine 10 mg tab 1 tab once daily [Active]; prednisolone 10 mg Oral tab 1 tab once lg3 daily [Active]; - PMHx: 09/08 21:29 COPD; Home O2 via 4 L NC; changed to 2L (May 09, 2021); pulmonary fibrosis; ab2 pulmonary HTN; - PSHx: 21:29 R shoulder SX; ab2 - Immunization history:: Adult Immunizations up to date. - Social history:: Smoking status: unknown. Screenin:57 Abuse screen: Denies threats or abuse. Denies injuries from another. Nutritional lg3 screening: No deficits noted. Tuberculosis screening: No symptoms or risk factors identified. Fall Risk None identified. Assessment: 21:57 General: Appears in no apparent distress. uncomfortable, Behavior is cooperative, lg3 anxious. Pain: Complains of pain in chest Pain does not radiate. Quality of pain is described as heavy, pressure, Pain began gradually. Neuro: No deficits noted. Level of Consciousness is awake, alert, obeys commands, Oriented to person, place, time, situation. Cardiovascular: No deficits noted. Reports chest pain, palpitations, shortness of breath, Heart tones S1 S2 present. Respiratory: Airway is patent Trachea midline Respiratory effort is even, pursed lip, Respiratory pattern is tachypnea. GI: No deficits noted. No signs and/or symptoms were reported involving the gastrointestinal system. Abdomen is round non-distended. : No deficits noted. No signs and/or symptoms were reported regarding the genitourinary system. : No deficits noted. No signs and/or symptoms were reported regarding the genitourinary system. EENT: No deficits noted. No signs and/or symptoms were reported regarding the EENT system. Derm: No deficits noted. No signs and/or symptoms reported regarding the dermatologic system. Skin is intact, is thin, Skin is dry. Musculoskeletal: No deficits noted. No signs and/or symptoms reported regarding the musculoskeletal system. Circulation, motion, and sensation intact. Capillary refill < 3 seconds, Range of motion: intact in all extremities. 23:46 Reassessment: Patient appears in no apparent distress at this time. No changes from lg3 previously documented assessment. Patient and/or family updated on plan of care and expected duration. Pain level reassessed. Patient is alert, oriented x 3, equal unlabored respirations, skin warm/dry/pink. Patient states symptoms have improved. 09/09 02:26 Reassessment: Patient appears in no apparent distress at this time. Patient denies pain lg3 at this time. Patient states symptoms have improved. General: Appears Behavior is calm, cooperative. Neuro: No deficits noted. Level of Consciousness is awake, alert, obeys commands, Oriented to person, place, time, situation. Cardiovascular: Denies chest pain, palpitations. Respiratory: Respiratory effort is even, unlabored, Respiratory pattern is regular, tachypnea. 02:55 General: pt currently on high flow O2 25L at 70%. called RT for stand by assistance for lg3 transfer to 2nd floor. . Vital Signs: 09/08 21:27 BP 147 / 75; Pulse 103; Resp 26; Temp 98.9(TE); Pulse Ox 73% on R/A; Weight 73.94 kg; ab2 Height 5 ft. 5 in. (165.10 cm); Pain 5/10; 21:29 Pulse Ox 91% on 6 lpm NC; ab2 23:46 BP 134 / 82; Pulse 82; Resp 24 S; Pulse Ox 94% on NC; Pain 0/10; lg3 09/09 00:50 BP 138 / 88; Pulse 86; Resp 26 S; Pulse Ox 94% on NC; Pain 0/10; lg3 00:50 BP 130 / 84; Pulse 84; Resp 24 S; Pulse Ox 96% on NC; Pain 0/10; lg3 09/08 21:27 Body Mass Index 27.12 (73.94 kg, 165.10 cm) ab2 ED Course: 09/08 21:14 Patient arrived in ED. ja2 21:22 Aries Renteria MD is Attending Physician. mh7 21:29 Triage completed. ab2 21:29 Marely Rodriguez, LYNN is Primary Nurse. lg3 21:30 Arm band placed on right wrist. ab2 21:57 Patient has correct armband on for positive identification. Placed in gown. Bed in low lg3 position. Call light in reach. Side rails up X 1. bus monitor on. Pulse ox on. NIBP on. 21:57 Inserted saline lock: 20 gauge in right antecubital area, using aseptic technique. lg3 Blood collected. Oxygen administration via nasal cannula \\T\\ 6L/min Response to oxygen therapy: symptoms improved. 23:06 XRAY Chest (1 view) In Process Unspecified. EDMS 23:22 Lactate Sent. lg3 23:22 COVID-19/FLU A+B (Document "Date of Onset" if Symptomatic) Sent. lg3 23:22 Blood Culture Adult (2) Sent. lg3 23:22 Procalcitonin Sent. lg3 23:22 Lactate Sent. lg3 23:22 Arterial Blood Gas Sent. lg3 09/09 00:37 CT Chest For PE Angio In Process Unspecified. EDMS 01:45 Sarah Thomas MD is Hospitalizing Provider. [facility] 02:53 No provider procedures requiring assistance completed. Patient admitted, IV remains in lg3 place. intact, No redness/swelling at site. Administered Medications: 09/08 22:11 Drug: Xopenex (levalbuterol) 1.25 mg Route: Inhalation; lg3 22:12 Drug: Aspirin Chewable Tablet 162 mg Route: PO; lg3 22:12 Follow up: Response: No adverse reaction lg3 23:40 Drug: Rocephin (cefTRIAXone) 1 grams Route: IV; Rate: per protocol; Site: right vc1 antecubital; Delivery: Primary tubing; 09/09 02:31 Follow up: Response: No adverse reaction lg3 02:31 Follow up: IV Status: Completed infusion; IV Intake: 50ml lg3 09/08 23:49 Drug: Lasix (furosemide) 20 mg Route: IVP; Site: right antecubital; vc1 09/09 02:25 Follow up: Urine output 1700 ml; Response: No adverse reaction lg3 09/08 23:52 Drug: Zithromax (azithromycin) 500 mg Route: IVPB; Infused Over: 1 hrs; Site: right vc1 antecubital; 09/09 02:31 Follow up: Response: No adverse reaction; IV Status: Completed infusion; IV Intake: lg3 250ml Intake: 02:31 IV: 250ml; Total: 250ml. lg3 02:31 IV: 50ml; Total: 300ml. lg3 Output: 02: Urine: 1700ml; Total: 1700ml. lg3 Outcome: 01:46 Decision to Hospitalize by Provider. 7 02:53 Admitted to Med/surg accompanied by nurse, family with patient, via wheelchair, room lg3 221, Report called to [place] 02:53 Condition: stable 02:53 Instructed on the need for admit. 03:15 Patient left the ED. lg3 Signatures: Dispatcher [employer] Marely Albert, RN RN lg3 Aries Renteria MD MD 7 Marisol Moses Alexis ab2 [place], Vanessa RN RN vc1
--- NOTE | 2021-09-09 01:47 | EDPHYS ---
Physician Documentation [facility] Name: Gonzalo Galvez Age: 76 yrs Sex: Male : 1945 Arrival Date: 09/08/2021 Time: 21:14 Bed 8 Private MD: ED Physician Aries Renteria HPI: 09/08 21:57 This 76 yrs old Male presents to ER via Wheelchair with complaints of Chest mh7 Pain, Shortness Of Breath. 21:57 The patient or guardian reports chest pain that is located primarily in the substernal mh7 area. Onset: just prior to arrival, today. The pain does not radiate. Associated signs and symptoms: Pertinent positives: palpitations, shortness of breath, Pertinent negatives: abdominal pain, cough, diaphoresis, dizziness, headache, lower extremity pain, lower extremity swelling, lightheadedness, nausea, near syncope, recent travel, syncope, vomiting. The chest pain is described as a heaviness. Duration: The patient or guardian reports multiple episodes, that are intermittent, that wax and wane, with no pattern. Modifying factors: The symptoms are alleviated by nothing. the symptoms are aggravated by exertion. Severity of pain: At its worst the pain was moderate today, in the emergency department the pain has improved moderately. The patient has been recently been admitted at [facility], was discharged earlier today. Historical: - Allergies: 21: No Known Allergies; ab2 - Home Meds: 09/09 02:30 amlodipine 10 mg tab 1 tab once daily [Active]; prednisolone 10 mg Oral tab 1 tab once lg3 daily [Active]; - PMHx: 09/08 21:29 COPD; Home O2 via 4 L NC; changed to 2L (May 09, 2021); pulmonary fibrosis; ab2 pulmonary HTN; - PSHx: :29 R shoulder SX; ab2 - Immunization history:: Adult Immunizations up to date. - Social history:: Smoking status: unknown. ROS: 21:57 Constitutional: Negative for fever, chills, and weight loss, Eyes: Negative for injury, mh7 pain, redness, and discharge, ENT: Negative for injury, pain, and discharge, Neck: Negative for injury, pain, and swelling, Abdomen/GI: Negative for abdominal pain, nausea, vomiting, diarrhea, and constipation, Back: Negative for injury and pain, : Negative for injury, bleeding, discharge, and swelling, MS/Extremity: Negative for injury and deformity, Skin: Negative for injury, rash, and discoloration, Neuro: Negative for headache, weakness, numbness, tingling, and seizure, Psych: Negative for depression, anxiety, suicide ideation, homicidal ideation, and hallucinations, Allergy/Immunology: Negative for hives, rash, and allergies, Endocrine: Negative for neck swelling, polydipsia, polyuria, polyphagia, and marked weight changes, Hematologic/Lymphatic: Negative for swollen nodes, abnormal bleeding, and unusual bruising. Exam: 21:57 Head/Face: Normocephalic, atraumatic. Eyes: Pupils equal round and reactive to light, mh7 extra-ocular motions intact. Lids and lashes normal. Conjunctiva and sclera are non-icteric and not injected. Cornea within normal limits. Periorbital areas with no swelling, redness, or edema. Neck: Trachea midline, no thyromegaly or masses palpated, and no cervical lymphadenopathy. Supple, full range of motion without nuchal rigidity, or vertebral point tenderness. No Meningismus. Chest/axilla: Normal chest wall appearance and motion. Nontender with no deformity. No lesions are appreciated. Cardiovascular: Regular rate and rhythm with a normal S1 and S2. No gallops, murmurs, or rubs. Normal PMI, no JVD. No pulse deficits. 21:57 Abdomen/GI: Soft, non-tender, with normal bowel sounds. No distension or tympany. No guarding or rebound. No evidence of tenderness throughout. Back: No spinal tenderness. No costovertebral tenderness. Full range of motion. Skin: Warm, dry with normal turgor. Normal color with no rashes, no lesions, and no evidence of cellulitis. MS/ Extremity: Pulses equal, no cyanosis. Neurovascular intact. Full, normal range of motion. Neuro: Awake and alert, GCS 15, oriented to person, place, time, and situation. Cranial nerves II-XII grossly intact. Motor strength 5/5 in all extremities. Sensory grossly intact. Cerebellar exam normal. Normal gait. Psych: Awake, alert, with orientation to person, place and time. Behavior, mood, and affect are within normal limits. 21:57 Constitutional: The patient appears in no acute distress, alert, awake, uncomfortable. 21:57 Respiratory: mild respiratory distress is noted, Respirations: prolonged exhalation, that is mild, tachypnea, that is mild, Breath sounds: rhonchi, that are moderate, are scattered, Respiratory rate: 26 21:57 ECG was reviewed by the Attending Physician. [facility] Vital Signs: 21:27 BP 147 / 75; Pulse 103; Resp 26; Temp 98.9(TE); Pulse Ox 73% on R/A; Weight 73.94 kg; ab2 Height 5 ft. 5 in. (165.10 cm); Pain 5/10; 21:29 Pulse Ox 91% on 6 lpm NC; ab2 23:46 BP 134 / 82; Pulse 82; Resp 24 S; Pulse Ox 94% on NC; Pain 0/10; lg3 09/09 00:50 BP 138 / 88; Pulse 86; Resp 26 S; Pulse Ox 94% on NC; Pain 0/10; lg3 00:50 BP 130 / 84; Pulse 84; Resp 24 S; Pulse Ox 96% on NC; Pain 0/10; lg3 09/08 21:27 Body Mass Index 27.12 (73.94 kg, 165.10 cm) ab2 MDM: 01:42 Differential diagnosis: abnormal EKG, acute myocardial infarction, acute pericarditis, 7 anxiety, coronary artery disease chest wall pain, congestive heart failure costochondritis, pleurisy, pneumonia, pneumothorax, pulmonary embolus. HEART Score: History: Moderately Suspicious (1), ECG: Non specific repolarization disturbance / LBTB / PM (1), Age: > or = 65 years (2), Risk Factors: 1 or 2 risk factors (1), [Hypertension] Troponin: < or = 1 x Normal Limit (0), Total Score = 5. The patient was given aspirin in the Emergency Department. Data reviewed: vital signs, nurses notes, old medical records, lab test result(s), cardiac enzymes, CBC, electrolytes, Flu: negative EKG, radiologic studies, CT scan, plain films. Data interpreted: Pulse oximetry: on 6L(s) per nasal canula, is 94 %. Interpretation: acceptable. Counseling: I had a detailed discussion with the patient and/or guardian regarding: the historical points, exam findings, and any diagnostic results supporting the discharge/admit diagnosis, lab results, radiology results, the need for further work-up and treatment in the hospital. Response to treatment: the patient's symptoms have mildly improved after treatment. 01:46 Patient medically screened. [facility] 09/08 21:41 Order name: Arterial Blood Gas; Complete Time: 23:44 [facility] 09/08 22:01 Order name: Basic Metabolic Panel; Complete Time: 22:40 EDMS 09/08 22:01 Order name: Liver (Hepatic) Function; Complete Time: 22:40 [facility] 09/08 22:01 Order name: Troponin High Sensitivity; Complete Time: 22:40 EDMS 09/08 22:01 Order name: NT PRO-BNP; Complete Time: 22:40 [facility] 09/08 22:01 Order name: Magnesium; Complete Time: 22:40 [facility] 09/08 22:01 Order name: CBC with Automated Diff; Complete Time: 22:40 [facility] 09/08 21:41 Order name: XRAY Chest (1 view) [facility] 09/08 21:41 Order name: EKG; Complete Time: 22:43 [facility] 09/08 21:41 Order name: Cardiac monitoring; Complete Time: 21:42 [facility] 09/08 22:01 Order name: Protime (+INR); Complete Time: 22:40 [facility] 09/08 22:58 Order name: Lactate [facility] 09/08 22:58 Order name: Procalcitonin; Complete Time: 00:25 [facility] 09/08 22:58 Order name: Blood Culture Adult (2) [facility] 09/08 22:58 Order name: COVID-19/FLU A+B (Document "Date of Onset" if Symptomatic); Complete Time: [facility] 00:25 09/08 22:58 Order name: Lactate; Complete Time: 00:25 [facility] 09/08 23:24 Order name: CT Chest For PE Angio [facility] 09/09 02:46 Order name: Lactate Sepsis 2 HR Follow-up; Complete Time: 06:53 [facility] 09/08 21:41 Order name: EKG - Nurse/Tech; Complete Time: 21:42 [facility] 09/08 21:41 Order name: IV Saline Lock; Complete Time: 21:57 [facility] 09/08 21:41 Order name: Labs collected and sent; Complete Time: 21:57 [facility] 09/08 21:41 Order name: O2 Per Protocol; Complete Time: 21:42 7 09/08 21:41 Order name: O2 Sat Monitoring; Complete Time: 21:42 7 EC/25 21:57 Rate is 91 beats/min. Rhythm is regular, Sinus Rhythm with Unifocal PVCs. QRS [place] is [facility] Normal. [place] interval is normal. QRS interval is normal. QT interval is normal. No Q waves. T waves are Inverted in lead III. No ST changes noted. Clinical impression: NSR w/ Non-specific ST/T Changes. Administered Medications: 22:11 Drug: Xopenex (levalbuterol) 1.25 mg Route: Inhalation; 3 22:12 Drug: Aspirin Chewable Tablet 162 mg Route: PO; 3 22:12 Follow up: Response: No adverse reaction [facility] 23:40 Drug: Rocephin (cefTRIAXone) 1 grams Route: IV; Rate: per protocol; Site: right vc1 antecubital; Delivery: Primary tubing; 09/09 02:31 Follow up: Response: No adverse reaction 3 02:31 Follow up: IV Status: Completed infusion; IV Intake: 50ml [facility] 09/08 23:49 Drug: Lasix (furosemide) 20 mg Route: IVP; Site: right antecubital; [facility] 09/09 02:25 Follow up: Urine output 1700 ml; Response: No adverse reaction [facility] 09/08 23:52 Drug: Zithromax (azithromycin) 500 mg Route: IVPB; Infused Over: 1 hrs; Site: right vc1 antecubital; 09/09 02:31 Follow up: Response: No adverse reaction; IV Status: Completed infusion; IV Intake: lg3 250ml Disposition Summary: 09/09/21 01:46 Hospitalization Ordered Hospitalization Status: Inpatient Admission [facility] Provider: Sarah Thomas Location: Telemetry/MedSurg (Inpatient) [facility] Condition: Stable [facility] Problem: an ongoing problem [facility] Symptoms: have improved [facility] Bed/Room Type: Standard [facility] Room Assignment: 221(09/09/21 02:30) mw Diagnosis - Chest pain, unspecified [facility] - Pneumonia, unspecified organism [facility] - Hypoxemia [facility] Forms: - Medication Reconciliation Form [facility] - SBAR form [facility] Signatures: Dispatcher [employer] [place] Carranza RN RN mw Marely Rodriguez RN RN lg3 Aries Renteria MD MD 7 Moisés Dunn2 Zuleyma Peguero RN RN vc1 Corrections: (The following items were deleted from the chart) 09/08 23:08 22:43 BASIC METABOLIC PANEL+C.LAB.BRZ ordered. EDMS EDMS 23: 22:43 HEPATIC FUNCTION+C.LAB.BRZ ordered. EDMS EDMS : 22:43 MAGNESIUM+C.LAB.BRZ ordered. EDMS EDMS : 22:43 PROBNP+C.LAB.BRZ ordered. EDMS EDMS : 22:43 Troponin High Sensitivity+C.LAB.BRZ ordered. EDMS EDMS : 22:43 CBC+H.LAB.BRZ ordered. EDMS EDMS : 22:43 PROTIME (+INR)+COAG.LAB.BRZ ordered. EDMS EDMS 09/09 02:30 01:46 sameera hickman
--- NOTE | 2021-09-09 02:57 | P.HP ---
Certification for Inpatient Patient admitted to: Inpatient With expected LOS: >2 Midnights Patient will require the following post-hospital care: None Practitioner: I am a practitioner with admitting privileges, knowledge of patient current condition, hospital course, and medical plan of care. Services: Services provided to patient in accordance with Admission requirements found in Title 42 Section 412.3 of the Code of Federal Regulations <Dulce Maria Jeronimo - Last Filed: 09/09/21 03:15> Patient History Date of Service: 09/09/21 Reason for admission: Pneumonia History of Present Illness: Patient is a 76-year-old male with pulmonary fibrosis, COPD on 2L NC, and pulmonary hypertension who presented to the ED today 1 hour after being discharged with complaints of chest pain, tachycardia, lightheadedness, and hypoxia. WBC 19 (was 8.2 this morning). pO2 [address] showed "interval development of large patchy regions of interstitial thickening and opacification, most prominent in the right upper lobe." Procal and covid negative. Patient was requiring high flow oxygen in the ED. He was given rocephin, zithromax, and levobuterol. He will be admitted for further evaluation and management of pneumonia and elizabeth-tachy syndrome. Home medications list reviewed: Yes - Past Medical/Surgical History Diabetic: No -: Pulmonary hypertension -: COPD -: History of tobacco use -: Right shoulder surgery Psychosocial/ Personal History: Patient lives at home. - Social History Smoking Status: Former smoker Alcohol use: No CD- Drugs: No Caffeine use: No Place of Residence: Home <Dulce Maria Jeronimo - Last Filed: 09/09/21 03:15> Date of Service: 09/09/21 <Sarah Thomas - Last Filed: 09/11/21 01:29> Allergies No Known Allergies Allergy (Verified 06/02/21 12:21) Home Medications: Albuterol Neb [Proventil 0.083% Neb Soln] 2.5 mg NEB [id number] PRN #60 amp 04/19/21 Aspirin [Aspirin EC 81 MG] 81 mg PO BEDTIME 09/07/21 Prednisone [Sterapred Ds] 10 mg PO DAILY 09/07/21 Losartan Potassium [Cozaar] 50 mg PO DAILY #30 tablet 09/08/21 Rosuvastatin Calcium [Crestor] 10 mg PO DAILY #30 tablet 09/08/21 Review of Systems 10-point ROS is otherwise unremarkable General: Weakness Respiratory: Shortness of Breath Cardiovascular: Chest Pain, Light Headedness <Dulce Maria Jeronimo - Last Filed: 09/09/21 03:15> Physical Examination - Physical Exam General: Alert, In no apparent distress HEENT: Atraumatic, PERRLA, Mucous membr. moist/pink, EOMI, Sclerae nonicteric Neck: Supple, 2+ carotid pulse no bruit, No LAD, Without JVD or thyroid abnormality Respiratory: Dull, Crackles/rales Cardiovascular: Regular rate/rhythm, Normal S1 S2 Gastrointestinal: Normal bowel sounds, No tenderness Musculoskeletal: No tenderness Integumentary: No rashes Neurological: Normal speech, Normal strength at 5/5 x4 extr, Normal tone, Normal affect - Studies Laboratory Data (last 24 hrs) 09/08/21 21:55: PT 10.9, INR 0.95 09/08/21 21:55: WBC 19.00 H D, Hgb 12.8 L, Hct 38.9 L, Plt Count 307 09/08/21 21:55: Sodium 137, Potassium 3.7, BUN 23 H, Creatinine 0.92, Glucose 100, Magnesium 2.2, Total Bilirubin 0.5, AST 24, ALT 27, Alkaline Phosphatase 106 09/08/21 21:41: PT Cancelled, INR Cancelled 09/08/21 21:41: WBC Cancelled, Hgb Cancelled, Hct Cancelled, Plt Count Cancelled 09/08/21 21:41: Sodium Cancelled, Potassium Cancelled, BUN Cancelled, Creatinine Cancelled, Glucose Cancelled, Magnesium Cancelled, Total Bilirubin Cancelled, AST Cancelled, ALT Cancelled, Alkaline Phosphatase Cancelled <Dulce Maria Jeronimo - Last Filed: 09/09/21 03:15> Assessment and Plan - Problems (Diagnosis) (1) Pneumonia involving right lung Current Visit: Yes Status: Acute Qualifiers: Pneumonia type: due to unspecified organism Lung location: upper lobe of lung Qualified Code(s): J18.9 - Pneumonia, unspecified organism (2) Hypoxemia requiring supplemental oxygen Current Visit: Yes Status: Acute (3) Tachy-elizabeth syndrome Current Visit: Yes Status: Acute (4) Unstable angina Current Visit: Yes Status: Acute (5) COPD (chronic obstructive pulmonary disease) Current Visit: No Status: Chronic Qualifiers: COPD type: unspecified COPD Qualified Code(s): J44.9 - Chronic obstructive pulmonary disease, unspecified (6) Pulmonary fibrosis Current Visit: No Status: Chronic (7) Pulmonary hypertension Current Visit: No Status: Chronic - Plan -Patient was just admitted and discharged for evaluation of bradycardia however patient was tachycardic today and experiencing chest pain. Dr. Nguyễn has been consulted. Patient will likely have stress test on Saturday -CT chest showed right upper lobe pneumonia. WBC 19 up from 8 this morning. Pro-Reagan negative. patient given Zithromax and Rocephin in the ED, will continue. Dr. Dangelo has been consulted. -Patient has COPD, pulmonary fibrosis, and pulmonary hypertension which requires 2 L nasal cannula oxygen at baseline however had an increased oxygen requirement in the ED and is on high flow. We will monitor his O2. -Incentive spirometry and as needed nebs ordered -Patient will be monitored on telemetry DVT PPx: Lovenox Code: Full Discharge Plan: Home Plan to discharge in: Greater than 2 days - Advance Directives Does patient have a Living Will: No Does patient have a Durable POA for Healthcare: No - Code Status/Comfort Care Code Status Assessed: Yes (Full) Critical Care: No Time Spent Managing Pts Care (In Minutes): 70 <Dulce Maria Jeronimo - Last Filed: 09/09/21 03:15> - Problems (Diagnosis) (1) Acute exacerbation of idiopathic pulmonary fibrosis Current Visit: Yes Status: Acute (2) Hypoxemia requiring supplemental oxygen Current Visit: Yes Status: Acute (3) Tachy-elizabeth syndrome Current Visit: Yes Status: Acute (4) Unstable angina Current Visit: Yes Status: Acute (5) (HFpEF) heart failure with preserved ejection fraction Current Visit: No Status: Acute (6) Pulmonary hypertension Current Visit: No Status: Chronic <Sarah Thomas - Last Filed: 09/11/21 01:29> Date of Service: 09/09/21 Subjective: HPI as mentioned above Physical Examination: Vitals: Afebrile vital signs are stable Physical exam: Cardiovascular: Within normal limits. Lungs: Within normal limits Abdomen: Within normal limits Neuro: Awake, alert, oriented to person place and time Assessment: 1. Idiopathic pulmonary fibrosis exacerbation 2. Pulmonary hypertension 3. Hypoxemia 4. Bradycardia//tachycardia syndrome 5. Unstable angina Plan: 1. Continue with current plan of care as mentioned above <Sarah Thomas - Last Filed: 09/11/21 01:29>
[2021-09-09] MEDS ORDERED: ACETAMINOPHEN 500 MG TAB PO PRN (03:02)
[2021-09-09] MEDS ORDERED: ONDANSETRON 4 MG/2 ML VIAL IV PRN (03:02)
[2021-09-09] MEDS ORDERED: CEFTRIAXONE 1000 MG/VIAL ONE (07:45)
[2021-09-09] MEDS: ENOXAPARIN 40 MG/0.4 ML SQ SCH (07:58)
[2021-09-09] MEDS: CEFTRIAXONE 1,000 MG in NA CHLORIDE 0.9% 50 ML IVPB SCH (07:59)
[2021-09-09] MEDS ORDERED: ALBUTEROL 2.5 MG/3 ML NEB SOL NEB SCH (08:00)
[2021-09-09] MEDS ORDERED: AZITHROMYCIN IV 250 MG in NA CHLORIDE 0.9% 250 ML IVPB SCH (09:00)
[2021-09-09 09:10] LABS: Urine Appearance CLEAR (Clear); Urine Bilirubin NEGATIVE (Negative); Urine Blood NEGATIVE (Negative); Urine Color YELLOW (Yellow); Urine Glucose NEGATIVE (Negative); Urine Protein NEGATIVE (Negative); Urine Specific Gravity >=1.030 (1.005-1.030); Urine Urobilinogen 0.2 mg/dL (0.2-1.0); Urine pH 6.5 (5.0-7.0)
[2021-09-09 09:15] LABS: Urine Microscopic Reflex NO UMIC
--- NOTE | 2021-09-09 10:24 | RAD REPORT ---
EXAM DESCRIPTION: RAD - Chest Single View - 09/08/2021 11:06 pm CLINICAL HISTORY: Chest pain;SOB Chest pain. COMPARISON: Chest Single View dated 09/07/2021; Chest Pa And Lat (2 Views) dated 05/08/2021; Chest Si ngle View dated 04/15/2021; Chest Single View dated 04/14/2021 FINDINGS: Portable technique limits examination quality. Moderate to extensive bilateral interstitial lung opacities are essentially unchanged since yesterday 's study. The heart is mildly enlarged. Right humeral prosthesis.
[2021-09-09] MEDS ORDERED: METHYLPREDNISOLONE 40 MG INJ IV SCH (11:00)
--- NOTE | 2021-09-09 11:05 | P.CNS ---
Date of Consult: 09/09/21 Reason for Consult: Respiratory failure Chief Complaint: Pneumonia History of Present Illness: Patient is 76 years of age admitted with acute shortness of breath he was just discharged today with unable to ambulate came right back to the emergency room has been worse over the past 2 days apparently he has a history of COPD pulmonary fibrosis recently quit smoking CT chest x-ray shows significant interstitial lung disease is very short of breath no prior history of cardiac problems only on 70% FiO2 denies any fever chills cough or phlegm Allergies No Known Allergies Allergy (Verified 06/02/21 12:21) Home Medications: Albuterol Neb [Proventil 0.083% Neb Soln] 2.5 mg NEB [id number] PRN #60 amp 04/19/21 Aspirin [Aspirin EC 81 MG] 81 mg PO BEDTIME 09/07/21 Prednisone [Sterapred Ds] 10 mg PO DAILY 09/07/21 Losartan Potassium [Cozaar] 50 mg PO DAILY #30 tablet 09/08/21 Rosuvastatin Calcium [Crestor] 10 mg PO DAILY #30 tablet 09/08/21 - Past Medical/Surgical History Diabetic: No -: Pulmonary hypertension -: COPD -: History of tobacco use -: Idiopathic pulmonary fibrosis -: Right shoulder surgery Psychosocial/ Personal History: Patient lives at home. - Social History Smoking Status: Unknown if ever smoked Alcohol use: No CD- Drugs: No Caffeine use: No Place of Residence: Home Review of Systems 10-point ROS is otherwise unremarkable General: Weakness Respiratory: Cough, Shortness of Breath Physical Examination Temp Pulse Resp BP Pulse Ox 98.0 F 91 H 20 139/74 89 L 09/09/21 08:00 09/09/21 08:00 09/09/21 08:00 09/09/21 08:00 09/09/21 08:00 General: Alert, Moderate distress Neck: Supple Respiratory: Crackles/rales (Extensive fine bilateral inspiratory crackles) Cardiovascular: No edema, Regular rate/rhythm Gastrointestinal: Normal bowel sounds, Soft and benign Laboratory Data (last 24 hrs) 09/08/21 21:55: PT 10.9, INR 0.95 09/08/21 21:55: WBC 19.00 H D, Hgb 12.8 L, Hct 38.9 L, Plt Count 307 09/08/21 21:55: Sodium 137, Potassium 3.7, BUN 23 H, Creatinine 0.92, Glucose 100, Magnesium 2.2, Total Bilirubin 0.5, AST 24, ALT 27, Alkaline Phosphatase 106 09/08/21 21:41: PT Cancelled, INR Cancelled 09/08/21 21:41: WBC Cancelled, Hgb Cancelled, Hct Cancelled, Plt Count Cancelled 09/08/21 21:41: Sodium Cancelled, Potassium Cancelled, BUN Cancelled, Creatinine Cancelled, Glucose Cancelled, Magnesium Cancelled, Total Bilirubin Cancelled, AST Cancelled, ALT Cancelled, Alkaline Phosphatase Cancelled - Problems (1) Acute exacerbation of idiopathic pulmonary fibrosis Current Visit: Yes Status: Acute Plan: Patient is 76 years of age with a history of COPD pulmonary fibrosis I suspect idiopathic he has subpleural cystic changes admitted with acute on chronic shortness of breath very hypoxic dyspneic CT scan chest x-ray shows significant bilateral interstitial changes may be precipitated by an infection add on high doses of steroids changed to levofloxacin high risk for resistant infections also had p.o. doxycycline white count elevated start patient on BiPAP
[2021-09-09] MEDS: DOXYCYCLINE 100 MG CAP PO SCH ×2 (11:21→20:50)
[2021-09-09] MEDS: levoFLOXacin 750 MG TAB PO SCH (11:21)
[2021-09-09] MEDS: IPRATROPIUM BROM 0.5MG/2.5ML NEB SCH ×3 (12:52→20:50)
[2021-09-09] MEDS: ALBUTEROL 2.5 MG/3 ML NEB SOL NEB SCH ×3 (12:52→20:50)
[2021-09-09] MEDS ORDERED: IPRATROPIUM BROM 0.5MG/2.5ML NEB SCH (14:00)
[2021-09-09] MEDS ORDERED: FUROSEMIDE 20 MG/ 2ML VIAL IV ONE (16:00)
[2021-09-09] MEDS: METHYLPREDNISOLONE 125 MG INJ IV SCH ×2 (17:14→23:46)
--- NOTE | 2021-09-09 21:25 | RAD REPORT ---
EXAM DESCRIPTION: Chest For Pe Angio RadLex: CT CHEST ANGIOGRAPHY WITH IV CONTRAST CLINICAL HISTORY: Chest pain;SOB. COMPARISON: CTA chest from April 14, 2021. TECHNIQUE: CTA of the chest was performed following intravenous administration of iodinated contrast . Axial soft tissue and lung window, and coronal and sagittal soft tissue window reconstructions were created and sent to PACS. 3D postprocessing was performed on an independent workstation, with images sent to PACS for subsequen t review. This exam was performed according to our departmental dose-optimization program, which includes autom ated exposure control, adjustment of the mA and/or kV according to patient size and/or use of iterati ve reconstruction technique. FINDINGS: Vascular: The pulmonary arteries are adequately opacified to the segmental level. No CT ev idence of acute pulmonary thromboembolism. No evidence of aortic aneurysm or dissection. Moderate kimberly cific atherosclerosis. Lungs and pleura: Moderate centrilobular emphysema. Diffuse mild groundglass opacification in the gerda ateral lower lungs, similar to prior. Interval development of large patchy regions of interstitial th ickening and opacification, most prominent in the right upper lobe. No pleural effusion. No pneumotho rax. Mediastinum and neck: Mild mediastinal and bilateral hilar lymphadenopathy. Unremarkable appearance o f the thyroid gland. Cardiac: Mild cardiomegaly. No pericardial effusion. Abdomen: No significant upper abdominal abnormality identified. Musculoskeletal: No concerning osseous abnormality. IMPRESSION: 1. No CTA evidence of acute pulmonary thromboembolism. 2. Interval development of large patchy regions of interstitial thickening and opacification, most prominent in the right upper lobe. Correlate for infectious/inflammatory etiology. 3. Moderate pulmonary emphysema. Findings suggestive of background chronic fibrosis 4. Mild mediastinal and bilateral hilar lymphadenopathy, likely reactive. Electronically signed by: Shama Smith MD 09/09/2021 1:01 AM [employer] Due to temporary technical issues with the PACS/Fluency reporting system, reports are being signed by the in house radiologists without review as a courtesy to insure prompt reporting. The interpreting radiologist is fully responsible for the content of the report.
[2021-09-10] MEDS: ALBUTEROL 2.5 MG/3 ML NEB SOL NEB SCH ×3 (00:20→08:25)
[2021-09-10] MEDS: IPRATROPIUM BROM 0.5MG/2.5ML NEB SCH ×3 (00:20→08:25)
[2021-09-10 04:41] LABS: Absolute Lymphocytes (CBC) 0.8 K/uL (0.7-4.9); Hematocrit 36.7 % (39.6-49.0); MPV 8.1 fL (7.6-11.3); RBC Red Blood Cell Count 4.14 M/uL (4.33-5.43)
[2021-09-10 05:04] LABS: Albumin 3.1 g/dL (3.4-5.0); Bilirubin Total 0.6 mg/dL (0.2-1.0); Potassium 4.2 mmol/L (3.5-5.1); Protein, Total 6.9 g/dL (6.4-8.2)
[2021-09-10 05:13] LABS: Magnesium 2.2 mg/dL (1.8-2.4)
[2021-09-10] MEDS: METHYLPREDNISOLONE 125 MG INJ IV SCH ×3 (05:54→17:31)
[2021-09-10] MEDS: ENOXAPARIN 40 MG/0.4 ML SQ SCH (09:09)
[2021-09-10] MEDS: levoFLOXacin 750 MG TAB PO SCH (09:09)
[2021-09-10] MEDS: DOXYCYCLINE 100 MG CAP PO SCH ×2 (09:09→20:21)
[2021-09-10] MEDS: CEFTRIAXONE 1,000 MG in NA CHLORIDE 0.9% 50 ML IVPB SCH (09:09)
--- NOTE | 2021-09-10 11:15 | P.PN ---
Subjective Date of Service: 09/10/21 Chief Complaint: Exacerbation of pulmonary fibrosis Subjective: Improving (Patient is doing better oxygen requirements are declining) Review of Systems Respiratory: Cough, Shortness of Breath Physical Examination - Vital Signs Temperature: 98 F Blood Pressure: 124/78 Pulse: 85 Respirations: 20 Pulse Ox (%): 93 - Physical Exam General: Alert, Oriented x3, Mild distress Respiratory: Crackles/rales, Expiratory wheezes Cardiovascular: No edema, Normal S1 S2 Assessment And Plan - Current Problems (Diagnosis) (1) Acute exacerbation of idiopathic pulmonary fibrosis Current Visit: Yes Status: Acute Plan: Patient is improving White count is now normal cultures negative use nebs on a as needed basis will try to wean him down on the oxygen oxygen requirements are improving
[2021-09-10 12:19] VITALS: BMI 26.2
--- NOTE | 2021-09-11 01:28 | P.PN ---
Subjective Date of Service: 09/10/21 Patient is feeling much better. Patient with idiopathic pulmonary fibrosis and severe pulmonary hypertension. Patient weaning down high flow oxygen. Echocardiogram pending for in the morning. Stress test pending in the morning. Cardiology consultation placed. Appreciate pulmonary consultation. Review of Systems 10-point ROS is otherwise unremarkable Physical Examination - Vital Signs Temperature: 97.4 F Blood Pressure: 128/71 Pulse: 102 Respirations: 17 Pulse Ox (%): 91 - Physical Exam General: Alert, In no apparent distress, Oriented x3 HEENT: Atraumatic, PERRLA, EOMI Neck: Supple, JVD not distended Respiratory: Clear to auscultation bilaterally, Normal air movement Cardiovascular: Regular rate/rhythm, Normal S1 S2 Gastrointestinal: Normal bowel sounds, No tenderness Musculoskeletal: No tenderness Integumentary: No rashes Neurological: Normal speech, Normal tone, Normal affect Lymphatics: No axilla or inguinal lymphadenopathy - Studies Medications List Reviewed: Yes Assessment & Plan - Problems (Diagnosis) (1) Acute exacerbation of idiopathic pulmonary fibrosis Current Visit: Yes Status: Acute (2) Hypoxemia requiring supplemental oxygen Current Visit: Yes Status: Acute (3) Tachy-elizabeth syndrome Current Visit: Yes Status: Acute (4) Unstable angina Current Visit: Yes Status: Acute (5) (HFpEF) heart failure with preserved ejection fraction Current Visit: No Status: Acute (6) Pulmonary hypertension Current Visit: No Status: Chronic - Plan Plan: 1. Continue with albuterol and Atrovent nebs 2. Continue with IV steroids 3. Wean off of high flow oxygen 4. Pulmonary and cardiology consultation appreciated 5. Gentle diuresing 6. Repeat chest x-ray in the morning 7. Echocardiogram and stress test pending 8. GI and DVT prophylaxis Discharge Plan: Home Plan to discharge in: Greater than 2 days - Advance Directives Does patient have a Living Will: No Does patient have a Durable POA for Healthcare: No - Code Status/Comfort Care Code Status Assessed: Yes Code Status: Full Code Critical Care: No Time Spent Managing PTS Care (In Minutes): 45
[2021-09-11] MEDS: METHYLPREDNISOLONE 125 MG INJ IV SCH ×2 (05:30)
[2021-09-11 06:32] LABS: Absolute Lymphocytes (CBC) 1.1 K/uL (0.7-4.9); Lymphocytes % 10.2 % (15.3-44.8); MPV 8.6 fL (7.6-11.3); RBC Red Blood Cell Count 4.17 M/uL (4.33-5.43)
[2021-09-11 06:45] LABS: Bilirubin Total 0.7 mg/dL (0.2-1.0); Potassium 4.1 mmol/L (3.5-5.1); Protein, Total 6.7 g/dL (6.4-8.2)
--- NOTE | 2021-09-11 07:39 | RAD REPORT ---
EXAM DESCRIPTION: RAD - Chest Single View - 09/11/2021 5:44 am CLINICAL HISTORY: Respiratory failure COMPARISON: Chest Single View dated 09/08/2021; Chest Single View dated 09/07/2021; Chest Pa And Lat ( 2 Views) dated 05/08/2021; Chest Single View dated 04/15/2021; Chest For Pe Angio dated 09/09/2021 FINDINGS: Lines: None. Lungs: Chronic interstitial lung disease. Similar aeration of the lungs compared with 09/08/2021. Pleural: No significant pleural effusions or pneumothorax. Cardiac: Cardiomegaly. Bones: No acute fractures. Right shoulder arthroplasty. Other: IMPRESSION: Widespread pulmonary opacities without significant interval change compared with 022. This likely represents pneumonia and/or inflammation superimposed upon a background of a mixed o bstructive/restrictive lung disease .
[2021-09-11] MEDS: ALBUTEROL 2.5 MG/3 ML NEB SOL NEB PRN ×3 (08:15→20:55)
[2021-09-11] MEDS: DOXYCYCLINE 100 MG CAP PO SCH ×2 (08:16→20:22)
[2021-09-11] MEDS: levoFLOXacin 750 MG TAB PO SCH (08:16)
[2021-09-11] MEDS: ENOXAPARIN 40 MG/0.4 ML SQ SCH (08:16)
--- NOTE | 2021-09-11 12:16 | P.PN ---
Subjective Date of Service: 09/11/21 Chief Complaint: Exacerbation of pulmonary fibrosis Subjective: Improving (Patient is doing better still on 50% FiO2 sats in the low 90s) Review of Systems General: Weakness Respiratory: Shortness of Breath Physical Examination - Vital Signs Temperature: 97.3 F Blood Pressure: 130/65 Pulse: 89 Respirations: 20 Pulse Ox (%): 93 - Physical Exam General: Alert, Oriented x3, Mild distress Respiratory: Crackles/rales Cardiovascular: No edema, Regular rate/rhythm - Studies Medications List Reviewed: Yes Assessment And Plan - Current Problems (Diagnosis) (1) Acute exacerbation of idiopathic pulmonary fibrosis Current Visit: Yes Status: Acute Plan: Patient is improving chest x-ray has improved plan for discharge on prednisone 20 twice daily for 10 days continue with levofloxacin doxycycline titrate sat to 90% once is on 4 L he can discharge home and has home oxygen to start Ofev
[2021-09-11] MEDS ORDERED: BENZONATATE 100 MG CAP PO PRN (12:49)
[2021-09-11] MEDS ORDERED: FUROSEMIDE 40 MG/4 ML VIAL IV ONE (12:49)
--- NOTE | 2021-09-11 12:54 | P.PN ---
Subjective Date of Service: 09/11/21 Chief Complaint: Exacerbation of pulmonary fibrosis Subjective: New changes (Patient having some bloodstained sputum Still on high flow nasal cannula ) Physical Examination - Vital Signs Temperature: 97.3 F Blood Pressure: 130/65 Pulse: 89 Respirations: 20 Pulse Ox (%): 93 - Studies Medications List Reviewed: Yes Assessment And Plan Physician Review: Patient Assessed, Agree with Above Assessment and Plan Physician Review Additional Text: 09/11/21 12:51 - Physical Exam General: Alert, In no apparent distress, Oriented x3, elderly male, on high flow nasal cannula O225 L Respiratory: Coarse crepitations, mild bibasilar fine crackles Cardiovascular: Regular rate/rhythm, Normal S1 S2 Gastrointestinal: Normal bowel sounds, No tenderness Neurological: Normal speech, Normal tone, Normal affect Extremities1+ bilateral pedal edema Skin: No new rash - Plan Impression Atypical pneumonia Idiopathic pulmonary fibrosis with pulmonary hypertension Acute on chronic respiratory failure with hypoxia COPD Presumed diastolic CHF Hypertension Plan We will obtain sputum for culture and sensitivity Pulmonary on boardagree with antibiotics to doxycycline and low-dose prednisone Since mild fluid overload and still persistent high supplemental oxygen, start low-dose diuresis today White cell count trending down Follow blood culture Plan for discharge if able to wean off high flow oxygen to nasal cannula O2 Monitor blood pressure as well as electrolytes Chest x-ray improving Add guaifenesin for chest congestion symptom Time Spent Managing PTS Care (In Minutes): 35
[2021-09-11] MEDS: GUAIFENESIN 600 MG SA TAB PO SCH ×2 (14:19→20:24)
[2021-09-11] MEDS: FUROSEMIDE 40 MG TABLET PO SCH (17:01)
[2021-09-11] MEDS: predniSONE 20 MG TAB PO SCH (20:24)
--- NOTE | 2021-09-11 20:38 | CON ---
Date of Consultation: 09/11/2021 Reason For Consultation: Shortness of breath and respiratory failure. History Of Present Illness: This is a 76-year-old male with history of pulmonary fibrosis a nd COPD on oxygen at home, history of hypertension, presented to the emergency room due to shortness of breath, hypoxia, and respiratory failure symptoms. The patient apparently had an episode of elizabeth cardia, which was sinus bradycardia earlier and was admitted to the hospital and discharged home da use his heart rate always normal during the monitoring period over the hospital stay. The patient co mes back now because he is more short of breath, requiring more oxygen; wheezing; has minimal cough _ Having chest pain. Past Medical History: As outlined above. Medications: Refer to reconciliation sheet for detailed list. Allergies: NO KNOWN DRUG ALLERGIES. Family History: No mention of coronary artery disease or cancer. Social History: Does not smoke. He is an ex-smoker. Does not drink or use any drugs. Review of Systems: All systems reviewed, and they were negative except for mentioned in HPI. Physical Examination: Vital Signs: Reviewed. Head and Neck: Pupils are equal, reactive to light. Intact eye movements. No JVD. No cervical lym phadenopathy. Neck: Supple. Thyroid is not enlarged. Lungs: There are rhonchi bilaterally. No accessory muscle use or muscle retraction. Heart: Regular rate and rhythm. No extra sounds. Abdomen: Soft, nontender. Bowel sounds positive. No organomegaly. No masses or hernia. No rigidi ty or rebound. Extremities: No clubbing, cyanosis. Intact pulses. Skin: No rashes. Neuro: Alert, awake, oriented x3. No acute focal deficits appreciated. Investigations: White blood cell count on arrival was 19,000, and BUN is 22, creatinine 0.9. NT pro BNP was 884. Troponin was negative. CTA of the chest, pneumonia, significant pulmonary emphysema. Assessment/recommendation: Acute respiratory failure due to pulmonary fibrosis exacerbation and pneu monia. Troponin is negative. NT-proBNP is not significantly elevated at this point. No further car diac workup will be recommended. This patient will need at one point a stress test, which can be arr anged for as an outpatient once his pneumonia and pulmonary fibrosis exacerbation is under control. Thank you for the consult. /CHANA Voice ID: [id number] Report ID: [id number]
[2021-09-12 06:02] LABS: Absolute Lymphocytes (CBC) 0.8 K/uL (0.7-4.9); Lymphocytes % 8.2 % (15.3-44.8); MPV 8.4 fL (7.6-11.3); RBC Red Blood Cell Count 4.12 M/uL (4.33-5.43)
[2021-09-12 06:33] LABS: Albumin 2.9 g/dL (3.4-5.0); Bilirubin Total 0.5 mg/dL (0.2-1.0); Protein, Total 6.6 g/dL (6.4-8.2)
[2021-09-12 06:34] LABS: Potassium 3.7 mmol/L (3.5-5.1)
--- NOTE | 2021-09-12 07:10 | ECHO ---
HEIGHT: 5 ft 5 in WEIGHT: 157 lb 11.2 oz DATE OF STUDY: 09/11/[address]: Sarah Thomas MD 2-DIMENSIONAL: YES M.MODE: YES DOPPLER: YES COLOR FLOW: YES TDS: NO PORTABLE: NO DEFINITY: NO BUBBLE STUDY: NO DIAGNOSIS: RULE OUT CARDIAC ISSUES CARDIAC HISTORY: CATHERIZATION: SURGERY: PROSTHETIC VALVE: PACEMAKER: MEASUREMENTS (cm) DIASTOLIC (NORMALS) SYSTOLIC (NORMALS) IVSd 1.0 (0.6-1.2) LA Diam 3.6 (1.9-4.0) LVEF 60-65% LVIDd 3.6 (3.5-5.7) LVIDs 2.2 (2.0-3.5) %FS 38% LVPWd 1.0 (0.6-1.2) Ao Diam 2.5 (2.0-3.7) 2 DIMENSIONAL ASSESSMENT: RIGHT ATRIUM: NORMAL LEFT ATRIUM: NORMAL RIGHT VENTRICLE: NORMAL LEFT VENTRICLE: NORMAL TRICUSPID VALVE: NORMAL MITRAL VALVE: NORMAL PULMONIC VALVE: NORMAL AORTIC VALVE: NORMAL PERICARDIAL EFFUSION: NONE AORTIC ROOT: NORMAL LEFT VENTRICULAR WALL MOTION: NORMAL. DOPPLER/COLOR FLOW: MILD TRICUSPID REGURGITATION, MILD PULMONIC REGURGITATION, MILD AORTIC REGURGITATION. COMMENTS: NORMAL LEFT VENTRICULAR EJECTION FRACTION 60-65%. NORMAL WALL MOTION. MILD TRICUSPID REGURGITATION, MILD PULMONIC REGURGITATION, MILD AORTIC REGURGITATION. TECHNOLOGIST: LOURDES RUBIO
[2021-09-12] MEDS: ALBUTEROL 2.5 MG/3 ML NEB SOL NEB PRN ×3 (07:45→22:45)
[2021-09-12] MEDS: DOXYCYCLINE 100 MG CAP PO SCH ×2 (08:29→20:09)
[2021-09-12] MEDS: predniSONE 20 MG TAB PO SCH ×2 (08:29→20:09)
[2021-09-12] MEDS: GUAIFENESIN 600 MG SA TAB PO SCH ×2 (08:29→20:09)
[2021-09-12] MEDS: levoFLOXacin 750 MG TAB PO SCH (08:29)
[2021-09-12] MEDS: FUROSEMIDE 40 MG TABLET PO SCH (08:30)
[2021-09-12] MEDS: ENOXAPARIN 40 MG/0.4 ML SQ SCH (08:31)
[2021-09-12] MEDS ORDERED: LORazepam 2 MG/ML VIAL IV ONE (12:03)
--- NOTE | 2021-09-12 12:21 | P.PN ---
Subjective Date of Service: 09/12/21 Chief Complaint: Exacerbation of pulmonary fibrosis Subjective: Improving (Patient is doing better no further hemoptysis nebulizers helping) Review of Systems 10-point ROS is otherwise unremarkable Respiratory: Shortness of Breath Physical Examination - Vital Signs Temperature: 97.8 F Blood Pressure: 127/71 Pulse: 71 Respirations: 22 Pulse Ox (%): 96 - Physical Exam General: Alert, Oriented x3 Respiratory: Crackles/rales Cardiovascular: No edema, Regular rate/rhythm - Studies Medications List Reviewed: Yes Assessment And Plan - Current Problems (Diagnosis) (1) Acute exacerbation of idiopathic pulmonary fibrosis Current Visit: Yes Status: Acute Plan: Patient is improving daughter present at the bedside nebulizers are helping titrate his O2 down to a sat of 90% agree with diuretics reduce the dose of Lasix Physician Review: Patient Assessed, Agree with Above Assessment and Plan
--- NOTE | 2021-09-12 14:24 | P.PN ---
Subjective Date of Service: 09/12/21 Chief Complaint: Exacerbation of pulmonary fibrosis Subjective: No new changes (Patient is currently on high flow nasal cannula FiO2 50%. Baseline oxygen requirement is 2 L via nasal cannula. Daughter at bedside to facilitate with translation.) Physical Examination - Vital Signs Temperature: 97.8 F Blood Pressure: 127/71 Pulse: 71 Respirations: 22 Pulse Ox (%): 96 - Physical Exam General: In no apparent distress, Cooperative, Other (Fatigued.) HEENT: Atraumatic, Normocephalic Respiratory: Diminished, Other (No crackles or wheezes) Cardiovascular: Regular rate/rhythm, Normal S1 S2 Musculoskeletal: No clubbing, No swelling, No contractures, No erythema, No tenderness Neurological: Normal speech, Normal affect - Studies Medications List Reviewed: Yes Assessment And Plan - Current Problems (Diagnosis) (1) Acute exacerbation of idiopathic pulmonary fibrosis Current Visit: Yes Status: Acute (2) Hypoxemia requiring supplemental oxygen Current Visit: Yes Status: Acute (3) Pneumonia involving right lung Current Visit: Yes Status: Acute Qualifiers: Pneumonia type: due to unspecified organism Lung location: upper lobe of lung Qualified Code(s): J18.9 - Pneumonia, unspecified organism (4) Tachy-elizabeth syndrome Current Visit: Yes Status: Acute (5) Unstable angina Current Visit: Yes Status: Acute (6) (HFpEF) heart failure with preserved ejection fraction Current Visit: No Status: Acute (7) COPD (chronic obstructive pulmonary disease) Current Visit: No Status: Chronic Qualifiers: COPD type: unspecified COPD Qualified Code(s): J44.9 - Chronic obstructive pulmonary disease, unspecified (8) Pulmonary fibrosis Current Visit: No Status: Chronic Physician Review: Patient Assessed, Agree with Above Assessment and Plan Physician Review Additional Text: 09/12/21 14:22 Assessment Patient is a 76-year-old male with a known past medical history of idiopathic pulmonary fibrosis. He returned to the hospital 1 hour after discharge following a hospitalization for COPD/CHF exacerbation. He is currently being treated with exacerbation of IPF compounded by atypical pneumonia. His chest x-ray is improving. He is currently on high flow nasal cannula. PLAN: Impression Atypical pneumonia Idiopathic pulmonary fibrosis with pulmonary hypertension Acute on chronic respiratory failure with hypoxia COPD Presumed diastolic CHF Hypertension Plan Follow up sputum for culture and sensitivity Continue nebulizer Continue abx with Doxycycline/Levofloxacin along with prednisone Continue diuresis Patient may require NIV arrangements prior to discharge
[2021-09-12] MEDS: ASPIRIN EC 81 MG TAB PO SCH (20:11)
[2021-09-13] MEDS: ALBUTEROL 2.5 MG/3 ML NEB SOL NEB PRN ×3 (02:20→13:45)
--- NOTE | 2021-09-13 07:32 | RAD REPORT ---
EXAM DESCRIPTION: RAD - Chest Single View - 09/13/2021 5:30 am CLINICAL HISTORY: Respiratory failure with pneumonia COMPARISON: Chest Single View dated 09/11/2021; Chest Single View dated 09/08/2021; Chest Single View dated 09/07/2021; Chest Pa And Lat (2 Views) dated 05/08/2021 FINDINGS: Lines: None. Lungs: Similar pulmonary opacities bilaterally. Background of chronic interstitial lung disease. Pleural: No significant pleural effusions or pneumothorax. Cardiac: Cardiomegaly. Bones: No acute fractures. Right shoulder arthroplasty. Other: IMPRESSION: Similar pulmonary opacities concerning for pneumonia superimposed upon a background of c hronic interstitial lung disease.
[2021-09-13 08:31] LABS: Magnesium 2.4 mg/dL (1.8-2.4); Phosphorus 3.6 mg/dL (2.5-4.9); Potassium 3.8 mmol/L (3.5-5.1)
[2021-09-13] MEDS ORDERED: [UNRECOGNIZED DRUG - OTHER] PO SCH (09:00)
[2021-09-13] MEDS ORDERED: PREDNISONE PO SCH (09:00)
--- NOTE | 2021-09-13 09:51 | P.PN ---
Subjective Date of Service: 09/13/21 Chief Complaint: Exacerbation of pulmonary fibrosis Subjective: Improving Physical Examination - Vital Signs Temperature: 97.5 F Blood Pressure: 132/71 Pulse: 72 Respirations: 20 Pulse Ox (%): 98 - Physical Exam General: Alert, In no apparent distress, Cooperative HEENT: Atraumatic, Normocephalic Respiratory: Other (good air movement. No wheezing or crackles) Cardiovascular: Regular rate/rhythm, Normal S1 S2 Gastrointestinal: Soft and benign, Non-distended - Studies Medications List Reviewed: Yes Assessment And Plan - Current Problems (Diagnosis) (1) Acute exacerbation of idiopathic pulmonary fibrosis Current Visit: Yes Status: Acute (2) Hypoxemia requiring supplemental oxygen Current Visit: Yes Status: Acute (3) Pneumonia involving right lung Current Visit: Yes Status: Acute Qualifiers: Pneumonia type: due to unspecified organism Lung location: upper lobe of lung Qualified Code(s): J18.9 - Pneumonia, unspecified organism (4) Tachy-elizabeth syndrome Current Visit: Yes Status: Acute (5) Unstable angina Current Visit: Yes Status: Acute (6) (HFpEF) heart failure with preserved ejection fraction Current Visit: No Status: Acute (7) COPD (chronic obstructive pulmonary disease) Current Visit: No Status: Chronic Qualifiers: COPD type: unspecified COPD Qualified Code(s): J44.9 - Chronic obstructive pulmonary disease, unspecified (8) Pulmonary fibrosis Current Visit: No Status: Chronic Physician Review: Patient Assessed, Agree with Above Assessment and Plan Physician Review Additional Text: 09/12/21 14:22 Assessment Patient is a 76-year-old male with a known past medical history of idiopathic pulmonary fibrosis. He returned to the hospital 1 hour after discharge following a hospitalization for COPD/CHF exacerbation. He is currently being treated with exacerbation of IPF compounded by atypical pneumonia. His chest x-ray is improving. He is currently on high flow nasal cannula. Impression Atypical pneumonia Idiopathic pulmonary fibrosis with pulmonary hypertension Acute on chronic respiratory failure with hypoxia COPD Presumed diastolic CHF Hypertension PLAN: Weaning off HFNC as tolerated. Current FiO2 of 40% His CXR is unchanged. chronic interstitial lung disease with superimposed PNA Follow up sputum for culture and sensitivity Continue abx with Doxycycline/Levofloxacin along with prednisone Continue diuresis and nebulizer Patient may require NIV arrangements prior to discharge
[2021-09-13] MEDS: ENOXAPARIN 40 MG/0.4 ML SQ SCH (10:31)
[2021-09-13] MEDS: GUAIFENESIN 600 MG SA TAB PO SCH ×2 (10:32→20:13)
[2021-09-13] MEDS: FUROSEMIDE 40 MG TABLET PO SCH (10:32)
[2021-09-13] MEDS: predniSONE 20 MG TAB PO SCH ×2 (10:32→20:14)
[2021-09-13] MEDS: DOXYCYCLINE 100 MG CAP PO SCH ×2 (10:32→20:13)
[2021-09-13] MEDS: levoFLOXacin 750 MG TAB PO SCH (10:32)
[2021-09-13] MEDS: LOSARTAN POTASSIUM 50 MG TABLET PO SCH (10:32)
[2021-09-13] MEDS: ROSUVASTATIN 10 MG TAB PO SCH (10:41)
--- NOTE | 2021-09-13 14:55 | P.PN ---
Subjective Date of Service: 09/13/21 Chief Complaint: Exacerbation of pulmonary fibrosis Subjective: Improving Physical Examination - Vital Signs Temperature: 98 F Blood Pressure: 118/74 Pulse: 80 Respirations: 20 Pulse Ox (%): 91 - Physical Exam General: Alert, In no apparent distress Respiratory: Diminished (Better air movement ) Cardiovascular: No edema, Regular rate/rhythm, Normal S1 S2 Neurological: Normal speech, Normal affect - Studies Medications List Reviewed: Yes Assessment And Plan - Current Problems (Diagnosis) (1) Acute exacerbation of idiopathic pulmonary fibrosis Current Visit: Yes Status: Acute (2) Hypoxemia requiring supplemental oxygen Current Visit: Yes Status: Acute (3) Pneumonia involving right lung Current Visit: Yes Status: Acute Qualifiers: Pneumonia type: due to unspecified organism Lung location: upper lobe of lung Qualified Code(s): J18.9 - Pneumonia, unspecified organism (4) Tachy-elizabeth syndrome Current Visit: Yes Status: Acute (5) Unstable angina Current Visit: Yes Status: Acute (6) (HFpEF) heart failure with preserved ejection fraction Current Visit: No Status: Acute (7) COPD (chronic obstructive pulmonary disease) Current Visit: No Status: Chronic Qualifiers: COPD type: unspecified COPD Qualified Code(s): J44.9 - Chronic obstructive pulmonary disease, unspecified (8) Pulmonary fibrosis Current Visit: No Status: Chronic Physician Review: Patient Assessed, Agree with Above Assessment and Plan Physician Review Additional Text: Assessment Patient is a 76-year-old male with a known past medical history of idiopathic pulmonary fibrosis. He returned to the hospital 1 hour after discharge following a hospitalization for COPD/CHF exacerbation. He is currently being treated with exacerbation of IPF compounded by atypical pneumo isha. His chest x-ray is improving. He is currently on high flow nasal cannula. Atypical pneumonia Idiopathic pulmonary fibrosis with pulmonary hypertension Acute on chronic respiratory failure with hypoxia COPD Presumed diastolic CHF Hypertension PLAN: Weaning off HFNC as tolerated. His CXR is unchanged. chronic interstitial lung disease with superimposed PNA Follow up sputum for culture and sensitivity Continue abx with Doxycycline/Levofloxacin along with prednisone Continue diuresis and nebulizer Patient may require NIV arrangements prior to discharge 09/13/21 14:53
[2021-09-13] MEDS ORDERED: ALPRAZOLAM 0.25 MG TABLET PO ONE (19:51)
[2021-09-13] MEDS: ASPIRIN EC 81 MG TAB PO SCH (20:13)
[2021-09-14] MEDS: ALBUTEROL 2.5 MG/3 ML NEB SOL NEB PRN (00:04)
--- NOTE | 2021-09-14 08:31 | RAD REPORT ---
EXAM DESCRIPTION: RAD - Chest Single View - 09/14/2021 5:38 am CLINICAL HISTORY: Respiratory failure with pneumonia Chest pain. COMPARISON: Chest Single View dated 09/13/2021; Chest Single View dated 09/11/2021; Chest Single View d ated 09/08/2021; Chest Single View dated 09/07/2021 FINDINGS: Portable technique limits examination quality. Extensive bilateral pulmonary opacities remain unchanged since yesterday's study. The heart is mildly prominent in size. No displaced fractures.Right humeral prosthesis. IMPRESSION: No significant change in extensive bilateral pulmonary opacities since prior study.
[2021-09-14] MEDS: DOXYCYCLINE 100 MG CAP PO SCH ×2 (08:45→20:41)
[2021-09-14] MEDS: LOSARTAN POTASSIUM 50 MG TABLET PO SCH (08:45)
[2021-09-14] MEDS: ENOXAPARIN 40 MG/0.4 ML SQ SCH (08:45)
[2021-09-14] MEDS: GUAIFENESIN 600 MG SA TAB PO SCH ×2 (08:45→20:40)
[2021-09-14] MEDS: predniSONE 20 MG TAB PO SCH ×2 (08:46→20:40)
[2021-09-14] MEDS: FUROSEMIDE 40 MG TABLET PO SCH (08:46)
[2021-09-14] MEDS: levoFLOXacin 750 MG TAB PO SCH (08:46)
[2021-09-14] MEDS: ROSUVASTATIN 10 MG TAB PO SCH (08:46)
[2021-09-14] MEDS ORDERED: CEPACOL LOZENGES PO ONE (16:59)
--- NOTE | 2021-09-14 16:59 | P.DS ---
Admission Date: 09/09/21 Discharge Date: 09/14/21 Disposition: DC HOME/HOME HEALTH CARE Discharge Condition: GOOD Reason for Admission: Exacerbation of pulmonary fibrosis - Problems (1) Acute exacerbation of idiopathic pulmonary fibrosis Current Visit: Yes Status: Acute (2) Hypoxemia requiring supplemental oxygen Current Visit: Yes Status: Acute (3) Pneumonia involving right lung Current Visit: Yes Status: Acute Qualifiers: Pneumonia type: due to unspecified organism Lung location: upper lobe of lung Qualified Code(s): J18.9 - Pneumonia, unspecified organism (4) Tachy-elizabeth syndrome Current Visit: Yes Status: Acute (5) Unstable angina Current Visit: Yes Status: Acute (6) (HFpEF) heart failure with preserved ejection fraction Current Visit: No Status: Acute (7) COPD (chronic obstructive pulmonary disease) Current Visit: No Status: Chronic Qualifiers: COPD type: unspecified COPD Qualified Code(s): J44.9 - Chronic obstructive pulmonary disease, unspecified (8) Pulmonary fibrosis Current Visit: No Status: Chronic Hospital Course: Patient is a 76-year-old male with a known past medical history of idiopathic pulmonary fibrosis and pulmonary hypertension. He returned to the hospital 1 hour after discharge following a hospitalization for COPD/CHF exacerbation. He was treated with antibiotics due to suspicion of atypical pneumonia, along with steroid and nebulizer. He required high flow nasal cannula during this stay. His chest x-ray is improving. He is currently on high flow nasal cannula. He has been cleared for discharge. He will require home O2 upon discharge. Pulmonary was consulted during his stay. Vital Signs/Physical Exam: Temp Pulse Resp BP Pulse Ox 97.8 F 58 20 111/53 L 90 L 09/14/21 12:00 09/14/21 12:00 09/14/21 12:00 09/14/21 12:09/14/21 12:00 General: In no apparent distress, Cooperative HEENT: Atraumatic, Normocephalic Respiratory: Other (No wheezing or ronchi) Cardiovascular: No edema, Normal pulses, Regular rate/rhythm, Normal S1 S2 Neurological: Normal speech, Normal affect Laboratory Data at Discharge: WBC 10.10 K/uL (4.3-10.9) 09/12/21 05:55 Hgb 12.6 g/dL (13.6-17.9) L 09/12/21 05:55 Hct 37.0 % (39.6-49.0) L 09/12/21 05:55 Plt Count 262 K/uL (152-406) 09/12/21 05:55 PT 10.9 SECONDS (9.5-12.5) 09/08/21 21:55 INR 0.95 09/08/21 21:55 Sodium 135 mmol/L (136-145) L 09/13/21 07:40 Potassium 3.8 mmol/L (3.5-5.1) 09/13/21 07:40 BUN 31 mg/dL (7-18) H 09/13/21 07:40 Creatinine 0.93 mg/dL (0.55-1.3) 09/13/21 07:40 Glucose 101 mg/dL (74-106) 09/13/21 07:40 Phosphorus 3.6 mg/dL (2.5-4.9) 09/13/21 07:40 Magnesium 2.4 mg/dL (1.8-2.4) 09/13/21 07:40 Total Bilirubin 0.5 mg/dL (0.2-1.0) 09/12/21 05:55 AST 18 U/L (15-37) 09/12/21 05:55 ALT 27 U/L (12-78) 09/12/21 05:55 Alkaline Phosphatase 80 U/L (45-117) 09/12/21 05:55 Home Medications: Albuterol Neb [Proventil 0.083% Neb Soln] 2.5 mg NEB [id number] PRN #60 amp 04/19/21 Aspirin [Aspirin EC 81 MG] 81 mg PO BEDTIME 09/07/21 Losartan Potassium [Cozaar*] 50 mg PO DAILY #30 tablet 09/08/21 Rosuvastatin Calcium [Crestor] 10 mg PO DAILY #30 tablet 09/08/21 Benzonatate [Tessalon Perle*] 200 mg PO TID PRN #21 cap 09/14/21 Nintedanib Esylate [Ofev] 1 cap PO BID 09/14/21 Prednisone [Sterapred Ds] 10 mg PO BID #28 09/14/21 predniSONE [Prednisone*] 20 mg PO BID #14 tab 09/14/21 New Medications: predniSONE [Prednisone*] 20 mg PO BID #14 tab Prednisone [Sterapred Ds] 10 mg PO BID #28 Benzonatate [Tessalon Perle*] 200 mg PO TID PRN #21 cap PRN Reason: Cough Followup: Unknown,U [Primary Care Provider] -
[2021-09-14 19:54] VITALS: BP 137/63; TEMP 98.7
[2021-09-14] MEDS: ASPIRIN EC 81 MG TAB PO SCH (20:40)
[2021-09-14] MEDS ORDERED: ALPRAZOLAM 0.25 MG TABLET PO ONE (20:46)
[2021-09-14 20:50] VITALS: O2SAT 93
--- NOTE | 2021-09-16 14:59 | PN ---
Date of Progress Note: 09/12/2021 Subjective: Mr. Galvez has been in the hospital since 09/09/2021 with pneumonia, arrhythmia, severe p ulmonary fibrosis with respiratory failure. Echocardiogram was done yesterday showed an ejection fra ction of 65%. No evidence of congestive heart failure. I think his main problem is pneum onia and pulmonary fibrosis. His arrhythmias are pretty much expected and he would be intolerant to any beta blockers. I think we should continue present regimen. Follow up in the office as an outpat ient. NOEL/CHANA Voice ID: [id number] Report ID: [id number]
== END 2021-09-14 20:55 | disposition home health service (06) | DRG 196 ==
LOC: ER 21:11 → ERHOLD 09-09 02:14 → 2ND 09-09 02:51
PROVIDERS: ADMIT Hospitalist; ATTEND Hospitalist
PROC: 5A0945A Assistance with Respiratory Ventilation, 24-96 Consecutive Hours, High Flow/Velocity Cannula (ICD-10-PCS; principal; 2021-09-09)
DX: J84.112 Idiopathic pulmonary fibrosis (principal); J18.9 Pneumonia, unspecified organism; J96.21 Acute and chronic respiratory failure with hypoxia; J44.0 Chronic obstructive pulmonary disease with (acute) lower respiratory infection; I50.32 Chronic diastolic (congestive) heart failure; I20.0 Unstable angina; I11.0 Hypertensive heart disease with heart failure; I49.5 Sick sinus syndrome; I27.20 Pulmonary hypertension, unspecified; Z99.81 Dependence on supplemental oxygen; Z87.891 Personal history of nicotine dependence; Z79.82 Long term (current) use of aspirin; Z79.51 Long term (current) use of inhaled steroids; Z79.52 Long term (current) use of systemic steroids; Z20.822 Contact with and (suspected) exposure to COVID-19
CPT/HCPCS: 0240U; 36415; 71045; 71275; 80048; 80053; 80061; 80076; 81003; 82805; 83605; 83735; 83880; 84100; 84145; 84439; 84443; 84484; 85025; 85610; 87040; 87070; 87205; 93005; 93306; 94002; 94003; 94010; 94640; 94760; 96365; 96366; 96374; 96375; 97110; 97116; 97161; 99285; G0378; J0456; J1650; J1940; J2405; J2920; J2930; J7050; J7512; Q9967; U0003

== ENCOUNTER 2023-03-26 09:18 | Emergency (ER) | payer OTHER ==
--- OUTSIDE RECORDS SUMMARY | 2023-03-26 09:27 | XMS REPORT | Continuity of Care Document ---
:1945 Author Organization [facility] t Address [address] [facility] [address] [place] [address] Care Team Providers Name Role Phone MARIO KANG Primary Care Physician Unavailable JACOBY PROCTOR Attending Clinician Unavailable Doctor Unassigned, [place] Attending Clinician Unavailable TAINA SOUZA Attending Clinician Unavailable Elis Hill DO Attending Clinician ELIS HILL Attending Clinician Unavailable Jaydon-Mbayo_A_AH Attending Clinician Unavailable Jaydon-Mbayo_A_AH Admitting Clinician Unavailable Payers Payer Name Policy Type Policy Number Effective Date Expiration Date S tete [employer] MEDICARE OUT [id number] 2022 OF [facility] 00:00:00 [facility] [id number] 2019 [facility] 00:00:00 (MEDICARE REPLACEMENT/ADVANT AGE - HMO) Problems Condition Condition Condition Status Onset Resolution Last Treating Co mments Source Name Details Category Date Date Treatment Clinician Date No known No known Disease Unive rs active active ity of problems problems [facility] Allergies, Adverse Reactions, Alerts Allergy Allergy Status Severity Reaction(s) Onset Inactive Treating Comm ents Source Name Type Date Date Clinician NO KNOWN Drug Active Univers ALLERGIE Class ity of S [facility] Social History Social Habit Start Date Stop Date Quantity Comments Source Exposure to 2022-08-11 2022-08-21 Not sure [facility] SARS-CoV-2 (event) 00:00:00 13:58:00 Medica l Branch Sex Ass[birth year] [facility] 00:00:00 00:00:00 Medical Branch Smoking Status Start Date Stop Date Source Tobacco smoking consumption [facility] Medical unknown Branch Medications Ordered Filled Start Stop Current Ordering Indication Dosage Frequency Signature Comments Components Source Medication Medication Date Date Medication? Clinician (SIG) Name Name TAKE 1 3-0 No TABLET 1-11 DAILY. 00:00: 00 TAKE 1 2022-1 No TABLET 1-14 DAILY. 00:00: 00 TAKE 1 2022-1 No TABLET 1-14 DAILY. 00:00: 00 TAKE 1 2022-1 No TABLET 1-14 DAILY. 00:00: 00 TAKE 1 2022-0 No TABLET BY 8-23 MOUTH TWICE 00:00: DAILY 00 TAKE 1 2022-0 No TABLET BY 8-23 MOUTH TWICE 00:00: DAILY 00 TAKE 1 2022-0 No TABLET BY 8-23 MOUTH TWICE 00:00: DAILY 00 TAKE 1 2022-0 No TABLET BY 8-23 MOUTH TWICE 00:00: DAILY 00 TAKE 1 2022-0 No 10 TABLET BY 8-23 MOUTH TWICE 00:00: DAILY 00 TAKE 1 2022-0 No TABLET BY 8-23 MOUTH TWICE 00:00: DAILY 00 TAKE 1 2022-0 No TABLET BY 8-23 MOUTH TWICE 00:00: DAILY 00 TAKE 1 2022-0 No TABLET BY 8-23 MOUTH TWICE 00:00: DAILY 00 TAKE 1 2022-0 No TABLET BY 8-23 MOUTH TWICE 00:00: DAILY 00 TAKE 1 2022-0 No TABLET BY 8-22 MOUTH ONCE 00:00: DAILY 00 TAKE 1 2022-0 No TABLET BY 8-22 MOUTH ONCE 00:00: DAILY 00 TAKE 1 2022-0 No TABLET BY 8-22 MOUTH ONCE 00:00: DAILY 00 TAKE 1 2022-0 No TABLET BY 8-22 MOUTH ONCE 00:00: DAILY 00 TAKE 1 2022-0 No 10 TABLET BY 8-22 MOUTH ONCE 00:00: DAILY 00 TAKE 1 2022-0 No TABLET BY 8-22 MOUTH ONCE 00:00: DAILY 00 TAKE 1 2022-0 No TABLET BY 8-22 MOUTH ONCE 00:00: DAILY 00 TAKE 1 2022-0 No TABLET BY 8-22 MOUTH ONCE 00:00: DAILY 00 TAKE 1 2022-0 No TABLET BY 8-22 MOUTH ONCE 00:00: DAILY 00 TAKE 1 2022-0 No 10 TABLET 8-10 DAILY. 00:00: 00 TAKE 1 2022-0 No 50 TABLET 8-10 DAILY. 00:00: 00 APPLY 2022-0 No 25 SPARINGLY 8-10 TO AFFECTED 00:00: AREA(S) 00 TWICE DAILY TAKE 1 2022-0 No 10 TABLET 8-10 DAILY. 00:00: 00 TAKE 1 2022-0 No 50 TABLET 8-10 DAILY. 00:00: 00 APPLY 2022-0 No 25 SPARINGLY 8-10 TO AFFECTED 00:00: AREA(S) 00 TWICE DAILY TAKE 1 2022-0 No 10 TABLET 8-10 DAILY. 00:00: 00 TAKE 1 2022-0 No 50 TABLET 8-10 DAILY. 00:00: 00 APPLY 2022-0 No 25 SPARINGLY 8-10 TO AFFECTED 00:00: AREA(S) 00 TWICE DAILY TAKE 1 2022-0 No 10 TABLET 8-10 DAILY. 00:00: 00 TAKE 1 2022-0 No 50 TABLET 8-10 DAILY. 00:00: 00 APPLY 2022-0 No 25 SPARINGLY 8-10 TO AFFECTED 00:00: AREA(S) 00 TWICE DAILY TAKE 1 2022-0 No 10 TABLET 8-10 DAILY. 00:00: 00 TAKE 1 2022-0 No 50 TABLET 8-10 DAILY. 00:00: 00 APPLY 2022-0 No 25 SPARINGLY 8-10 TO AFFECTED 00:00: AREA(S) 00 TWICE DAILY TAKE 1 2022-0 No 10 TABLET 8-10 DAILY. 00:00: 00 TAKE 1 2022-0 No 50 TABLET 8-10 DAILY. 00:00: 00 APPLY 2022-0 No 25 SPARINGLY 8-10 TO AFFECTED 00:00: AREA(S) 00 TWICE DAILY TAKE 1 2022-0 No 10 TABLET 8-10 DAILY. 00:00: 00 TAKE 1 2022-0 No 50 TABLET 8-10 DAILY. 00:00: 00 APPLY 2022-0 No 25 SPARINGLY 8-10 TO AFFECTED 00:00: AREA(S) 00 TWICE DAILY TAKE 1 2022-0 No 10 TABLET 8-10 DAILY. 00:00: 00 TAKE 1 2022-0 No 50 TABLET 8-10 DAILY. 00:00: 00 APPLY 2022-0 No 25 SPARINGLY 8-10 TO AFFECTED 00:00: AREA(S) 00 TWICE DAILY TAKE 1 2022-0 No 10 TABLET 8-10 DAILY. 00:00: 00 TAKE 1 2022-0 No 50 TABLET 8-10 DAILY. 00:00: 00 APPLY 2022-0 No 25 SPARINGLY 8-10 TO AFFECTED 00:00: AREA(S) 00 TWICE DAILY TAKE 1 2022-0 No 10 TABLET 8-10 DAILY. 00:00: 00 TAKE 1 2022-0 No 50 TABLET 8-10 DAILY. 00:00: 00 APPLY 2022-0 No 25 SPARINGLY 8-10 TO AFFECTED 00:00: AREA(S) 00 TWICE DAILY TAKE 1 2022-0 No 10 TABLET 8-10 DAILY. 00:00: 00 TAKE 1 2022-0 No 50 TABLET 8-10 DAILY. 00:00: 00 APPLY 2022-0 No 25 SPARINGLY 8-10 TO AFFECTED 00:00: AREA(S) 00 TWICE DAILY TAKE 1 2022-0 No 50 TABLET 8-02 DAILY. 00:00: 00 TAKE 1 2022-0 No 50 TABLET 8-02 DAILY. 00:00: 00 TAKE 1 2022-0 No 50 TABLET 8-02 DAILY. 00:00: 00 TAKE 1 2022-0 No 50 TABLET 8-02 DAILY. 00:00: 00 TAKE 1 2022-0 No 50 TABLET 8-02 DAILY. 00:00: 00 TAKE 1 2022-0 No 50 TABLET 8-02 DAILY. 00:00: 00 TAKE 1 2022-0 No 50 TABLET 8-02 DAILY. 00:00: 00 TAKE 1 2022-0 No 50 TABLET 8-02 DAILY. 00:00: 00 TAKE 1 2022-0 No 50 TABLET 8-02 DAILY. 00:00: 00 TAKE 1 2022-0 No 50 TABLET 8-02 DAILY. 00:00: 00 TAKE 1 2022-0 No 50 TABLET 8-02 DAILY. 00:00: 00 Dose 2022-0 No Unknown 7-05 00:00: 00 Dose 2022-0 No Unknown 7-05 00:00: 00 Dose 2022-0 No Unknown 7-05 00:00: 00 Dose 2022-0 No Unknown 7-05 00:00: 00 Dose 2022-0 No Unknown 7-05 00:00: 00 Dose 2022-0 No Unknown 7-05 00:00: 00 Dose 2022-0 No Unknown 7-05 00:00: 00 Dose 2022-0 No Unknown 7-05 00:00: 00 Dose 2022-0 No Unknown 7-05 00:00: 00 Dose 2022-0 No Unknown 7-05 00:00: 00 Dose 2022-0 No Unknown 7-05 00:00: 00 Dose 2022-0 No Unknown 7-05 00:00: 00 Dose 2022-0 No Unknown 7-05 00:00: 00 Dose 2022-0 No Unknown 7-05 00:00: 00 Dose 2022-0 No Unknown 7-05 00:00: 00 Dose 2022-0 No Unknown 7-05 00:00: 00 Dose 2022-0 No Unknown 7-05 00:00: 00 Dose 2022-0 No Unknown 7-05 00:00: 00 Dose 2022-0 No Unknown 7-05 00:00: 00 Dose 2022-0 No Unknown 7-05 00:00: 00 Dose 2022-0 No Unknown 7-05 00:00: 00 Dose 2022-0 No Unknown 7-05 00:00: 00 Dose 2022-0 No Unknown 7-05 00:00: 00 Dose 2022-0 No Unknown 7-05 00:00: 00 Dose 2022-0 No Unknown 7-05 00:00: 00 Dose 2022-0 No Unknown 7-05 00:00: 00 Dose 2022-0 No Unknown 7-05 00:00: 00 Dose 2022-0 No Unknown 7-05 00:00: 00 Dose 2022-0 No Unknown 7-05 00:00: 00 Dose 2022-0 No Unknown 7-05 00:00: 00 Dose 2022-0 No Unknown 7-05 00:00: 00 Dose 2022-0 No Unknown 7-05 00:00: 00 Dose 2022-0 No Unknown 7-05 00:00: 00 Dose 2022-0 No Unknown 7-05 00:00: 00 Dose 2022-0 No Unknown 7-05 00:00: 00 Dose 2022-0 No Unknown 7-05 00:00: 00 Dose 2022-0 No Unknown 7-05 00:00: 00 Dose 2022-0 No Unknown 7-05 00:00: 00 Dose 2022-0 No Unknown 7-05 00:00: 00 Dose 2022-0 No Unknown 7-05 00:00: 00 Dose 2022-0 No Unknown 7-05 00:00: 00 Dose 2022-0 No Unknown 7-05 00:00: 00 Dose 2022-0 No Unknown 7-05 00:00: 00 Dose 2022-0 No Unknown 7-05 00:00: 00 Dose 2022-0 No Unknown 7-05 00:00: 00 Dose 2022-0 No Unknown 7-05 00:00: 00 Dose 2022-0 No Unknown 7-05 00:00: 00 Dose 2022-0 No Unknown 7-05 00:00: 00 rosuvastati 2022-0 No 1mg n 10 mg 5-03 tablet 00:00: 00 rosuvastati 2022-0 No 1mg n 10 mg 5-03 tablet 00:00: 00 rosuvastati 2022-0 No 1mg n 10 mg 5-03 tablet 00:00: 00 rosuvastati 2022-0 No 1mg n 10 mg 5-03 tablet 00:00: 00 rosuvastati 2022-0 No 1mg n 10 mg 5-03 tablet 00:00: 00 rosuvastati 2022-0 No 1mg n 10 mg 5-03 tablet 00:00: 00 rosuvastati 2022-0 No 1mg n 10 mg 5-03 tablet 00:00: 00 rosuvastati 2022-0 No 1mg n 10 mg 5-03 tablet 00:00: 00 rosuvastati 2022-0 No 1mg n 10 mg 5-03 tablet 00:00: 00 rosuvastati 2022-0 No 1mg n 10 mg 5-03 tablet 00:00: 00 rosuvastati 2022-0 No 1mg n 10 mg 5-03 tablet 00:00: 00 rosuvastati 2022-0 No 1mg n 10 mg 5-03 tablet 00:00: 00 prednisone 2022-0 No 1mg 5 mg tablet 4-26 00:00: 00 losartan 50 2022-0 No 1mg mg tablet 4- 00:00: 00 omeprazole 2022-0 No 1mg 20 mg 4-26 capsule,del 00:00: ayed 00 release Dose 2022-0 No Unknown 11-07 00:00: 00 Dose 2-0 No Unknown 11-07 00:00: 00 Dose 2-0 No Unknown 11-07 00:00: 00 prednisone 2022-0 No 1mg 5 mg tablet 11-07 00:00: 00 losartan 50 2-0 No 1mg mg tablet 11-07 00:00: 00 omeprazole 2022-0 No 1mg 20 mg - capsule,del 00:00: ayed 00 release Dose 2-0 No Unknown 11-07 00:00: 00 Dose 2022-0 No Unknown 11-07 00:00: 00 Dose 2-0 No Unknown 11-07 00:00: 00 prednisone 2-0 No 1mg 5 mg tablet 11-07 00:00: 00 losartan 50 2-0 No 1mg mg tablet 11-07 00:00: 00 omeprazole 2022-0 No 1mg 20 mg 11-07 capsule,del 00:00: ayed 00 release Dose 2-0 No Unknown 11-07 00:00: 00 Dose 2-0 No Unknown 11-07 00:00: 00 Dose 2-0 No Unknown 11-07 00:00: 00 prednisone 2-0 No 1mg 5 mg tablet 11-07 00:00: 00 losartan 50 2-0 No 1mg mg tablet 11-07 00:00: 00 omeprazole 2-0 No 1mg 20 mg - capsule,del 00:00: ayed 00 release Dose 2-0 No Unknown 11-07 00:00: 00 Dose 2-0 No Unknown 11-07 00:00: 00 Dose 2-0 No Unknown 11-07 00:00: 00 prednisone 2-0 No 1mg 5 mg tablet 11-07 00:00: 00 losartan 50 2-0 No 1mg mg tablet 11-07 00:00: 00 omeprazole 2022-0 No 1mg 20 mg - capsule,del 00:00: ayed 00 release Dose 2-0 No Unknown 11-07 00:00: 00 Dose 2022-0 No Unknown 11-07 00:00: 00 Dose 2022-0 No Unknown 11-07 00:00: 00 prednisone 2022-0 No 1mg 5 mg tablet 11-07 00:00: 00 losartan 50 2022-0 No 1mg mg tablet 11-07 00:00: 00 omeprazole 2022-0 No 1mg 20 mg - capsule,del 00:00: ayed 00 release Dose 2-0 No Unknown 11-07 00:00: 00 Dose 2-0 No Unknown 11-07 00:00: 00 Dose 2-0 No Unknown 11-07 00:00: 00 prednisone 2-0 No 1mg 5 mg tablet 11-07 00:00: 00 losartan 50 2-0 No 1mg mg tablet 11-07 00:00: 00 omeprazole 2-0 No 1mg 20 mg 11-07 capsule,del 00:00: ayed 00 release Dose 2-0 No Unknown 11-07 00:00: 00 Dose 2-0 No Unknown 11-07 00:00: 00 Dose 2-0 No Unknown 11-07 00:00: 00 prednisone 2-0 No 1mg 5 mg tablet 11-07 00:00: 00 losartan 50 2-0 No 1mg mg tablet 11-07 00:00: 00 omeprazole 2022-0 No 1mg 20 mg 11-07 capsule,del 00:00: ayed 00 release Dose 2-0 No Unknown 11-07 00:00: 00 Dose 2-0 No Unknown 11-07 00:00: 00 prednisone 2-0 No 1mg 5 mg tablet 11-07 00:00: 00 losartan 50 2021-0 No 1mg mg tablet 11-07 00:00: 00 omeprazole 2-0 No 1mg 20 mg 11-07 capsule,del 00:00: ayed 00 release Dose 2-0 No Unknown 11-07 00:00: 00 Dose 2-0 No Unknown 11-07 00:00: 00 Dose 2-0 No Unknown 11-07 00:00: 00 Dose 2-0 No Unknown 11-07 00:00: 00 prednisone 2-0 No 1mg 5 mg tablet 11-07 00:00: 00 losartan 50 2-0 No 1mg mg tablet 11-07 00:00: 00 omeprazole 2022-0 No 1mg 20 mg 11-07 capsule,del 00:00: ayed 00 release Dose 2-0 No Unknown 11-07 00:00: 00 Dose 2022-0 No Unknown 11-07 00:00: 00 Dose 2022-0 No Unknown 11-07 00:00: 00 prednisone 2022-0 No 1mg 5 mg tablet 11-07 00:00: 00 losartan 50 2-0 No 1mg mg tablet 11-07 00:00: 00 omeprazole 2022-0 No 1mg 20 mg 11-07 capsule,del 00:00: ayed 00 release Dose 2022-0 No Unknown 11-07 00:00: 00 Dose 2022-0 No Unknown 11-07 00:00: 00 Dose 2022-0 No Unknown 11-07 00:00: 00 prednisone 2022-0 No 1mg 5 mg tablet 11-07 00:00: 00 losartan 50 2-0 No 1mg mg tablet 11-07 00:00: 00 omeprazole 2022-0 No 1mg 20 mg 11-07 capsule,del 00:00: ayed 00 release Dose 2022-0 No Unknown 11-07 00:00: 00 Dose 2022-0 No Unknown 11-07 00:00: 00 Dose 2022-0 No Unknown 11-07 00:00: 00 Ofev 100 mg 2022-0 No 1mg capsule 3-07 00:00: 00 benzonatate 2022-0 No 2mg 100 mg 3-07 capsule 00:00: 00 Dose 2022-0 No Unknown 3-07 00:00: 00 Dose 2022-0 No Unknown 3-07 00:00: 00 Dose 2022-0 No Unknown 3-07 00:00: 00 Dose 2022-0 No Unknown 3-07 00:00: 00 Dose 2022-0 No Unknown 3-07 00:00: 00 Dose 2022-0 No Unknown 3-07 00:00: 00 Dose 2022-0 No Unknown 3-07 00:00: 00 Dose 2022-0 No Unknown 3-07 00:00: 00 Dose 2022-0 No Unknown 3-07 00:00: 00 Dose 2022-0 No Unknown 3-07 00:00: 00 Dose 2022-0 No Unknown 3-07 00:00: 00 Dose 2022-0 No Unknown 3-07 00:00: 00 Dose 2022-0 No Unknown 3-07 00:00: 00 Dose 2022-0 No Unknown 3-07 00:00: 00 Dose 2022-0 No Unknown 3-07 00:00: 00 Dose 2022-0 No Unknown 3-07 00:00: 00 Dose 2022-0 No Unknown 3-07 00:00: 00 Dose 2-0 No Unknown 3-07 00:00: 00 Dose 2-0 No Unknown 3-07 00:00: 00 Dose 2022-0 No Unknown 3-07 00:00: 00 Dose 2022-0 No Unknown 3-07 00:00: 00 Dose 2022-0 No Unknown 3-07 00:00: 00 Dose 2022-0 No Unknown 3-07 00:00: 00 Dose 2-0 No Unknown 3-07 00:00: 00 Dose 2-0 No Unknown 3-07 00:00: 00 Dose 2-0 No Unknown 3-07 00:00: 00 Dose 2-0 No Unknown 3-07 00:00: 00 Dose 2-0 No Unknown 3-07 00:00: 00 Dose 2-0 No Unknown 3-07 00:00: 00 Dose 2-0 No Unknown 3-07 00:00: 00 Dose 2-0 No Unknown 3-07 00:00: 00 Dose 2-0 No Unknown 3-07 00:00: 00 Dose 2-0 No Unknown 3-07 00:00: 00 Dose 2-0 No Unknown 3-07 00:00: 00 Dose 2-0 No Unknown 3-07 00:00: 00 Dose 2-0 No Unknown 3-07 00:00: 00 Deon 2021-0 No 1mg Chewable 3-07 Low Dose 00:00: Aspirin 81 00 mg tablet ipratropium 0 No 1mg 0.5 3-07 base)/3 mg-albutero 00:00: mL l 3 mg (2.5 00 mg base)/3 mL nebulizatio n soln Anoro 0 No 1mcg/ac Ellipta 3- tuation 62.5 mcg-25 00:00: mcg/actuati 00 on powder for inhalation losartan 50 0 No 1mg mg tablet 3-07 00:00: 00 rosuvastati 0 No 1mg n 10 mg 3-07 tablet 00:00: 00 Deon 2021-0 No 1mg Chewable 3-07 Low Dose 00:00: Aspirin 81 00 mg tablet doxepin 3 2022-0 No 12mg mg tablet 3-07 00:00: 00 Ofev 100 mg 2-0 No 1mg capsule 3-07 00:00: 00 benzonatate 2-0 No 2mg 100 mg 3-07 capsule 00:00: 00 Dose 2022-0 No Unknown 3-07 00:00: 00 Dose 2022-0 No Unknown 3-07 00:00: 00 Dose 2022-0 No Unknown 3-07 00:00: 00 Dose 2022-0 No Unknown 3-07 00:00: 00 Dose 2022-0 No Unknown 3-07 00:00: 00 doxepin 3 2-0 No 12mg mg tablet 3-07 00:00: 00 Dose 2022-0 No Unknown 3-07 00:00: 00 Dose 2022-0 No Unknown 3-07 00:00: 00 Dose 2022-0 No Unknown 3-07 00:00: 00 Dose 2022-0 No Unknown 3-07 00:00: 00 Dose 2022-0 No Unknown 3-07 00:00: 00 Dose 2022-0 No Unknown 3-07 00:00: 00 Dose 2022-0 No Unknown 3-07 00:00: 00 Dose 2022-0 No Unknown 3-07 00:00: 00 Dose 2022-0 No Unknown 3-07 00:00: 00 Dose 2022-0 No Unknown 3-07 00:00: 00 Dose 2022-0 No Unknown 3-07 00:00: 00 Dose 2022-0 No Unknown 3-07 00:00: 00 Dose 2022-0 No Unknown 3-07 00:00: 00 Dose 2022-0 No Unknown 3-07 00:00: 00 Dose 2022-0 No Unknown 3-07 00:00: 00 Dose 2022-0 No Unknown 3-07 00:00: 00 Dose 2022-0 No Unknown 3-07 00:00: 00 Dose 2022-0 No Unknown 3-07 00:00: 00 Dose 2022-0 No Unknown 3-07 00:00: 00 Dose 2022-0 No Unknown 3-07 00:00: 00 Dose 2022-0 No Unknown 3-07 00:00: 00 Dose 2022-0 No Unknown 3-07 00:00: 00 Dose 2022-0 No Unknown 3-07 00:00: 00 Dose 2022-0 No Unknown 3-07 00:00: 00 Dose 2-0 No Unknown 3-07 00:00: 00 Dose 2-0 No Unknown 3- 00:00: 00 Dose 2021-0 No Unknown 3- 00:00: 00 Dose 2-0 No Unknown 3- 00:00: 00 Dose 2021-0 No Unknown 3- 00:00: 00 Dose 2021-0 No Unknown 3- 00:00: 00 Dose 2021-0 No Unknown 3- 00:00: 00 Ofev 100 mg 2021-0 No 1mg capsule 3 00:00: 00 ipratropium 2021-0 No 1mg 0.5 3-07 base)/3 mg-albutero 00:00: mL l 3 mg (2.5 00 mg base)/3 mL nebulizatio n soln Anoro No 1mcg/ac Ellipta 3- tuation 62.5 mcg-25 00:00: mcg/actuati 00 on powder for inhalation losartan 50 0 No 1mg mg tablet 3- 00:00: 00 rosuvastati 0 No 1mg n 10 mg - tablet 00:00: 00 Deon 2021-0 No 1mg Chewable 3- Low Dose 00:00: Aspirin 81 00 mg tablet doxepin 3 0 No 12mg mg tablet 09-18 00:00: 00 Ofev 100 mg 2021-0 No 1mg capsule 3 00:00: 00 benzonatate 2021-0 No 2mg 100 mg 3- capsule 00:00: 00 Dose 2021-0 No Unknown 3-07 00:00: 00 Dose 2-0 No Unknown 3- 00:00: 00 Dose 2021-0 No Unknown 3- 00:00: 00 Dose 2021-0 No Unknown 3-07 00:00: 00 Dose 2021-0 No Unknown 3- 00:00: 00 Dose 2021-0 No Unknown 3- 00:00: 00 Dose 2021-0 No Unknown 3- 00:00: 00 Dose 2-0 No Unknown 3- 00:00: 00 Dose 2-0 No Unknown 3- 00:00: 00 Dose 2-0 No Unknown 3-07 00:00: 00 Dose 2022-0 No Unknown 3-07 00:00: 00 Dose 2022-0 No Unknown 3-07 00:00: 00 Dose 2022-0 No Unknown 3-07 00:00: 00 Dose 2022-0 No Unknown 3-07 00:00: 00 Dose 2022-0 No Unknown 3-07 00:00: 00 Dose 2022-0 No Unknown 3-07 00:00: 00 Dose 2022-0 No Unknown 3-07 00:00: 00 Dose 2022-0 No Unknown 3-07 00:00: 00 Dose 2022-0 No Unknown 3-07 00:00: 00 Dose 2022-0 No Unknown 3-07 00:00: 00 Dose 2-0 No Unknown 3-07 00:00: 00 Dose 2-0 No Unknown 3-07 00:00: 00 Dose 2-0 No Unknown 3-07 00:00: 00 Dose 2022-0 No Unknown 3-07 00:00: 00 Dose 2022-0 No Unknown 3-07 00:00: 00 Dose 2022-0 No Unknown 3-07 00:00: 00 Dose 2022-0 No Unknown 3-07 00:00: 00 Dose 2022-0 No Unknown 3-07 00:00: 00 Dose 2-0 No Unknown 3-07 00:00: 00 Dose 2022-0 No Unknown 3-07 00:00: 00 Dose 2022-0 No Unknown 3-07 00:00: 00 Dose 2022-0 No Unknown 3-07 00:00: 00 Dose 2-0 No Unknown 3-07 00:00: 00 Dose 2-0 No Unknown 3-07 00:00: 00 Dose 2022-0 No Unknown 3-07 00:00: 00 Dose 2022-0 No Unknown 3-07 00:00: 00 benzonatate 2-0 No 2mg 100 mg 3-07 capsule 00:00: 00 Dose 2-0 No Unknown 3-07 00:00: 00 ipratropium 2-0 No 1mg 0.5 3-07 base)/3 mg-albutero 00:00: mL l 3 mg (2.5 00 mg base)/3 mL nebulizatio n soln Anoro 2021-0 No 1mcg/ac Ellipta 3-07 tuation 62.5 mcg-25 00:00: mcg/actuati 00 on powder for inhalation losartan 50 2021-0 No 1mg mg tablet 3 00:00: 00 rosuvastati 2021-0 No 1mg n 10 mg 3-07 tablet 00:00: 00 Deon 2-0 No 1mg Chewable 3- Low Dose 00:00: Aspirin 81 00 mg tablet doxepin 3 2021-0 No 12mg mg tablet 3 00:00: 00 Ofev 100 mg 2021-0 No 1mg capsule 3 00:00: 00 Dose 2-0 No Unknown 3-07 00:00: 00 benzonatate 2021-0 No 2mg 100 mg 3- capsule 00:00: 00 Dose 2-0 No Unknown 3-07 00:00: 00 Dose 2-0 No Unknown 3-07 00:00: 00 Dose 2022-0 No Unknown 3-07 00:00: 00 Dose 2022-0 No Unknown 3-07 00:00: 00 Dose 2022-0 No Unknown 3-07 00:00: 00 Dose 2022-0 No Unknown 3-07 00:00: 00 Dose 2022-0 No Unknown 3-07 00:00: 00 Dose 2022-0 No Unknown 3-07 00:00: 00 Dose 2022-0 No Unknown 3-07 00:00: 00 Dose 2-0 No Unknown 3-07 00:00: 00 Dose 2022-0 No Unknown 3-07 00:00: 00 Dose 2022-0 No Unknown 3-07 00:00: 00 Dose 2022-0 No Unknown 3-07 00:00: 00 Dose 2022-0 No Unknown 3-07 00:00: 00 Dose 2022-0 No Unknown 3-07 00:00: 00 Dose 2022-0 No Unknown 3-07 00:00: 00 Dose 2022-0 No Unknown 3-07 00:00: 00 Dose 2022-0 No Unknown 3-07 00:00: 00 Dose 2022-0 No Unknown 3-07 00:00: 00 Dose 2022-0 No Unknown 3-07 00:00: 00 Dose 2022-0 No Unknown 3-07 00:00: 00 Dose 2022-0 No Unknown 3-07 00:00: 00 Dose 2022-0 No Unknown 3-07 00:00: 00 Dose 2022-0 No Unknown 3-07 00:00: 00 Dose 2022-0 No Unknown 3-07 00:00: 00 Dose 2022-0 No Unknown 3-07 00:00: 00 Dose 2022-0 No Unknown 3-07 00:00: 00 Dose 2022-0 No Unknown 3-07 00:00: 00 Dose 2022-0 No Unknown 3-07 00:00: 00 Dose 2022-0 No Unknown 3-07 00:00: 00 Dose 2022-0 No Unknown 3-07 00:00: 00 Dose 2022-0 No Unknown 3-07 00:00: 00 Dose 2022-0 No Unknown 3-07 00:00: 00 Dose 2-0 No Unknown 3-07 00:00: 00 Dose 2-0 No Unknown 3-07 00:00: 00 Dose 2-0 No Unknown 3-07 00:00: 00 Dose 2-0 No Unknown 3-07 00:00: 00 Dose 2-0 No Unknown 3-07 00:00: 00 Dose 2-0 No Unknown 3-07 00:00: 00 Dose 2-0 No Unknown 3-07 00:00: 00 Dose 2-0 No Unknown 3-07 00:00: 00 Dose 2-0 No Unknown 3-07 00:00: 00 Dose 2-0 No Unknown 3-07 00:00: 00 Dose 2-0 No Unknown 3-07 00:00: 00 Dose 2-0 No Unknown 3-07 00:00: 00 Dose 2-0 No Unknown 3-07 00:00: 00 ipratropium 2021-0 No 1mg 0.5 3-07 base)/3 mg-albutero 00:00: mL l 3 mg (2.5 00 mg base)/3 mL nebulizatio n soln Anoro 0 No 1mcg/ac Ellipta 3-07 tuation 62.5 mcg-25 00:00: mcg/actuati 00 on powder for inhalation losartan 50 2021-0 No 1mg mg tablet 3-07 00:00: 00 rosuvastati 2021-0 No 1mg n 10 mg 3-07 tablet 00:00: 00 Dose 2021-0 No Unknown 3-07 00:00: 00 Deon 2022-0 No 1mg Chewable 3-07 Low Dose 00:00: Aspirin 81 00 mg tablet doxepin 3 2021-0 No 12mg mg tablet 3-07 00:00: 00 Ofev 100 mg 2-0 No 1mg capsule 3-07 00:00: 00 benzonatate 2022-0 No 2mg 100 mg 3-07 capsule 00:00: 00 Dose 2022-0 No Unknown 3-07 00:00: 00 Dose 2022-0 No Unknown 3-07 00:00: 00 Dose 2022-0 No Unknown 3-07 00:00: 00 Dose 2022-0 No Unknown 3-07 00:00: 00 Dose 2022-0 No Unknown 3-07 00:00: 00 Dose 2022-0 No Unknown 3-07 00:00: 00 Dose 2022-0 No Unknown 3-07 00:00: 00 Dose 2022-0 No Unknown 3-07 00:00: 00 Dose 2022-0 No Unknown 3-07 00:00: 00 Dose 2022-0 No Unknown 3-07 00:00: 00 Dose 2022-0 No Unknown 3-07 00:00: 00 Dose 2022-0 No Unknown 3-07 00:00: 00 Dose 2022-0 No Unknown 3-07 00:00: 00 Dose 2022-0 No Unknown 3-07 00:00: 00 Dose 2022-0 No Unknown 3-07 00:00: 00 Dose 2022-0 No Unknown 3-07 00:00: 00 Dose 2022-0 No Unknown 3-07 00:00: 00 Dose 2022-0 No Unknown 3-07 00:00: 00 Dose 2022-0 No Unknown 3-07 00:00: 00 Dose 2022-0 No Unknown 3-07 00:00: 00 Dose 2022-0 No Unknown 3-07 00:00: 00 Dose 2022-0 No Unknown 3-07 00:00: 00 Dose 2022-0 No Unknown 3-07 00:00: 00 Dose 2022-0 No Unknown 3-07 00:00: 00 Dose 2022-0 No Unknown 3-07 00:00: 00 Dose 2022-0 No Unknown 3-07 00:00: 00 Dose 2022-0 No Unknown 3-07 00:00: 00 Dose 2022-0 No Unknown 3-07 00:00: 00 Dose 2-0 No Unknown 3-07 00:00: 00 Dose 2-0 No Unknown 3-07 00:00: 00 Dose 2-0 No Unknown 3- 00:00: 00 Dose 2-0 No Unknown 3- 00:00: 00 Dose 2-0 No Unknown 3- 00:00: 00 Dose 2-0 No Unknown 3- 00:00: 00 Dose 2-0 No Unknown 3- 00:00: 00 Dose 2-0 No Unknown 3- 00:00: 00 Dose 2-0 No Unknown 3- 00:00: 00 Dose 2-0 No Unknown 3- 00:00: 00 Dose 2021-0 No Unknown 3- 00:00: 00 Dose 2021-0 No Unknown 3- 00:00: 00 Dose 2021-0 No Unknown 3- 00:00: 00 Dose 2-0 No Unknown 3- 00:00: 00 Dose 2021-0 No Unknown 3- 00:00: 00 Dose 2021-0 No Unknown 3- 00:00: 00 Dose 2021-0 No Unknown 3- 00:00: 00 Dose 2021-0 No Unknown 3- 00:00: 00 Dose 2021-0 No Unknown 3- 00:00: 00 ipratropium 2021-0 No 1mg 0.5 -07 base)/3 mg-albutero 00:00: mL l 3 mg (2.5 00 mg base)/3 mL nebulizatio n soln Anoro 0 No 1mcg/ac Ellipta 09-18 tuation 62.5 mcg-25 00:00: mcg/actuati 00 on powder for inhalation losartan 50 0 No 1mg mg tablet 09-18 00:00: 00 Dose 2021-0 No Unknown 307 00:00: 00 rosuvastati 2021-0 No 1mg n 10 mg -07 tablet 00:00: 00 Deon 2021-0 No 1mg Chewable 09-18 Low Dose 00:00: Aspirin 81 00 mg tablet doxepin 3 0 No 12mg mg tablet 09-18 00:00: 00 Ofev 100 mg 0 No 1mg capsule 3-07 00:00: 00 benzonatate 2022-0 No 2mg 100 mg 3-07 capsule 00:00: 00 Dose 2022-0 No Unknown 3-07 00:00: 00 Dose 2022-0 No Unknown 3-07 00:00: 00 Dose 2022-0 No Unknown 3-07 00:00: 00 Dose 2022-0 No Unknown 3-07 00:00: 00 Dose 2022-0 No Unknown 3-07 00:00: 00 Dose 2022-0 No Unknown 3-07 00:00: 00 Dose 2022-0 No Unknown 3-07 00:00: 00 Dose 2022-0 No Unknown 3-07 00:00: 00 Dose 2022-0 No Unknown 3-07 00:00: 00 Dose 2022-0 No Unknown 3-07 00:00: 00 Dose 2022-0 No Unknown 3-07 00:00: 00 Dose 2022-0 No Unknown 3-07 00:00: 00 Dose 2022-0 No Unknown 3-07 00:00: 00 Dose 2022-0 No Unknown 3-07 00:00: 00 Dose 2022-0 No Unknown 3-07 00:00: 00 Dose 2022-0 No Unknown 3-07 00:00: 00 Dose 2022-0 No Unknown 3-07 00:00: 00 Dose 2022-0 No Unknown 3-07 00:00: 00 Dose 2022-0 No Unknown 3-07 00:00: 00 Dose 2022-0 No Unknown 3-07 00:00: 00 Dose 2022-0 No Unknown 3-07 00:00: 00 Dose 2022-0 No Unknown 3-07 00:00: 00 Dose 2022-0 No Unknown 3-07 00:00: 00 Dose 2022-0 No Unknown 3-07 00:00: 00 Dose 2022-0 No Unknown 3-07 00:00: 00 Dose 2022-0 No Unknown 3-07 00:00: 00 Dose 2022-0 No Unknown 3-07 00:00: 00 Dose 2022-0 No Unknown 3-07 00:00: 00 Dose 2022-0 No Unknown 3-07 00:00: 00 Dose 2022-0 No Unknown 3-07 00:00: 00 Dose 2022-0 No Unknown 3-07 00:00: 00 Dose 2022-0 No Unknown 3-07 00:00: 00 Dose 2021-0 No Unknown 3- 00:00: 00 Dose 2021-0 No Unknown 3- 00:00: 00 Dose 2021-0 No Unknown 3 00:00: 00 Dose 2021-0 No Unknown 3 00:00: 00 Dose 2021-0 No Unknown 3 00:00: 00 Dose 2-0 No Unknown 3 00:00: 00 Dose 2021-0 No Unknown 3 00:00: 00 Dose 2021-0 No Unknown 3 00:00: 00 Dose 2021-0 No Unknown 3 00:00: 00 Dose 2021-0 No Unknown 3 00:00: 00 Dose 2021-0 No Unknown 3 00:00: 00 Dose 2021-0 No Unknown 3 00:00: 00 Dose 2021-0 No Unknown 3 00:00: 00 Dose 2021-0 No Unknown 3 00:00: 00 Dose 2021-0 No Unknown 09-18 00:00: 00 ipratropium 2021-0 No 1mg 0.5 3-07 base)/3 mg-albutero 00:00: mL l 3 mg (2.5 00 mg base)/3 mL nebulizatio n soln Anoro No 1mcg/ac Ellipta 09-18 tuation 62.5 mcg-25 00:00: mcg/actuati 00 on powder for inhalation losartan 50 2021-0 No 1mg mg tablet 09-18 00:00: 00 rosuvastati 0 No 1mg n 10 mg - tablet 00:00: 00 Deon 2021-0 No 1mg Chewable - Low Dose 00:00: Aspirin 81 00 mg tablet doxepin 3 2021-0 No 12mg mg tablet 3-07 00:00: 00 Ofev 100 mg 2021-0 No 1mg capsule 09-18 00:00: 00 benzonatate 2021-0 No 2mg 100 mg 3- capsule 00:00: 00 Dose 2021-0 No Unknown 3 00:00: 00 Dose 2021-0 No Unknown 3 00:00: 00 Dose 2021-0 No Unknown 3 00:00: 00 Dose 2021-0 No Unknown 3-07 00:00: 00 Dose 2022-0 No Unknown 3-07 00:00: 00 Dose 2022-0 No Unknown 3-07 00:00: 00 Dose 2022-0 No Unknown 3-07 00:00: 00 Dose 2022-0 No Unknown 3-07 00:00: 00 Dose 2022-0 No Unknown 3-07 00:00: 00 Dose 2022-0 No Unknown 3-07 00:00: 00 Dose 2022-0 No Unknown 3-07 00:00: 00 Dose 2022-0 No Unknown 3-07 00:00: 00 Dose 2022-0 No Unknown 3-07 00:00: 00 Dose 2022-0 No Unknown 3-07 00:00: 00 Dose 2022-0 No Unknown 3-07 00:00: 00 Dose 2022-0 No Unknown 3-07 00:00: 00 Dose 2022-0 No Unknown 3-07 00:00: 00 Dose 2022-0 No Unknown 3-07 00:00: 00 Dose 2022-0 No Unknown 3-07 00:00: 00 Dose 2022-0 No Unknown 3-07 00:00: 00 Dose 2022-0 No Unknown 3-07 00:00: 00 Dose 2022-0 No Unknown 3-07 00:00: 00 Dose 2022-0 No Unknown 3-07 00:00: 00 Dose 2022-0 No Unknown 3-07 00:00: 00 Dose 2022-0 No Unknown 3-07 00:00: 00 Dose 2022-0 No Unknown 3-07 00:00: 00 Dose 2022-0 No Unknown 3-07 00:00: 00 Dose 2022-0 No Unknown 3-07 00:00: 00 Dose 2022-0 No Unknown 3-07 00:00: 00 Dose 2022-0 No Unknown 3-07 00:00: 00 Dose 2022-0 No Unknown 3-07 00:00: 00 Dose 2022-0 No Unknown 3-07 00:00: 00 Dose 2022-0 No Unknown 3-07 00:00: 00 Dose 2022-0 No Unknown 3-07 00:00: 00 Dose 2022-0 No Unknown 3-07 00:00: 00 Dose 2022-0 No Unknown 3-07 00:00: 00 ipratropium 2022-0 No 1mg 0.5 3-07 base)/3 mg-albutero 00:00: mL l 3 mg (2.5 00 mg base)/3 mL nebulizatio n soln Anoro 0 No 1mcg/ac Ellipta 09-18 tuation 62.5 mcg-25 00:00: mcg/actuati 00 on powder for inhalation losartan 50 2021-0 No 1mg mg tablet 09-18 00:00: 00 rosuvastati 0 No 1mg n 10 mg - tablet 00:00: 00 Deon 2021-0 No 1mg Chewable 09-18 Low Dose 00:00: Aspirin 81 00 mg tablet doxepin 3 0 No 12mg mg tablet 09-18 00:00: 00 Ofev 100 mg 2021-0 No 1mg capsule 09-18 00:00: 00 benzonatate 2021-0 No 2mg 100 mg 09-18 capsule 00:00: 00 Dose 2-0 No Unknown 3-07 00:00: 00 Dose 2-0 No Unknown 3-07 00:00: 00 Dose 2-0 No Unknown 3-07 00:00: 00 Dose 2-0 No Unknown 3-07 00:00: 00 Dose 2-0 No Unknown 3-07 00:00: 00 Dose 2-0 No Unknown 3-07 00:00: 00 Dose 2-0 No Unknown 3-07 00:00: 00 Dose 2-0 No Unknown 3-07 00:00: 00 Dose 2-0 No Unknown 3-07 00:00: 00 Dose 2-0 No Unknown 3-07 00:00: 00 Dose 2-0 No Unknown 3-07 00:00: 00 Dose 2-0 No Unknown 3-07 00:00: 00 Dose 2-0 No Unknown 3-07 00:00: 00 Dose 2-0 No Unknown 3-07 00:00: 00 Dose 2-0 No Unknown 3-07 00:00: 00 Dose 2-0 No Unknown 3-07 00:00: 00 Dose 2-0 No Unknown 3-07 00:00: 00 Dose 2-0 No Unknown 3-07 00:00: 00 Dose 2-0 No Unknown 3-07 00:00: 00 Dose 2-0 No Unknown 3-07 00:00: 00 Dose 2021-0 No Unknown 3- 00:00: 00 Dose 2021-0 No Unknown 3- 00:00: 00 Dose 2021-0 No Unknown 3- 00:00: 00 Dose 2021-0 No Unknown 3- 00:00: 00 Dose 2021-0 No Unknown 3- 00:00: 00 Dose 2021-0 No Unknown 3- 00:00: 00 Dose 2021-0 No Unknown 3- 00:00: 00 Dose 2021-0 No Unknown 3- 00:00: 00 Dose 2021-0 No Unknown 3 00:00: 00 Dose 2021-0 No Unknown 3 00:00: 00 Dose 2021-0 No Unknown 3 00:00: 00 Dose 2021-0 No Unknown 3 00:00: 00 Dose 2021-0 No Unknown 3 00:00: 00 Dose 2021-0 No Unknown 3 00:00: 00 Dose 2021-0 No Unknown 3 00:00: 00 Dose 2021-0 No Unknown 3 00:00: 00 ipratropium 0 No 1mg 0.5 3-07 base)/3 mg-albutero 00:00: mL l 3 mg (2.5 00 mg base)/3 mL nebulizatio n soln Anoro No 1mcg/ac Ellipta 09-18 tuation 62.5 mcg-25 00:00: mcg/actuati 00 on powder for inhalation losartan 50 0 No 1mg mg tablet 09-18 00:00: 00 rosuvastati 0 No 1mg n 10 mg -07 tablet 00:00: 00 Deon 2021-0 No 1mg Chewable 3- Low Dose 00:00: Aspirin 81 00 mg tablet doxepin 3 0 No 12mg mg tablet 3 00:00: 00 Ofev 100 mg 2021-0 No 1mg capsule 09-18 00:00: 00 benzonatate 2021-0 No 2mg 100 mg 3-07 capsule 00:00: 00 Dose 2021-0 No Unknown 3- 00:00: 00 Dose 2021-0 No Unknown 3- 00:00: 00 Dose 2022-0 No Unknown 3-07 00:00: 00 Dose 2022-0 No Unknown 3-07 00:00: 00 Dose 2022-0 No Unknown 3-07 00:00: 00 Dose 2022-0 No Unknown 3-07 00:00: 00 Dose 2022-0 No Unknown 3-07 00:00: 00 Dose 2022-0 No Unknown 3-07 00:00: 00 Dose 2022-0 No Unknown 3-07 00:00: 00 Dose 2022-0 No Unknown 3-07 00:00: 00 Dose 2022-0 No Unknown 3-07 00:00: 00 Dose 2022-0 No Unknown 3-07 00:00: 00 Dose 2022-0 No Unknown 3-07 00:00: 00 Dose 2-0 No Unknown 3-07 00:00: 00 Dose 2-0 No Unknown 3-07 00:00: 00 Dose 2022-0 No Unknown 3-07 00:00: 00 Dose 2022-0 No Unknown 3-07 00:00: 00 Dose 2022-0 No Unknown 3-07 00:00: 00 Dose 2022-0 No Unknown 3-07 00:00: 00 Dose 2022-0 No Unknown 3-07 00:00: 00 Dose 2022-0 No Unknown 3-07 00:00: 00 Dose 2022-0 No Unknown 3-07 00:00: 00 Dose 2-0 No Unknown 3-07 00:00: 00 Dose 2-0 No Unknown 3-07 00:00: 00 Dose 2022-0 No Unknown 3-07 00:00: 00 Dose 2-0 No Unknown 3-07 00:00: 00 Dose 2022-0 No Unknown 3-07 00:00: 00 Dose 2022-0 No Unknown 3-07 00:00: 00 Dose 2022-0 No Unknown 3-07 00:00: 00 Dose 2022-0 No Unknown 3-07 00:00: 00 ipratropium 2-0 No 1mg 0.5 3-07 base)/3 mg-albutero 00:00: mL l 3 mg (2.5 00 mg base)/3 mL nebulizatio n soln Dose 2021-0 No Unknown 3-07 00:00: 00 Dose 2022-0 No Unknown 3-07 00:00: 00 Dose 2-0 No Unknown 3-07 00:00: 00 Dose 2022-0 No Unknown 3-07 00:00: 00 Dose 2-0 No Unknown 3-07 00:00: 00 Dose 2-0 No Unknown 3- 00:00: 00 ipratropium 2-0 No 1mg 0.5 3-07 base)/3 mg-albutero 00:00: mL l 3 mg (2.5 00 mg base)/3 mL nebulizatio n soln Anoro 2021-0 No 1mcg/ac Ellipta 3-07 tuation 62.5 mcg-25 00:00: mcg/actuati 00 on powder for inhalation losartan 50 2021-0 No 1mg mg tablet 09-18 00:00: 00 rosuvastati 2021-0 No 1mg n 10 mg - tablet 00:00: 00 Deon 2021-0 No 1mg Chewable 3- Low Dose 00:00: Aspirin 81 00 mg tablet doxepin 3 0 No 12mg mg tablet 09-18 00:00: 00 Ofev 100 mg 2021-0 No 1mg capsule 3- 00:00: 00 benzonatate 2021-0 No 2mg 100 mg 3- capsule 00:00: 00 Dose 2-0 No Unknown 3- 00:00: 00 Dose 2-0 No Unknown 3- 00:00: 00 Dose 2-0 No Unknown 3- 00:00: 00 Anoro 2-0 No 1mcg/ac Ellipta 3-07 tuation 62.5 mcg-25 00:00: mcg/actuati 00 on powder for inhalation Dose 2-0 No Unknown 3-07 00:00: 00 Dose 2022-0 No Unknown 3-07 00:00: 00 Dose 2-0 No Unknown 3-07 00:00: 00 Dose 2022-0 No Unknown 3-07 00:00: 00 Dose 2-0 No Unknown 3-07 00:00: 00 Dose 2-0 No Unknown 3-07 00:00: 00 Dose 2-0 No Unknown 3-07 00:00: 00 Dose 2022-0 No Unknown 3-07 00:00: 00 Dose 2-0 No Unknown 3-07 00:00: 00 Dose 2022-0 No Unknown 3-07 00:00: 00 Dose 2022-0 No Unknown 3-07 00:00: 00 Dose 2022-0 No Unknown 3-07 00:00: 00 Dose 2022-0 No Unknown 3-07 00:00: 00 Dose 2-0 No Unknown 3-07 00:00: 00 Dose 2022-0 No Unknown 3-07 00:00: 00 Dose 2022-0 No Unknown 3-07 00:00: 00 Dose 2022-0 No Unknown 3-07 00:00: 00 Dose 2022-0 No Unknown 3-07 00:00: 00 Dose 2022-0 No Unknown 3-07 00:00: 00 Dose 2022-0 No Unknown 3-07 00:00: 00 Dose 2-0 No Unknown 3-07 00:00: 00 Dose 2-0 No Unknown 3-07 00:00: 00 Dose 2-0 No Unknown 3-07 00:00: 00 Dose 2022-0 No Unknown 3-07 00:00: 00 Dose 2-0 No Unknown 3-07 00:00: 00 Dose 2-0 No Unknown 3-07 00:00: 00 Dose 2022-0 No Unknown 3-07 00:00: 00 Dose 2022-0 No Unknown 3-07 00:00: 00 Dose 2-0 No Unknown 3-07 00:00: 00 Dose 2-0 No Unknown 3-07 00:00: 00 Dose 2-0 No Unknown 3-07 00:00: 00 Dose 2-0 No Unknown 3-07 00:00: 00 Dose 2-0 No Unknown 3-07 00:00: 00 losartan 50 2021-0 No 1mg mg tablet 3 00:00: 00 ipratropium 2021-0 No 1mg 0.5 3-07 base)/3 mg-albutero 00:00: mL l 3 mg (2.5 00 mg base)/3 mL nebulizatio n soln Anoro 0 No 1mcg/ac Ellipta 307 tuation 62.5 mcg-25 00:00: mcg/actuati 00 on powder for inhalation losartan 50 2021-0 No 1mg mg tablet 3- 00:00: 00 rosuvastati 2021-0 No 1mg n 10 mg 3-07 tablet 00:00: 00 Deon 2022-0 No 1mg Chewable 3-07 Low Dose 00:00: Aspirin 81 00 mg tablet doxepin 3 2021-0 No 12mg mg tablet 3-07 00:00: 00 Ofev 100 mg 2-0 No 1mg capsule 3-07 00:00: 00 benzonatate 2-0 No 2mg 100 mg 3-07 capsule 00:00: 00 Dose 2022-0 No Unknown 3-07 00:00: 00 Dose 2022-0 No Unknown 3-07 00:00: 00 Dose 2022-0 No Unknown 3-07 00:00: 00 Dose 2022-0 No Unknown 3-07 00:00: 00 Dose 2022-0 No Unknown 3-07 00:00: 00 Dose 2022-0 No Unknown 3-07 00:00: 00 Dose 2022-0 No Unknown 3-07 00:00: 00 Dose 2022-0 No Unknown 3-07 00:00: 00 Dose 2022-0 No Unknown 3-07 00:00: 00 Dose 2022-0 No Unknown 3-07 00:00: 00 Dose 2022-0 No Unknown 3-07 00:00: 00 Dose 2022-0 No Unknown 3-07 00:00: 00 Dose 2022-0 No Unknown 3-07 00:00: 00 Dose 2022-0 No Unknown 3-07 00:00: 00 Dose 2022-0 No Unknown 3-07 00:00: 00 Dose 2022-0 No Unknown 3-07 00:00: 00 Dose 2022-0 No Unknown 3-07 00:00: 00 Dose 2022-0 No Unknown 3-07 00:00: 00 Dose 2022-0 No Unknown 3-07 00:00: 00 Dose 2022-0 No Unknown 3-07 00:00: 00 Dose 2022-0 No Unknown 3-07 00:00: 00 Dose 2022-0 No Unknown 3-07 00:00: 00 Dose 2022-0 No Unknown 3-07 00:00: 00 Dose 2022-0 No Unknown 3-07 00:00: 00 Dose 2022-0 No Unknown 3-07 00:00: 00 Dose 2022-0 No Unknown 3-07 00:00: 00 Dose 2022-0 No Unknown 3-07 00:00: 00 Dose 2022-0 No Unknown 3-07 00:00: 00 Dose 2022-0 No Unknown 3- 00:00: 00 Dose 2022-0 No Unknown 3- 00:00: 00 Dose 2022-0 No Unknown 3- 00:00: 00 Dose 2022-0 No Unknown 3- 00:00: 00 Dose 2022-0 No Unknown 3- 00:00: 00 Dose 2022-0 No Unknown 3- 00:00: 00 Dose 2022-0 No Unknown 3- 00:00: 00 Dose 2-0 No Unknown 3- 00:00: 00 rosuvastati 2-0 No 1mg n 10 mg 3-07 tablet 00:00: 00 ipratropium 2-0 No 1mg 0.5 3-07 base)/3 mg-albutero 00:00: mL l 3 mg (2.5 00 mg base)/3 mL nebulizatio n soln Anoro 2021-0 No 1mcg/ac Ellipta 3-07 tuation 62.5 mcg-25 00:00: mcg/actuati 00 on powder for inhalation losartan 50 2021-0 No 1mg mg tablet 3 00:00: 00 rosuvastati 2-0 No 1mg n 10 mg 3-07 tablet 00:00: 00 Deon 2-0 No 1mg Chewable 3-07 Low Dose 00:00: Aspirin 81 00 mg tablet doxepin 3 2021-0 No 12mg mg tablet 3 00:00: 00 Anoro 2-0 No 1mcg/ac Ellipta 1-13 tuation 62.5 mcg-25 00:00: mcg/actuati 00 on powder for inhalation prednisone 2-0 No 1mg 10 mg 1-13 tablet 00:00: 00 amlodipine 2-0 No 1mg 10 mg 1-13 tablet 00:00: 00 furosemide 2-0 No 1mg 20 mg 1-13 tablet 00:00: 00 atorvastati 2-0 No 1mg n 20 mg 1-13 tablet 00:00: 00 Anoro 2-0 No 1mcg/ac Ellipta 1-13 tuation 62.5 mcg-25 00:00: mcg/actuati 00 on powder for inhalation prednisone 2-0 No 1mg 10 mg 1-13 tablet 00:00: 00 amlodipine 2022-0 No 1mg 10 mg 1-13 tablet 00:00: 00 furosemide 2022-0 No 1mg 20 mg 1-13 tablet 00:00: 00 atorvastati 2022-0 No 1mg n 20 mg 1-13 tablet 00:00: 00 Anoro 2022-0 No 1mcg/ac Ellipta 1-13 tuation 62.5 mcg-25 00:00: mcg/actuati 00 on powder for inhalation prednisone 2022-0 No 1mg 10 mg 1-13 tablet 00:00: 00 amlodipine 2022-0 No 1mg 10 mg 1-13 tablet 00:00: 00 furosemide 2022-0 No 1mg 20 mg 1-13 tablet 00:00: 00 atorvastati 2022-0 No 1mg n 20 mg 1-13 tablet 00:00: 00 Anoro 2022-0 No 1mcg/ac Ellipta 1-13 tuation 62.5 mcg-25 00:00: mcg/actuati 00 on powder for inhalation prednisone 2022-0 No 1mg 10 mg 1-13 tablet 00:00: 00 amlodipine 2022-0 No 1mg 10 mg 1-13 tablet 00:00: 00 furosemide 2022-0 No 1mg 20 mg 1-13 tablet 00:00: 00 atorvastati 2022-0 No 1mg n 20 mg 1-13 tablet 00:00: 00 Anoro 2022-0 No 1mcg/ac Ellipta 1-13 tuation 62.5 mcg-25 00:00: mcg/actuati 00 on powder for inhalation prednisone 2022-0 No 1mg 10 mg 1-13 tablet 00:00: 00 amlodipine 2022-0 No 1mg 10 mg 1-13 tablet 00:00: 00 furosemide 2022-0 No 1mg 20 mg 1-13 tablet 00:00: 00 atorvastati 2022-0 No 1mg n 20 mg 1-13 tablet 00:00: 00 Anoro 2022-0 No 1mcg/ac Ellipta 1-13 tuation 62.5 mcg-25 00:00: mcg/actuati 00 on powder for inhalation prednisone 2022-0 No 1mg 10 mg 1-13 tablet 00:00: 00 amlodipine 2022-0 No 1mg 10 mg 1-13 tablet 00:00: 00 furosemide 2022-0 No 1mg 20 mg 1-13 tablet 00:00: 00 atorvastati 2022-0 No 1mg n 20 mg 1-13 tablet 00:00: 00 Anoro 2022-0 No 1mcg/ac Ellipta 1-13 tuation 62.5 mcg-25 00:00: mcg/actuati 00 on powder for inhalation Anoro 2022-0 No 1mcg/ac Ellipta 1-13 tuation 62.5 mcg-25 00:00: mcg/actuati 00 on powder for inhalation prednisone 2022-0 No 1mg 10 mg 1-13 tablet 00:00: 00 amlodipine 2022-0 No 1mg 10 mg 1-13 tablet 00:00: 00 furosemide 2022-0 No 1mg 20 mg 1-13 tablet 00:00: 00 atorvastati 2022-0 No 1mg n 20 mg 1-13 tablet 00:00: 00 prednisone 2022-0 No 1mg 10 mg 1-13 tablet 00:00: 00 amlodipine 2022-0 No 1mg 10 mg 1-13 tablet 00:00: 00 Anoro 2022-0 No 1mcg/ac Ellipta 1-13 tuation 62.5 mcg-25 00:00: mcg/actuati 00 on powder for inhalation prednisone 2022-0 No 1mg 10 mg 1-13 tablet 00:00: 00 amlodipine 2022-0 No 1mg 10 mg 1-13 tablet 00:00: 00 furosemide 2022-0 No 1mg 20 mg 1-13 tablet 00:00: 00 atorvastati 2022-0 No 1mg n 20 mg 1-13 tablet 00:00: 00 furosemide 2022-0 No 1mg 20 mg 1-13 tablet 00:00: 00 Anoro 2022-0 No 1mcg/ac Ellipta 1-13 tuation 62.5 mcg-25 00:00: mcg/actuati 00 on powder for inhalation prednisone 2022-0 No 1mg 10 mg 1-13 tablet 00:00: 00 amlodipine 2022-0 No 1mg 10 mg 1-13 tablet 00:00: 00 furosemide 2022-0 No 1mg 20 mg 1-13 tablet 00:00: 00 atorvastati 2022-0 No 1mg n 20 mg 1-13 tablet 00:00: 00 atorvastati 2-0 No 1mg n 20 mg 1-13 tablet 00:00: 00 Anoro 2-0 No 1mcg/ac Ellipta 1-13 tuation 62.5 mcg-25 00:00: mcg/actuati 00 on powder for inhalation prednisone 2-0 No 1mg 10 mg 1-13 tablet 00:00: 00 amlodipine 2022-0 No 1mg 10 mg 1-13 tablet 00:00: 00 furosemide 2-0 No 1mg 20 mg 1-13 tablet 00:00: 00 atorvastati 2-0 No 1mg n 20 mg 1-13 tablet 00:00: 00 Anoro 2-0 No 1mcg/ac Ellipta 1-13 tuation 62.5 mcg-25 00:00: mcg/actuati 00 on powder for inhalation prednisone 2-0 No 1mg 10 mg 1-13 tablet 00:00: 00 amlodipine 2-0 No 1mg 10 mg 1-13 tablet 00:00: 00 furosemide 2-0 No 1mg 20 mg 1-13 tablet 00:00: 00 atorvastati 2-0 No 1mg n 20 mg 1-13 tablet 00:00: 00 No known 2020-0 No No known Unive rs medications 2-13 medication it y of 12:56: s [address] No known No [facility] medications [facility] of [facility] Immunizations Ordered Filled Immunization Date Status Comments [facility] Immunization Name Name influenza, seasonal 2022-05-29 Completed vaccine, 00:00:00 quadrivalent, adjuvanted, .5mL dose, preservative-free influenza, seasonal 2022-05-29 Completed vaccine, 00:00:00 quadrivalent, adjuvanted, .5mL dose, preservative-free influenza, seasonal 2022-05-29 Completed vaccine, 00:00:00 quadrivalent, adjuvanted, .5mL dose, preservative-free Moderna COVID-19 2021-06-21 Completed Vaccine 00:00:00 Moderna COVID-19 2021-06-21 Completed Vaccine 00:00:00 Moderna COVID-19 2021-06-21 Completed Vaccine 00:00:00 Moderna COVID-19 2021-06-21 Completed Vaccine 00:00:00 Moderna COVID-19 2021-06-21 Completed Vaccine 00:00:00 Moderna COVID-19 2021-06-21 Completed Vaccine 00:00:00 Moderna COVID-19 2021-06-21 Completed Vaccine 00:00:00 Moderna COVID-19 2021-06-21 Completed Vaccine 00:00:00 Moderna COVID-19 2021-06-21 Completed Vaccine 00:00:00 Moderna COVID-19 2021-06-21 Completed Vaccine 00:00:00 Moderna COVID-19 2021-06-21 Completed Vaccine 00:00:00 Moderna COVID-19 2021-06-21 Completed Vaccine 00:00:00 SARS-COV-2 COVID-19 2020-11-18 Completed Unive rsity of PFIZER VACCINE 00:00:00 [facility] SARS-COV-2 COVID-19 2020-11-18 Completed Unive rsity of PFIZER VACCINE 00:00:00 [facility] SARS-COV-2 COVID-19 2020-11-18 Completed Unive rsity of PFIZER VACCINE 00:00:00 [facility] SARS-COV-2 COVID-19 2020-10-25 Completed Unive rsity of PFIZER VACCINE 00:00:00 [facility] SARS-COV-2 COVID-19 2020-10-25 Completed Unive rsity of PFIZER VACCINE 00:00:00 [facility] SARS-COV-2 COVID-19 2020-10-25 Completed Unive rsity of PFIZER VACCINE 00:00:00 [facility] Vital Signs Vital Name Observation Time Observation Value Comments Source Systolic blood 2020-08-27 21:04:17 146 mm[Hg] Univer sity of pressure [facility] Diastolic blood 2020-08-27 21:04:17 92 mm[Hg] Unive rsity of pressure [facility] Heart rate 2020-08-27 21:04:17 63 /min [facility] ty [facility] Respiratory rate 2020-08-27 21:04:17 16 /min [facility] in 2020-08-27 21:04:17 91 /min [facility] Arterial blood by [facility] Pulse oximetry Branch Body temperature 2020-08-27 18:49:00 36.33 Nataliya Univ ers[facility] of [facility] Body weight 2020-08-27 18:49:00 77.111 kg [facility] BP Systolic 2022-07-25 11:29:00 135 mm[Hg] BP Diastolic 2022-07-25 11:29:00 71 mm[Hg] Weight Measured 2022-07-25 11:29:00 149.60 pounds Height Measured 2022-07-25 11:29:00 70.00 inches Body Temperature 2022-07-25 11:29:00 97.30 degrees Heart Rate 2022-07-25 11:29:00 75.00 /min Respiratory Rate 2022-07-25 11:29:00 25.00 /min BP Systolic 2022-07-11 15:07:00 115 mm[Hg] BP Diastolic 2022-07-11 15:07:00 67 mm[Hg] Weight Measured 2022-07-11 15:07:00 150.40 pounds Height Measured 2022-07-11 15:07:00 70.00 inches Body Temperature 2022-07-11 15:07:00 97.60 degrees Heart Rate 2022-07-11 15:07:00 88.00 /min Respiratory Rate 2022-07-11 15:07:00 BP Systolic 2022-07-04 16:33:00 178 mm[Hg] BP Diastolic 2022-07-04 16:33:00 83 mm[Hg] Weight Measured 2022-07-04 16:33:00 154.00 pounds Height Measured 2022-07-04 16:33:00 70.00 inches Body Temperature 2022-07-04 16:33:00 97.20 degrees Heart Rate 2022-07-04 16:33:00 68.00 /min Respiratory Rate 2022-07-04 16:33:00 BP Systolic 2022-05-28 10:09:00 143 mm[Hg] BP Diastolic 2022-05-28 10:09:00 71 mm[Hg] Weight Measured 2022-05-28 10:09:00 152.80 pounds Height Measured 2022-05-28 10:09:00 70.00 inches Body Temperature 2022-05-28 10:09:00 97.20 degrees Heart Rate 2022-05-28 10:09:00 83.00 /min Respiratory Rate 2022-05-28 10:09:00 17.00 /min BP Systolic 2022-05-01 09:58:00 139 mm[Hg] BP Diastolic 2022-05-01 09:58:00 76 mm[Hg] Weight Measured 2022-05-01 09:58:00 155.40 pounds Height Measured 2022-05-01 09:58:00 70.00 inches Body Temperature 2022-05-01 09:58:00 98.10 degrees Heart Rate 2022-05-01 09:58:00 47.00 /min Respiratory Rate 2022-05-01 09:58:00 16.00 /min BP Systolic 2022-04-24 10:49:00 134 mm[Hg] BP Diastolic 2022-04-24 10:49:00 79 mm[Hg] Weight Measured 2022-04-24 10:49:00 155.00 pounds Height Measured 2022-04-24 10:49:00 Body Temperature 2022-04-24 10:49:00 97.70 degrees Heart Rate 2022-04-24 10:49:00 89.00 /min Respiratory Rate 2022-04-24 10:49:00 19.00 /min BP Systolic 2022-04-16 14:01:00 126 mm[Hg] BP Diastolic 2022-04-16 14:01:00 78 mm[Hg] Weight Measured 2022-04-16 14:01:00 157.20 pounds Height Measured 2022-04-16 14:01:00 70.00 inches Body Temperature 2022-04-16 14:01:00 97.70 degrees Heart Rate 2022-04-16 14:01:00 91.00 /min Respiratory Rate 2022-04-16 14:01:00 17.00 /min BP Systolic 2022-03-13 14:16:00 146 mm[Hg] BP Diastolic 2022-03-13 14:16:00 74 mm[Hg] Weight Measured 2022-03-13 14:16:00 161.60 pounds Height Measured 2022-03-13 14:16:00 70.00 inches Body Temperature 2022-03-13 14:16:00 97.60 degrees Heart Rate 2022-03-13 14:16:00 92.00 /min Respiratory Rate 2022-03-13 14:16:00 BP Systolic 2022-02-26 11:21:00 135 mm[Hg] BP Diastolic 2022-02-26 11:21:00 69 mm[Hg] Weight Measured 2022-02-26 11:21:00 162.20 pounds Height Measured 2022-02-26 11:21:00 70.00 inches Body Temperature 2022-02-26 11:21:00 98.00 degrees Heart Rate 2022-02-26 11:21:00 97.00 /min Respiratory Rate 2022-02-26 11:21:00 BP Systolic 2022-02-21 15:39:00 131 mm[Hg] BP Diastolic 2022-02-21 15:39:00 67 mm[Hg] Weight Measured 2022-02-21 15:39:00 161.00 pounds Height Measured 2022-02-21 15:39:00 70.00 inches Body Temperature 2022-02-21 15:39:00 97.60 degrees Heart Rate 2022-02-21 15:39:00 67.00 /min Respiratory Rate 2022-02-21 15:39:00 BP Systolic 2022-02-06 10:31:00 133 mm[Hg] BP Diastolic 2022-02-06 10:31:00 67 mm[Hg] Weight Measured 2022-02-06 10:31:00 165.80 pounds Height Measured 2022-02-06 10:31:00 70.00 inches Body Temperature 2022-02-06 10:31:00 97.30 degrees Heart Rate 2022-02-06 10:31:00 72.00 /min Respiratory Rate 2022-02-06 10:31:00 BP Systolic 2022-01-02 09:22:00 160 mm[Hg] BP Diastolic 2022-01-02 09:22:00 85 mm[Hg] Weight Measured 2022-01-02 09:22:00 161.00 pounds Height Measured 2022-01-02 09:22:00 70.00 inches Body Temperature 2022-01-02 09:22:00 97.30 degrees Heart Rate 2022-01-02 09:22:00 86.00 /min Respiratory Rate 2022-01-02 09:22:00 BP Systolic 2021-12-18 08:22:00 160 mm[Hg] BP Diastolic 2021-12-18 08:22:00 87 mm[Hg] Weight Measured 2021-12-18 08:22:00 157.80 pounds Height Measured 2021-12-18 08:22:00 70.00 inches Body Temperature 2021-12-18 08:22:00 97.40 degrees Heart Rate 2021-12-18 08:22:00 58.00 /min Respiratory Rate 2021-12-18 08:22:00 Respiratory Rate 2021-11-07 15:12:00 BP Systolic 2021-11-07 15:12:00 127 mm[Hg] BP Diastolic 2021-11-07 15:12:00 65 mm[Hg] Weight Measured 2021-11-07 15:12:00 154.00 pounds Height Measured 2021-11-07 15:12:00 70.00 inches Body Temperature 2021-11-07 15:12:00 97.50 degrees Heart Rate 2021-11-07 15:12:00 63.00 /min BP Systolic 2021-09-18 09:45:00 119 mm[Hg] BP Diastolic 2021-09-18 09:45:00 65 mm[Hg] Weight Measured 2021-09-18 09:45:00 153.40 pounds Height Measured 2021-09-18 09:45:00 70.00 inches Body Temperature 2021-09-18 09:45:00 97.30 degrees Heart Rate 2021-09-18 09:45:00 85.00 /min Respiratory Rate 2021-09-18 09:45:00 BP Systolic 2021-09-07 15:51:00 147 mm[Hg] BP Diastolic 2021-09-07 15:51:00 64 mm[Hg] Weight Measured 2021-09-07 15:51:00 164.20 pounds Height Measured 2021-09-07 15:51:00 70.00 inches Body Temperature 2021-09-07 15:51:00 97.30 degrees Heart Rate 2021-09-07 15:51:00 43.00 /min Respiratory Rate 2021-09-07 15:51:00 BP Systolic 2021-07-27 09:50:00 127 mm[Hg] BP Diastolic 2021-07-27 09:50:00 68 mm[Hg] Weight Measured 2021-07-27 09:50:00 162.00 pounds Height Measured 2021-07-27 09:50:00 70.00 inches Body Temperature 2021-07-27 09:50:00 97.70 degrees Heart Rate 2021-07-27 09:50:00 69.00 /min Respiratory Rate 2021-07-27 09:50:00 BP Systolic 2015-01-22 08:29:00 126 mm[Hg] BP Diastolic 2015-01-22 08:29:00 71 mm[Hg] Weight Measured 2015-01-22 08:29:00 157.80 pounds Height Measured 2015-01-22 08:29:00 70.00 inches Body Temperature 2015-01-22 08:29:00 97.70 degrees Heart Rate 2015-01-22 08:29:00 91.00 /min Respiratory Rate 2015-01-22 08:29:00 BP Systolic 2015-01-22 08:28:00 126 mm[Hg] BP Diastolic 2015-01-22 08:28:00 71 mm[Hg] Weight Measured 2015-01-22 08:28:00 157.80 pounds Height Measured 2015-01-22 08:28:00 70.00 inches Body Temperature 2015-01-22 08:28:00 97.70 degrees Heart Rate 2015-01-22 08:28:00 91.00 /min Respiratory Rate 2015-01-22 08:28:00 Procedures Procedure Date / Time Performed Performing Clinician [facility] e REFERRAL- 2022-11-14 05:01:00 Doctor Unassigned, No [facility] REQUEST/RESPONSE Name Medical Branch ASSIGNMENT OF BENEFITS 2022-08-21 20:04:17 Doctor Unassigned, No [facility] Name Medical Branch REFERRAL- 2022-08-13 06:01:00 Doctor Unassigned, No [facility] REQUEST/RESPONSE Name Medical Branch NOTICE OF PRIVACY 2020-08-27 18:44:40 Doctor Unassigned, No [facility] PRACTICES Name Medical Branch CONSENT/REFUSAL FOR 2020-08-27 18:42:56 [facility] Name [facility] TREATMENT Plan of Care Planned Activity Planned Date Details Comments Source Goal Plan of Care Note [code = 69345-6] Goal Plan of Care Note [code = 95443-7] Goal Plan of Care Note [code = 77603-2] Goal Plan of Care Note [code = 31948-1] Goal Plan of Care Note [code = 27745-8] Goal Plan of Care Note [code = 42893-4] Goal Plan of Care Note [code = 80558-2] Goal Plan of Care Note [code = 15883-2] Goal Plan of Care Note [code = 44752-7] Goal Plan of Care Note [code = 53306-9] Goal Plan of Care Note [code = 31444-0] Goal Plan of Care Note [code = 32035-5] Goal Plan of Care Note [code = 59284-2] Goal Plan of Care Note [code = 13141-2] Goal Plan of Care Note [code = 76537-6] Goal Plan of Care Note [code = 00564-6] Goal Plan of Care Note [code = 56336-5] Goal Plan of Care Note [code = 91291-2] Goal Plan of Care Note [code = 60145-4] Goal Plan of Care Note [code = 48382-6] Goal Plan of Care Note [code = 68829-5] Goal Plan of Care Note [code = 26085-2] Goal Plan of Care Note [code = 60956-8] Goal Plan of Care Note [code = 91477-0] Goal Plan of Care Note [code = 25770-1] Goal Plan of Care Note [code = 52218-8] Goal Plan of Care Note [code = 11177-0] Goal Plan of Care Note [code = 32163-4] Goal Plan of Care Note [code = 04682-5] Goal Plan of Care Note [code = 36780-2] Goal Plan of Care Note [code = 61509-5] Goal Plan of Care Note [code = 22646-9] Goal Plan of Care Note [code = 71264-0] Goal Plan of Care Note [code = 50523-4] Goal Plan of Care Note [code = 77539-3] Goal Plan of Care Note [code = 11500-1] Goal Plan of Care Note [code = 14336-6] Goal Plan of Care Note [code = 57566-0] Goal Plan of Care Note [code = 65392-2] Goal Plan of Care Note [code = 78493-8] Goal Plan of Care Note [code = 61001-9] Goal Plan of Care Note [code = 68797-2] Goal Plan of Care Note [code = 97287-2] Goal Plan of Care Note [code = 18335-0] Goal Plan of Care Note [code = 70668-1] Goal Plan of Care Note [code = 68157-9] Goal Plan of Care Note [code = 05160-0] Goal Plan of Care Note [code = 52795-6] Goal Plan of Care Note [code = 95672-7] Goal Plan of Care Note [code = 16591-7] Goal Plan of Care Note [code = 97685-7] Goal Plan of Care Note [code = 27276-6] Goal Plan of Care Note [code = 57365-9] Goal Plan of Care Note [code = 64266-8] Goal Plan of Care Note [code = 42760-9] Goal Plan of Care Note [code = 29520-8] Goal Plan of Care Note [code = 54488-2] Goal Plan of Care Note [code = 59343-1] Goal Plan of Care Note [code = 07305-6] Goal Plan of Care Note [code = 22764-4] Goal Plan of Care Note [code = 89767-3] Goal Plan of Care Note [code = 75152-9] Goal Plan of Care Note [code = 88949-0] Goal Plan of Care Note [code = 71343-8] Goal Plan of Care Note [code = 92081-4] Goal Plan of Care Note [code = 38781-3] Goal Plan of Care Note [code = 95805-6] Goal Plan of Care Note [code = 32337-3] Goal Plan of Care Note [code = 07747-6] Goal Plan of Care Note [code = 10671-4] Goal Plan of Care Note [code = 03627-0] Goal Plan of Care Note [code = 24991-7] Goal Plan of Care Note [code = 90139-7] Goal Plan of Care Note [code = 12696-0] Goal Plan of Care Note [code = 45112-5] Goal Plan of Care Note [code = 09213-4] Goal Plan of Care Note [code = 17527-6] Goal Plan of Care Note [code = 86933-1] Goal Plan of Care Note [code = 45497-0] Goal Plan of Care Note [code = 52865-6] Goal Plan of Care Note [code = 31631-5] Goal Plan of Care Note [code = 55276-6] Goal Plan of Care Note [code = 73124-1] Goal Plan of Care Note [code = 23955-8] Goal Plan of Care Note [code = 41231-3] Goal Plan of Care Note [code = 21677-0] Goal Plan of Care Note [code = 33693-0] Goal Plan of Care Note [code = 04190-7] Goal Plan of Care Note [code = 87096-8] Goal Plan of Care Note [code = 73907-6] Goal Plan of Care Note [code = 21229-3] Goal Plan of Care Note [code = 07195-7] Goal Plan of Care Note [code = 78935-7] Goal Plan of Care Note [code = 13498-1] Goal Plan of Care Note [code = 90485-3] Goal Plan of Care Note [code = 86881-5] Goal Plan of Care Note [code = 97197-4] Goal Plan of Care Note [code = 90049-6] Goal Plan of Care Note [code = 59087-9] Goal Plan of Care Note [code = 43929-9] Goal Plan of Care Note [code = 97071-2] Goal Plan of Care Note [code = 82710-4] Goal Plan of Care Note [code = 74434-6] Goal Plan of Care Note [code = 36616-4] Goal Plan of Care Note [code = 09147-1] Goal Plan of Care Note [code = 59903-4] Goal Plan of Care Note [code = 64601-7] Goal Plan of Care Note [code = 25666-6] Goal Plan of Care Note [code = 77669-7] Goal Plan of Care Note [code = 67226-3] Goal Plan of Care Note [code = 14857-3] Goal Plan of Care Note [code = 81877-0] Goal Plan of Care Note [code = 25489-9] Goal Plan of Care Note [code = 62853-1] Goal Plan of Care Note [code = 23539-2] Goal Plan of Care Note [code = 16491-9] Goal Plan of Care Note [code = 14521-3] Goal Plan of Care Note [code = 26391-1] Goal Plan of Care Note [code = 88893-4] Goal Plan of Care Note [code = 30797-7] Goal Plan of Care Note [code = 38116-1] Goal Plan of Care Note [code = 19618-8] Goal Plan of Care Note [code = 30572-5] Goal Plan of Care Note [code = 23967-6] Goal Plan of Care Note [code = 59792-1] Goal Plan of Care Note [code = 60531-1] Goal Plan of Care Note [code = 67753-1] Goal Plan of Care Note [code = 33206-3] Goal Plan of Care Note [code = 67071-4] Goal Plan of Care Note [code = 12026-6] Goal Plan of Care Note [code = 18939-0] Goal Plan of Care Note [code = 42375-2] Goal Plan of Care Note [code = 17356-1] Goal Plan of Care Note [code = 04714-5] Goal Plan of Care Note [code = 80792-0] Goal Plan of Care Note [code = 16544-9] Goal Plan of Care Note [code = 62749-4] Goal Plan of Care Note [code = 53307-2] Goal Plan of Care Note [code = 48560-4] Goal Plan of Care Note [code = 69424-9] Goal Plan of Care Note [code = 25191-2] Goal Plan of Care Note [code = 22542-8] Goal Plan of Care Note [code = 56101-0] Goal Plan of Care Note [code = 00559-6] Goal Plan of Care Note [code = 10040-4] Goal Plan of Care Note [code = 82973-9] Goal Plan of Care Note [code = 91996-8] Goal Plan of Care Note [code = 25105-6] Goal Plan of Care Note [code = 54069-6] Goal Plan of Care Note [code = 49780-7] Goal Plan of Care Note [code = 94537-6] Goal Plan of Care Note [code = 53996-6] Goal Plan of Care Note [code = 78530-0] Goal Plan of Care Note [code = 49692-3] Goal Plan of Care Note [code = 75833-1] Goal Plan of Care Note [code = 21258-0] Goal Plan of Care Note [code = 33487-1] Goal Plan of Care Note [code = 58290-8] Goal Plan of Care Note [code = 99479-7] Goal Plan of Care Note [code = 80381-7] Goal Plan of Care Note [code = 59132-4] Goal Plan of Care Note [code = 22500-5] Goal Plan of Care Note [code = 27581-4] Goal Plan of Care Note [code = 45538-2] Goal Plan of Care Note [code = 62609-9] Goal Plan of Care Note [code = 95841-3] Goal Plan of Care Note [code = 96815-4] Goal Plan of Care Note [code = 46493-2] Goal Plan of Care Note [code = 75235-5] Goal Plan of Care Note [code = 03648-2] Goal Plan of Care Note [code = 63615-9] Goal Plan of Care Note [code = 16139-5] Goal Plan of Care Note [code = 11608-9] Goal Plan of Care Note [code = 23525-7] Goal Plan of Care Note [code = 78010-5] Goal Plan of Care Note [code = 42112-8] Goal Plan of Care Note [code = 39129-6] Goal Plan of Care Note [code = 86207-0] Goal Plan of Care Note [code = 62241-3] Goal Plan of Care Note [code = 09054-0] Goal Plan of Care Note [code = 21651-0] Goal Plan of Care Note [code = 79480-8] Goal Plan of Care Note [code = 38055-2] Goal Plan of Care Note [code = 42798-9] Goal Plan of Care Note [code = 44430-5] Goal Plan of Care Note [code = 96950-9] Goal Plan of Care Note [code = 13535-9] Goal Plan of Care Note [code = 78178-3] Goal Plan of Care Note [code = 43210-5] Goal Plan of Care Note [code = 88684-7] Goal Plan of Care Note [code = 69153-9] Goal Plan of Care Note [code = 30077-5] Goal Plan of Care Note [code = 39781-8] Goal Plan of Care Note [code = 01700-2] Goal Plan of Care Note [code = 95153-6] Goal Plan of Care Note [code = 32700-0] Goal Plan of Care Note [code = 22325-5] Goal Plan of Care Note [code = 21339-0] Goal Plan of Care Note [code = 57196-6] Goal Plan of Care Note [code = 75701-9] Goal Plan of Care Note [code = 51661-2] Goal Plan of Care Note [code = 10145-1] Goal Plan of Care Note [code = 22436-7] Goal Plan of Care Note [code = 83008-5] Goal Plan of Care Note [code = 29036-7] Goal Plan of Care Note [code = 11779-4] Goal Plan of Care Note [code = 02994-2] Goal Plan of Care Note [code = 91981-8] Goal Plan of Care Note [code = 59555-3] Goal Plan of Care Note [code = 53799-3] Goal Plan of Care Note [code = 59540-4] Goal Plan of Care Note [code = 87959-2] Goal Plan of Care Note [code = 41372-9] Goal Plan of Care Note [code = 93459-4] Goal Plan of Care Note [code = 54322-9] Goal Plan of Care Note [code = 75129-0] Goal Plan of Care Note [code = 32611-6] Goal Plan of Care Note [code = 51482-7] Goal Plan of Care Note [code = 83107-6] Goal Plan of Care Note [code = 92521-0] Goal Plan of Care Note [code = 17675-0] Goal Plan of Care Note [code = 53528-4] Goal Plan of Care Note [code = 69527-1] Goal Plan of Care Note [code = 04971-8] Goal Plan of Care Note [code = 86294-4] Goal Plan of Care Note [code = 32434-0] Goal Plan of Care Note [code = 62085-6] Goal Plan of Care Note [code = 01772-6] Goal Plan of Care Note [code = 15268-1] Goal Plan of Care Note [code = 39220-9] Goal Plan of Care Note [code = 18558-6] Goal Plan of Care Note [code = 41413-6] Goal Plan of Care Note [code = 96003-7] Goal Plan of Care Note [code = 23098-8] Goal Plan of Care Note [code = 23812-2] Goal Plan of Care Note [code = 21575-4] Goal Plan of Care Note [code = 21030-6] Goal Plan of Care Note [code = 57507-6] Goal Plan of Care Note [code = 36780-3] Goal Plan of Care Note [code = 15231-8] Goal Plan of Care Note [code = 85053-5] Goal Plan of Care Note [code = 97944-0] Goal Plan of Care Note [code = 58741-0] Goal Plan of Care Note [code = 59585-0] Goal Plan of Care Note [code = 71165-3] Goal Plan of Care Note [code = 13654-7] Goal Plan of Care Note [code = 30559-3] Goal Plan of Care Note [code = 19905-3] Goal Plan of Care Note [code = 75161-6] Goal Plan of Care Note [code = 31887-7] Goal Plan of Care Note [code = 27005-0] Goal Plan of Care Note [code = 30085-7] Goal Plan of Care Note [code = 35095-1] Goal Plan of Care Note [code = 35364-7] Goal Plan of Care Note [code = 99591-0] Goal Plan of Care Note [code = 13834-3] Goal Plan of Care Note [code = 86303-9] Goal Plan of Care Note [code = 53036-2] Goal Plan of Care Note [code = 11469-9] Goal Plan of Care Note [code = 35988-8] Goal Plan of Care Note [code = 13508-6] Goal Plan of Care Note [code = 99928-0] Goal Plan of Care Note [code = 26398-5] Goal Plan of Care Note [code = 59329-0] Goal Plan of Care Note [code = 61608-2] Goal Plan of Care Note [code = 71013-3] Goal Plan of Care Note [code = 44921-8] Goal Plan of Care Note [code = 30410-6] Goal Plan of Care Note [code = 96189-6] Goal Plan of Care Note [code = 93180-1] Goal Plan of Care Note [code = 28124-1] Goal Plan of Care Note [code = 45053-7] Goal Plan of Care Note [code = 76390-8] Goal Plan of Care Note [code = 05227-4] Goal Plan of Care Note [code = 57211-8] Goal Plan of Care Note [code = 45747-7] Goal Plan of Care Note [code = 39297-7] Goal Plan of Care Note [code = 72976-4] Goal Plan of Care Note [code = 95532-6] Goal Plan of Care Note [code = 68728-0] Goal Plan of Care Note [code = 57142-0] Goal Plan of Care Note [code = 74880-1] Goal Plan of Care Note [code = 36381-3] Goal Plan of Care Note [code = 35328-9] Goal Plan of Care Note [code = 15023-1] Goal Plan of Care Note [code = 49810-6] Goal Plan of Care Note [code = 02790-3] Goal Plan of Care Note [code = 20274-3] Goal Plan of Care Note [code = 40556-0] Goal Plan of Care Note [code = 16595-7] Goal Plan of Care Note [code = 54120-8] Goal Plan of Care Note [code = 83325-2] Goal Plan of Care Note [code = 01658-9] Goal Plan of Care Note [code = 55905-9] Goal Plan of Care Note [code = 45064-6] Goal Plan of Care Note [code = 61352-3] Goal Plan of Care Note [code = 63962-7] Goal Plan of Care Note [code = 50617-8] Goal Plan of Care Note [code = 99265-7] Goal Plan of Care Note [code = 28904-9] Goal Plan of Care Note [code = 86728-7] Goal Plan of Care Note [code = 33881-6] Goal Plan of Care Note [code = 72714-5] Goal Plan of Care Note [code = 95153-8] Goal Plan of Care Note [code = 32092-1] Goal Plan of Care Note [code = 09840-3] Goal Plan of Care Note [code = 01443-4] Goal Plan of Care Note [code = 15401-7] Goal Plan of Care Note [code = 79110-2] Goal Plan of Care Note [code = 02384-2] Goal Plan of Care Note [code = 45580-8] Goal Plan of Care Note [code = 96873-6] Goal Plan of Care Note [code = 95284-3] Goal Plan of Care Note [code = 63049-8] Goal Plan of Care Note [code = 13072-8] Goal Plan of Care Note [code = 43281-7] Goal Plan of Care Note [code = 25264-7] Goal Plan of Care Note [code = 67160-6] Goal Plan of Care Note [code = 97670-8] Goal Plan of Care Note [code = 44559-6] Goal Plan of Care Note [code = 36956-8] Goal Plan of Care Note [code = 47280-7] Goal Plan of Care Note [code = 70317-0] Goal Plan of Care Note [code = 82852-3] Goal Plan of Care Note [code = 98474-5] Goal Plan of Care Note [code = 63521-1] Encounters Start End Encounter Admission Attending Care Care Encounter Source Date/Time Date/Time Type Type Clinicians Facility Department ID 2023-03-06 2023-03-06 Outpatient SFA SFA [id number] 023 Michael 11:40:12 11:40:12 0823 [facility] [place] 2023-02-27 2023-02-27 Outpatient SFA SFA 48397-9 023 Michael 15:10:33 15:10:33 0816 [facility] [place] 2023-02-14 2023-02-14 Outpatient SFA SFA 75721-6 023 Michael 14:02:03 14:02:03 0803 [facility] [place] 2023-01-30 2023-01-30 Outpatient SFA SFA [id number] 023 Michael 16:57:55 16:57:55 0719 [facility] 2022-12-18 2022-12-18 Outpatient Shaun PROCTOR [facility] [id number] Univers 09:45:00 10:35:21 JACOBY goff [facility] 2022-11-29 2022-11-29 Outpatient SFA SFA 27583-7 023 Michael 08:15:25 08:15:25 0518 [facility] 2022-11-14 2022-11-14 Outpatient SFA SFA [id number] 023 Michael 08:59:40 08:59:40 0503 [facility] [place] 2022-11-14 2022-11-14 Orders Doctor ERICKSON Torres2.840.114 [id number] [facility] 00:00:00 00:00:00 Only Unassigned, MARISA 350.1.13.10 ity of [facility] 4.2.7.2.686 Luke as [phone] [address] 2022-11-06 2022-11-06 Outpatient [facility] 69668-1 023 Michael 07:55:08 07:55:08 0425 [facility] 2022-08-21 2022-08-21 Outpatient R HITESH, [facility] [id number] Univers 14:30:00 14:52:15 [facility] ity [facility] 2022-08-21 2022-08-21 Orders Doctor ERICKSON Torres2.840.114 [id number] Univers 00:00:00 00:00:00 Only Unassigned, MARISA 350.1.13.10 ity of [facility] 4.2.7.2.686 Luke as [id number] [address] 2022-08-14 2022-08-14 Outpatient [facility] [id number] 023 Michael 10:57:44 10:57:44 0131 [facility] 2022-08-13 2022-08-13 Outpatient [facility] 59914-1 023 Michael 08:19:53 08:19:53 0130 [facility] 2022-08-13 2022-08-13 Orders Doctor ERICKSON Torres2.840.114 [id number] Univers 00:00:00 00:00:00 Only Unassigned, MARISA 350.1.13.10 ity of [facility] 4.2.7.2.686 Ulke as [phone] [address] 2022-07-25 2022-07-25 Outpatient [facility] 48834-3 023 Michael 11:29:18 11:29:18 0111 [facility] 2022-07-25 2022-07-25 Outpatient [id number] 108414-u 00:00:00 00:00:00 Visit kv25-2279 b93-9074-5 -3jy7-603 cb1-813e38 e97wmy1uk fad6cb 2022-07-12 2022-07-12 Outpatient SFA SFA 90224-6 022 Michael 09:17:40 09:17:40 1229 [facility] 2022-07-11 2022-07-11 Outpatient SFA SFA 24744-7 022 Michael 15:06:29 15:06:29 1228 [facility] 2022-07-11 2022-07-11 Outpatient [id number]- [id number] 32 s09049-0 00:00:00 00:00:00 Visit 02ba-48ee 2ba-48ee-8 -2b94-948 a00-004e79 l91052z49 038c20 2022-07-04 2022-07-04 Outpatient SFA SFA 53116-6 Michael 16:32:07 16:32:07 1221 F [facility] 2022-07-04 2022-07-04 Outpatient ji14q5vv- [id number] bb 26a0lz-2 00:00:00 00:00:00 Visit 5g15-2l2x t12-2s2c-r -q851-17r 058-33d492 5019p1929 5g4263 2022-05-29 2022-05-29 Outpatient SFA SFA 72394-6 022 Michael 13:28:40 13:28:40 1115 [facility] 2022-05-28 2022-05-28 Outpatient SFA SFA 11314-0 022 Michael 09:58:20 09:58:20 1114 [facility] 2022-05-28 2022-05-28 Outpatient tz2qu8u4- [id number] be 3gg1r5-h 00:00:00 00:00:00 Visit f253-10il 149-47ce-a -c9gl-s95 4fb-d61d1d o9k4ofu89 1bcf00 2022-05-01 2022-05-01 Outpatient SFA SFA 25915-7 022 Michael 09:53:35 09:53:35 1018 [facility] 2022-05-01 2022-05-01 Outpatient 0ndg675a- [id number] 5c uy429r-0 00:00:00 00:00:00 Visit 149a-46e3 49a-46e3-b -bff7-cf0 ff7-cf0ec9 lo2p7e38u e0f48a 2022-04-24 2022-04-[address] [facility] 66529-2 Michael 11:30:37 11:30:37 1011 F [facility] 2022-04-24 2022-04-24 Outpatient [id number]- [id number] 37 999h03-0 00:00:00 00:00:00 Visit 5fs3-25bd ba3-43ee-9 -9153-1c3 153-1c3f9b c1v90qlm7 83dbb2 2022-04-20 2022-04-20 Outpatient wi93pe6a- [id number] fe 61sj0h-4 00:00:00 00:00:00 Visit 765d-4865 65d-4865-b -dd84-8wy r16-2yezfu wcrm4m0nt b3a2cb 2022-04-16 2022-04-[address] [facility] 87635-6 Michael 13:52:28 13:52:28 1003 F [place] 2022-04-16 2022-04-16 Outpatient 5nlo9o2d- [id number] 2e dd3o3h-2 00:00:00 00:00:00 Visit 7eg8-354v ff6-431b-a -ux0q-b0q z4s-y3vw7i h2kt4z4ks d4f7df 2022-03-13 2022-03-13 Outpatient v81f5g4z- [id number] a4 1p2x4w-4 00:00:00 00:00:00 Visit 680a-47a9 80a-47a9-9 -75e6-xj8 0n0-qu28qh 9ih7286go 4395cc 2022-02-26 2022-02-26 Outpatient p610222j- [id number] f9 78032b-c 00:00:00 00:00:00 Visit a6n5-82k1 7a4-27i8-r -r803-949 940-84022h 56ox1j2et b2b8ef 2022-02-21 2022-02-21 Outpatient 6b001xez- [id number] 6a 194eff-c 00:00:00 00:00:00 Visit r4a0-3366 8z5-0636-q -i993-15t 826-03ef80 v01d8332n s8646y 2022-02-06 2022-02-06 Outpatient 3l889g1f- [id number] 4d 815m0v-1 00:00:00 00:00:00 Visit 254a-4e1b 54a-4e1b-9 -0t4u-b5l l0t-g2o65e 36pfg1496 xr4573 2020-11-18 2020-11-18 Outpatient Shaun SOUZA [facility] [id number] [id number] Univers 12:30:00 12:30:00 [facility] 2020-10-25 2020-10-25 [facility]patient [facility] [id number] Univers 12:30:00 12:30:00 [facility] 2020-08-27 2020-08-27 Emergency [facility] 1.2.840.114 [id number] [facility] 12:53:00 15:08:00 Elis Garsia 350.1.13.10 [facility] 4.2.7.2.686 [facility] [id number] [address] 2020-08-27 2020-08-27 Emergency X [facility] ERT [id number] Univers 12:53:00 12:53:00 ELSI [facility] 2019-09-10 2019-09-10 Outpatient Jaydon-Mbayo VFP VFP 791 1202 [facility] 04:50:00 04:50:00 _A_AH 74272 [facility] 2019-09-10 2019-09-10 Outpatient Jaydon-Mbayo VFP VFP 791 [id number] [facility] 04:50:00 04:50:00 _A_AH 03183 Family Practic e 2019-09-10 2019-09-10 Outpatient Jaydon-Mbayo VFP VFP 791 [id number] [facility] 04:50:00 04:50:00 _A_AH 69190 Family Practic e 2019-09-10 2019-09-10 Outpatient Jaydon-Mbayo VFP VFP [address] [place] [address] 04:50:00 04:50:00 _A_AH 91799 Family Practic e 2019-09-10 2019-09-10 Outpatient Jaydon-Navdeepo VFP [address] 04:50:00 04:50:00 _A_AH 02669 Family Practic e 2019-09-10 2019-09-10 Outpatient Jaydon-Mbhimanshuo [facility]FP [address] 04:50:00 04:50:00 _A_AH 82830 Family Practic e 2019-09-10 2019-09-10 Outpatient Jaydon-Mbhimanshuo VFP [address] 04:50:00 04:50:00 _A_AH 04748 Family Practic e Results Test Description Test Time Test Comments Results Result Comments Source PSA W/REFLEX TO FREE PSA 2022-11-10 23:13:02 Test Item Value Reference Range Interpretation Comme nts PROSTATE SPECIFIC AG 6.37 NG/ML See_Comment H NOTE: Methodology is Garett Farooq (test code = 2607) Electroch emiluminescence Immunoassay traceable to O reference standard 96/760. [Automa viki message] The system which generated this result transmitted ref erence range: <=4.00. The reference r hernando was not used to interpret this result as normal/abnormal . REFLEXED FREE [id number] 23:13:02 Test Item Value Reference Range Interpretation Comments FREE PSA 0.56 NG/ML (test code = 496367) % FREE PSA 9 % SEE BELOW L Methodology is XGraph Farooq (test code = Electrochemilum inescence 533779) Immunoassay wit h World Health Organization (W HO) calibration. INTERPRET BEN INFORMATION INTERPRET BEN TABLE: Probability of prostatic carcinoma based on percent of free PSA in men with total PSA OF 4.00-10.00 n g/mL and negative digita l rectal examination: Pa tient Age Free PSA 50-59 year s 60-69 years >=70 years (%) (%) (%) (%) <=10 49 58 65 11-18 27 34 41 19-25 18 24 30 >=26 9 12 16 INTERPRETIVE TA BLE: Sensitivity and specificity for prostate carcinoma, men of all age groups, no prio r stratification by total PSA: F ree PSA cutoff Sensitivity Spe cificity (Less than %) (%) (%) 23 86 30 25 93 20 27 96 14 (R ef: Alexander WJ et al. PJ; 27 7: 3698-0294. Christal YT et al. Urology; 47:518-524. Mallika hodge RP et al. Urology; 48:45- 50.) [facility] has important patho logy staff changes effecti ve 09/12/2022. New patholo gy staff will provide uninter rupted, excellent patie nt care and clinical consul tation. See URL: [email or web address]. UNLESS OTHERWI SE INDICATED, ALL TESTING PER FORMED AT CLINICAL PATHOL [facility], [facility]. [address] [place] [address] 4 OSTEOLOGY TEACHER: HENRY BRADFORD M.D. [facility] ER [id number] [id number] NOTE:2022-11-08 06:01:26 Test Item Value Reference Range Interpretation Comments NOTE: (test code = (NOTE) IN ACCOR DANCE WITH FEDERAL 998) GUIDELINES REQU IRING ALL VERBAL REQUESTS FOR LABORATORY TEST S TO BE ACCOMPANIED BY WRITTEN AUTHORIZATION W ITHIN 30 DAYS OF THIS REQUEST , PLEASE SIGN BELOW AND RETUR N A COPY OF THIS REPORT BY FAX TO THE LABORATORY [facility] [place] DEPARTMENT AT . PHYSICIAN'S SIG NATURE DATE COMPREHENSIVE METABOLIC [id number] 07:01:52 Test Item Value Reference Range Interpretation Comments GLUCOSE (test code = 95 MG/DL 70-99 2216) BUN (test code = 12 MG/DL 8-23 2207) CREATININE (test 0.72 MG/DL 0.80-1.40 L code = 2214) eGFR (2020 CKD-EPI) 94 ML/MIN/1.73 >60 (test code = 50776) CALC BUN/CREAT (test 17 RATIO 6-28 code = 2235) SODIUM (test code = 145 MEQ/L 378-396 5792) POTASSIUM (test code 4.4 MEQ/L 3.5-5.4 = 2228) CHLORIDE (test code 106 MEQ/L 95-107 = 2215) CARBON DIOXIDE (test 25 MEQ/L 19-31 code = 2206) CALCIUM (test code = 9.4 MG/DL 8.5-10.5 2208) PROTEIN, TOTAL (test 7.0 G/DL 6.1-8.3 code = 2229) ALBUMIN (test code = 4.5 G/DL 3.5-5.2 2200) CALC GLOBULIN (test 2.5 G/DL 1.9-3.7 code = 2240) CALC A/G RATIO (test 1.8 RATIO 1.0-2.6 code = 2234) BILIRUBIN, TOTAL 0.3 MG/DL See_Comment [Automated message] (test code = 220) The syste m which generated this result transmit viki reference range : <=1.2. The refe rence range was not u sed to interpret th is result as normal/abnormal . ALKALINE PHOSPHATASE 118 U/L 40-125 (test code = 2203) AST (test code = 29 U/L -50 2217) ALT (test code = 26 U/L 5-50 2218) LIPID [id number] 07:01:52 Test Item Value Reference Range Interpretation Comments CHOLESTEROL (test 183 MG/DL <200 code = 2210) TRIGLYCERIDES (test 123 MG/DL <150 code = 2232) HDL CHOLESTEROL (test 51 MG/DL >39 code = 2220) CALC LDL CHOL (test 109 MG/DL <100 H NOTE: C ALCULATED LDL code = 2237) IS BASED ON KOKO-MARTINEZ METHOD WHICHINCLUDES ADJUSTABLE TRIGLYCERIDE:VL DL CHOLESTEROL RAT IO.THIS FACTOR VARIES B Y MEASURED TRIGLY CERIDE AND NON-HDLCHOL ESTEROL CONCENTRATIONS WITH INCREASED CALCU LATED LDL SEENIN HIGH ER TRIGLYCERIDE OR LOWER NON-HDL SPECIME NS. FOR MOREINFORMATION , SEE CLIENT ANNOUNCE MENT AT [email or web address] LDL/HDL 2.14 RATIO <3.55 (test code = 2238) PSA, [id number] 06:36:56 Test Item Value Reference Range Interpretation Comments PSA, TOTAL 6.17 NG/ML See_Comment H NOTE: Methodol ogy is Garett (test code = Farooq Electroch emiluminescence 4915) Immunoassay tra ceable to WHO reference stand cici 96/760. [facility] has importa nt pathology staff changes e ffective 09/12/2022. New pathology staff will prov morro uninterrupted, excellent patient care an d clinical consultation. S ee URL: [email or web address]. UNLESS OTHERWIS E INDICATED, ALL TESTING PERFORM ED AT [facility]. [address] [place] [address] LABOR[address] DIRE CTOR: Jalen SAMUELS GABINO NUMBER [id number] [place]. [id number] [A utomated message] The sy stem which generated this result transmitted ref erence range: <=4.00. The ref erence range was not used to int erpret this result as kiki l/abnormal. HEMOGLOBIN [id number] 06:26:42 Test Item Value Reference Range Interpretation Comments HEMOGLOBIN A1c (test 6.4 % 4.2-5.6 H AMERIC AN DIABETES code = 49774) ASSOCIATION IDELINES FOR HGB A1C: PREDIABETES/INC REASED RISK . . . . . . . 5.7 -6.4% DIAGNOSIS OF DI ABETES . . . . . . . . . >=6 .5% WITH CONFIRMATION OR APPROPRIATE SYMPTOMS NOTE: ASSAY MAY BE AFFECTED BY HEMOGLOBINOPATH IES (SICKLE CELL ANEMIA, S- C DISEASE, OTHERS) OR ROLF FICIALLY LOWERED BY DECR EASED RED CELL SURVIVAL ( HEMOLYTIC ANEMIAS, BLOOD LOSS, ETC.). CONSIDER ALTERN ATE TESTING OR LABORATORY C ONSULTATION. CBC W/AUTO DIFF WITH [id number] 05:21:28 Test Item Value Reference Range Interpretation Comments WBC (test code = 11.1 K/UL 3.5-11.0 H 1001) RBC (test code = 4.72 M/UL 4.50-6.10 1002) HEMOGLOBIN (test code 13.8 G/DL 13.5-17.0 = 1003) HEMATOCRIT (test code 42.6 % 40.0-51.0 = 1004) MCV (test code = 90.3 fL 80.0-99.0 1005) MCH (test code = 29.2 PG 25.0-33.0 1006) MCHC (test code = 32.4 G/DL 31.0-36.0 1007) RDW (test code = 15.7 % 11.5-15.0 H 1038) NEUTROPHILS (test 63.4 % code = 1008) LYMPHOCYTES (test 22.4 % code = 1010) MONOCYTES (test code 11.1 % = 1011) EOSINOPHILS (test 2.3 % code = 1012) BASOPHILS (test code 0.5 % = 1013) IMMATURE GRANULOCYTES 0.3 % (test code = 1036) NUCLEATED RBCS (test 0.0 /100 WBC'S See_Comment [Aut omated code = 1065) message] The sy stem which generated this result transmitted reference range : 0.0. The refere nce range was not u sed to interpret th is result as normal/abnormal . PLATELET COUNT (test 318 K/UL 130-400 code = 1015) ABSOLUTE NEUTROPHILS 7.05 K/UL 1.50-7.50 (test code = 1066) ABSOLUTE LYMPHOCYTES 2.49 K/UL 1.00-4.00 (test code = 1067) ABSOLUTE MONOCYTES 1.23 K/UL 0.20-1.00 H (test code = 1068) ABSOLUTE EOSINOPHILS 0.25 K/UL 0.00-0.50 (test code = 1040) ABSOLUTE BASOPHILS 0.06 K/UL 0.00-0.20 (test code = 1069) ABS IMMATURE 0.03 K/UL 0.00-0.10 GRANULOCYTES (test code = 1020) ABS NUCLEATED RBCS 0.00 K/UL 0.00-0.11 (test code = 36405) CULTURE, [id number] 12:21:24SPECIMEN NUMBER: [id number] CULTURE, URINE SPECIMEN NUMBER: [id number] SPECIMEN COMMENT: URINE SOURCE: URINE REPORT STATUS: FINAL FINAL REPORT: 07/14/2022 NO GROWTH AFTER 36 HOURS INCUBATION UNLESS OTHER BRITO INDICATED, ALL TESTING [facility] [address] [place] [id number] OSTEOLOGY TEACHER: Jalen SMITHIA NUMBER [id number] [place]. [id number], [id number] 00:00:00 Test Item Value Reference Range Interpretation Comments CULTURE, URINE (test SPECIMEN NUMBER: code = 65014) [id number] CULTURE, [id number] 00:00:00 Test Item Value Reference Range Interpretation Comments CULTURE, URINE (test SPECIMEN NUMBER: code = 87113) [id number] HEMOGLOBIN [id number] 00:00:00 Test Item Value Reference Range Interpretation Comments HEMOGLOBIN A1c (test code = 39420) 6.5 % HEMOGLOBIN [id number] 00:00:00 Test Item Value Reference Range Interpretation Comments HEMOGLOBIN A1c (test code = 61117) 6.5 % HEMOGLOBIN [id number] 00:00:00 Test Item Value Reference Range Interpretation Comments HEMOGLOBIN A1c (test code = 10018) 6.5 % LIPID [id number] 00:00:00 Test Item Value Reference Range Interpretation Comments CHOLESTEROL (test code = 2210) 173 MG/DL TRIGLYCERIDES (test code = 2232) 104 MG/DL HDL CHOLESTEROL (test code = 2220) 53 MG/DL CALC LDL CHOL (test code = 2237) 100 MG/DL RISK RATIO LDL/HDL (test code = 1.89 RATIO 2238) LIPID [id number] 00:00:00 Test Item Value Reference Range Interpretation Comments CHOLESTEROL (test code = 2210) 173 MG/DL TRIGLYCERIDES (test code = 2232) 104 MG/DL HDL CHOLESTEROL (test code = 2220) 53 MG/DL CALC LDL CHOL (test code = 2237) 100 MG/DL RISK RATIO LDL/HDL (test code = 1.89 RATIO 2238) COMPREHENSIVE METABOLIC [id number] 00:00:00 Test Item Value Reference Range Interpretation Comments GLUCOSE (test code = 2217) 123 MG/DL BUN (test code = 2208) 16 MG/DL CREATININE (test code = 2214) 0.73 MG/DL eGFR (2020 CKD-EPI) (test code 94 ML/MIN/1.73 = 66045) CALC BUN/CREAT (test code = 22 RATIO 2235) SODIUM (test code = 2231) 140 MEQ/L POTASSIUM (test code = 2228) 4.2 MEQ/L CHLORIDE (test code = 2215) 106 MEQ/L CARBON DIOXIDE (test code = 24 MEQ/L 2205) CALCIUM (test code = 2209) 9.2 MG/DL PROTEIN, TOTAL (test code = 6.9 G/DL 2228) ALBUMIN (test code = 2201) 4.4 G/DL CALC GLOBULIN (test code = 2.5 G/DL 2240) CALC A/G RATIO (test code = 1.8 RATIO 2234) BILIRUBIN, TOTAL (test code = 0.5 MG/DL 2206) ALKALINE PHOSPHATASE (test 99 U/L code = 2204) AST (test code = 2218) 17 U/L ALT (test code = 2219) 10 U/L COMPREHENSIVE METABOLIC [id number] 00:00:00 Test Item Value Reference Range Interpretation Comments GLUCOSE (test code = 2217) 123 MG/DL BUN (test code = 2208) 16 MG/DL CREATININE (test code = 2214) 0.73 MG/DL eGFR (2020 CKD-EPI) (test code 94 ML/MIN/1.73 = 25004) CALC BUN/CREAT (test code = 22 RATIO 2235) SODIUM (test code = 2231) 140 MEQ/L POTASSIUM (test code = 2228) 4.2 MEQ/L CHLORIDE (test code = 2215) 106 MEQ/L CARBON DIOXIDE (test code = 24 MEQ/L 2205) CALCIUM (test code = 2209) 9.2 MG/DL PROTEIN, TOTAL (test code = 6.9 G/DL 2228) ALBUMIN (test code = 2201) 4.4 G/DL CALC GLOBULIN (test code = 2.5 G/DL 2240) CALC A/G RATIO (test code = 1.8 RATIO 2234) BILIRUBIN, TOTAL (test code = 0.5 MG/DL 2206) ALKALINE PHOSPHATASE (test 99 U/L code = 2204) AST (test code = 2218) 17 U/L ALT (test code = 2219) 10 U/L HEMOGLOBIN [id number] 00:00:00 Test Item Value Reference Range Interpretation Comments HEMOGLOBIN A1c (test code = 46976) 6.5 % HEMOGLOBIN [id number] 00:00:00 Test Item Value Reference Range Interpretation Comments HEMOGLOBIN A1c (test code = 16849) 6.5 % HEMOGLOBIN [id number] 00:00:00 Test Item Value Reference Range Interpretation Comments HEMOGLOBIN A1c (test code = 93893) 6.5 % LIPID [id number] 00:00:00 Test Item Value Reference Range Interpretation Comments CHOLESTEROL (test code = 2210) 173 MG/DL TRIGLYCERIDES (test code = 2232) 104 MG/DL HDL CHOLESTEROL (test code = 2220) 53 MG/DL CALC LDL CHOL (test code = 2237) 100 MG/DL RISK RATIO LDL/HDL (test code = 1.89 RATIO 2238) LIPID [id number] 00:00:00 Test Item Value Reference Range Interpretation Comments CHOLESTEROL (test code = 2210) 173 MG/DL TRIGLYCERIDES (test code = 2232) 104 MG/DL HDL CHOLESTEROL (test code = 2220) 53 MG/DL CALC LDL CHOL (test code = 2237) 100 MG/DL RISK RATIO LDL/HDL (test code = 1.89 RATIO 2238) COMPREHENSIVE METABOLIC [id number] 00:00:00 Test Item Value Reference Range Interpretation Comments GLUCOSE (test code = 2217) 123 MG/DL BUN (test code = 2208) 16 MG/DL CREATININE (test code = 2214) 0.73 MG/DL eGFR (2020 CKD-EPI) (test code 94 ML/MIN/1.73 = 43560) CALC BUN/CREAT (test code = 22 RATIO 2235) SODIUM (test code = 2231) 140 MEQ/L POTASSIUM (test code = 2228) 4.2 MEQ/L CHLORIDE (test code = 2215) 106 MEQ/L CARBON DIOXIDE (test code = 24 MEQ/L 2205) CALCIUM (test code = 2209) 9.2 MG/DL PROTEIN, TOTAL (test code = 6.9 G/DL 2228) ALBUMIN (test code = 2201) 4.4 G/DL CALC GLOBULIN (test code = 2.5 G/DL 2240) CALC A/G RATIO (test code = 1.8 RATIO 2234) BILIRUBIN, TOTAL (test code = 0.5 MG/DL 2206) ALKALINE PHOSPHATASE (test 99 U/L code = 2204) AST (test code = 2218) 17 U/L ALT (test code = 2219) 10 U/L COMPREHENSIVE METABOLIC [id number] 00:00:00 Test Item Value Reference Range Interpretation Comments GLUCOSE (test code = 2217) 123 MG/DL BUN (test code = 2208) 16 MG/DL CREATININE (test code = 2214) 0.73 MG/DL eGFR (2020 CKD-EPI) (test code 94 ML/MIN/1.73 = 28469) CALC BUN/CREAT (test code = 22 RATIO 2235) SODIUM (test code = 2231) 140 MEQ/L POTASSIUM (test code = 2228) 4.2 MEQ/L CHLORIDE (test code = 2215) 106 MEQ/L CARBON DIOXIDE (test code = 24 MEQ/L 2205) CALCIUM (test code = 2209) 9.2 MG/DL PROTEIN, TOTAL (test code = 6.9 G/DL 2228) ALBUMIN (test code = 2201) 4.4 G/DL CALC GLOBULIN (test code = 2.5 G/DL 2239) CALC A/G RATIO (test code = 1.8 RATIO 2233) BILIRUBIN, TOTAL (test code = 0.5 MG/DL 2206) ALKALINE PHOSPHATASE (test 99 U/L code = 2204) AST (test code = 2218) 17 U/L ALT (test code = 2219) 10 U/L HEMOGLOBIN [id number] 00:00:00 Test Item Value Reference Range Interpretation Comments HEMOGLOBIN A1c (test code = 33042) 6.5 % HEMOGLOBIN [id number] 00:00:00 Test Item Value Reference Range Interpretation Comments HEMOGLOBIN A1c (test code = 18802) 6.5 % HEMOGLOBIN [id number] 00:00:00 Test Item Value Reference Range Interpretation Comments HEMOGLOBIN A1c (test code = 00533) 6.5 % LIPID [id number] 00:00:00 Test Item Value Reference Range Interpretation Comments CHOLESTEROL (test code = 2210) 173 MG/DL TRIGLYCERIDES (test code = 2232) 104 MG/DL HDL CHOLESTEROL (test code = 2220) 53 MG/DL CALC LDL CHOL (test code = 2237) 100 MG/DL RISK RATIO LDL/HDL (test code = 1.89 RATIO 2238) LIPID [id number] 00:00:00 Test Item Value Reference Range Interpretation Comments CHOLESTEROL (test code = 2210) 173 MG/DL TRIGLYCERIDES (test code = 2232) 104 MG/DL HDL CHOLESTEROL (test code = 2220) 53 MG/DL CALC LDL CHOL (test code = 2237) 100 MG/DL RISK RATIO LDL/HDL (test code = 1.89 RATIO 2238) COMPREHENSIVE METABOLIC [id number] 00:00:00 Test Item Value Reference Range Interpretation Comments GLUCOSE (test code = 2217) 123 MG/DL BUN (test code = 2208) 16 MG/DL CREATININE (test code = 2214) 0.73 MG/DL eGFR (2020 CKD-EPI) (test code 94 ML/MIN/1.73 = 78958) CALC BUN/CREAT (test code = 22 RATIO 2235) SODIUM (test code = 2231) 140 MEQ/L POTASSIUM (test code = 2228) 4.2 MEQ/L CHLORIDE (test code = 2215) 106 MEQ/L CARBON DIOXIDE (test code = 24 MEQ/L 2206) CALCIUM (test code = 2209) 9.2 MG/DL PROTEIN, TOTAL (test code = 6.9 G/DL 2228) ALBUMIN (test code = 2201) 4.4 G/DL CALC GLOBULIN (test code = 2.5 G/DL 2240) CALC A/G RATIO (test code = 1.8 RATIO 2234) BILIRUBIN, TOTAL (test code = 0.5 MG/DL 2206) ALKALINE PHOSPHATASE (test 99 U/L code = 2204) AST (test code = 2218) 17 U/L ALT (test code = 2219) 10 U/L COMPREHENSIVE METABOLIC [id number] 00:00:00 Test Item Value Reference Range Interpretation Comments GLUCOSE (test code = 2217) 123 MG/DL BUN (test code = 2208) 16 MG/DL CREATININE (test code = 2214) 0.73 MG/DL eGFR (2020 CKD-EPI) (test code 94 ML/MIN/1.73 = 34834) CALC BUN/CREAT (test code = 22 RATIO 2235) SODIUM (test code = 2231) 140 MEQ/L POTASSIUM (test code = 2228) 4.2 MEQ/L CHLORIDE (test code = 2215) 106 MEQ/L CARBON DIOXIDE (test code = 24 MEQ/L 2205) CALCIUM (test code = 2209) 9.2 MG/DL PROTEIN, TOTAL (test code = 6.9 G/DL 2228) ALBUMIN (test code = 2201) 4.4 G/DL CALC GLOBULIN (test code = 2.5 G/DL 2240) CALC A/G RATIO (test code = 1.8 RATIO 2234) BILIRUBIN, TOTAL (test code = 0.5 MG/DL 2206) ALKALINE PHOSPHATASE (test 99 U/L code = 2204) AST (test code = 2218) 17 U/L ALT (test code = 2219) 10 U/L COMPREHENSIVE METABOLIC [id number] 06:51:26 Test Item Value Reference Range Interpretation Comments GLUCOSE (test code = 125 MG/DL 70-99 H 2216) BUN (test code = 16 MG/DL 8-23 2207) CREATININE (test 0.88 MG/DL 0.80-1.40 code = 221) eGFR (2020 CKD-EPI) 89 ML/MIN/1.73 >60 (test code = 84611) CALC BUN/CREAT (test 18 RATIO 6-28 code = 2235) SODIUM (test code = 143 MEQ/L 051-465 4166) POTASSIUM (test code 4.5 MEQ/L 3.5-5.4 = 2227) CHLORIDE (test code 108 MEQ/L 95-107 H = 2214) CARBON DIOXIDE (test 23 MEQ/L 19-31 code = 220) CALCIUM (test code = 9.4 MG/DL 8.5-10.5 2208) PROTEIN, TOTAL (test 6.6 G/DL 6.1-8.3 code = 2228) ALBUMIN (test code = 4.1 G/DL 3.5-5.2 2200) CALC GLOBULIN (test 2.5 G/DL 1.9-3.7 code = 224) CALC A/G RATIO (test 1.6 RATIO 1.0-2.6 code = 223) BILIRUBIN, TOTAL 0.3 MG/DL See_Comment [Automated message] (test code = 2207) The syste m which generated this result transmit viki reference range : <=1.2. The refe rence range was not u sed to interpret th is result as normal/abnormal . ALKALINE PHOSPHATASE 104 U/L 40-125 (test code = 2204) AST (test code = 17 U/L 9-50 2217) ALT (test code = 14 U/L 5-50 2218) LIPID [id number] 06:51:26 Test Item Value Reference Range Interpretation Comments CHOLESTEROL (test 213 MG/DL <200 H code = 2210) TRIGLYCERIDES (test 99 MG/DL <150 code = 2232) HDL CHOLESTEROL (test 49 MG/DL >39 code = 2220) CALC LDL CHOL (test 143 MG/DL <100 H NOTE: C ALCULATED LDL code = 2237) IS BASED ON KOKO-MARTINEZ METHOD WHICHINCLUDES ADJUSTABLE TRIGLYCERIDE:VL DL CHOLESTEROL RAT IO.THIS FACTOR VARIES B Y MEASURED TRIGLY CERIDE AND NON-HDLCHOL ESTEROL CONCENTRATIONS WITH INCREASED CALCU LATED LDL SEENIN HIGH ER TRIGLYCERIDE OR LOWER NON-HDL SPECIME NS. FOR MOREINFORMATION , SEE CLIENT ANNOUNCE MENT AT [email or web address] RISK RATIO LDL/HDL 2.92 RATIO <3.55 (test code = 2238) HEMOGLOBIN [id number] 06:29:07 Test Item Value Reference Range Interpretation Comments HEMOGLOBIN A1c (test 6.5 % 4.2-5.6 H [employer] AN DIABETES code = 79436) ASSOCIATION IDELINES FOR HGB A1C: PREDIABETES/INC REASED RISK . . . . . . . 5.7 -6.4% DIAGNOSIS OF DI ABETES . . . . . . . . . >=6 .5% WITH CONFIRMATION OR APPROPRIATE SYMPTOMS NOTE: ASSAY MAY BE AFFECTED BY HEMOGLOBINOPATH IES (SICKLE CELL ANEMIA, S- C DISEASE, OTHERS) OR ROLF FICIALLY LOWERED BY DECR EASED RED CELL SURVIVAL ( HEMOLYTIC ANEMIAS, BLOOD LOSS, ETC.). CONSIDER ALTERN ATE TESTING OR LABORATORY C ONSULTATION. UNLESS OTHERWIS E INDICATED, ALL TESTING PER FORMED [facility], [place] [address] LABORATORY DIRE CTOR: YIFAN DAMON M.D. CLIA NUMBER [id number] [place]. [id number] COMPREHENSIVE METABOLIC [id number] 00:00:00 Test Item Value Reference Range Interpretation Comments GLUCOSE (test code = 2217) 125 MG/DL BUN (test code = 2208) 16 MG/DL CREATININE (test code = 2214) 0.88 MG/DL eGFR (2020 CKD-EPI) (test code 89 ML/MIN/1.73 = 19067) CALC BUN/CREAT (test code = 18 RATIO 2234) SODIUM (test code = 2231) 143 MEQ/L POTASSIUM (test code = 2228) 4.5 MEQ/L CHLORIDE (test code = 2215) 108 MEQ/L CARBON DIOXIDE (test code = 23 MEQ/L 2205) CALCIUM (test code = 2209) 9.4 MG/DL PROTEIN, TOTAL (test code = 6.6 G/DL 2228) ALBUMIN (test code = 2201) 4.1 G/DL CALC GLOBULIN (test code = 2.5 G/DL 2240) CALC A/G RATIO (test code = 1.6 RATIO 2234) BILIRUBIN, TOTAL (test code = 0.3 MG/DL 2206) ALKALINE PHOSPHATASE (test 104 U/L code = 2204) AST (test code = 2218) 17 U/L ALT (test code = 2219) 14 U/L COMPREHENSIVE METABOLIC [id number] 00:00:00 Test Item Value Reference Range Interpretation Comments GLUCOSE (test code = 2217) 125 MG/DL BUN (test code = 2208) 16 MG/DL CREATININE (test code = 2214) 0.88 MG/DL eGFR (2020 CKD-EPI) (test code 89 ML/MIN/1.73 = 45304) CALC BUN/CREAT (test code = 18 RATIO 2235) SODIUM (test code = 2231) 143 MEQ/L POTASSIUM (test code = 2228) 4.5 MEQ/L CHLORIDE (test code = 2215) 108 MEQ/L CARBON DIOXIDE (test code = 23 MEQ/L 2205) CALCIUM (test code = 2209) 9.4 MG/DL PROTEIN, TOTAL (test code = 6.6 G/DL 2228) ALBUMIN (test code = 2201) 4.1 G/DL CALC GLOBULIN (test code = 2.5 G/DL 2240) CALC A/G RATIO (test code = 1.6 RATIO 2234) BILIRUBIN, TOTAL (test code = 0.3 MG/DL 2206) ALKALINE PHOSPHATASE (test 104 U/L code = 2204) AST (test code = 2218) 17 U/L ALT (test code = 2219) 14 U/L LIPID [id number] 00:00:00 Test Item Value Reference Range Interpretation Comments CHOLESTEROL (test code = 2210) 213 MG/DL TRIGLYCERIDES (test code = 2232) 99 MG/DL HDL CHOLESTEROL (test code = 2220) 49 MG/DL CALC LDL CHOL (test code = 2237) 143 MG/DL RISK RATIO LDL/HDL (test code = 2.92 RATIO 2238) LIPID [id number] 00:00:00 Test Item Value Reference Range Interpretation Comments CHOLESTEROL (test code = 2210) 213 MG/DL TRIGLYCERIDES (test code = 2232) 99 MG/DL HDL CHOLESTEROL (test code = 2220) 49 MG/DL CALC LDL CHOL (test code = 2237) 143 MG/DL RISK RATIO LDL/HDL (test code = 2.92 RATIO 2238) HEMOGLOBIN [id number] 00:00:00 Test Item Value Reference Range Interpretation Comments HEMOGLOBIN A1c (test code = 79427) 6.5 % HEMOGLOBIN [id number] 00:00:00 Test Item Value Reference Range Interpretation Comments HEMOGLOBIN A1c (test code = 53286) 6.5 % HEMOGLOBIN [id number] 00:00:00 Test Item Value Reference Range Interpretation Comments HEMOGLOBIN A1c (test code = 90167) 6.5 % COMPREHENSIVE METABOLIC [id number] 00:00:00 Test Item Value Reference Range Interpretation Comments GLUCOSE (test code = 2217) 125 MG/DL BUN (test code = 2208) 16 MG/DL CREATININE (test code = 2214) 0.88 MG/DL eGFR (2020 CKD-EPI) (test code 89 ML/MIN/1.73 = 70509) CALC BUN/CREAT (test code = 18 RATIO 5) SODIUM (test code = 2231) 143 MEQ/L POTASSIUM (test code = 2228) 4.5 MEQ/L CHLORIDE (test code = 2215) 108 MEQ/L CARBON DIOXIDE (test code = 23 MEQ/L 2205) CALCIUM (test code = 2209) 9.4 MG/DL PROTEIN, TOTAL (test code = 6.6 G/DL 2228) ALBUMIN (test code = 2201) 4.1 G/DL CALC GLOBULIN (test code = 2.5 G/DL 0) CALC A/G RATIO (test code = 1.6 RATIO 4) BILIRUBIN, TOTAL (test code = 0.3 MG/DL 2206) ALKALINE PHOSPHATASE (test 104 U/L code = 2204) AST (test code = 2218) 17 U/L ALT (test code = 2219) 14 U/L COMPREHENSIVE METABOLIC [id number] 00:00:00 Test Item Value Reference Range Interpretation Comments GLUCOSE (test code = 2217) 125 MG/DL BUN (test code = 2208) 16 MG/DL CREATININE (test code = 2214) 0.88 MG/DL eGFR (2020 CKD-EPI) (test code 89 ML/MIN/1.73 = 41919) CALC BUN/CREAT (test code = 18 RATIO 2235) SODIUM (test code = 2231) 143 MEQ/L POTASSIUM (test code = 2228) 4.5 MEQ/L CHLORIDE (test code = 2215) 108 MEQ/L CARBON DIOXIDE (test code = 23 MEQ/L 2205) CALCIUM (test code = 2209) 9.4 MG/DL PROTEIN, TOTAL (test code = 6.6 G/DL 2228) ALBUMIN (test code = 2201) 4.1 G/DL CALC GLOBULIN (test code = 2.5 G/DL 224) CALC A/G RATIO (test code = 1.6 RATIO 2234) BILIRUBIN, TOTAL (test code = 0.3 MG/DL 2206) ALKALINE PHOSPHATASE (test 104 U/L code = 2204) AST (test code = 2218) 17 U/L ALT (test code = 2219) 14 U/L LIPID [id number] 00:00:00 Test Item Value Reference Range Interpretation Comments CHOLESTEROL (test code = 2210) 213 MG/DL TRIGLYCERIDES (test code = 2232) 99 MG/DL HDL CHOLESTEROL (test code = 2220) 49 MG/DL CALC LDL CHOL (test code = 2237) 143 MG/DL RISK RATIO LDL/HDL (test code = 2.92 RATIO 2238) LIPID [id number] 00:00:00 Test Item Value Reference Range Interpretation Comments CHOLESTEROL (test code = 2210) 213 MG/DL TRIGLYCERIDES (test code = 2232) 99 MG/DL HDL CHOLESTEROL (test code = 2220) 49 MG/DL CALC LDL CHOL (test code = 2237) 143 MG/DL RISK RATIO LDL/HDL (test code = 2.92 RATIO 2238) HEMOGLOBIN [id number] 00:00:00 Test Item Value Reference Range Interpretation Comments HEMOGLOBIN A1c (test code = 94334) 6.5 % HEMOGLOBIN [id number] 00:00:00 Test Item Value Reference Range Interpretation Comments HEMOGLOBIN A1c (test code = 68938) 6.5 % HEMOGLOBIN [id number] 00:00:00 Test Item Value Reference Range Interpretation Comments HEMOGLOBIN A1c (test code = 99643) 6.5 % COMPREHENSIVE METABOLIC [id number] 00:00:00 Test Item Value Reference Range Interpretation Comments GLUCOSE (test code = 2217) 125 MG/DL BUN (test code = 2208) 16 MG/DL CREATININE (test code = 2214) 0.88 MG/DL eGFR (2020 CKD-EPI) (test code 89 ML/MIN/1.73 = 81823) CALC BUN/CREAT (test code = 18 RATIO 2235) SODIUM (test code = 2231) 143 MEQ/L POTASSIUM (test code = 2228) 4.5 MEQ/L CHLORIDE (test code = 2215) 108 MEQ/L CARBON DIOXIDE (test code = 23 MEQ/L 2205) CALCIUM (test code = 2209) 9.4 MG/DL PROTEIN, TOTAL (test code = 6.6 G/DL 2228) ALBUMIN (test code = 2201) 4.1 G/DL CALC GLOBULIN (test code = 2.5 G/DL 2239) CALC A/G RATIO (test code = 1.6 RATIO 2234) BILIRUBIN, TOTAL (test code = 0.3 MG/DL 2206) ALKALINE PHOSPHATASE (test 104 U/L code = 220) AST (test code = 2218) 17 U/L ALT (test code = 2219) 14 U/L COMPREHENSIVE METABOLIC [id number] 00:00:00 Test Item Value Reference Range Interpretation Comments GLUCOSE (test code = 2217) 125 MG/DL BUN (test code = 2208) 16 MG/DL CREATININE (test code = 2214) 0.88 MG/DL eGFR (2020 CKD-EPI) (test code 89 ML/MIN/1.73 = 28268) CALC BUN/CREAT (test code = 18 RATIO 2235) SODIUM (test code = 2231) 143 MEQ/L POTASSIUM (test code = 2228) 4.5 MEQ/L CHLORIDE (test code = 2215) 108 MEQ/L CARBON DIOXIDE (test code = 23 MEQ/L 2205) CALCIUM (test code = 2209) 9.4 MG/DL PROTEIN, TOTAL (test code = 6.6 G/DL 2228) ALBUMIN (test code = 2201) 4.1 G/DL CALC GLOBULIN (test code = 2.5 G/DL 2240) CALC A/G RATIO (test code = 1.6 RATIO 2234) BILIRUBIN, TOTAL (test code = 0.3 MG/DL 2206) ALKALINE PHOSPHATASE (test 104 U/L code = 2204) AST (test code = 2218) 17 U/L ALT (test code = 2219) 14 U/L LIPID [id number] 00:00:00 Test Item Value Reference Range Interpretation Comments CHOLESTEROL (test code = 2210) 213 MG/DL TRIGLYCERIDES (test code = 2232) 99 MG/DL HDL CHOLESTEROL (test code = 2220) 49 MG/DL CALC LDL CHOL (test code = 2237) 143 MG/DL RISK RATIO LDL/HDL (test code = 2.92 RATIO 2238) LIPID [id number] 00:00:00 Test Item Value Reference Range Interpretation Comments CHOLESTEROL (test code = 2210) 213 MG/DL TRIGLYCERIDES (test code = 2232) 99 MG/DL HDL CHOLESTEROL (test code = 2220) 49 MG/DL CALC LDL CHOL (test code = 2237) 143 MG/DL RISK RATIO LDL/HDL (test code = 2.92 RATIO 2238) HEMOGLOBIN [id number] 00:00:00 Test Item Value Reference Range Interpretation Comments HEMOGLOBIN A1c (test code = 09234) 6.5 % HEMOGLOBIN [id number] 00:00:00 Test Item Value Reference Range Interpretation Comments HEMOGLOBIN A1c (test code = 34997) 6.5 % HEMOGLOBIN [id number] 00:00:00 Test Item Value Reference Range Interpretation Comments HEMOGLOBIN A1c (test code = 25615) 6.5 % COMPREHENSIVE METABOLIC [id number] 00:00:00 Test Item Value Reference Range Interpretation Comments GLUCOSE (test code = 2217) 125 MG/DL BUN (test code = 2208) 16 MG/DL CREATININE (test code = 2214) 0.88 MG/DL eGFR (2020 CKD-EPI) (test code 89 ML/MIN/1.73 = 16728) CALC BUN/CREAT (test code = 18 RATIO 2235) SODIUM (test code = 2231) 143 MEQ/L POTASSIUM (test code = 2228) 4.5 MEQ/L CHLORIDE (test code = 2215) 108 MEQ/L CARBON DIOXIDE (test code = 23 MEQ/L 2205) CALCIUM (test code = 2209) 9.4 MG/DL PROTEIN, TOTAL (test code = 6.6 G/DL 2228) ALBUMIN (test code = 220) 4.1 G/DL CALC GLOBULIN (test code = 2.5 G/DL 2239) CALC A/G RATIO (test code = 1.6 RATIO 2234) BILIRUBIN, TOTAL (test code = 0.3 MG/DL 2206) ALKALINE PHOSPHATASE (test 104 U/L code = 2204) AST (test code = 2218) 17 U/L ALT (test code = 2219) 14 U/L COMPREHENSIVE METABOLIC [id number] 00:00:00 Test Item Value Reference Range Interpretation Comments GLUCOSE (test code = 2217) 125 MG/DL BUN (test code = 2208) 16 MG/DL CREATININE (test code = 2214) 0.88 MG/DL eGFR (2020 CKD-EPI) (test code 89 ML/MIN/1.73 = 79652) CALC BUN/CREAT (test code = 18 RATIO 2235) SODIUM (test code = 2231) 143 MEQ/L POTASSIUM (test code = 2228) 4.5 MEQ/L CHLORIDE (test code = 2215) 108 MEQ/L CARBON DIOXIDE (test code = 23 MEQ/L 2205) CALCIUM (test code = 2209) 9.4 MG/DL PROTEIN, TOTAL (test code = 6.6 G/DL 2228) ALBUMIN (test code = 2201) 4.1 G/DL CALC GLOBULIN (test code = 2.5 G/DL 0) CALC A/G RATIO (test code = 1.6 RATIO 2234) BILIRUBIN, TOTAL (test code = 0.3 MG/DL 2206) ALKALINE PHOSPHATASE (test 104 U/L code = 2204) AST (test code = 2218) 17 U/L ALT (test code = 2219) 14 U/L LIPID [id number] 00:00:00 Test Item Value Reference Range Interpretation Comments CHOLESTEROL (test code = 2210) 213 MG/DL TRIGLYCERIDES (test code = 2232) 99 MG/DL HDL CHOLESTEROL (test code = 2220) 49 MG/DL CALC LDL CHOL (test code = 2237) 143 MG/DL RISK RATIO LDL/HDL (test code = 2.92 RATIO 2238) LIPID [id number] 00:00:00 Test Item Value Reference Range Interpretation Comments CHOLESTEROL (test code = 2210) 213 MG/DL TRIGLYCERIDES (test code = 2232) 99 MG/DL HDL CHOLESTEROL (test code = 2220) 49 MG/DL CALC LDL CHOL (test code = 2237) 143 MG/DL RISK RATIO LDL/HDL (test code = 2.92 RATIO 2238) HEMOGLOBIN [id number] 00:00:00 Test Item Value Reference Range Interpretation Comments HEMOGLOBIN A1c (test code = 44307) 6.5 % HEMOGLOBIN [id number] 00:00:00 Test Item Value Reference Range Interpretation Comments HEMOGLOBIN A1c (test code = 19299) 6.5 % HEMOGLOBIN [id number] 00:00:00 Test Item Value Reference Range Interpretation Comments HEMOGLOBIN A1c (test code = 52840) 6.5 % COMPREHENSIVE METABOLIC [id number] 00:00:00 Test Item Value Reference Range Interpretation Comments GLUCOSE (test code = 2217) 125 MG/DL BUN (test code = 2208) 16 MG/DL CREATININE (test code = 2214) 0.88 MG/DL eGFR (2020 CKD-EPI) (test code 89 ML/MIN/1.73 = 22660) CALC BUN/CREAT (test code = 18 RATIO 2235) SODIUM (test code = 2231) 143 MEQ/L POTASSIUM (test code = 2228) 4.5 MEQ/L CHLORIDE (test code = 2215) 108 MEQ/L CARBON DIOXIDE (test code = 23 MEQ/L 2205) CALCIUM (test code = 2209) 9.4 MG/DL PROTEIN, TOTAL (test code = 6.6 G/DL 2228) ALBUMIN (test code = 2201) 4.1 G/DL CALC GLOBULIN (test code = 2.5 G/DL 0) CALC A/G RATIO (test code = 1.6 RATIO 4) BILIRUBIN, TOTAL (test code = 0.3 MG/DL 2206) ALKALINE PHOSPHATASE (test 104 U/L code = 2204) AST (test code = 2218) 17 U/L ALT (test code = 2219) 14 U/L COMPREHENSIVE METABOLIC [id number] 00:00:00 Test Item Value Reference Range Interpretation Comments GLUCOSE (test code = 2217) 125 MG/DL BUN (test code = 2208) 16 MG/DL CREATININE (test code = 2214) 0.88 MG/DL eGFR (2020 CKD-EPI) (test code 89 ML/MIN/1.73 = 17935) CALC BUN/CREAT (test code = 18 RATIO 2235) SODIUM (test code = 2231) 143 MEQ/L POTASSIUM (test code = 2228) 4.5 MEQ/L CHLORIDE (test code = 2215) 108 MEQ/L CARBON DIOXIDE (test code = 23 MEQ/L 2205) CALCIUM (test code = 2209) 9.4 MG/DL PROTEIN, TOTAL (test code = 6.6 G/DL 2228) ALBUMIN (test code = 2201) 4.1 G/DL CALC GLOBULIN (test code = 2.5 G/DL 2239) CALC A/G RATIO (test code = 1.6 RATIO 2234) BILIRUBIN, TOTAL (test code = 0.3 MG/DL 2206) ALKALINE PHOSPHATASE (test 104 U/L code = 2204) AST (test code = 2218) 17 U/L ALT (test code = 2219) 14 U/L LIPID [id number] 00:00:00 Test Item Value Reference Range Interpretation Comments CHOLESTEROL (test code = 2210) 213 MG/DL TRIGLYCERIDES (test code = 2232) 99 MG/DL HDL CHOLESTEROL (test code = 2220) 49 MG/DL CALC LDL CHOL (test code = 2237) 143 MG/DL RISK RATIO LDL/HDL (test code = 2.92 RATIO 2238) LIPID [id number] 00:00:00 Test Item Value Reference Range Interpretation Comments CHOLESTEROL (test code = 2210) 213 MG/DL TRIGLYCERIDES (test code = 2232) 99 MG/DL HDL CHOLESTEROL (test code = 2220) 49 MG/DL CALC LDL CHOL (test code = 2237) 143 MG/DL RISK RATIO LDL/HDL (test code = 2.92 RATIO 2238) HEMOGLOBIN [id number] 00:00:00 Test Item Value Reference Range Interpretation Comments HEMOGLOBIN A1c (test code = 01983) 6.5 % HEMOGLOBIN [id number] 00:00:00 Test Item Value Reference Range Interpretation Comments HEMOGLOBIN A1c (test code = 27460) 6.5 % HEMOGLOBIN [id number] 00:00:00 Test Item Value Reference Range Interpretation Comments HEMOGLOBIN A1c (test code = 52093) 6.5 % COMPREHENSIVE METABOLIC [id number] 00:00:00 Test Item Value Reference Range Interpretation Comments GLUCOSE (test code = 2217) 125 MG/DL BUN (test code = 2208) 16 MG/DL CREATININE (test code = 2214) 0.88 MG/DL eGFR (2020 CKD-EPI) (test code 89 ML/MIN/1.73 = 42812) CALC BUN/CREAT (test code = 18 RATIO 2235) SODIUM (test code = 2231) 143 MEQ/L POTASSIUM (test code = 2228) 4.5 MEQ/L CHLORIDE (test code = 2215) 108 MEQ/L CARBON DIOXIDE (test code = 23 MEQ/L 2206) CALCIUM (test code = 2209) 9.4 MG/DL PROTEIN, TOTAL (test code = 6.6 G/DL 222) ALBUMIN (test code = 2201) 4.1 G/DL CALC GLOBULIN (test code = 2.5 G/DL 2240) CALC A/G RATIO (test code = 1.6 RATIO 2234) BILIRUBIN, TOTAL (test code = 0.3 MG/DL 2206) ALKALINE PHOSPHATASE (test 104 U/L code = 2204) AST (test code = 2218) 17 U/L ALT (test code = 2219) 14 U/L COMPREHENSIVE METABOLIC [id number] 00:00:00 Test Item Value Reference Range Interpretation Comments GLUCOSE (test code = 2217) 125 MG/DL BUN (test code = 2208) 16 MG/DL CREATININE (test code = 2214) 0.88 MG/DL eGFR (2020 CKD-EPI) (test code 89 ML/MIN/1.73 = 32412) CALC BUN/CREAT (test code = 18 RATIO 2235) SODIUM (test code = 2231) 143 MEQ/L POTASSIUM (test code = 2228) 4.5 MEQ/L CHLORIDE (test code = 2215) 108 MEQ/L CARBON DIOXIDE (test code = 23 MEQ/L 2206) CALCIUM (test code = 2209) 9.4 MG/DL PROTEIN, TOTAL (test code = 6.6 G/DL 2228) ALBUMIN (test code = 2201) 4.1 G/DL CALC GLOBULIN (test code = 2.5 G/DL 2240) CALC A/G RATIO (test code = 1.6 RATIO 2234) BILIRUBIN, TOTAL (test code = 0.3 MG/DL 2206) ALKALINE PHOSPHATASE (test 104 U/L code = 2204) AST (test code = 2218) 17 U/L ALT (test code = 2219) 14 U/L LIPID [id number] 00:00:00 Test Item Value Reference Range Interpretation Comments CHOLESTEROL (test code = 2210) 213 MG/DL TRIGLYCERIDES (test code = 2232) 99 MG/DL HDL CHOLESTEROL (test code = 2220) 49 MG/DL CALC LDL CHOL (test code = 2237) 143 MG/DL RISK RATIO LDL/HDL (test code = 2.92 RATIO 2238) LIPID [id number] 00:00:00 Test Item Value Reference Range Interpretation Comments CHOLESTEROL (test code = 2210) 213 MG/DL TRIGLYCERIDES (test code = 2232) 99 MG/DL HDL CHOLESTEROL (test code = 2220) 49 MG/DL CALC LDL CHOL (test code = 2237) 143 MG/DL RISK RATIO LDL/HDL (test code = 2.92 RATIO 2238) HEMOGLOBIN [id number] 00:00:00 Test Item Value Reference Range Interpretation Comments HEMOGLOBIN A1c (test code = 69429) 6.5 % HEMOGLOBIN [id number] 00:00:00 Test Item Value Reference Range Interpretation Comments HEMOGLOBIN A1c (test code = 20651) 6.5 % HEMOGLOBIN [id number] 00:00:00 Test Item Value Reference Range Interpretation Comments HEMOGLOBIN A1c (test code = 06988) 6.5 % COMPREHENSIVE METABOLIC [id number] 00:00:00 Test Item Value Reference Range Interpretation Comments GLUCOSE (test code = 2217) 125 MG/DL BUN (test code = 2208) 16 MG/DL CREATININE (test code = 2214) 0.88 MG/DL eGFR (2020 CKD-EPI) (test code 89 ML/MIN/1.73 = 95390) CALC BUN/CREAT (test code = 18 RATIO 5) SODIUM (test code = 2231) 143 MEQ/L POTASSIUM (test code = 2228) 4.5 MEQ/L CHLORIDE (test code = 2215) 108 MEQ/L CARBON DIOXIDE (test code = 23 MEQ/L 2205) CALCIUM (test code = 2209) 9.4 MG/DL PROTEIN, TOTAL (test code = 6.6 G/DL 2228) ALBUMIN (test code = 220) 4.1 G/DL CALC GLOBULIN (test code = 2.5 G/DL 2239) CALC A/G RATIO (test code = 1.6 RATIO 2233) BILIRUBIN, TOTAL (test code = 0.3 MG/DL 2206) ALKALINE PHOSPHATASE (test 104 U/L code = 2204) AST (test code = 2218) 17 U/L ALT (test code = 2219) 14 U/L COMPREHENSIVE METABOLIC [id number] 00:00:00 Test Item Value Reference Range Interpretation Comments GLUCOSE (test code = 2217) 125 MG/DL BUN (test code = 2208) 16 MG/DL CREATININE (test code = 2214) 0.88 MG/DL eGFR (2020 CKD-EPI) (test code 89 ML/MIN/1.73 = 26879) CALC BUN/CREAT (test code = 18 RATIO 2235) SODIUM (test code = 2231) 143 MEQ/L POTASSIUM (test code = 2228) 4.5 MEQ/L CHLORIDE (test code = 2215) 108 MEQ/L CARBON DIOXIDE (test code = 23 MEQ/L 2205) CALCIUM (test code = 2209) 9.4 MG/DL PROTEIN, TOTAL (test code = 6.6 G/DL 2228) ALBUMIN (test code = 2201) 4.1 G/DL CALC GLOBULIN (test code = 2.5 G/DL 2240) CALC A/G RATIO (test code = 1.6 RATIO 2234) BILIRUBIN, TOTAL (test code = 0.3 MG/DL 2206) ALKALINE PHOSPHATASE (test 104 U/L code = 2204) AST (test code = 2218) 17 U/L ALT (test code = 2219) 14 U/L LIPID [id number] 00:00:00 Test Item Value Reference Range Interpretation Comments CHOLESTEROL (test code = 2210) 213 MG/DL TRIGLYCERIDES (test code = 2232) 99 MG/DL HDL CHOLESTEROL (test code = 2220) 49 MG/DL CALC LDL CHOL (test code = 2237) 143 MG/DL RISK RATIO LDL/HDL (test code = 2.92 RATIO 2238) LIPID [id number] 00:00:00 Test Item Value Reference Range Interpretation Comments CHOLESTEROL (test code = 2210) 213 MG/DL TRIGLYCERIDES (test code = 2232) 99 MG/DL HDL CHOLESTEROL (test code = 2220) 49 MG/DL CALC LDL CHOL (test code = 2237) 143 MG/DL RISK RATIO LDL/HDL (test code = 2.92 RATIO 2238) HEMOGLOBIN [id number] 00:00:00 Test Item Value Reference Range Interpretation Comments HEMOGLOBIN A1c (test code = 63820) 6.5 % HEMOGLOBIN [id number] 00:00:00 Test Item Value Reference Range Interpretation Comments HEMOGLOBIN A1c (test code = 62026) 6.5 % HEMOGLOBIN [id number] 00:00:00 Test Item Value Reference Range Interpretation Comments HEMOGLOBIN A1c (test code = 79719) 6.5 % COMPREHENSIVE METABOLIC [id number] 00:00:00 Test Item Value Reference Range Interpretation Comments GLUCOSE (test code = 2217) 125 MG/DL BUN (test code = 2208) 16 MG/DL CREATININE (test code = 2214) 0.88 MG/DL eGFR (2020 CKD-EPI) (test code 89 ML/MIN/1.73 = 11536) CALC BUN/CREAT (test code = 18 RATIO 2235) SODIUM (test code = 2231) 143 MEQ/L POTASSIUM (test code = 2228) 4.5 MEQ/L CHLORIDE (test code = 2215) 108 MEQ/L CARBON DIOXIDE (test code = 23 MEQ/L 2205) CALCIUM (test code = 2209) 9.4 MG/DL PROTEIN, TOTAL (test code = 6.6 G/DL 2228) ALBUMIN (test code = 2201) 4.1 G/DL CALC GLOBULIN (test code = 2.5 G/DL 2239) CALC A/G RATIO (test code = 1.6 RATIO 4) BILIRUBIN, TOTAL (test code = 0.3 MG/DL 2206) ALKALINE PHOSPHATASE (test 104 U/L code = 2204) AST (test code = 2218) 17 U/L ALT (test code = 2219) 14 U/L COMPREHENSIVE METABOLIC [id number] 00:00:00 Test Item Value Reference Range Interpretation Comments GLUCOSE (test code = 2217) 125 MG/DL BUN (test code = 2208) 16 MG/DL CREATININE (test code = 2214) 0.88 MG/DL eGFR (2020 CKD-EPI) (test code 89 ML/MIN/1.73 = 74470) CALC BUN/CREAT (test code = 18 RATIO 2235) SODIUM (test code = 2231) 143 MEQ/L POTASSIUM (test code = 2228) 4.5 MEQ/L CHLORIDE (test code = 2215) 108 MEQ/L CARBON DIOXIDE (test code = 23 MEQ/L 2206) CALCIUM (test code = 2209) 9.4 MG/DL PROTEIN, TOTAL (test code = 6.6 G/DL 2228) ALBUMIN (test code = 2201) 4.1 G/DL CALC GLOBULIN (test code = 2.5 G/DL 2239) CALC A/G RATIO (test code = 1.6 RATIO 2234) BILIRUBIN, TOTAL (test code = 0.3 MG/DL 2206) ALKALINE PHOSPHATASE (test 104 U/L code = 2204) AST (test code = 2218) 17 U/L ALT (test code = 2219) 14 U/L LIPID [id number] 00:00:00 Test Item Value Reference Range Interpretation Comments CHOLESTEROL (test code = 2210) 213 MG/DL TRIGLYCERIDES (test code = 2232) 99 MG/DL HDL CHOLESTEROL (test code = 2220) 49 MG/DL CALC LDL CHOL (test code = 2237) 143 MG/DL RISK RATIO LDL/HDL (test code = 2.92 RATIO 2238) LIPID [id number] 00:00:00 Test Item Value Reference Range Interpretation Comments CHOLESTEROL (test code = 2210) 213 MG/DL TRIGLYCERIDES (test code = 2232) 99 MG/DL HDL CHOLESTEROL (test code = 2220) 49 MG/DL CALC LDL CHOL (test code = 2237) 143 MG/DL RISK RATIO LDL/HDL (test code = 2.92 RATIO 2238) HEMOGLOBIN [id number] 00:00:00 Test Item Value Reference Range Interpretation Comments HEMOGLOBIN A1c (test code = 13286) 6.5 % HEMOGLOBIN [id number] 00:00:00 Test Item Value Reference Range Interpretation Comments HEMOGLOBIN A1c (test code = 40622) 6.5 % HEMOGLOBIN [id number] 00:00:00 Test Item Value Reference Range Interpretation Comments HEMOGLOBIN A1c (test code = 62227) 6.5 % COMPREHENSIVE METABOLIC [id number] 00:00:00 Test Item Value Reference Range Interpretation Comments GLUCOSE (test code = 2217) 125 MG/DL BUN (test code = 2208) 16 MG/DL CREATININE (test code = 2214) 0.88 MG/DL eGFR (2020 CKD-EPI) (test code 89 ML/MIN/1.73 = 66644) CALC BUN/CREAT (test code = 18 RATIO 2235) SODIUM (test code = 2231) 143 MEQ/L POTASSIUM (test code = 2228) 4.5 MEQ/L CHLORIDE (test code = 2215) 108 MEQ/L CARBON DIOXIDE (test code = 23 MEQ/L 2206) CALCIUM (test code = 2209) 9.4 MG/DL PROTEIN, TOTAL (test code = 6.6 G/DL 2228) ALBUMIN (test code = 2201) 4.1 G/DL CALC GLOBULIN (test code = 2.5 G/DL 2240) CALC A/G RATIO (test code = 1.6 RATIO 2234) BILIRUBIN, TOTAL (test code = 0.3 MG/DL 2206) ALKALINE PHOSPHATASE (test 104 U/L code = 2204) AST (test code = 2218) 17 U/L ALT (test code = 2219) 14 U/L COMPREHENSIVE METABOLIC [id number] 00:00:00 Test Item Value Reference Range Interpretation Comments GLUCOSE (test code = 2217) 125 MG/DL BUN (test code = 2208) 16 MG/DL CREATININE (test code = 2214) 0.88 MG/DL eGFR (2020 CKD-EPI) (test code 89 ML/MIN/1.73 = 71856) CALC BUN/CREAT (test code = 18 RATIO 2235) SODIUM (test code = 2231) 143 MEQ/L POTASSIUM (test code = 2228) 4.5 MEQ/L CHLORIDE (test code = 2215) 108 MEQ/L CARBON DIOXIDE (test code = 23 MEQ/L 2205) CALCIUM (test code = 2209) 9.4 MG/DL PROTEIN, TOTAL (test code = 6.6 G/DL 2228) ALBUMIN (test code = 2201) 4.1 G/DL CALC GLOBULIN (test code = 2.5 G/DL 2240) CALC A/G RATIO (test code = 1.6 RATIO 2234) BILIRUBIN, TOTAL (test code = 0.3 MG/DL 2206) ALKALINE PHOSPHATASE (test 104 U/L code = 2204) AST (test code = 2218) 17 U/L ALT (test code = 2219) 14 U/L LIPID [id number] 00:00:00 Test Item Value Reference Range Interpretation Comments CHOLESTEROL (test code = 2210) 213 MG/DL TRIGLYCERIDES (test code = 2232) 99 MG/DL HDL CHOLESTEROL (test code = 2220) 49 MG/DL CALC LDL CHOL (test code = 2237) 143 MG/DL RISK RATIO LDL/HDL (test code = 2.92 RATIO 2238) LIPID [id number] 00:00:00 Test Item Value Reference Range Interpretation Comments CHOLESTEROL (test code = 2210) 213 MG/DL TRIGLYCERIDES (test code = 2232) 99 MG/DL HDL CHOLESTEROL (test code = 2220) 49 MG/DL CALC LDL CHOL (test code = 2237) 143 MG/DL RISK RATIO LDL/HDL (test code = 2.92 RATIO 2238) HEMOGLOBIN [id number] 00:00:00 Test Item Value Reference Range Interpretation Comments HEMOGLOBIN A1c (test code = 87529) 6.5 % HEMOGLOBIN [id number] 00:00:00 Test Item Value Reference Range Interpretation Comments HEMOGLOBIN A1c (test code = 47163) 6.5 % HEMOGLOBIN [id number] 00:00:00 Test Item Value Reference Range Interpretation Comments HEMOGLOBIN A1c (test code = 96632) 6.5 % COMPREHENSIVE METABOLIC [id number] 00:00:00 Test Item Value Reference Range Interpretation Comments GLUCOSE (test code = 2217) 125 MG/DL BUN (test code = 2208) 16 MG/DL CREATININE (test code = 2214) 0.88 MG/DL eGFR (2020 CKD-EPI) (test code 89 ML/MIN/1.73 = 39479) CALC BUN/CREAT (test code = 18 RATIO 2235) SODIUM (test code = 2231) 143 MEQ/L POTASSIUM (test code = 2228) 4.5 MEQ/L CHLORIDE (test code = 2215) 108 MEQ/L CARBON DIOXIDE (test code = 23 MEQ/L 2205) CALCIUM (test code = 2209) 9.4 MG/DL PROTEIN, TOTAL (test code = 6.6 G/DL 2228) ALBUMIN (test code = 2201) 4.1 G/DL CALC GLOBULIN (test code = 2.5 G/DL 0) CALC A/G RATIO (test code = 1.6 RATIO 2234) BILIRUBIN, TOTAL (test code = 0.3 MG/DL 2206) ALKALINE PHOSPHATASE (test 104 U/L code = 2204) AST (test code = 2218) 17 U/L ALT (test code = 2219) 14 U/L COMPREHENSIVE METABOLIC [id number] 00:00:00 Test Item Value Reference Range Interpretation Comments GLUCOSE (test code = 2217) 125 MG/DL BUN (test code = 2208) 16 MG/DL CREATININE (test code = 2214) 0.88 MG/DL eGFR (2020 CKD-EPI) (test code 89 ML/MIN/1.73 = 21300) CALC BUN/CREAT (test code = 18 RATIO 2235) SODIUM (test code = 2231) 143 MEQ/L POTASSIUM (test code = 2228) 4.5 MEQ/L CHLORIDE (test code = 2215) 108 MEQ/L CARBON DIOXIDE (test code = 23 MEQ/L 2205) CALCIUM (test code = 2209) 9.4 MG/DL PROTEIN, TOTAL (test code = 6.6 G/DL 2228) ALBUMIN (test code = 2201) 4.1 G/DL CALC GLOBULIN (test code = 2.5 G/DL 2239) CALC A/G RATIO (test code = 1.6 RATIO 4) BILIRUBIN, TOTAL (test code = 0.3 MG/DL 2206) ALKALINE PHOSPHATASE (test 104 U/L code = 2204) AST (test code = 2218) 17 U/L ALT (test code = 2219) 14 U/L LIPID [id number] 00:00:00 Test Item Value Reference Range Interpretation Comments CHOLESTEROL (test code = 2210) 213 MG/DL TRIGLYCERIDES (test code = 2232) 99 MG/DL HDL CHOLESTEROL (test code = 2220) 49 MG/DL CALC LDL CHOL (test code = 2237) 143 MG/DL RISK RATIO LDL/HDL (test code = 2.92 RATIO 2238) LIPID [id number] 00:00:00 Test Item Value Reference Range Interpretation Comments CHOLESTEROL (test code = 2210) 213 MG/DL TRIGLYCERIDES (test code = 2232) 99 MG/DL HDL CHOLESTEROL (test code = 2220) 49 MG/DL CALC LDL CHOL (test code = 2237) 143 MG/DL RISK RATIO LDL/HDL (test code = 2.92 RATIO 2238) HEMOGLOBIN [id number] 00:00:00 Test Item Value Reference Range Interpretation Comments HEMOGLOBIN A1c (test code = 82561) 6.5 % HEMOGLOBIN [id number] 00:00:00 Test Item Value Reference Range Interpretation Comments HEMOGLOBIN A1c (test code = 72672) 6.5 % HEMOGLOBIN [id number] 00:00:00 Test Item Value Reference Range Interpretation Comments HEMOGLOBIN A1c (test code = 78769) 6.5 % [id number] 11:41:39 Test Item Value Reference Range Interpretation Comments D-DIMER (test 0.51 UG/ML FEU See_Comment H NOTE: Provi ded code = 1405) reference range is established for evaluation of D eep Venous Thrombosis/Pulm onary Embolus (DVT/PE ). Results below c utoff value of <=0.49 UG/ML FEU have a high negative predictive valu e forDVT/PE. No r eference range is establ ished for disseminatedint ra-vascul ar coagulation (DIC). UNLESS OTHERWIS E INDICATED, ALL TESTING PERFORMED [facility] [address] [place] [address] 4 LABORATORY DIRE CTOR: YIFAN BAUM M.D. CLIA NUMBER [id number] [place] [id number] [Autom ated message] The sy stem which generated this result transmit viki reference range : <=0.49. The reference r hernando was not used to int erpret this result as normal/abnormal . [id number] 00:00:00 Test Item Value Reference Range Interpretation Comments D-DIMER (test code = 1405) 0.51 UG/MLFEU [id number] 00:00:00 Test Item Value Reference Range Interpretation Comments D-DIMER (test code = 1405) 0.51 UG/MLFEU [id number] 00:00:00 Test Item Value Reference Range Interpretation Comments D-DIMER (test code = 1405) 0.51 UG/MLFEU [id number] 00:00:00 Test Item Value Reference Range Interpretation Comments D-DIMER (test code = 1405) 0.51 UG/MLFEU [id number] 00:00:00 Test Item Value Reference Range Interpretation Comments D-DIMER (test code = 1405) 0.51 UG/MLFEU [id number] 00:00:00 Test Item Value Reference Range Interpretation Comments D-DIMER (test code = 1405) 0.51 UG/MLFEU [id number] 00:00:00 Test Item Value Reference Range Interpretation Comments D-DIMER (test code = 1405) 0.51 UG/MLFEU [id number] 00:00:00 Test Item Value Reference Range Interpretation Comments D-DIMER (test code = 1405) 0.51 UG/MLFEU [id number] 00:00:00 Test Item Value Reference Range Interpretation Comments D-DIMER (test code = 1405) 0.51 UG/MLFEU [id number] 00:00:00 Test Item Value Reference Range Interpretation Comments D-DIMER (test code = 1405) 0.51 UG/MLFEU [id number] 00:00:00 Test Item Value Reference Range Interpretation Comments D-DIMER (test code = 1405) 0.51 UG/MLFEU [id number] 00:00:00 Test Item Value Reference Range Interpretation Comments D-DIMER (test code = 1405) 0.51 UG/MLFEU [id number] 00:00:00 Test Item Value Reference Range Interpretation Comments D-DIMER (test code = 1405) 0.51 UG/MLFEU [id number] 00:00:00 Test Item Value Reference Range Interpretation Comments D-DIMER (test code = 1405) 0.51 UG/MLFEU [id number] 00:00:00 Test Item Value Reference Range Interpretation Comments D-DIMER (test code = 1405) 0.51 UG/MLFEU [id number] 00:00:00 Test Item Value Reference Range Interpretation Comments D-DIMER (test code = 1405) 0.51 UG/MLFEU [id number] 00:00:00 Test Item Value Reference Range Interpretation Comments D-DIMER (test code = 1405) 0.51 UG/MLFEU [id number] 00:00:00 Test Item Value Reference Range Interpretation Comments D-DIMER (test code = 1405) 0.51 UG/MLFEU [id number] 00:00:00 Test Item Value Reference Range Interpretation Comments D-DIMER (test code = 1405) 0.51 UG/MLFEU [id number] 00:00:00 Test Item Value Reference Range Interpretation Comments D-DIMER (test code = 1405) 0.51 UG/MLFEU [id number] 00:00:00 Test Item Value Reference Range Interpretation Comments D-DIMER (test code = 1405) 0.51 UG/MLFEU [id number] 00:00:00 Test Item Value Reference Range Interpretation Comments D-DIMER (test code = 1405) 0.51 UG/MLFEU [id number] 00:00:00 Test Item Value Reference Range Interpretation Comments D-DIMER (test code = 1405) 0.51 UG/MLFEU LIPID [id number] 06:54:23 Test Item Value Reference Range Interpretation Comments CHOLESTEROL (test 194 MG/DL <200 code = 2210) TRIGLYCERIDES (test 145 MG/DL <150 code = 2232) HDL CHOLESTEROL (test 51 MG/DL >39 code = 2220) CALC LDL CHOL (test 117 MG/DL <100 H NOTE: C ALCULATED LDL code = 2237) IS BASED ON KOKO-MARTINEZ METHOD WHICHINCLUDES ADJUSTABLE TRIGLYCERIDE:VL DL CHOLESTEROL RAT IO.THIS FACTOR VARIES B Y MEASURED TRIGLY CERIDE AND NON-HDLCHOL ESTEROL CONCENTRATIONS WITH INCREASED CALCU LATED LDL SEENIN HIGH ER TRIGLYCERIDE OR LOWER NON-HDL SPECIME NS. FOR MOREINFORMATION , SEE CLIENT ANNOUNCE MENT AT [email or web address] RISK RATIO LDL/HDL 2.29 RATIO <3.55 UNLESS O THERWISE (test code = 2238) INDICATED , ALL TESTING PERFORMED [facility], [place] [address] [facility] [address] [facility] DIRECTOR: YIFAN DAMON M.D. CLIA NUMBER [id number] CAP ACCREDITATION N O. [id number] LIPID [id number] 00:00:00 Test Item Value Reference Range Interpretation Comments CHOLESTEROL (test code = 2210) 194 MG/DL TRIGLYCERIDES (test code = 2232) 145 MG/DL HDL CHOLESTEROL (test code = 2220) 51 MG/DL CALC LDL CHOL (test code = 2237) 117 MG/DL RISK RATIO LDL/HDL (test code = 2.29 RATIO 2238) LIPID [id number] 00:00:00 Test Item Value Reference Range Interpretation Comments CHOLESTEROL (test code = 2210) 194 MG/DL TRIGLYCERIDES (test code = 2232) 145 MG/DL HDL CHOLESTEROL (test code = 2220) 51 MG/DL CALC LDL CHOL (test code = 2237) 117 MG/DL RISK RATIO LDL/HDL (test code = 2.29 RATIO 2238) LIPID [id number] 00:00:00 Test Item Value Reference Range Interpretation Comments CHOLESTEROL (test code = 2210) 194 MG/DL TRIGLYCERIDES (test code = 2232) 145 MG/DL HDL CHOLESTEROL (test code = 2220) 51 MG/DL CALC LDL CHOL (test code = 2237) 117 MG/DL RISK RATIO LDL/HDL (test code = 2.29 RATIO 2238) LIPID [id number] 00:00:00 Test Item Value Reference Range Interpretation Comments CHOLESTEROL (test code = 2210) 194 MG/DL TRIGLYCERIDES (test code = 2232) 145 MG/DL HDL CHOLESTEROL (test code = 2220) 51 MG/DL CALC LDL CHOL (test code = 2237) 117 MG/DL RISK RATIO LDL/HDL (test code = 2.29 RATIO 2238) LIPID [id number] 00:00:00 Test Item Value Reference Range Interpretation Comments CHOLESTEROL (test code = 2210) 194 MG/DL TRIGLYCERIDES (test code = 2232) 145 MG/DL HDL CHOLESTEROL (test code = 2220) 51 MG/DL CALC LDL CHOL (test code = 2237) 117 MG/DL RISK RATIO LDL/HDL (test code = 2.29 RATIO 2238) LIPID [id number] 00:00:00 Test Item Value Reference Range Interpretation Comments CHOLESTEROL (test code = 2210) 194 MG/DL TRIGLYCERIDES (test code = 2232) 145 MG/DL HDL CHOLESTEROL (test code = 2220) 51 MG/DL CALC LDL CHOL (test code = 2237) 117 MG/DL RISK RATIO LDL/HDL (test code = 2.29 RATIO 2238) LIPID [id number] 00:00:00 Test Item Value Reference Range Interpretation Comments CHOLESTEROL (test code = 2210) 194 MG/DL TRIGLYCERIDES (test code = 2232) 145 MG/DL HDL CHOLESTEROL (test code = 2220) 51 MG/DL CALC LDL CHOL (test code = 2237) 117 MG/DL RISK RATIO LDL/HDL (test code = 2.29 RATIO 2238) LIPID [id number] 00:00:00 Test Item Value Reference Range Interpretation Comments CHOLESTEROL (test code = 2210) 194 MG/DL TRIGLYCERIDES (test code = 2232) 145 MG/DL HDL CHOLESTEROL (test code = 2220) 51 MG/DL CALC LDL CHOL (test code = 2237) 117 MG/DL RISK RATIO LDL/HDL (test code = 2.29 RATIO 2238) LIPID [id number] 00:00:00 Test Item Value Reference Range Interpretation Comments CHOLESTEROL (test code = 2210) 194 MG/DL TRIGLYCERIDES (test code = 2232) 145 MG/DL HDL CHOLESTEROL (test code = 2220) 51 MG/DL CALC LDL CHOL (test code = 2237) 117 MG/DL RISK RATIO LDL/HDL (test code = 2.29 RATIO 2238) LIPID [id number] 00:00:00 Test Item Value Reference Range Interpretation Comments CHOLESTEROL (test code = 2210) 194 MG/DL TRIGLYCERIDES (test code = 2232) 145 MG/DL HDL CHOLESTEROL (test code = 2220) 51 MG/DL CALC LDL CHOL (test code = 2237) 117 MG/DL RISK RATIO LDL/HDL (test code = 2.29 RATIO 2238) LIPID [id number] 00:00:00 Test Item Value Reference Range Interpretation Comments CHOLESTEROL (test code = 2210) 194 MG/DL TRIGLYCERIDES (test code = 2232) 145 MG/DL HDL CHOLESTEROL (test code = 2220) 51 MG/DL CALC LDL CHOL (test code = 2237) 117 MG/DL RISK RATIO LDL/HDL (test code = 2.29 RATIO 2238) LIPID [id number] 00:00:00 Test Item Value Reference Range Interpretation Comments CHOLESTEROL (test code = 2210) 194 MG/DL TRIGLYCERIDES (test code = 2232) 145 MG/DL HDL CHOLESTEROL (test code = 2220) 51 MG/DL CALC LDL CHOL (test code = 2237) 117 MG/DL RISK RATIO LDL/HDL (test code = 2.29 RATIO 2238) LIPID [id number] 00:00:00 Test Item Value Reference Range Interpretation Comments CHOLESTEROL (test code = 2210) 194 MG/DL TRIGLYCERIDES (test code = 2232) 145 MG/DL HDL CHOLESTEROL (test code = 2220) 51 MG/DL CALC LDL CHOL (test code = 2237) 117 MG/DL RISK RATIO LDL/HDL (test code = 2.29 RATIO 2238) LIPID [id number] 00:00:00 Test Item Value Reference Range Interpretation Comments CHOLESTEROL (test code = 2210) 194 MG/DL TRIGLYCERIDES (test code = 2232) 145 MG/DL HDL CHOLESTEROL (test code = 2220) 51 MG/DL CALC LDL CHOL (test code = 2237) 117 MG/DL RISK RATIO LDL/HDL (test code = 2.29 RATIO 2238) LIPID [id number] 00:00:00 Test Item Value Reference Range Interpretation Comments CHOLESTEROL (test code = 2210) 194 MG/DL TRIGLYCERIDES (test code = 2232) 145 MG/DL HDL CHOLESTEROL (test code = 2220) 51 MG/DL CALC LDL CHOL (test code = 2237) 117 MG/DL RISK RATIO LDL/HDL (test code = 2.29 RATIO 2238) LIPID [id number] 00:00:00 Test Item Value Reference Range Interpretation Comments CHOLESTEROL (test code = 2210) 194 MG/DL TRIGLYCERIDES (test code = 2232) 145 MG/DL HDL CHOLESTEROL (test code = 2220) 51 MG/DL CALC LDL CHOL (test code = 2237) 117 MG/DL RISK RATIO LDL/HDL (test code = 2.29 RATIO 2238) LIPID [id number] 00:00:00 Test Item Value Reference Range Interpretation Comments CHOLESTEROL (test code = 2210) 194 MG/DL TRIGLYCERIDES (test code = 2232) 145 MG/DL HDL CHOLESTEROL (test code = 2220) 51 MG/DL CALC LDL CHOL (test code = 2237) 117 MG/DL RISK RATIO LDL/HDL (test code = 2.29 RATIO 2238) LIPID [id number] 00:00:00 Test Item Value Reference Range Interpretation Comments CHOLESTEROL (test code = 2210) 194 MG/DL TRIGLYCERIDES (test code = 2232) 145 MG/DL HDL CHOLESTEROL (test code = 2220) 51 MG/DL CALC LDL CHOL (test code = 2237) 117 MG/DL RISK RATIO LDL/HDL (test code = 2.29 RATIO 2238) LIPID [id number] 00:00:00 Test Item Value Reference Range Interpretation Comments CHOLESTEROL (test code = 2210) 194 MG/DL TRIGLYCERIDES (test code = 2232) 145 MG/DL HDL CHOLESTEROL (test code = 2220) 51 MG/DL CALC LDL CHOL (test code = 2237) 117 MG/DL RISK RATIO LDL/HDL (test code = 2.29 RATIO 2238) LIPID [id number] 00:00:00 Test Item Value Reference Range Interpretation Comments CHOLESTEROL (test code = 2210) 194 MG/DL TRIGLYCERIDES (test code = 2232) 145 MG/DL HDL CHOLESTEROL (test code = 2220) 51 MG/DL CALC LDL CHOL (test code = 2237) 117 MG/DL RISK RATIO LDL/HDL (test code = 2.29 RATIO 2238) LIPID [id number] 00:00:00 Test Item Value Reference Range Interpretation Comments CHOLESTEROL (test code = 2210) 194 MG/DL TRIGLYCERIDES (test code = 2232) 145 MG/DL HDL CHOLESTEROL (test code = 2220) 51 MG/DL CALC LDL CHOL (test code = 2237) 117 MG/DL RISK RATIO LDL/HDL (test code = 2.29 RATIO 2238) LIPID [id number] 00:00:00 Test Item Value Reference Range Interpretation Comments CHOLESTEROL (test code = 2210) 194 MG/DL TRIGLYCERIDES (test code = 2232) 145 MG/DL HDL CHOLESTEROL (test code = 2220) 51 MG/DL CALC LDL CHOL (test code = 2237) 117 MG/DL RISK RATIO LDL/HDL (test code = 2.29 RATIO 2238) LIPID [id number] 00:00:00 Test Item Value Reference Range Interpretation Comments CHOLESTEROL (test code = 2210) 194 MG/DL TRIGLYCERIDES (test code = 2232) 145 MG/DL HDL CHOLESTEROL (test code = 2220) 51 MG/DL CALC LDL CHOL (test code = 2237) 117 MG/DL RISK RATIO LDL/HDL (test code = 2.29 RATIO 2238) COMPREHENSIVE METABOLIC [id number] 00:00:00 Test Item Value Reference Range Interpretation Comments GLUCOSE (test code = 2217) 100 MG/DL BUN (test code = 2208) 19 MG/DL CREATININE (test code = 2214) 0.84 MG/DL eGFR (2020 CKD-EPI) (test code 90 ML/MIN/1.73 = 81787) CALC BUN/CREAT (test code = 23 RATIO 2235) SODIUM (test code = 2231) 139 MEQ/L POTASSIUM (test code = 2228) 4.2 MEQ/L CHLORIDE (test code = 2215) 104 MEQ/L CARBON DIOXIDE (test code = 23 MEQ/L 2206) CALCIUM (test code = 2209) 9.3 MG/DL PROTEIN, TOTAL (test code = 7.2 G/DL 2229) ALBUMIN (test code = 2201) 4.3 G/DL CALC GLOBULIN (test code = 2.9 G/DL 2240) CALC A/G RATIO (test code = 1.5 RATIO 2234) BILIRUBIN, TOTAL (test code = 0.3 MG/DL 2206) ALKALINE PHOSPHATASE (test 110 U/L code = 2204) AST (test code = 2218) 18 U/L ALT (test code = 2219) 14 U/L COMPREHENSIVE METABOLIC [id number] 00:00:00 Test Item Value Reference Range Interpretation Comments GLUCOSE (test code = 2217) 100 MG/DL BUN (test code = 2208) 19 MG/DL CREATININE (test code = 2214) 0.84 MG/DL eGFR (2020 CKD-EPI) (test code 90 ML/MIN/1.73 = 38319) CALC BUN/CREAT (test code = 23 RATIO 2235) SODIUM (test code = 2231) 139 MEQ/L POTASSIUM (test code = 2228) 4.2 MEQ/L CHLORIDE (test code = 2215) 104 MEQ/L CARBON DIOXIDE (test code = 23 MEQ/L 2206) CALCIUM (test code = 2209) 9.3 MG/DL PROTEIN, TOTAL (test code = 7.2 G/DL 2229) ALBUMIN (test code = 2201) 4.3 G/DL CALC GLOBULIN (test code = 2.9 G/DL 2240) CALC A/G RATIO (test code = 1.5 RATIO 2234) BILIRUBIN, TOTAL (test code = 0.3 MG/DL 220) ALKALINE PHOSPHATASE (test 110 U/L code = 2204) AST (test code = 2218) 18 U/L ALT (test code = 2219) 14 U/L [id number] 00:00:00 Test Item Value Reference Range Interpretation Comments TSH, THIRD GENERATION (test code 0.876 UIU/ML = 2821) [id number] 00:00:00 Test Item Value Reference Range Interpretation Comments TSH, THIRD GENERATION (test code 0.876 UIU/ML = 2821) [id number] 00:00:00 Test Item Value Reference Range Interpretation Comments TSH, THIRD GENERATION (test code 0.876 UIU/ML = 2821) COMPREHENSIVE METABOLIC [id number] 00:00:00 Test Item Value Reference Range Interpretation Comments GLUCOSE (test code = 2217) 100 MG/DL BUN (test code = 2208) 19 MG/DL CREATININE (test code = 2214) 0.84 MG/DL eGFR (2020 CKD-EPI) (test code 90 ML/MIN/1.73 = 23228) CALC BUN/CREAT (test code = 23 RATIO 2235) SODIUM (test code = 2231) 139 MEQ/L POTASSIUM (test code = 2228) 4.2 MEQ/L CHLORIDE (test code = 2215) 104 MEQ/L CARBON DIOXIDE (test code = 23 MEQ/L 2205) CALCIUM (test code = 2209) 9.3 MG/DL PROTEIN, TOTAL (test code = 7.2 G/DL 2228) ALBUMIN (test code = 2201) 4.3 G/DL CALC GLOBULIN (test code = 2.9 G/DL 2240) CALC A/G RATIO (test code = 1.5 RATIO 2234) BILIRUBIN, TOTAL (test code = 0.3 MG/DL 2206) ALKALINE PHOSPHATASE (test 110 U/L code = 2204) AST (test code = 2218) 18 U/L ALT (test code = 2219) 14 U/L COMPREHENSIVE METABOLIC [id number] 00:00:00 Test Item Value Reference Range Interpretation Comments GLUCOSE (test code = 2217) 100 MG/DL BUN (test code = 2208) 19 MG/DL CREATININE (test code = 2214) 0.84 MG/DL eGFR (2020 CKD-EPI) (test code 90 ML/MIN/1.73 = 63009) CALC BUN/CREAT (test code = 23 RATIO 2235) SODIUM (test code = 2231) 139 MEQ/L POTASSIUM (test code = 2228) 4.2 MEQ/L CHLORIDE (test code = 2215) 104 MEQ/L CARBON DIOXIDE (test code = 23 MEQ/L 2205) CALCIUM (test code = 2209) 9.3 MG/DL PROTEIN, TOTAL (test code = 7.2 G/DL 2228) ALBUMIN (test code = 2201) 4.3 G/DL CALC GLOBULIN (test code = 2.9 G/DL 2240) CALC A/G RATIO (test code = 1.5 RATIO 2233) BILIRUBIN, TOTAL (test code = 0.3 MG/DL 2206) ALKALINE PHOSPHATASE (test 110 U/L code = 2204) AST (test code = 2218) 18 U/L ALT (test code = 2219) 14 U/L [id number] 00:00:00 Test Item Value Reference Range Interpretation Comments TSH, THIRD GENERATION (test code 0.876 UIU/ML = 2821) [id number] 00:00:00 Test Item Value Reference Range Interpretation Comments TSH, THIRD GENERATION (test code 0.876 UIU/ML = 2821) [id number] 00:00:00 Test Item Value Reference Range Interpretation Comments TSH, THIRD GENERATION (test code 0.876 UIU/ML = 2821) COMPREHENSIVE METABOLIC [id number] 00:00:00 Test Item Value Reference Range Interpretation Comments GLUCOSE (test code = 2217) 100 MG/DL BUN (test code = 2208) 19 MG/DL CREATININE (test code = 2214) 0.84 MG/DL eGFR (2020 CKD-EPI) (test code 90 ML/MIN/1.73 = 32731) CALC BUN/CREAT (test code = 23 RATIO 2235) SODIUM (test code = 2231) 139 MEQ/L POTASSIUM (test code = 2228) 4.2 MEQ/L CHLORIDE (test code = 2215) 104 MEQ/L CARBON DIOXIDE (test code = 23 MEQ/L 2205) CALCIUM (test code = 2209) 9.3 MG/DL PROTEIN, TOTAL (test code = 7.2 G/DL 2228) ALBUMIN (test code = 2201) 4.3 G/DL CALC GLOBULIN (test code = 2.9 G/DL 2240) CALC A/G RATIO (test code = 1.5 RATIO 4) BILIRUBIN, TOTAL (test code = 0.3 MG/DL 2207) ALKALINE PHOSPHATASE (test 110 U/L code = 2204) AST (test code = 2218) 18 U/L ALT (test code = 2219) 14 U/L COMPREHENSIVE METABOLIC [id number] 00:00:00 Test Item Value Reference Range Interpretation Comments GLUCOSE (test code = 2217) 100 MG/DL BUN (test code = 2208) 19 MG/DL CREATININE (test code = 2214) 0.84 MG/DL eGFR (2020 CKD-EPI) (test code 90 ML/MIN/1.73 = 50954) CALC BUN/CREAT (test code = 23 RATIO 2235) SODIUM (test code = 2231) 139 MEQ/L POTASSIUM (test code = 2228) 4.2 MEQ/L CHLORIDE (test code = 2215) 104 MEQ/L CARBON DIOXIDE (test code = 23 MEQ/L 2205) CALCIUM (test code = 2209) 9.3 MG/DL PROTEIN, TOTAL (test code = 7.2 G/DL 2228) ALBUMIN (test code = 2201) 4.3 G/DL CALC GLOBULIN (test code = 2.9 G/DL 2240) CALC A/G RATIO (test code = 1.5 RATIO 2234) BILIRUBIN, TOTAL (test code = 0.3 MG/DL 2206) ALKALINE PHOSPHATASE (test 110 U/L code = 2204) AST (test code = 2218) 18 U/L ALT (test code = 2219) 14 U/L [id number] 00:00:00 Test Item Value Reference Range Interpretation Comments TSH, THIRD GENERATION (test code 0.876 UIU/ML = 2821) [id number] 00:00:00 Test Item Value Reference Range Interpretation Comments TSH, THIRD GENERATION (test code 0.876 UIU/ML = 2821) [id number] 00:00:00 Test Item Value Reference Range Interpretation Comments TSH, THIRD GENERATION (test code 0.876 UIU/ML = 2821) COMPREHENSIVE METABOLIC [id number] 00:00:00 Test Item Value Reference Range Interpretation Comments GLUCOSE (test code = 2217) 100 MG/DL BUN (test code = 2208) 19 MG/DL CREATININE (test code = 2214) 0.84 MG/DL eGFR (2020 CKD-EPI) (test code 90 ML/MIN/1.73 = 28986) CALC BUN/CREAT (test code = 23 RATIO 2235) SODIUM (test code = 2231) 139 MEQ/L POTASSIUM (test code = 2228) 4.2 MEQ/L CHLORIDE (test code = 2215) 104 MEQ/L CARBON DIOXIDE (test code = 23 MEQ/L 2206) CALCIUM (test code = 2209) 9.3 MG/DL PROTEIN, TOTAL (test code = 7.2 G/DL 222) ALBUMIN (test code = 2201) 4.3 G/DL CALC GLOBULIN (test code = 2.9 G/DL 2240) CALC A/G RATIO (test code = 1.5 RATIO 2234) BILIRUBIN, TOTAL (test code = 0.3 MG/DL 2206) ALKALINE PHOSPHATASE (test 110 U/L code = 2204) AST (test code = 2218) 18 U/L ALT (test code = 2219) 14 U/L COMPREHENSIVE METABOLIC [id number] 00:00:00 Test Item Value Reference Range Interpretation Comments GLUCOSE (test code = 2217) 100 MG/DL BUN (test code = 2208) 19 MG/DL CREATININE (test code = 2214) 0.84 MG/DL eGFR (2020 CKD-EPI) (test code 90 ML/MIN/1.73 = 59354) CALC BUN/CREAT (test code = 23 RATIO 2235) SODIUM (test code = 2231) 139 MEQ/L POTASSIUM (test code = 2228) 4.2 MEQ/L CHLORIDE (test code = 2215) 104 MEQ/L CARBON DIOXIDE (test code = 23 MEQ/L 2206) CALCIUM (test code = 2209) 9.3 MG/DL PROTEIN, TOTAL (test code = 7.2 G/DL 2229) ALBUMIN (test code = 2201) 4.3 G/DL CALC GLOBULIN (test code = 2.9 G/DL 2240) CALC A/G RATIO (test code = 1.5 RATIO 2234) BILIRUBIN, TOTAL (test code = 0.3 MG/DL 2206) ALKALINE PHOSPHATASE (test 110 U/L code = 2204) AST (test code = 2218) 18 U/L ALT (test code = 2219) 14 U/L [id number] 00:00:00 Test Item Value Reference Range Interpretation Comments TSH, THIRD GENERATION (test code 0.876 UIU/ML = 2821) [id number] 00:00:00 Test Item Value Reference Range Interpretation Comments TSH, THIRD GENERATION (test code 0.876 UIU/ML = 2821) [id number] 00:00:00 Test Item Value Reference Range Interpretation Comments TSH, THIRD GENERATION (test code 0.876 UIU/ML = 2821) COMPREHENSIVE METABOLIC [id number] 00:00:00 Test Item Value Reference Range Interpretation Comments GLUCOSE (test code = 2217) 100 MG/DL BUN (test code = 2208) 19 MG/DL CREATININE (test code = 2214) 0.84 MG/DL eGFR (2020 CKD-EPI) (test code 90 ML/MIN/1.73 = 67218) CALC BUN/CREAT (test code = 23 RATIO 2235) SODIUM (test code = 2231) 139 MEQ/L POTASSIUM (test code = 2228) 4.2 MEQ/L CHLORIDE (test code = 2215) 104 MEQ/L CARBON DIOXIDE (test code = 23 MEQ/L 2205) CALCIUM (test code = 2209) 9.3 MG/DL PROTEIN, TOTAL (test code = 7.2 G/DL 2228) ALBUMIN (test code = 2201) 4.3 G/DL CALC GLOBULIN (test code = 2.9 G/DL 2240) CALC A/G RATIO (test code = 1.5 RATIO 2234) BILIRUBIN, TOTAL (test code = 0.3 MG/DL 2206) ALKALINE PHOSPHATASE (test 110 U/L code = 2204) AST (test code = 2218) 18 U/L ALT (test code = 2219) 14 U/L COMPREHENSIVE METABOLIC [id number] 00:00:00 Test Item Value Reference Range Interpretation Comments GLUCOSE (test code = 2217) 100 MG/DL BUN (test code = 2208) 19 MG/DL CREATININE (test code = 2214) 0.84 MG/DL eGFR (2020 CKD-EPI) (test code 90 ML/MIN/1.73 = 14072) CALC BUN/CREAT (test code = 23 RATIO 2235) SODIUM (test code = 2231) 139 MEQ/L POTASSIUM (test code = 2228) 4.2 MEQ/L CHLORIDE (test code = 2215) 104 MEQ/L CARBON DIOXIDE (test code = 23 MEQ/L 2205) CALCIUM (test code = 2209) 9.3 MG/DL PROTEIN, TOTAL (test code = 7.2 G/DL 2228) ALBUMIN (test code = 2201) 4.3 G/DL CALC GLOBULIN (test code = 2.9 G/DL 2240) CALC A/G RATIO (test code = 1.5 RATIO 2234) BILIRUBIN, TOTAL (test code = 0.3 MG/DL 2206) ALKALINE PHOSPHATASE (test 110 U/L code = 2204) AST (test code = 2218) 18 U/L ALT (test code = 2219) 14 U/L [id number] 00:00:00 Test Item Value Reference Range Interpretation Comments TSH, THIRD GENERATION (test code 0.876 UIU/ML = 2821) [id number] 00:00:00 Test Item Value Reference Range Interpretation Comments TSH, THIRD GENERATION (test code 0.876 UIU/ML = 2821) [id number] 00:00:00 Test Item Value Reference Range Interpretation Comments TSH, THIRD GENERATION (test code 0.876 UIU/ML = 2821) COMPREHENSIVE METABOLIC [id number] 00:00:00 Test Item Value Reference Range Interpretation Comments GLUCOSE (test code = 2217) 100 MG/DL BUN (test code = 2208) 19 MG/DL CREATININE (test code = 2214) 0.84 MG/DL eGFR (2020 CKD-EPI) (test code 90 ML/MIN/1.73 = 09496) CALC BUN/CREAT (test code = 23 RATIO 2234) SODIUM (test code = 2231) 139 MEQ/L POTASSIUM (test code = 2228) 4.2 MEQ/L CHLORIDE (test code = 2215) 104 MEQ/L CARBON DIOXIDE (test code = 23 MEQ/L 2205) CALCIUM (test code = 2209) 9.3 MG/DL PROTEIN, TOTAL (test code = 7.2 G/DL 2228) ALBUMIN (test code = 2201) 4.3 G/DL CALC GLOBULIN (test code = 2.9 G/DL 2240) CALC A/G RATIO (test code = 1.5 RATIO 4) BILIRUBIN, TOTAL (test code = 0.3 MG/DL 2207) ALKALINE PHOSPHATASE (test 110 U/L code = 2204) AST (test code = 2218) 18 U/L ALT (test code = 2219) 14 U/L COMPREHENSIVE METABOLIC [id number] 00:00:00 Test Item Value Reference Range Interpretation Comments GLUCOSE (test code = 2217) 100 MG/DL BUN (test code = 2208) 19 MG/DL CREATININE (test code = 2214) 0.84 MG/DL eGFR (2020 CKD-EPI) (test code 90 ML/MIN/1.73 = 59029) CALC BUN/CREAT (test code = 23 RATIO 2235) SODIUM (test code = 2231) 139 MEQ/L POTASSIUM (test code = 2228) 4.2 MEQ/L CHLORIDE (test code = 2215) 104 MEQ/L CARBON DIOXIDE (test code = 23 MEQ/L 2206) CALCIUM (test code = 2209) 9.3 MG/DL PROTEIN, TOTAL (test code = 7.2 G/DL 222) ALBUMIN (test code = 2201) 4.3 G/DL CALC GLOBULIN (test code = 2.9 G/DL 2240) CALC A/G RATIO (test code = 1.5 RATIO 2234) BILIRUBIN, TOTAL (test code = 0.3 MG/DL 220) ALKALINE PHOSPHATASE (test 110 U/L code = 2204) AST (test code = 2218) 18 U/L ALT (test code = 2219) 14 U/L [id number] 00:00:00 Test Item Value Reference Range Interpretation Comments TSH, THIRD GENERATION (test code 0.876 UIU/ML = 2821) [id number] 00:00:00 Test Item Value Reference Range Interpretation Comments TSH, THIRD GENERATION (test code 0.876 UIU/ML = 2821) [id number] 00:00:00 Test Item Value Reference Range Interpretation Comments TSH, THIRD GENERATION (test code 0.876 UIU/ML = 2821) COMPREHENSIVE METABOLIC [id number] 00:00:00 Test Item Value Reference Range Interpretation Comments GLUCOSE (test code = 2217) 100 MG/DL BUN (test code = 2208) 19 MG/DL CREATININE (test code = 2214) 0.84 MG/DL eGFR (2020 CKD-EPI) (test code 90 ML/MIN/1.73 = 15666) CALC BUN/CREAT (test code = 23 RATIO 2235) SODIUM (test code = 2231) 139 MEQ/L POTASSIUM (test code = 2228) 4.2 MEQ/L CHLORIDE (test code = 2215) 104 MEQ/L CARBON DIOXIDE (test code = 23 MEQ/L 2206) CALCIUM (test code = 2209) 9.3 MG/DL PROTEIN, TOTAL (test code = 7.2 G/DL 2228) ALBUMIN (test code = 2201) 4.3 G/DL CALC GLOBULIN (test code = 2.9 G/DL 2240) CALC A/G RATIO (test code = 1.5 RATIO 2234) BILIRUBIN, TOTAL (test code = 0.3 MG/DL 2206) ALKALINE PHOSPHATASE (test 110 U/L code = 2204) AST (test code = 2218) 18 U/L ALT (test code = 2219) 14 U/L COMPREHENSIVE METABOLIC [id number] 00:00:00 Test Item Value Reference Range Interpretation Comments GLUCOSE (test code = 2217) 100 MG/DL BUN (test code = 2208) 19 MG/DL CREATININE (test code = 2214) 0.84 MG/DL eGFR (2020 CKD-EPI) (test code 90 ML/MIN/1.73 = 05870) CALC BUN/CREAT (test code = 23 RATIO 2235) SODIUM (test code = 2231) 139 MEQ/L POTASSIUM (test code = 2228) 4.2 MEQ/L CHLORIDE (test code = 2215) 104 MEQ/L CARBON DIOXIDE (test code = 23 MEQ/L 2205) CALCIUM (test code = 2209) 9.3 MG/DL PROTEIN, TOTAL (test code = 7.2 G/DL 2228) ALBUMIN (test code = 2201) 4.3 G/DL CALC GLOBULIN (test code = 2.9 G/DL 2240) CALC A/G RATIO (test code = 1.5 RATIO 2234) BILIRUBIN, TOTAL (test code = 0.3 MG/DL 2206) ALKALINE PHOSPHATASE (test 110 U/L code = 2204) AST (test code = 2218) 18 U/L ALT (test code = 2219) 14 U/L [id number] 00:00:00 Test Item Value Reference Range Interpretation Comments TSH, THIRD GENERATION (test code 0.876 UIU/ML = 2821) [id number] 00:00:00 Test Item Value Reference Range Interpretation Comments TSH, THIRD GENERATION (test code 0.876 UIU/ML = 2821) [id number] 00:00:00 Test Item Value Reference Range Interpretation Comments TSH, THIRD GENERATION (test code 0.876 UIU/ML = 2821) COMPREHENSIVE METABOLIC [id number] 00:00:00 Test Item Value Reference Range Interpretation Comments GLUCOSE (test code = 2217) 100 MG/DL BUN (test code = 2208) 19 MG/DL CREATININE (test code = 2214) 0.84 MG/DL eGFR (2020 CKD-EPI) (test code 90 ML/MIN/1.73 = 17069) CALC BUN/CREAT (test code = 23 RATIO 2235) SODIUM (test code = 2231) 139 MEQ/L POTASSIUM (test code = 2228) 4.2 MEQ/L CHLORIDE (test code = 2215) 104 MEQ/L CARBON DIOXIDE (test code = 23 MEQ/L 2205) CALCIUM (test code = 2209) 9.3 MG/DL PROTEIN, TOTAL (test code = 7.2 G/DL 2228) ALBUMIN (test code = 2201) 4.3 G/DL CALC GLOBULIN (test code = 2.9 G/DL 2240) CALC A/G RATIO (test code = 1.5 RATIO 2234) BILIRUBIN, TOTAL (test code = 0.3 MG/DL 2206) ALKALINE PHOSPHATASE (test 110 U/L code = 2204) AST (test code = 2218) 18 U/L ALT (test code = 2219) 14 U/L COMPREHENSIVE METABOLIC [id number] 00:00:00 Test Item Value Reference Range Interpretation Comments GLUCOSE (test code = 2217) 100 MG/DL BUN (test code = 2208) 19 MG/DL CREATININE (test code = 2214) 0.84 MG/DL eGFR (2020 CKD-EPI) (test code 90 ML/MIN/1.73 = 70128) CALC BUN/CREAT (test code = 23 RATIO 2235) SODIUM (test code = 2231) 139 MEQ/L POTASSIUM (test code = 2228) 4.2 MEQ/L CHLORIDE (test code = 2215) 104 MEQ/L CARBON DIOXIDE (test code = 23 MEQ/L 2205) CALCIUM (test code = 220) 9.3 MG/DL PROTEIN, TOTAL (test code = 7.2 G/DL 2228) ALBUMIN (test code = 2201) 4.3 G/DL CALC GLOBULIN (test code = 2.9 G/DL 2240) CALC A/G RATIO (test code = 1.5 RATIO 2234) BILIRUBIN, TOTAL (test code = 0.3 MG/DL 2206) ALKALINE PHOSPHATASE (test 110 U/L code = 2204) AST (test code = 2218) 18 U/L ALT (test code = 2219) 14 U/L [id number] 00:00:00 Test Item Value Reference Range Interpretation Comments TSH, THIRD GENERATION (test code 0.876 UIU/ML = 2821) [id number] 00:00:00 Test Item Value Reference Range Interpretation Comments TSH, THIRD GENERATION (test code 0.876 UIU/ML = 2821) [id number] 00:00:00 Test Item Value Reference Range Interpretation Comments TSH, THIRD GENERATION (test code 0.876 UIU/ML = 2821) COMPREHENSIVE METABOLIC [id number] 00:00:00 Test Item Value Reference Range Interpretation Comments GLUCOSE (test code = 2217) 100 MG/DL BUN (test code = 2208) 19 MG/DL CREATININE (test code = 2214) 0.84 MG/DL eGFR (2020 CKD-EPI) (test code 90 ML/MIN/1.73 = 36819) CALC BUN/CREAT (test code = 23 RATIO 223) SODIUM (test code = 2231) 139 MEQ/L POTASSIUM (test code = 2228) 4.2 MEQ/L CHLORIDE (test code = 2215) 104 MEQ/L CARBON DIOXIDE (test code = 23 MEQ/L 2205) CALCIUM (test code = 2209) 9.3 MG/DL PROTEIN, TOTAL (test code = 7.2 G/DL 2228) ALBUMIN (test code = 2201) 4.3 G/DL CALC GLOBULIN (test code = 2.9 G/DL 2240) CALC A/G RATIO (test code = 1.5 RATIO 2234) BILIRUBIN, TOTAL (test code = 0.3 MG/DL 2206) ALKALINE PHOSPHATASE (test 110 U/L code = 2204) AST (test code = 2218) 18 U/L ALT (test code = 2219) 14 U/L [id number] 00:00:00 Test Item Value Reference Range Interpretation Comments TSH, THIRD GENERATION (test code 0.876 UIU/ML = 2821) [id number] 00:00:00 Test Item Value Reference Range Interpretation Comments TSH, THIRD GENERATION (test code 0.876 UIU/ML = 2821) COMPREHENSIVE METABOLIC [id number] 00:00:00 Test Item Value Reference Range Interpretation Comments GLUCOSE (test code = 2217) 100 MG/DL BUN (test code = 2208) 19 MG/DL CREATININE (test code = 2214) 0.84 MG/DL eGFR (2020 CKD-EPI) (test code 90 ML/MIN/1.73 = 57355) CALC BUN/CREAT (test code = 23 RATIO 2235) SODIUM (test code = 2231) 139 MEQ/L POTASSIUM (test code = 2228) 4.2 MEQ/L CHLORIDE (test code = 2215) 104 MEQ/L CARBON DIOXIDE (test code = 23 MEQ/L 2205) CALCIUM (test code = 2209) 9.3 MG/DL PROTEIN, TOTAL (test code = 7.2 G/DL 2228) ALBUMIN (test code = 2201) 4.3 G/DL CALC GLOBULIN (test code = 2.9 G/DL 2240) CALC A/G RATIO (test code = 1.5 RATIO 2234) BILIRUBIN, TOTAL (test code = 0.3 MG/DL 2206) ALKALINE PHOSPHATASE (test 110 U/L code = 2204) AST (test code = 2218) 18 U/L ALT (test code = 2219) 14 U/L COMPREHENSIVE METABOLIC [id number] 00:00:00 Test Item Value Reference Range Interpretation Comments GLUCOSE (test code = 2217) 100 MG/DL BUN (test code = 2208) 19 MG/DL CREATININE (test code = 2214) 0.84 MG/DL eGFR (2020 CKD-EPI) (test code 90 ML/MIN/1.73 = 23856) CALC BUN/CREAT (test code = 23 RATIO 2235) SODIUM (test code = 2231) 139 MEQ/L POTASSIUM (test code = 2228) 4.2 MEQ/L CHLORIDE (test code = 2215) 104 MEQ/L CARBON DIOXIDE (test code = 23 MEQ/L 2205) CALCIUM (test code = 2209) 9.3 MG/DL PROTEIN, TOTAL (test code = 7.2 G/DL 2228) ALBUMIN (test code = 2201) 4.3 G/DL CALC GLOBULIN (test code = 2.9 G/DL 2240) CALC A/G RATIO (test code = 1.5 RATIO 2233) BILIRUBIN, TOTAL (test code = 0.3 MG/DL 2206) ALKALINE PHOSPHATASE (test 110 U/L code = 2204) AST (test code = 2218) 18 U/L ALT (test code = 2219) 14 U/L [id number] 00:00:00 Test Item Value Reference Range Interpretation Comments TSH, THIRD GENERATION (test code 0.876 UIU/ML = 2821) [id number] 00:00:00 Test Item Value Reference Range Interpretation Comments TSH, THIRD GENERATION (test code 0.876 UIU/ML = 2821) [id number] 00:00:00 Test Item Value Reference Range Interpretation Comments TSH, THIRD GENERATION (test code 0.876 UIU/ML = 2821) COMPREHENSIVE METABOLIC [id number] 00:00:00 Test Item Value Reference Range Interpretation Comments GLUCOSE (test code = 2217) 100 MG/DL BUN (test code = 2208) 19 MG/DL CREATININE (test code = 2214) 0.84 MG/DL eGFR (2020 CKD-EPI) (test code 90 ML/MIN/1.73 = 53729) CALC BUN/CREAT (test code = 23 RATIO 2235) SODIUM (test code = 2231) 139 MEQ/L POTASSIUM (test code = 2228) 4.2 MEQ/L CHLORIDE (test code = 2215) 104 MEQ/L CARBON DIOXIDE (test code = 23 MEQ/L 2205) CALCIUM (test code = 2209) 9.3 MG/DL PROTEIN, TOTAL (test code = 7.2 G/DL 2228) ALBUMIN (test code = 2201) 4.3 G/DL CALC GLOBULIN (test code = 2.9 G/DL 2240) CALC A/G RATIO (test code = 1.5 RATIO 2233) BILIRUBIN, TOTAL (test code = 0.3 MG/DL 2207) ALKALINE PHOSPHATASE (test 110 U/L code = 2204) AST (test code = 2218) 18 U/L ALT (test code = 2219) 14 U/L COMPREHENSIVE METABOLIC [id number] 00:00:00 Test Item Value Reference Range Interpretation Comments GLUCOSE (test code = 2217) 100 MG/DL BUN (test code = 2208) 19 MG/DL CREATININE (test code = 2214) 0.84 MG/DL eGFR (2020 CKD-EPI) (test code 90 ML/MIN/1.73 = 90383) CALC BUN/CREAT (test code = 23 RATIO 2235) SODIUM (test code = 2231) 139 MEQ/L POTASSIUM (test code = 2228) 4.2 MEQ/L CHLORIDE (test code = 2215) 104 MEQ/L CARBON DIOXIDE (test code = 23 MEQ/L 2205) CALCIUM (test code = 2209) 9.3 MG/DL PROTEIN, TOTAL (test code = 7.2 G/DL 2228) ALBUMIN (test code = 2201) 4.3 G/DL CALC GLOBULIN (test code = 2.9 G/DL 2240) CALC A/G RATIO (test code = 1.5 RATIO 2234) BILIRUBIN, TOTAL (test code = 0.3 MG/DL 2206) ALKALINE PHOSPHATASE (test 110 U/L code = 2204) AST (test code = 2218) 18 U/L ALT (test code = 2219) 14 U/L [id number] 00:00:00 Test Item Value Reference Range Interpretation Comments TSH, THIRD GENERATION (test code 0.876 UIU/ML = 2821) [id number] 00:00:00 Test Item Value Reference Range Interpretation Comments TSH, THIRD GENERATION (test code 0.876 UIU/ML = 2821) [id number] 00:00:00 Test Item Value Reference Range Interpretation Comments TSH, THIRD GENERATION (test code 0.876 UIU/ML = 2821) COMPREHENSIVE METABOLIC [id number] 00:00:00 Test Item Value Reference Range Interpretation Comments GLUCOSE (test code = 2217) 100 MG/DL BUN (test code = 2208) 19 MG/DL CREATININE (test code = 2214) 0.84 MG/DL eGFR (2020 CKD-EPI) (test code 90 ML/MIN/1.73 = 01658) CALC BUN/CREAT (test code = 23 RATIO 2235) SODIUM (test code = 2231) 139 MEQ/L POTASSIUM (test code = 2228) 4.2 MEQ/L CHLORIDE (test code = 2215) 104 MEQ/L CARBON DIOXIDE (test code = 23 MEQ/L 2206) CALCIUM (test code = 2209) 9.3 MG/DL PROTEIN, TOTAL (test code = 7.2 G/DL 222) ALBUMIN (test code = 2201) 4.3 G/DL CALC GLOBULIN (test code = 2.9 G/DL 2240) CALC A/G RATIO (test code = 1.5 RATIO 2234) BILIRUBIN, TOTAL (test code = 0.3 MG/DL 2206) ALKALINE PHOSPHATASE (test 110 U/L code = 2204) AST (test code = 2218) 18 U/L ALT (test code = 2219) 14 U/L COMPREHENSIVE METABOLIC [id number] 00:00:00 Test Item Value Reference Range Interpretation Comments GLUCOSE (test code = 2217) 100 MG/DL BUN (test code = 2208) 19 MG/DL CREATININE (test code = 2214) 0.84 MG/DL eGFR (2020 CKD-EPI) (test code 90 ML/MIN/1.73 = 59450) CALC BUN/CREAT (test code = 23 RATIO 2235) SODIUM (test code = 2231) 139 MEQ/L POTASSIUM (test code = 2228) 4.2 MEQ/L CHLORIDE (test code = 2215) 104 MEQ/L CARBON DIOXIDE (test code = 23 MEQ/L 2206) CALCIUM (test code = 2209) 9.3 MG/DL PROTEIN, TOTAL (test code = 7.2 G/DL 2229) ALBUMIN (test code = 2201) 4.3 G/DL CALC GLOBULIN (test code = 2.9 G/DL 2240) CALC A/G RATIO (test code = 1.5 RATIO 2234) BILIRUBIN, TOTAL (test code = 0.3 MG/DL 2206) ALKALINE PHOSPHATASE (test 110 U/L code = 2204) AST (test code = 2218) 18 U/L ALT (test code = 2219) 14 U/L [id number] 00:00:00 Test Item Value Reference Range Interpretation Comments TSH, THIRD GENERATION (test code 0.876 UIU/ML = 2821) [id number] 00:00:00 Test Item Value Reference Range Interpretation Comments TSH, THIRD GENERATION (test code 0.876 UIU/ML = 2821) [id number] 00:00:00 Test Item Value Reference Range Interpretation Comments TSH, THIRD GENERATION (test code 0.876 UIU/ML = 2821) COMPREHENSIVE METABOLIC [id number] 00:00:00 Test Item Value Reference Range Interpretation Comments GLUCOSE (test code = 2217) 79 MG/DL BUN (test code = 2208) 13 MG/DL CREATININE (test code = 2214) 0.9 MG/DL eGFR AMER. (test code 101 ML/MIN/1.73 = 22215) eGFR NON- AMER. (test 84 ML/MIN/1.73 code = 83393) CALCULATED BUN/CREAT (test 14 RATIO code = 2235) SODIUM (test code = 2231) 134 MEQ/L POTASSIUM (test code = 2228) 4.6 MEQ/L CHLORIDE (test code = 2215) 103 MEQ/L CARBON DIOXIDE (test code = 20 MEQ/L 2205) CALCIUM (test code = 2209) 8.8 MG/DL PROTEIN, TOTAL (test code = 7.5 G/DL 2228) ALBUMIN (test code = 2201) 3.8 G/DL CALCULATED GLOBULIN (test 3.7 G/DL code = 2240) CALCULATED A/G RATIO (test 1.0 RATIO code = 2234) BILIRUBIN, TOTAL (test code = 0.6 MG/DL 2206) ALKALINE PHOSPHATASE (test 111 U/L code = 2204) SGOT (AST) (test code = 2218) 19 U/L SGPT (ALT) (test code = 2219) 12 U/L COMPREHENSIVE METABOLIC [id number] 00:00:00 Test Item Value Reference Range Interpretation Comments GLUCOSE (test code = 2217) 79 MG/DL BUN (test code = 2208) 13 MG/DL CREATININE (test code = 2214) 0.9 MG/DL eGFR AMER. (test code 101 ML/MIN/1.73 = 06035) eGFR NON- AMER. (test 84 ML/MIN/1.73 code = 20916) CALCULATED BUN/CREAT (test 14 RATIO code = 2235) SODIUM (test code = 2231) 134 MEQ/L POTASSIUM (test code = 2228) 4.6 MEQ/L CHLORIDE (test code = 2215) 103 MEQ/L CARBON DIOXIDE (test code = 20 MEQ/L 2205) CALCIUM (test code = 2209) 8.8 MG/DL PROTEIN, TOTAL (test code = 7.5 G/DL 2229) ALBUMIN (test code = 2201) 3.8 G/DL CALCULATED GLOBULIN (test 3.7 G/DL code = 2240) CALCULATED A/G RATIO (test 1.0 RATIO code = 2234) BILIRUBIN, TOTAL (test code = 0.6 MG/DL 2206) ALKALINE PHOSPHATASE (test 111 U/L code = 2204) SGOT (AST) (test code = 2218) 19 U/L SGPT (ALT) (test code = 2219) 12 U/L LIPID [id number] 00:00:00 Test Item Value Reference Range Interpretation Comments CHOLESTEROL (test code = 2210) 243 MG/DL TRIGLYCERIDES (test code = 2232) 123 MG/DL HDL CHOLESTEROL (test code = 2220) 44 MG/DL CALCULATED LDL CHOL (test code = 174 MG/DL 2237) RISK RATIO LDL/HDL (test code = 3.96 RATIO 2238) LIPID [id number] 00:00:00 Test Item Value Reference Range Interpretation Comments CHOLESTEROL (test code = 2210) 243 MG/DL TRIGLYCERIDES (test code = 2232) 123 MG/DL HDL CHOLESTEROL (test code = 2220) 44 MG/DL CALCULATED LDL CHOL (test code = 174 MG/DL 2237) RISK RATIO LDL/HDL (test code = 3.96 RATIO 2238) COMPREHENSIVE METABOLIC [id number] 00:00:00 Test Item Value Reference Range Interpretation Comments GLUCOSE (test code = 2217) 79 MG/DL BUN (test code = 2208) 13 MG/DL CREATININE (test code = 2214) 0.9 MG/DL eGFR AMER. (test code 101 ML/MIN/1.73 = 91332) eGFR NON- AMER. (test 84 ML/MIN/1.73 code = 68561) CALCULATED BUN/CREAT (test 14 RATIO code = 2235) SODIUM (test code = 2231) 134 MEQ/L POTASSIUM (test code = 2228) 4.6 MEQ/L CHLORIDE (test code = 2215) 103 MEQ/L CARBON DIOXIDE (test code = 20 MEQ/L 220) CALCIUM (test code = 2209) 8.8 MG/DL PROTEIN, TOTAL (test code = 7.5 G/DL 2228) ALBUMIN (test code = 2201) 3.8 G/DL CALCULATED GLOBULIN (test 3.7 G/DL code = 2240) CALCULATED A/G RATIO (test 1.0 RATIO code = 2234) BILIRUBIN, TOTAL (test code = 0.6 MG/DL 2206) ALKALINE PHOSPHATASE (test 111 U/L code = 2204) SGOT (AST) (test code = 2218) 19 U/L SGPT (ALT) (test code = 2219) 12 U/L COMPREHENSIVE METABOLIC [id number] 00:00:00 Test Item Value Reference Range Interpretation Comments GLUCOSE (test code = 2217) 79 MG/DL BUN (test code = 2208) 13 MG/DL CREATININE (test code = 2214) 0.9 MG/DL eGFR AMER. (test code 101 ML/MIN/1.73 = 37940) eGFR NON- AMER. (test 84 ML/MIN/1.73 code = 34538) CALCULATED BUN/CREAT (test 14 RATIO code = 2235) SODIUM (test code = 2231) 134 MEQ/L POTASSIUM (test code = 2228) 4.6 MEQ/L CHLORIDE (test code = 2215) 103 MEQ/L CARBON DIOXIDE (test code = 20 MEQ/L 2205) CALCIUM (test code = 2209) 8.8 MG/DL PROTEIN, TOTAL (test code = 7.5 G/DL 2228) ALBUMIN (test code = 2201) 3.8 G/DL CALCULATED GLOBULIN (test 3.7 G/DL code = 2240) CALCULATED A/G RATIO (test 1.0 RATIO code = 2234) BILIRUBIN, TOTAL (test code = 0.6 MG/DL 2206) ALKALINE PHOSPHATASE (test 111 U/L code = 2204) SGOT (AST) (test code = 2218) 19 U/L SGPT (ALT) (test code = 2219) 12 U/L LIPID [id number] 00:00:00 Test Item Value Reference Range Interpretation Comments CHOLESTEROL (test code = 2210) 243 MG/DL TRIGLYCERIDES (test code = 2232) 123 MG/DL HDL CHOLESTEROL (test code = 2220) 44 MG/DL CALCULATED LDL CHOL (test code = 174 MG/DL 2237) RISK RATIO LDL/HDL (test code = 3.96 RATIO 2238) LIPID [id number] 00:00:00 Test Item Value Reference Range Interpretation Comments CHOLESTEROL (test code = 2210) 243 MG/DL TRIGLYCERIDES (test code = 2232) 123 MG/DL HDL CHOLESTEROL (test code = 2220) 44 MG/DL CALCULATED LDL CHOL (test code = 174 MG/DL 2237) RISK RATIO LDL/HDL (test code = 3.96 RATIO 2238) COMPREHENSIVE METABOLIC [id number] 00:00:00 Test Item Value Reference Range Interpretation Comments GLUCOSE (test code = 2217) 79 MG/DL BUN (test code = 2208) 13 MG/DL CREATININE (test code = 2214) 0.9 MG/DL eGFR AMER. (test code 101 ML/MIN/1.73 = 07893) eGFR NON- AMER. (test 84 ML/MIN/1.73 code = 48345) CALCULATED BUN/CREAT (test 14 RATIO code = 2235) SODIUM (test code = 2231) 134 MEQ/L POTASSIUM (test code = 2228) 4.6 MEQ/L CHLORIDE (test code = 2215) 103 MEQ/L CARBON DIOXIDE (test code = 20 MEQ/L 2205) CALCIUM (test code = 2209) 8.8 MG/DL PROTEIN, TOTAL (test code = 7.5 G/DL 2228) ALBUMIN (test code = 2201) 3.8 G/DL CALCULATED GLOBULIN (test 3.7 G/DL code = 2240) CALCULATED A/G RATIO (test 1.0 RATIO code = 2234) BILIRUBIN, TOTAL (test code = 0.6 MG/DL 2206) ALKALINE PHOSPHATASE (test 111 U/L code = 2204) SGOT (AST) (test code = 2218) 19 U/L SGPT (ALT) (test code = 2219) 12 U/L COMPREHENSIVE METABOLIC [id number] 00:00:00 Test Item Value Reference Range Interpretation Comments GLUCOSE (test code = 2217) 79 MG/DL BUN (test code = 2208) 13 MG/DL CREATININE (test code = 2214) 0.9 MG/DL eGFR AMER. (test code 101 ML/MIN/1.73 = 45627) eGFR NON- AMER. (test 84 ML/MIN/1.73 code = 97616) CALCULATED BUN/CREAT (test 14 RATIO code = 2235) SODIUM (test code = 2231) 134 MEQ/L POTASSIUM (test code = 2228) 4.6 MEQ/L CHLORIDE (test code = 2215) 103 MEQ/L CARBON DIOXIDE (test code = 20 MEQ/L 220) CALCIUM (test code = 2209) 8.8 MG/DL PROTEIN, TOTAL (test code = 7.5 G/DL 2228) ALBUMIN (test code = 2201) 3.8 G/DL CALCULATED GLOBULIN (test 3.7 G/DL code = 2240) CALCULATED A/G RATIO (test 1.0 RATIO code = 2234) BILIRUBIN, TOTAL (test code = 0.6 MG/DL 2206) ALKALINE PHOSPHATASE (test 111 U/L code = 2204) SGOT (AST) (test code = 2218) 19 U/L SGPT (ALT) (test code = 2219) 12 U/L LIPID [id number] 00:00:00 Test Item Value Reference Range Interpretation Comments CHOLESTEROL (test code = 2210) 243 MG/DL TRIGLYCERIDES (test code = 2232) 123 MG/DL HDL CHOLESTEROL (test code = 2220) 44 MG/DL CALCULATED LDL CHOL (test code = 174 MG/DL 2237) RISK RATIO LDL/HDL (test code = 3.96 RATIO 2238) LIPID [id number] 00:00:00 Test Item Value Reference Range Interpretation Comments CHOLESTEROL (test code = 2210) 243 MG/DL TRIGLYCERIDES (test code = 2232) 123 MG/DL HDL CHOLESTEROL (test code = 2220) 44 MG/DL CALCULATED LDL CHOL (test code = 174 MG/DL 2237) RISK RATIO LDL/HDL (test code = 3.96 RATIO 2238) COMPREHENSIVE METABOLIC [id number] 00:00:00 Test Item Value Reference Range Interpretation Comments GLUCOSE (test code = 2217) 79 MG/DL BUN (test code = 2208) 13 MG/DL CREATININE (test code = 2214) 0.9 MG/DL eGFR AMER. (test code 101 ML/MIN/1.73 = 18861) eGFR NON- AMER. (test 84 ML/MIN/1.73 code = 13286) CALCULATED BUN/CREAT (test 14 RATIO code = 2235) SODIUM (test code = 2231) 134 MEQ/L POTASSIUM (test code = 2228) 4.6 MEQ/L CHLORIDE (test code = 2215) 103 MEQ/L CARBON DIOXIDE (test code = 20 MEQ/L 2206) CALCIUM (test code = 2209) 8.8 MG/DL PROTEIN, TOTAL (test code = 7.5 G/DL 2228) ALBUMIN (test code = 2201) 3.8 G/DL CALCULATED GLOBULIN (test 3.7 G/DL code = 2240) CALCULATED A/G RATIO (test 1.0 RATIO code = 2234) BILIRUBIN, TOTAL (test code = 0.6 MG/DL 2206) ALKALINE PHOSPHATASE (test 111 U/L code = 2204) SGOT (AST) (test code = 2218) 19 U/L SGPT (ALT) (test code = 2219) 12 U/L COMPREHENSIVE METABOLIC [id number] 00:00:00 Test Item Value Reference Range Interpretation Comments GLUCOSE (test code = 2217) 79 MG/DL BUN (test code = 2208) 13 MG/DL CREATININE (test code = 2214) 0.9 MG/DL eGFR AMER. (test code 101 ML/MIN/1.73 = 35960) eGFR NON- AMER. (test 84 ML/MIN/1.73 code = 14363) CALCULATED BUN/CREAT (test 14 RATIO code = 2235) SODIUM (test code = 2231) 134 MEQ/L POTASSIUM (test code = 2228) 4.6 MEQ/L CHLORIDE (test code = 2215) 103 MEQ/L CARBON DIOXIDE (test code = 20 MEQ/L 2206) CALCIUM (test code = 2209) 8.8 MG/DL PROTEIN, TOTAL (test code = 7.5 G/DL 2228) ALBUMIN (test code = 2201) 3.8 G/DL CALCULATED GLOBULIN (test 3.7 G/DL code = 2240) CALCULATED A/G RATIO (test 1.0 RATIO code = 2234) BILIRUBIN, TOTAL (test code = 0.6 MG/DL 2206) ALKALINE PHOSPHATASE (test 111 U/L code = 2204) SGOT (AST) (test code = 2218) 19 U/L SGPT (ALT) (test code = 2219) 12 U/L LIPID [id number] 00:00:00 Test Item Value Reference Range Interpretation Comments CHOLESTEROL (test code = 2210) 243 MG/DL TRIGLYCERIDES (test code = 2232) 123 MG/DL HDL CHOLESTEROL (test code = 2220) 44 MG/DL CALCULATED LDL CHOL (test code = 174 MG/DL 2237) RISK RATIO LDL/HDL (test code = 3.96 RATIO 2238) LIPID [id number] 00:00:00 Test Item Value Reference Range Interpretation Comments CHOLESTEROL (test code = 2210) 243 MG/DL TRIGLYCERIDES (test code = 2232) 123 MG/DL HDL CHOLESTEROL (test code = 2220) 44 MG/DL CALCULATED LDL CHOL (test code = 174 MG/DL 2237) RISK RATIO LDL/HDL (test code = 3.96 RATIO 2238) COMPREHENSIVE METABOLIC [id number] 00:00:00 Test Item Value Reference Range Interpretation Comments GLUCOSE (test code = 2217) 79 MG/DL BUN (test code = 2208) 13 MG/DL CREATININE (test code = 2214) 0.9 MG/DL eGFR AMER. (test code 101 ML/MIN/1.73 = 26417) eGFR NON- AMER. (test 84 ML/MIN/1.73 code = 03050) CALCULATED BUN/CREAT (test 14 RATIO code = 2235) SODIUM (test code = 2231) 134 MEQ/L POTASSIUM (test code = 2228) 4.6 MEQ/L CHLORIDE (test code = 2215) 103 MEQ/L CARBON DIOXIDE (test code = 20 MEQ/L 2205) CALCIUM (test code = 2209) 8.8 MG/DL PROTEIN, TOTAL (test code = 7.5 G/DL 2228) ALBUMIN (test code = 2201) 3.8 G/DL CALCULATED GLOBULIN (test 3.7 G/DL code = 2240) CALCULATED A/G RATIO (test 1.0 RATIO code = 2234) BILIRUBIN, TOTAL (test code = 0.6 MG/DL 2206) ALKALINE PHOSPHATASE (test 111 U/L code = 2204) SGOT (AST) (test code = 2218) 19 U/L SGPT (ALT) (test code = 2219) 12 U/L COMPREHENSIVE METABOLIC [id number] 00:00:00 Test Item Value Reference Range Interpretation Comments GLUCOSE (test code = 2217) 79 MG/DL BUN (test code = 2208) 13 MG/DL CREATININE (test code = 2214) 0.9 MG/DL eGFR AMER. (test code 101 ML/MIN/1.73 = 10240) eGFR NON- AMER. (test 84 ML/MIN/1.73 code = 56521) CALCULATED BUN/CREAT (test 14 RATIO code = 2235) SODIUM (test code = 2231) 134 MEQ/L POTASSIUM (test code = 2228) 4.6 MEQ/L CHLORIDE (test code = 2215) 103 MEQ/L CARBON DIOXIDE (test code = 20 MEQ/L 2205) CALCIUM (test code = 2209) 8.8 MG/DL PROTEIN, TOTAL (test code = 7.5 G/DL 2228) ALBUMIN (test code = 2201) 3.8 G/DL CALCULATED GLOBULIN (test 3.7 G/DL code = 2240) CALCULATED A/G RATIO (test 1.0 RATIO code = 2234) BILIRUBIN, TOTAL (test code = 0.6 MG/DL 2206) ALKALINE PHOSPHATASE (test 111 U/L code = 2204) SGOT (AST) (test code = 2218) 19 U/L SGPT (ALT) (test code = 2219) 12 U/L LIPID [id number] 00:00:00 Test Item Value Reference Range Interpretation Comments CHOLESTEROL (test code = 2210) 243 MG/DL TRIGLYCERIDES (test code = 2232) 123 MG/DL HDL CHOLESTEROL (test code = 2220) 44 MG/DL CALCULATED LDL CHOL (test code = 174 MG/DL 2237) RISK RATIO LDL/HDL (test code = 3.96 RATIO 2238) LIPID [id number] 00:00:00 Test Item Value Reference Range Interpretation Comments CHOLESTEROL (test code = 2210) 243 MG/DL TRIGLYCERIDES (test code = 2232) 123 MG/DL HDL CHOLESTEROL (test code = 2220) 44 MG/DL CALCULATED LDL CHOL (test code = 174 MG/DL 2237) RISK RATIO LDL/HDL (test code = 3.96 RATIO 2238) COMPREHENSIVE METABOLIC [id number] 00:00:00 Test Item Value Reference Range Interpretation Comments GLUCOSE (test code = 2217) 79 MG/DL BUN (test code = 2208) 13 MG/DL CREATININE (test code = 2214) 0.9 MG/DL eGFR AMER. (test code 101 ML/MIN/1.73 = 72608) eGFR NON- AMER. (test 84 ML/MIN/1.73 code = 27145) CALCULATED BUN/CREAT (test 14 RATIO code = 2235) SODIUM (test code = 2231) 134 MEQ/L POTASSIUM (test code = 2228) 4.6 MEQ/L CHLORIDE (test code = 2215) 103 MEQ/L CARBON DIOXIDE (test code = 20 MEQ/L 2206) CALCIUM (test code = 2209) 8.8 MG/DL PROTEIN, TOTAL (test code = 7.5 G/DL 2228) ALBUMIN (test code = 2201) 3.8 G/DL CALCULATED GLOBULIN (test 3.7 G/DL code = 2240) CALCULATED A/G RATIO (test 1.0 RATIO code = 2234) BILIRUBIN, TOTAL (test code = 0.6 MG/DL 2206) ALKALINE PHOSPHATASE (test 111 U/L code = 2204) SGOT (AST) (test code = 2218) 19 U/L SGPT (ALT) (test code = 2219) 12 U/L COMPREHENSIVE METABOLIC [id number] 00:00:00 Test Item Value Reference Range Interpretation Comments GLUCOSE (test code = 2217) 79 MG/DL BUN (test code = 2208) 13 MG/DL CREATININE (test code = 2214) 0.9 MG/DL eGFR AMER. (test code 101 ML/MIN/1.73 = 36362) eGFR NON- AMER. (test 84 ML/MIN/1.73 code = 22678) CALCULATED BUN/CREAT (test 14 RATIO code = 2235) SODIUM (test code = 2231) 134 MEQ/L POTASSIUM (test code = 2228) 4.6 MEQ/L CHLORIDE (test code = 2215) 103 MEQ/L CARBON DIOXIDE (test code = 20 MEQ/L 2206) CALCIUM (test code = 2209) 8.8 MG/DL PROTEIN, TOTAL (test code = 7.5 G/DL 2228) ALBUMIN (test code = 2201) 3.8 G/DL CALCULATED GLOBULIN (test 3.7 G/DL code = 2240) CALCULATED A/G RATIO (test 1.0 RATIO code = 2234) BILIRUBIN, TOTAL (test code = 0.6 MG/DL 2206) ALKALINE PHOSPHATASE (test 111 U/L code = 2204) SGOT (AST) (test code = 2218) 19 U/L SGPT (ALT) (test code = 2219) 12 U/L LIPID [id number] 00:00:00 Test Item Value Reference Range Interpretation Comments CHOLESTEROL (test code = 2210) 243 MG/DL TRIGLYCERIDES (test code = 2232) 123 MG/DL HDL CHOLESTEROL (test code = 2220) 44 MG/DL CALCULATED LDL CHOL (test code = 174 MG/DL 2237) RISK RATIO LDL/HDL (test code = 3.96 RATIO 2238) LIPID [id number] 00:00:00 Test Item Value Reference Range Interpretation Comments CHOLESTEROL (test code = 2210) 243 MG/DL TRIGLYCERIDES (test code = 2232) 123 MG/DL HDL CHOLESTEROL (test code = 2220) 44 MG/DL CALCULATED LDL CHOL (test code = 174 MG/DL 2237) RISK RATIO LDL/HDL (test code = 3.96 RATIO 2238) COMPREHENSIVE METABOLIC [id number] 00:00:00 Test Item Value Reference Range Interpretation Comments GLUCOSE (test code = 2217) 79 MG/DL BUN (test code = 2208) 13 MG/DL CREATININE (test code = 2214) 0.9 MG/DL eGFR AMER. (test code 101 ML/MIN/1.73 = 83176) eGFR NON- AMER. (test 84 ML/MIN/1.73 code = 96995) CALCULATED BUN/CREAT (test 14 RATIO code = 2235) SODIUM (test code = 2231) 134 MEQ/L POTASSIUM (test code = 2228) 4.6 MEQ/L CHLORIDE (test code = 2215) 103 MEQ/L CARBON DIOXIDE (test code = 20 MEQ/L 2205) CALCIUM (test code = 2209) 8.8 MG/DL PROTEIN, TOTAL (test code = 7.5 G/DL 2228) ALBUMIN (test code = 2201) 3.8 G/DL CALCULATED GLOBULIN (test 3.7 G/DL code = 2240) CALCULATED A/G RATIO (test 1.0 RATIO code = 2234) BILIRUBIN, TOTAL (test code = 0.6 MG/DL 2206) ALKALINE PHOSPHATASE (test 111 U/L code = 2204) SGOT (AST) (test code = 2218) 19 U/L SGPT (ALT) (test code = 2219) 12 U/L COMPREHENSIVE METABOLIC [id number] 00:00:00 Test Item Value Reference Range Interpretation Comments GLUCOSE (test code = 2217) 79 MG/DL BUN (test code = 2208) 13 MG/DL CREATININE (test code = 2214) 0.9 MG/DL eGFR AMER. (test code 101 ML/MIN/1.73 = 28193) eGFR NON- AMER. (test 84 ML/MIN/1.73 code = 66548) CALCULATED BUN/CREAT (test 14 RATIO code = 2235) SODIUM (test code = 2231) 134 MEQ/L POTASSIUM (test code = 2228) 4.6 MEQ/L CHLORIDE (test code = 2215) 103 MEQ/L CARBON DIOXIDE (test code = 20 MEQ/L 2205) CALCIUM (test code = 2209) 8.8 MG/DL PROTEIN, TOTAL (test code = 7.5 G/DL 2228) ALBUMIN (test code = 2201) 3.8 G/DL CALCULATED GLOBULIN (test 3.7 G/DL code = 2240) CALCULATED A/G RATIO (test 1.0 RATIO code = 2234) BILIRUBIN, TOTAL (test code = 0.6 MG/DL 7) ALKALINE PHOSPHATASE (test 111 U/L code = 2204) SGOT (AST) (test code = 2218) 19 U/L SGPT (ALT) (test code = 2219) 12 U/L LIPID [id number] 00:00:00 Test Item Value Reference Range Interpretation Comments CHOLESTEROL (test code = 2210) 243 MG/DL TRIGLYCERIDES (test code = 2232) 123 MG/DL HDL CHOLESTEROL (test code = 2220) 44 MG/DL CALCULATED LDL CHOL (test code = 174 MG/DL 2236) RISK RATIO LDL/HDL (test code = 3.96 RATIO 2238) LIPID [id number] 00:00:00 Test Item Value Reference Range Interpretation Comments CHOLESTEROL (test code = 2210) 243 MG/DL TRIGLYCERIDES (test code = 2232) 123 MG/DL HDL CHOLESTEROL (test code = 2220) 44 MG/DL CALCULATED LDL CHOL (test code = 174 MG/DL 2236) RISK RATIO LDL/HDL (test code = 3.96 RATIO 2238) COMPREHENSIVE METABOLIC [id number] 00:00:00 Test Item Value Reference Range Interpretation Comments GLUCOSE (test code = 2217) 79 MG/DL BUN (test code = 2208) 13 MG/DL CREATININE (test code = 2214) 0.9 MG/DL eGFR AMER. (test code 101 ML/MIN/1.73 = 93775) eGFR NON- AMER. (test 84 ML/MIN/1.73 code = 64435) CALCULATED BUN/CREAT (test 14 RATIO code = 2235) SODIUM (test code = 2231) 134 MEQ/L POTASSIUM (test code = 2228) 4.6 MEQ/L CHLORIDE (test code = 2215) 103 MEQ/L CARBON DIOXIDE (test code = 20 MEQ/L 2205) CALCIUM (test code = 2209) 8.8 MG/DL PROTEIN, TOTAL (test code = 7.5 G/DL 2228) ALBUMIN (test code = 2201) 3.8 G/DL CALCULATED GLOBULIN (test 3.7 G/DL code = 2240) CALCULATED A/G RATIO (test 1.0 RATIO code = 2234) BILIRUBIN, TOTAL (test code = 0.6 MG/DL 2206) ALKALINE PHOSPHATASE (test 111 U/L code = 2204) SGOT (AST) (test code = 2218) 19 U/L SGPT (ALT) (test code = 2219) 12 U/L COMPREHENSIVE METABOLIC [id number] 00:00:00 Test Item Value Reference Range Interpretation Comments GLUCOSE (test code = 2217) 79 MG/DL BUN (test code = 2208) 13 MG/DL CREATININE (test code = 2214) 0.9 MG/DL eGFR AMER. (test code 101 ML/MIN/1.73 = 77652) eGFR NON- AMER. (test 84 ML/MIN/1.73 code = 98216) CALCULATED BUN/CREAT (test 14 RATIO code = 2235) SODIUM (test code = 2231) 134 MEQ/L POTASSIUM (test code = 2228) 4.6 MEQ/L CHLORIDE (test code = 2215) 103 MEQ/L CARBON DIOXIDE (test code = 20 MEQ/L 2205) CALCIUM (test code = 2209) 8.8 MG/DL PROTEIN, TOTAL (test code = 7.5 G/DL 2228) ALBUMIN (test code = 2201) 3.8 G/DL CALCULATED GLOBULIN (test 3.7 G/DL code = 2240) CALCULATED A/G RATIO (test 1.0 RATIO code = 2234) BILIRUBIN, TOTAL (test code = 0.6 MG/DL 2206) ALKALINE PHOSPHATASE (test 111 U/L code = 2204) SGOT (AST) (test code = 2218) 19 U/L SGPT (ALT) (test code = 2219) 12 U/L LIPID [id number] 00:00:00 Test Item Value Reference Range Interpretation Comments CHOLESTEROL (test code = 2210) 243 MG/DL TRIGLYCERIDES (test code = 2232) 123 MG/DL HDL CHOLESTEROL (test code = 2220) 44 MG/DL CALCULATED LDL CHOL (test code = 174 MG/DL 2237) RISK RATIO LDL/HDL (test code = 3.96 RATIO 2238) LIPID [id number] 00:00:00 Test Item Value Reference Range Interpretation Comments CHOLESTEROL (test code = 2210) 243 MG/DL TRIGLYCERIDES (test code = 2232) 123 MG/DL HDL CHOLESTEROL (test code = 2220) 44 MG/DL CALCULATED LDL CHOL (test code = 174 MG/DL 2237) RISK RATIO LDL/HDL (test code = 3.96 RATIO 2238) COMPREHENSIVE METABOLIC [id number] 00:00:00 Test Item Value Reference Range Interpretation Comments GLUCOSE (test code = 2217) 79 MG/DL BUN (test code = 2208) 13 MG/DL CREATININE (test code = 2214) 0.9 MG/DL eGFR AMER. (test code 101 ML/MIN/1.73 = 66185) eGFR NON- AMER. (test 84 ML/MIN/1.73 code = 33769) CALCULATED BUN/CREAT (test 14 RATIO code = 2235) SODIUM (test code = 2231) 134 MEQ/L POTASSIUM (test code = 2228) 4.6 MEQ/L CHLORIDE (test code = 2215) 103 MEQ/L CARBON DIOXIDE (test code = 20 MEQ/L 2205) CALCIUM (test code = 2209) 8.8 MG/DL PROTEIN, TOTAL (test code = 7.5 G/DL 2228) ALBUMIN (test code = 2201) 3.8 G/DL CALCULATED GLOBULIN (test 3.7 G/DL code = 2240) CALCULATED A/G RATIO (test 1.0 RATIO code = 2234) BILIRUBIN, TOTAL (test code = 0.6 MG/DL 2206) ALKALINE PHOSPHATASE (test 111 U/L code = 2204) SGOT (AST) (test code = 2218) 19 U/L SGPT (ALT) (test code = 2219) 12 U/L COMPREHENSIVE METABOLIC [id number] 00:00:00 Test Item Value Reference Range Interpretation Comments GLUCOSE (test code = 2217) 79 MG/DL BUN (test code = 2208) 13 MG/DL CREATININE (test code = 2214) 0.9 MG/DL eGFR AMER. (test code 101 ML/MIN/1.73 = 58170) eGFR NON- AMER. (test 84 ML/MIN/1.73 code = 07714) CALCULATED BUN/CREAT (test 14 RATIO code = 2235) SODIUM (test code = 2231) 134 MEQ/L POTASSIUM (test code = 2228) 4.6 MEQ/L CHLORIDE (test code = 2215) 103 MEQ/L CARBON DIOXIDE (test code = 20 MEQ/L 2205) CALCIUM (test code = 2209) 8.8 MG/DL PROTEIN, TOTAL (test code = 7.5 G/DL 2228) ALBUMIN (test code = 2201) 3.8 G/DL CALCULATED GLOBULIN (test 3.7 G/DL code = 2240) CALCULATED A/G RATIO (test 1.0 RATIO code = 2234) BILIRUBIN, TOTAL (test code = 0.6 MG/DL 2206) ALKALINE PHOSPHATASE (test 111 U/L code = 2204) SGOT (AST) (test code = 2218) 19 U/L SGPT (ALT) (test code = 2219) 12 U/L LIPID [id number] 00:00:00 Test Item Value Reference Range Interpretation Comments CHOLESTEROL (test code = 2210) 243 MG/DL TRIGLYCERIDES (test code = 2232) 123 MG/DL HDL CHOLESTEROL (test code = 2220) 44 MG/DL CALCULATED LDL CHOL (test code = 174 MG/DL 2236) RISK RATIO LDL/HDL (test code = 3.96 RATIO 2238) COMPREHENSIVE METABOLIC [id number] 00:00:00 Test Item Value Reference Range Interpretation Comments GLUCOSE (test code = 2217) 79 MG/DL BUN (test code = 2208) 13 MG/DL CREATININE (test code = 2214) 0.9 MG/DL eGFR AMER. (test code 101 ML/MIN/1.73 = 63410) eGFR NON- AMER. (test 84 ML/MIN/1.73 code = 12206) CALCULATED BUN/CREAT (test 14 RATIO code = 2235) SODIUM (test code = 2231) 134 MEQ/L POTASSIUM (test code = 2228) 4.6 MEQ/L CHLORIDE (test code = 2215) 103 MEQ/L CARBON DIOXIDE (test code = 20 MEQ/L 2205) CALCIUM (test code = 2209) 8.8 MG/DL PROTEIN, TOTAL (test code = 7.5 G/DL 2228) ALBUMIN (test code = 2201) 3.8 G/DL CALCULATED GLOBULIN (test 3.7 G/DL code = 2240) CALCULATED A/G RATIO (test 1.0 RATIO code = 2234) BILIRUBIN, TOTAL (test code = 0.6 MG/DL 2206) ALKALINE PHOSPHATASE (test 111 U/L code = 2204) SGOT (AST) (test code = 2218) 19 U/L SGPT (ALT) (test code = 2219) 12 U/L LIPID [id number] 00:00:00 Test Item Value Reference Range Interpretation Comments CHOLESTEROL (test code = 2210) 243 MG/DL TRIGLYCERIDES (test code = 2232) 123 MG/DL HDL CHOLESTEROL (test code = 2220) 44 MG/DL CALCULATED LDL CHOL (test code = 174 MG/DL 2237) RISK RATIO LDL/HDL (test code = 3.96 RATIO 2238) LIPID [id number] 00:00:00 Test Item Value Reference Range Interpretation Comments CHOLESTEROL (test code = 2210) 243 MG/DL TRIGLYCERIDES (test code = 2232) 123 MG/DL HDL CHOLESTEROL (test code = 2220) 44 MG/DL CALCULATED LDL CHOL (test code = 174 MG/DL 2237) RISK RATIO LDL/HDL (test code = 3.96 RATIO 2238) COMPREHENSIVE METABOLIC [id number] 00:00:00 Test Item Value Reference Range Interpretation Comments GLUCOSE (test code = 2217) 79 MG/DL BUN (test code = 2208) 13 MG/DL CREATININE (test code = 2214) 0.9 MG/DL eGFR AMER. (test code 101 ML/MIN/1.73 = 92519) eGFR NON- AMER. (test 84 ML/MIN/1.73 code = 33801) CALCULATED BUN/CREAT (test 14 RATIO code = 2235) SODIUM (test code = 2231) 134 MEQ/L POTASSIUM (test code = 2228) 4.6 MEQ/L CHLORIDE (test code = 2215) 103 MEQ/L CARBON DIOXIDE (test code = 20 MEQ/L 2206) CALCIUM (test code = 2209) 8.8 MG/DL PROTEIN, TOTAL (test code = 7.5 G/DL 2228) ALBUMIN (test code = 2201) 3.8 G/DL CALCULATED GLOBULIN (test 3.7 G/DL code = 2240) CALCULATED A/G RATIO (test 1.0 RATIO code = 2234) BILIRUBIN, TOTAL (test code = 0.6 MG/DL 2206) ALKALINE PHOSPHATASE (test 111 U/L code = 2204) SGOT (AST) (test code = 2218) 19 U/L SGPT (ALT) (test code = 2219) 12 U/L COMPREHENSIVE METABOLIC [id number] 00:00:00 Test Item Value Reference Range Interpretation Comments GLUCOSE (test code = 2217) 79 MG/DL BUN (test code = 2208) 13 MG/DL CREATININE (test code = 2214) 0.9 MG/DL eGFR AMER. (test code 101 ML/MIN/1.73 = 79448) eGFR NON- AMER. (test 84 ML/MIN/1.73 code = 49772) CALCULATED BUN/CREAT (test 14 RATIO code = 2235) SODIUM (test code = 2231) 134 MEQ/L POTASSIUM (test code = 2228) 4.6 MEQ/L CHLORIDE (test code = 2215) 103 MEQ/L CARBON DIOXIDE (test code = 20 MEQ/L 2206) CALCIUM (test code = 2209) 8.8 MG/DL PROTEIN, TOTAL (test code = 7.5 G/DL 2228) ALBUMIN (test code = 2201) 3.8 G/DL CALCULATED GLOBULIN (test 3.7 G/DL code = 2240) CALCULATED A/G RATIO (test 1.0 RATIO code = 2234) BILIRUBIN, TOTAL (test code = 0.6 MG/DL 2206) ALKALINE PHOSPHATASE (test 111 U/L code = 2204) SGOT (AST) (test code = 2218) 19 U/L SGPT (ALT) (test code = 2219) 12 U/L LIPID [id number] 00:00:00 Test Item Value Reference Range Interpretation Comments CHOLESTEROL (test code = 2210) 243 MG/DL TRIGLYCERIDES (test code = 2232) 123 MG/DL HDL CHOLESTEROL (test code = 2220) 44 MG/DL CALCULATED LDL CHOL (test code = 174 MG/DL 2237) RISK RATIO LDL/HDL (test code = 3.96 RATIO 2238) LIPID [id number] 00:00:00 Test Item Value Reference Range Interpretation Comments CHOLESTEROL (test code = 2210) 243 MG/DL TRIGLYCERIDES (test code = 2232) 123 MG/DL HDL CHOLESTEROL (test code = 2220) 44 MG/DL CALCULATED LDL CHOL (test code = 174 MG/DL 2237) RISK RATIO LDL/HDL (test code = 3.96 RATIO 2238) COMPREHENSIVE METABOLIC [id number] 00:00:00 Test Item Value Reference Range Interpretation Comments GLUCOSE (test code = 2217) 79 MG/DL BUN (test code = 2208) 13 MG/DL CREATININE (test code = 2214) 0.9 MG/DL eGFR AMER. (test code 101 ML/MIN/1.73 = 66657) eGFR NON- AMER. (test 84 ML/MIN/1.73 code = 97303) CALCULATED BUN/CREAT (test 14 RATIO code = 2235) SODIUM (test code = 2231) 134 MEQ/L POTASSIUM (test code = 2228) 4.6 MEQ/L CHLORIDE (test code = 2215) 103 MEQ/L CARBON DIOXIDE (test code = 20 MEQ/L 6) CALCIUM (test code = 2209) 8.8 MG/DL PROTEIN, TOTAL (test code = 7.5 G/DL 2228) ALBUMIN (test code = 2201) 3.8 G/DL CALCULATED GLOBULIN (test 3.7 G/DL code = 2240) CALCULATED A/G RATIO (test 1.0 RATIO code = 2234) BILIRUBIN, TOTAL (test code = 0.6 MG/DL 2206) ALKALINE PHOSPHATASE (test 111 U/L code = 2204) SGOT (AST) (test code = 2218) 19 U/L SGPT (ALT) (test code = 2219) 12 U/L COMPREHENSIVE METABOLIC [id number] 00:00:00 Test Item Value Reference Range Interpretation Comments GLUCOSE (test code = 2217) 79 MG/DL BUN (test code = 2208) 13 MG/DL CREATININE (test code = 2214) 0.9 MG/DL eGFR AMER. (test code 101 ML/MIN/1.73 = 47934) eGFR NON- AMER. (test 84 ML/MIN/1.73 code = 83356) CALCULATED BUN/CREAT (test 14 RATIO code = 2235) SODIUM (test code = 2231) 134 MEQ/L POTASSIUM (test code = 2228) 4.6 MEQ/L CHLORIDE (test code = 2215) 103 MEQ/L CARBON DIOXIDE (test code = 20 MEQ/L 2205) CALCIUM (test code = 2209) 8.8 MG/DL PROTEIN, TOTAL (test code = 7.5 G/DL 2228) ALBUMIN (test code = 2201) 3.8 G/DL CALCULATED GLOBULIN (test 3.7 G/DL code = 2240) CALCULATED A/G RATIO (test 1.0 RATIO code = 2234) BILIRUBIN, TOTAL (test code = 0.6 MG/DL 7) ALKALINE PHOSPHATASE (test 111 U/L code = 2204) SGOT (AST) (test code = 2218) 19 U/L SGPT (ALT) (test code = 2219) 12 U/L LIPID [id number] 00:00:00 Test Item Value Reference Range Interpretation Comments CHOLESTEROL (test code = 2210) 243 MG/DL TRIGLYCERIDES (test code = 2232) 123 MG/DL HDL CHOLESTEROL (test code = 2220) 44 MG/DL CALCULATED LDL CHOL (test code = 174 MG/DL 2236) RISK RATIO LDL/HDL (test code = 3.96 RATIO 2238) LIPID [id number] 00:00:00 Test Item Value Reference Range Interpretation Comments CHOLESTEROL (test code = 2210) 243 MG/DL TRIGLYCERIDES (test code = 2232) 123 MG/DL HDL CHOLESTEROL (test code = 2220) 44 MG/DL CALCULATED LDL CHOL (test code = 174 MG/DL 2237) RISK RATIO LDL/HDL (test code = 3.96 RATIO 2238) CBC W/AUTO [id number] 00:00:00 Test Item Value Reference Range Interpretation Comments WBC (test code = 1001) 10.7 K/UL RBC (test code = 1002) 4.72 M/UL HEMOGLOBIN (test code = 1003) 14.5 G/DL HEMATOCRIT (test code = 1004) 43.0 % MCV (test code = 1005) 91.1 fL MCH (test code = 1006) 30.7 PG MCHC (test code = 1007) 33.7 G/DL RDW (test code = 1038) 15.4 % NEUTROPHILS (test code = 1008) 64 % LYMPHOCYTES (test code = 1010) 22 % MONOCYTES (test code = 1011) 10 % EOSINOPHILS (test code = 1012) 4 % BASOPHILS (test code = 1013) % PLATELET COUNT (test code = 1015) 326 K/UL CBC W/AUTO [id number] 00:00:00 Test Item Value Reference Range Interpretation Comments WBC (test code = 1001) 10.7 K/UL RBC (test code = 1002) 4.72 M/UL HEMOGLOBIN (test code = 1003) 14.5 G/DL HEMATOCRIT (test code = 1004) 43.0 % MCV (test code = 1005) 91.1 fL MCH (test code = 1006) 30.7 PG MCHC (test code = 1007) 33.7 G/DL RDW (test code = 1038) 15.4 % NEUTROPHILS (test code = 1008) 64 % LYMPHOCYTES (test code = 1010) 22 % MONOCYTES (test code = 1011) 10 % EOSINOPHILS (test code = 1012) 4 % BASOPHILS (test code = 1013) % PLATELET COUNT (test code = 1015) 326 K/UL CBC W/AUTO [id number] 00:00:00 Test Item Value Reference Range Interpretation Comments WBC (test code = 1001) 10.7 K/UL RBC (test code = 1002) 4.72 M/UL HEMOGLOBIN (test code = 1003) 14.5 G/DL HEMATOCRIT (test code = 1004) 43.0 % MCV (test code = 1005) 91.1 fL MCH (test code = 1006) 30.7 PG MCHC (test code = 1007) 33.7 G/DL RDW (test code = 1038) 15.4 % NEUTROPHILS (test code = 1008) 64 % LYMPHOCYTES (test code = 1010) 22 % MONOCYTES (test code = 1011) 10 % EOSINOPHILS (test code = 1012) 4 % BASOPHILS (test code = 1013) % PLATELET COUNT (test code = 1015) 326 K/UL CBC W/AUTO [id number] 00:00:00 Test Item Value Reference Range Interpretation Comments WBC (test code = 1001) 10.7 K/UL RBC (test code = 1002) 4.72 M/UL HEMOGLOBIN (test code = 1003) 14.5 G/DL HEMATOCRIT (test code = 1004) 43.0 % MCV (test code = 1005) 91.1 fL MCH (test code = 1006) 30.7 PG MCHC (test code = 1007) 33.7 G/DL RDW (test code = 1038) 15.4 % NEUTROPHILS (test code = 1008) 64 % LYMPHOCYTES (test code = 1010) 22 % MONOCYTES (test code = 1011) 10 % EOSINOPHILS (test code = 1012) 4 % BASOPHILS (test code = 1013) % PLATELET COUNT (test code = 1015) 326 K/UL CBC W/AUTO [id number] 00:00:00 Test Item Value Reference Range Interpretation Comments WBC (test code = 1001) 10.7 K/UL RBC (test code = 1002) 4.72 M/UL HEMOGLOBIN (test code = 1003) 14.5 G/DL HEMATOCRIT (test code = 1004) 43.0 % MCV (test code = 1005) 91.1 fL MCH (test code = 1006) 30.7 PG MCHC (test code = 1007) 33.7 G/DL RDW (test code = 1038) 15.4 % NEUTROPHILS (test code = 1008) 64 % LYMPHOCYTES (test code = 1010) 22 % MONOCYTES (test code = 1011) 10 % EOSINOPHILS (test code = 1012) 4 % BASOPHILS (test code = 1013) % PLATELET COUNT (test code = 1015) 326 K/UL CBC W/AUTO [id number] 00:00:00 Test Item Value Reference Range Interpretation Comments WBC (test code = 1001) 10.7 K/UL RBC (test code = 1002) 4.72 M/UL HEMOGLOBIN (test code = 1003) 14.5 G/DL HEMATOCRIT (test code = 1004) 43.0 % MCV (test code = 1005) 91.1 fL MCH (test code = 1006) 30.7 PG MCHC (test code = 1007) 33.7 G/DL RDW (test code = 1038) 15.4 % NEUTROPHILS (test code = 1008) 64 % LYMPHOCYTES (test code = 1010) 22 % MONOCYTES (test code = 1011) 10 % EOSINOPHILS (test code = 1012) 4 % BASOPHILS (test code = 1013) % PLATELET COUNT (test code = 1015) 326 K/UL CBC W/AUTO [id number] 00:00:00 Test Item Value Reference Range Interpretation Comments WBC (test code = 1001) 10.7 K/UL RBC (test code = 1002) 4.72 M/UL HEMOGLOBIN (test code = 1003) 14.5 G/DL HEMATOCRIT (test code = 1004) 43.0 % MCV (test code = 1005) 91.1 fL MCH (test code = 1006) 30.7 PG MCHC (test code = 1007) 33.7 G/DL RDW (test code = 1038) 15.4 % NEUTROPHILS (test code = 1008) 64 % LYMPHOCYTES (test code = 1010) 22 % MONOCYTES (test code = 1011) 10 % EOSINOPHILS (test code = 1012) 4 % BASOPHILS (test code = 1013) % PLATELET COUNT (test code = 1015) 326 K/UL CBC W/AUTO [id number] 00:00:00 Test Item Value Reference Range Interpretation Comments WBC (test code = 1001) 10.7 K/UL RBC (test code = 1002) 4.72 M/UL HEMOGLOBIN (test code = 1003) 14.5 G/DL HEMATOCRIT (test code = 1004) 43.0 % MCV (test code = 1005) 91.1 fL MCH (test code = 1006) 30.7 PG MCHC (test code = 1007) 33.7 G/DL RDW (test code = 1038) 15.4 % NEUTROPHILS (test code = 1008) 64 % LYMPHOCYTES (test code = 1010) 22 % MONOCYTES (test code = 1011) 10 % EOSINOPHILS (test code = 1012) 4 % BASOPHILS (test code = 1013) % PLATELET COUNT (test code = 1015) 326 K/UL CBC W/AUTO [id number] 00:00:00 Test Item Value Reference Range Interpretation Comments WBC (test code = 1001) 10.7 K/UL RBC (test code = 1002) 4.72 M/UL HEMOGLOBIN (test code = 1003) 14.5 G/DL HEMATOCRIT (test code = 1004) 43.0 % MCV (test code = 1005) 91.1 fL MCH (test code = 1006) 30.7 PG MCHC (test code = 1007) 33.7 G/DL RDW (test code = 1038) 15.4 % NEUTROPHILS (test code = 1008) 64 % LYMPHOCYTES (test code = 1010) 22 % MONOCYTES (test code = 1011) 10 % EOSINOPHILS (test code = 1012) 4 % BASOPHILS (test code = 1013) % PLATELET COUNT (test code = 1015) 326 K/UL CBC W/AUTO [id number] 00:00:00 Test Item Value Reference Range Interpretation Comments WBC (test code = 1001) 10.7 K/UL RBC (test code = 1002) 4.72 M/UL HEMOGLOBIN (test code = 1003) 14.5 G/DL HEMATOCRIT (test code = 1004) 43.0 % MCV (test code = 1005) 91.1 fL MCH (test code = 1006) 30.7 PG MCHC (test code = 1007) 33.7 G/DL RDW (test code = 1038) 15.4 % NEUTROPHILS (test code = 1008) 64 % LYMPHOCYTES (test code = 1010) 22 % MONOCYTES (test code = 1011) 10 % EOSINOPHILS (test code = 1012) 4 % BASOPHILS (test code = 1013) % PLATELET COUNT (test code = 1015) 326 K/UL CBC W/AUTO [id number] 00:00:00 Test Item Value Reference Range Interpretation Comments WBC (test code = 1001) 10.7 K/UL RBC (test code = 1002) 4.72 M/UL HEMOGLOBIN (test code = 1003) 14.5 G/DL HEMATOCRIT (test code = 1004) 43.0 % MCV (test code = 1005) 91.1 fL MCH (test code = 1006) 30.7 PG MCHC (test code = 1007) 33.7 G/DL RDW (test code = 1038) 15.4 % NEUTROPHILS (test code = 1008) 64 % LYMPHOCYTES (test code = 1010) 22 % MONOCYTES (test code = 1011) 10 % EOSINOPHILS (test code = 1012) 4 % BASOPHILS (test code = 1013) % PLATELET COUNT (test code = 1015) 326 K/UL CBC W/AUTO [id number] 00:00:00 Test Item Value Reference Range Interpretation Comments WBC (test code = 1001) 10.7 K/UL RBC (test code = 1002) 4.72 M/UL HEMOGLOBIN (test code = 1003) 14.5 G/DL HEMATOCRIT (test code = 1004) 43.0 % MCV (test code = 1005) 91.1 fL MCH (test code = 1006) 30.7 PG MCHC (test code = 1007) 33.7 G/DL RDW (test code = 1038) 15.4 % NEUTROPHILS (test code = 1008) 64 % LYMPHOCYTES (test code = 1010) 22 % MONOCYTES (test code = 1011) 10 % EOSINOPHILS (test code = 1012) 4 % BASOPHILS (test code = 1013) % PLATELET COUNT (test code = 1015) 326 K/UL CBC W/AUTO [id number] 00:00:00 Test Item Value Reference Range Interpretation Comments WBC (test code = 1001) 10.7 K/UL RBC (test code = 1002) 4.72 M/UL HEMOGLOBIN (test code = 1003) 14.5 G/DL HEMATOCRIT (test code = 1004) 43.0 % MCV (test code = 1005) 91.1 fL MCH (test code = 1006) 30.7 PG MCHC (test code = 1007) 33.7 G/DL RDW (test code = 1038) 15.4 % NEUTROPHILS (test code = 1008) 64 % LYMPHOCYTES (test code = 1010) 22 % MONOCYTES (test code = 1011) 10 % EOSINOPHILS (test code = 1012) 4 % BASOPHILS (test code = 1013) % PLATELET COUNT (test code = 1015) 326 K/UL CBC W/AUTO [id number] 00:00:00 Test Item Value Reference Range Interpretation Comments WBC (test code = 1001) 10.7 K/UL RBC (test code = 1002) 4.72 M/UL HEMOGLOBIN (test code = 1003) 14.5 G/DL HEMATOCRIT (test code = 1004) 43.0 % MCV (test code = 1005) 91.1 fL MCH (test code = 1006) 30.7 PG MCHC (test code = 1007) 33.7 G/DL RDW (test code = 1038) 15.4 % NEUTROPHILS (test code = 1008) 64 % LYMPHOCYTES (test code = 1010) 22 % MONOCYTES (test code = 1011) 10 % EOSINOPHILS (test code = 1012) 4 % BASOPHILS (test code = 1013) % PLATELET COUNT (test code = 1015) 326 K/UL CBC W/AUTO [id number] 00:00:00 Test Item Value Reference Range Interpretation Comments WBC (test code = 1001) 10.7 K/UL RBC (test code = 1002) 4.72 M/UL HEMOGLOBIN (test code = 1003) 14.5 G/DL HEMATOCRIT (test code = 1004) 43.0 % MCV (test code = 1005) 91.1 fL MCH (test code = 1006) 30.7 PG MCHC (test code = 1007) 33.7 G/DL RDW (test code = 1038) 15.4 % NEUTROPHILS (test code = 1008) 64 % LYMPHOCYTES (test code = 1010) 22 % MONOCYTES (test code = 1011) 10 % EOSINOPHILS (test code = 1012) 4 % BASOPHILS (test code = 1013) % PLATELET COUNT (test code = 1015) 326 K/UL CBC W/AUTO [id number] 00:00:00 Test Item Value Reference Range Interpretation Comments WBC (test code = 1001) 10.7 K/UL RBC (test code = 1002) 4.72 M/UL HEMOGLOBIN (test code = 1003) 14.5 G/DL HEMATOCRIT (test code = 1004) 43.0 % MCV (test code = 1005) 91.1 fL MCH (test code = 1006) 30.7 PG MCHC (test code = 1007) 33.7 G/DL RDW (test code = 1038) 15.4 % NEUTROPHILS (test code = 1008) 64 % LYMPHOCYTES (test code = 1010) 22 % MONOCYTES (test code = 1011) 10 % EOSINOPHILS (test code = 1012) 4 % BASOPHILS (test code = 1013) % PLATELET COUNT (test code = 1015) 326 K/UL CBC W/AUTO [id number] 00:00:00 Test Item Value Reference Range Interpretation Comments WBC (test code = 1001) 10.7 K/UL RBC (test code = 1002) 4.72 M/UL HEMOGLOBIN (test code = 1003) 14.5 G/DL HEMATOCRIT (test code = 1004) 43.0 % MCV (test code = 1005) 91.1 fL MCH (test code = 1006) 30.7 PG MCHC (test code = 1007) 33.7 G/DL RDW (test code = 1038) 15.4 % NEUTROPHILS (test code = 1008) 64 % LYMPHOCYTES (test code = 1010) 22 % MONOCYTES (test code = 1011) 10 % EOSINOPHILS (test code = 1012) 4 % BASOPHILS (test code = 1013) % PLATELET COUNT (test code = 1015) 326 K/UL CBC W/AUTO [id number] 00:00:00 Test Item Value Reference Range Interpretation Comments WBC (test code = 1001) 10.7 K/UL RBC (test code = 1002) 4.72 M/UL HEMOGLOBIN (test code = 1003) 14.5 G/DL HEMATOCRIT (test code = 1004) 43.0 % MCV (test code = 1005) 91.1 fL MCH (test code = 1006) 30.7 PG MCHC (test code = 1007) 33.7 G/DL RDW (test code = 1038) 15.4 % NEUTROPHILS (test code = 1008) 64 % LYMPHOCYTES (test code = 1010) 22 % MONOCYTES (test code = 1011) 10 % EOSINOPHILS (test code = 1012) 4 % BASOPHILS (test code = 1013) % PLATELET COUNT (test code = 1015) 326 K/UL CBC W/AUTO [id number] 00:00:00 Test Item Value Reference Range Interpretation Comments WBC (test code = 1001) 10.7 K/UL RBC (test code = 1002) 4.72 M/UL HEMOGLOBIN (test code = 1003) 14.5 G/DL HEMATOCRIT (test code = 1004) 43.0 % MCV (test code = 1005) 91.1 fL MCH (test code = 1006) 30.7 PG MCHC (test code = 1007) 33.7 G/DL RDW (test code = 1038) 15.4 % NEUTROPHILS (test code = 1008) 64 % LYMPHOCYTES (test code = 1010) 22 % MONOCYTES (test code = 1011) 10 % EOSINOPHILS (test code = 1012) 4 % BASOPHILS (test code = 1013) % PLATELET COUNT (test code = 1015) 326 K/UL CBC W/AUTO [id number] 00:00:00 Test Item Value Reference Range Interpretation Comments WBC (test code = 1001) 10.7 K/UL RBC (test code = 1002) 4.72 M/UL HEMOGLOBIN (test code = 1003) 14.5 G/DL HEMATOCRIT (test code = 1004) 43.0 % MCV (test code = 1005) 91.1 fL MCH (test code = 1006) 30.7 PG MCHC (test code = 1007) 33.7 G/DL RDW (test code = 1038) 15.4 % NEUTROPHILS (test code = 1008) 64 % LYMPHOCYTES (test code = 1010) 22 % MONOCYTES (test code = 1011) 10 % EOSINOPHILS (test code = 1012) 4 % BASOPHILS (test code = 1013) % PLATELET COUNT (test code = 1015) 326 K/UL CBC W/AUTO [id number] 00:00:00 Test Item Value Reference Range Interpretation Comments WBC (test code = 1001) 10.7 K/UL RBC (test code = 1002) 4.72 M/UL HEMOGLOBIN (test code = 1003) 14.5 G/DL HEMATOCRIT (test code = 1004) 43.0 % MCV (test code = 1005) 91.1 fL MCH (test code = 1006) 30.7 PG MCHC (test code = 1007) 33.7 G/DL RDW (test code = 1038) 15.4 % NEUTROPHILS (test code = 1008) 64 % LYMPHOCYTES (test code = 1010) 22 % MONOCYTES (test code = 1011) 10 % EOSINOPHILS (test code = 1012) 4 % BASOPHILS (test code = 1013) % PLATELET COUNT (test code = 1015) 326 K/UL CBC W/AUTO [id number] 00:00:00 Test Item Value Reference Range Interpretation Comments WBC (test code = 1001) 10.7 K/UL RBC (test code = 1002) 4.72 M/UL HEMOGLOBIN (test code = 1003) 14.5 G/DL HEMATOCRIT (test code = 1004) 43.0 % MCV (test code = 1005) 91.1 fL MCH (test code = 1006) 30.7 PG MCHC (test code = 1007) 33.7 G/DL RDW (test code = 1038) 15.4 % NEUTROPHILS (test code = 1008) 64 % LYMPHOCYTES (test code = 1010) 22 % MONOCYTES (test code = 1011) 10 % EOSINOPHILS (test code = 1012) 4 % BASOPHILS (test code = 1013) % PLATELET COUNT (test code = 1015) 326 K/UL CBC W/AUTO [id number] 00:00:00 Test Item Value Reference Range Interpretation Comments WBC (test code = 1001) 10.7 K/UL RBC (test code = 1002) 4.72 M/UL HEMOGLOBIN (test code = 1003) 14.5 G/DL HEMATOCRIT (test code = 1004) 43.0 % MCV (test code = 1005) 91.1 fL MCH (test code = 1006) 30.7 PG MCHC (test code = 1007) 33.7 G/DL RDW (test code = 1038) 15.4 % NEUTROPHILS (test code = 1008) 64 % LYMPHOCYTES (test code = 1010) 22 % MONOCYTES (test code = 1011) 10 % EOSINOPHILS (test code = 1012) 4 % BASOPHILS (test code = 1013) % PLATELET COUNT (test code = 1015) 326 K/UL CBC W/AUTO [id number] 00:00:00 Test Item Value Reference Range Interpretation Comments WBC (test code = 1001) 10.7 K/UL RBC (test code = 1002) 4.72 M/UL HEMOGLOBIN (test code = 1003) 14.5 G/DL HEMATOCRIT (test code = 1004) 43.0 % MCV (test code = 1005) 91.1 fL MCH (test code = 1006) 30.7 PG MCHC (test code = 1007) 33.7 G/DL RDW (test code = 1038) 15.4 % NEUTROPHILS (test code = 1008) 64 % LYMPHOCYTES (test code = 1010) 22 % MONOCYTES (test code = 1011) 10 % EOSINOPHILS (test code = 1012) 4 % BASOPHILS (test code = 1013) % PLATELET COUNT (test code = 1015) 326 K/UL CBC W/AUTO [id number] 00:00:00 Test Item Value Reference Range Interpretation Comments WBC (test code = 1001) 10.7 K/UL RBC (test code = 1002) 4.72 M/UL HEMOGLOBIN (test code = 1003) 14.5 G/DL HEMATOCRIT (test code = 1004) 43.0 % MCV (test code = 1005) 91.1 fL MCH (test code = 1006) 30.7 PG MCHC (test code = 1007) 33.7 G/DL RDW (test code = 1038) 15.4 % NEUTROPHILS (test code = 1008) 64 % LYMPHOCYTES (test code = 1010) 22 % MONOCYTES (test code = 1011) 10 % EOSINOPHILS (test code = 1012) 4 % BASOPHILS (test code = 1013) % PLATELET COUNT (test code = 1015) 326 K/UL CBC W/AUTO [id number] 00:00:00 Test Item Value Reference Range Interpretation Comments WBC (test code = 1001) 10.7 K/UL RBC (test code = 1002) 4.72 M/UL HEMOGLOBIN (test code = 1003) 14.5 G/DL HEMATOCRIT (test code = 1004) 43.0 % MCV (test code = 1005) 91.1 fL MCH (test code = 1006) 30.7 PG MCHC (test code = 1007) 33.7 G/DL RDW (test code = 1038) 15.4 % NEUTROPHILS (test code = 1008) 64 % LYMPHOCYTES (test code = 1010) 22 % MONOCYTES (test code = 1011) 10 % EOSINOPHILS (test code = 1012) 4 % BASOPHILS (test code = 1013) % PLATELET COUNT (test code = 1015) 326 K/UL CBC W/AUTO [id number] 00:00:00 Test Item Value Reference Range Interpretation Comments WBC (test code = 1001) 10.7 K/UL RBC (test code = 1002) 4.72 M/UL HEMOGLOBIN (test code = 1003) 14.5 G/DL HEMATOCRIT (test code = 1004) 43.0 % MCV (test code = 1005) 91.1 fL MCH (test code = 1006) 30.7 PG MCHC (test code = 1007) 33.7 G/DL RDW (test code = 1038) 15.4 % NEUTROPHILS (test code = 1008) 64 % LYMPHOCYTES (test code = 1010) 22 % MONOCYTES (test code = 1011) 10 % EOSINOPHILS (test code = 1012) 4 % BASOPHILS (test code = 1013) % PLATELET COUNT (test code = 1015) 326 K/UL CBC W/AUTO [id number] 00:00:00 Test Item Value Reference Range Interpretation Comments WBC (test code = 1001) 10.7 K/UL RBC (test code = 1002) 4.72 M/UL HEMOGLOBIN (test code = 1003) 14.5 G/DL HEMATOCRIT (test code = 1004) 43.0 % MCV (test code = 1005) 91.1 fL MCH (test code = 1006) 30.7 PG MCHC (test code = 1007) 33.7 G/DL RDW (test code = 1038) 15.4 % NEUTROPHILS (test code = 1008) 64 % LYMPHOCYTES (test code = 1010) 22 % MONOCYTES (test code = 1011) 10 % EOSINOPHILS (test code = 1012) 4 % BASOPHILS (test code = 1013) % PLATELET COUNT (test code = 1015) 326 K/UL CBC W/AUTO [id number] 00:00:00 Test Item Value Reference Range Interpretation Comments WBC (test code = 1001) 10.7 K/UL RBC (test code = 1002) 4.72 M/UL HEMOGLOBIN (test code = 1003) 14.5 G/DL HEMATOCRIT (test code = 1004) 43.0 % MCV (test code = 1005) 91.1 fL MCH (test code = 1006) 30.7 PG MCHC (test code = 1007) 33.7 G/DL RDW (test code = 1038) 15.4 % NEUTROPHILS (test code = 1008) 64 % LYMPHOCYTES (test code = 1010) 22 % MONOCYTES (test code = 1011) 10 % EOSINOPHILS (test code = 1012) 4 % BASOPHILS (test code = 1013) % PLATELET COUNT (test code = 1015) 326 K/UL CBC W/AUTO [id number] 00:00:00 Test Item Value Reference Range Interpretation Comments WBC (test code = 1001) 10.7 K/UL RBC (test code = 1002) 4.72 M/UL HEMOGLOBIN (test code = 1003) 14.5 G/DL HEMATOCRIT (test code = 1004) 43.0 % MCV (test code = 1005) 91.1 fL MCH (test code = 1006) 30.7 PG MCHC (test code = 1007) 33.7 G/DL RDW (test code = 1038) 15.4 % NEUTROPHILS (test code = 1008) 64 % LYMPHOCYTES (test code = 1010) 22 % MONOCYTES (test code = 1011) 10 % EOSINOPHILS (test code = 1012) 4 % BASOPHILS (test code = 1013) % PLATELET COUNT (test code = 1015) 326 K/UL CBC W/AUTO [id number] 00:00:00 Test Item Value Reference Range Interpretation Comments WBC (test code = 1001) 10.7 K/UL RBC (test code = 1002) 4.72 M/UL HEMOGLOBIN (test code = 1003) 14.5 G/DL HEMATOCRIT (test code = 1004) 43.0 % MCV (test code = 1005) 91.1 fL MCH (test code = 1006) 30.7 PG MCHC (test code = 1007) 33.7 G/DL RDW (test code = 1038) 15.4 % NEUTROPHILS (test code = 1008) 64 % LYMPHOCYTES (test code = 1010) 22 % MONOCYTES (test code = 1011) 10 % EOSINOPHILS (test code = 1012) 4 % BASOPHILS (test code = 1013) % PLATELET COUNT (test code = 1015) 326 K/UL CBC W/AUTO [id number] 00:00:00 Test Item Value Reference Range Interpretation Comments WBC (test code = 1001) 10.7 K/UL RBC (test code = 1002) 4.72 M/UL HEMOGLOBIN (test code = 1003) 14.5 G/DL HEMATOCRIT (test code = 1004) 43.0 % MCV (test code = 1005) 91.1 fL MCH (test code = 1006) 30.7 PG MCHC (test code = 1007) 33.7 G/DL RDW (test code = 1038) 15.4 % NEUTROPHILS (test code = 1008) 64 % LYMPHOCYTES (test code = 1010) 22 % MONOCYTES (test code = 1011) 10 % EOSINOPHILS (test code = 1012) 4 % BASOPHILS (test code = 1013) % PLATELET COUNT (test code = 1015) 326 K/UL CBC W/AUTO [id number] 00:00:00 Test Item Value Reference Range Interpretation Comments WBC (test code = 1001) 10.7 K/UL RBC (test code = 1002) 4.72 M/UL HEMOGLOBIN (test code = 1003) 14.5 G/DL HEMATOCRIT (test code = 1004) 43.0 % MCV (test code = 1005) 91.1 fL MCH (test code = 1006) 30.7 PG MCHC (test code = 1007) 33.7 G/DL RDW (test code = 1038) 15.4 % NEUTROPHILS (test code = 1008) 64 % LYMPHOCYTES (test code = 1010) 22 % MONOCYTES (test code = 1011) 10 % EOSINOPHILS (test code = 1012) 4 % BASOPHILS (test code = 1013) % PLATELET COUNT (test code = 1015) 326 K/UL CBC W/AUTO [id number] 00:00:00 Test Item Value Reference Range Interpretation Comments WBC (test code = 1001) 10.7 K/UL RBC (test code = 1002) 4.72 M/UL HEMOGLOBIN (test code = 1003) 14.5 G/DL HEMATOCRIT (test code = 1004) 43.0 % MCV (test code = 1005) 91.1 fL MCH (test code = 1006) 30.7 PG MCHC (test code = 1007) 33.7 G/DL RDW (test code = 1038) 15.4 % NEUTROPHILS (test code = 1008) 64 % LYMPHOCYTES (test code = 1010) 22 % MONOCYTES (test code = 1011) 10 % EOSINOPHILS (test code = 1012) 4 % BASOPHILS (test code = 1013) % PLATELET COUNT (test code = 1015) 326 K/UL CBC W/AUTO [id number] 00:00:00 Test Item Value Reference Range Interpretation Comments WBC (test code = 1001) 10.7 K/UL RBC (test code = 1002) 4.72 M/UL HEMOGLOBIN (test code = 1003) 14.5 G/DL HEMATOCRIT (test code = 1004) 43.0 % MCV (test code = 1005) 91.1 fL MCH (test code = 1006) 30.7 PG MCHC (test code = 1007) 33.7 G/DL RDW (test code = 1038) 15.4 % NEUTROPHILS (test code = 1008) 64 % LYMPHOCYTES (test code = 1010) 22 % MONOCYTES (test code = 1011) 10 % EOSINOPHILS (test code = 1012) 4 % BASOPHILS (test code = 1013) % PLATELET COUNT (test code = 1015) 326 K/UL
--- NOTE | 2023-03-26 10:30 | ER ---
Nurse's Notes [facility] Name: Gonzalo Galvez Age: 77 yrs Sex: Male : 1945 Arrival Date: 03/26/2023 Time: 09:18 Bed 3 Private MD: Diagnosis: Cardiac arrest, cause unspecified Presentation: 03/26 09:20 Chief complaint: EMS states: "Toned out for difficulty breathing. When arriving on 9 scene, pt was slumped over in chair and pulseless. Unknown down time. CPR started.". Coronavirus screen: At this time, the client does not indicate any symptoms associated with coronavirus-19. Ebola Screen: Unable to complete the Ebola screening because: Patient is unresponsive. Initial Sepsis Screen: Does the patient meet any 2 criteria? No. Patient's initial sepsis screen is negative. Does the patient have a suspected source of infection? No. Patient's initial sepsis screen is negative. Risk Assessment: Do you want to hurt yourself or someone else? Unable to obtain. Onset of symptoms was March 26, 2023. Care prior to arrival: Oral intubation, 7.5 mm. 22 cm at teeth CPR via thumper Medication(s) given: 3 rounds of EPI given IV initiated. 20 GA, in the left antecubital area, IO left leg. 09:20 Acuity: TYSON 1 9 09:20 Method Of Arrival: EMS: [facility] 9 Triage Assessment: 09:25 General: Appears Behavior is unresponsive. Pain: Unable to use pain scale. Patient is mb9 unresponsive. Neuro: Level of Consciousness is unresponsive, Oriented to none. Cardiovascular: Rhythm is asystole. Respiratory: Airway via oral intubation. Historical: - Allergies: :25 Unable to obtain; mb9 - PMHx: :25 COPD; pulmonary fibrosis; pulmonary HTN; Home O2 via 4 L NC; changed to 2L (May 092020); - PSHx: : R shoulder SX; mb9 - Immunization history:: Adult Immunizations unknown. - Social history:: Smoking status: unknown. Assessment: 09:18 CPR assessment: unresponsive, intubated, pulses absent w/ compressions. 9 09:19 Reassessment: Time of called by Dr. Woods. 9 09:30 Reassessment: Spoke with Evert from [facility]. Pt candidate for tissue donation. Case mb9 # [id number]. 09:45 Reassessment: [employer] speaking to family. mb9 10:08 Reassessment: and son at bedside. mb9 11:18 Reassessment: Pt left with home. mb9 Vital Signs: 09:35 Pulse 0; Resp 0; Temp 99(R); mb9 ED Course: 09:20 Patient arrived in ED. mb9 09:22 Isael Woods MD is Attending Physician. sp3 09:24 Triage completed. mb9 09:25 Arm band placed on. mb9 09:27 Bed in low position. mb9 09:30 Ashwini Mcelroy, LYNN is Primary Nurse. mb9 09:[address] [place] pd to have club lounge attendant Rape come to er. bd 09:36 No provider procedures requiring assistance completed. mb9 10:07 IV discontinued. mb9 10:28 Isael Woods MD is Pronouncing Provider. jl7 Administered Medications: No medications were administered Medication: 09:27 VIS not applicable for this client. mb9 Outcome: 11:34 Patient left the ED. mb9 Signatures: Lacey Rodriguez Jahala RN RN jl7 Isael Woods MD MD spAshwini Gunn, LYNN RN mb9
--- NOTE | 2023-03-26 10:30 | EDPHYS ---
Physician Documentation [facility] Name: Gonzalo Galvez Age: 77 yrs Sex: Male : 1945 Arrival Date: 03/26/2023 Time: 09:18 Bed 3 Private MD: ED Physician Isael Woods HPI: 03/26 09:28 This 77 yrs old Male presents to ER via EMS with complaints of CPR. sp3 09:28 77-year-old male with history of COPD, pulmonary fibrosis, pulmonary hypertension on sp3 home O2 presents via EMS for CPR in progress. Postmortem discussion with family demonstrated that given his history that he has had progressive shortness of breath over the last 24 hours and feeling ill. He then became unresponsive and EMS was activated. EMS was able to successfully intubate patient and give several rounds of medications while doing CPR in route to the hospital. He was asystole for them the entire time. Patient was please see MDM discussion for further patient course.. Historical: - Allergies: :25 Unable to obtain; mb9 - PMHx: 09:25 COPD; pulmonary fibrosis; pulmonary HTN; Home O2 via 4 L NC; changed to 2L (May 09, mb9 2020); - PSHx: :25 R shoulder SX; mb9 - Immunization history:: Adult Immunizations unknown. - Social history:: Smoking status: unknown. ROS: 09:30 Unable to obtain ROS due to obtunded state. sp3 Exam: 09:30 Constitutional: The patient appears Patient in full arrest with automatic CPR machine sp3 in progress. Pupils were fixed and 4 mm and unresponsive. Patient was complete unresponsive. Upon immediate ultrasound probe exam, there was zero cardiac activity using the phased array probe. Vital Signs: 09:35 Pulse 0; Resp 0; Temp 99(R); mb9 MDM: 09:22 Patient medically screened. sp3 09:31 Data reviewed: vital signs, nurses notes, EMS record. ED course: Patient was sp3 transported to a stretcher and placed on a monitor where he was in asystolic rhythm. ET tube demonstrated equal chest rise and fall with each bag valve breath administration. There is no spontaneous breathing. Pupils are equal round and fixed without responsiveness. Cardiac probe phased-array ultrasound demonstrates no cardiac activity. CPR was called and patient was pronounced at 09:19 AM central standard time. Family arrived shortly after and was placed in treatment room and I had entire discussion of patient course with them. We are available to assist him in any other services they may need and answer any questions.. Administered Medications: No medications were administered Disposition: :32 . sp3 Disposition Summary: 03/26/23 10:29 Patient Pronouncing Physician: Isael Woods jl7 Time of : 09:19 03/26/2023 jl7 Diagnosis - Cardiac arrest, cause unspecified 7 Signatures: Felice Parham RN RN jl7 Isael Woods MD MD sp3 Ashwini Mcelroy RN RN mb9 Corrections: (The following items were deleted from the chart) 10: 09:32 sp3 sp3 10: 09:31 ED course: Patient was transported to a stretcher and placed on a monitor where sp3 he was in asystolic rhythm. ET tube demonstrated equal chest rise and fall with each bag valve breath administration. There is no spontaneous breathing. Pupils are equal round and fixed without responsiveness. Cardiac probe phased-array ultrasound demonstrates no cardiac activity. CPR was called and patient was pronounced at 12:19 PM central standard time. Family arrived shortly after and was placed in treatment room and I had entire discussion of patient course with them. We are available to assist him in any other services they may need and answer any questions.. sp3
[2023-03-26 11:39] VITALS: TEMP 99
== END 2023-03-26 11:34 ==
LOC: ER 09:18
DX: I46.9 Cardiac arrest, cause unspecified (principal); I10 Essential (primary) hypertension; J44.9 Chronic obstructive pulmonary disease, unspecified; Z99.81 Dependence on supplemental oxygen
CPT/HCPCS: 92950; 99291